=== PATIENT | female | born 1985 | race Caucasian/White ===

== ENCOUNTER 2017-11-08 11:43 | Observation (INO) | payer OTHER, SELFPAY ==
[2017-11-08 11:44] VITALS: BP 157/93; PULSE 92; RESP 16; TEMP 36.6; O2SAT 98; BMI 24.7
[2017-11-08 12:18] LABS: Absolute Lymphocyte Count 1.38 X10^3/ul (0.83-4.51); Absolute Neutrophil Count 19.8 X10^3/uL (2.0-7.7); Basophil# 0.04 X10^3/uL; Basophil% 0.2 % (0-1); Eosinophil# 0.18 X10^3/uL; Eosinophils% 0.8 % (0-5); Hematocrit 40.8 % (37-47); Hemoglobin 14.5 g/dl (12.0-15.0); Lymphocyte # 1.38 X10^3/ul (4.0); Lymphocyte % 6.2 % (19-41); Mean Corp Hgb Conc 35.5 g/gl (32-36); Mean Corpuscular Hgb 32.3 pg (27.0-32.0); Mean Corpuscular Volume 90.9 fL (81-99); Mean Platelet Vol. 10.1 fl (6.2-12.0); Monocyte% 3.6 % (0-10); Neutrophil # 19.82 X10^3/uL (2.7-7.7); Neutrophil % 88.8 % (47-70); Platelet Count 301 K/mm3 (150-450); RBC Distribution Width CV 12.4 % (11.6-14.6); RBC Distribution Width SD 40.5 fl (35.1-43.9); Red Blood Count 4.49 M/mm3 (4.2-5.4); White Blood Count 22.3 K/mm3 (4.4-11.0)
[2017-11-08 12:19] LABS: POSITIVE COUNT NO; POSITIVE DIFFERENTIAL NO; POSITIVE MORPHOLOGY NO
--- NOTE | 2017-11-08 12:20 | CT_ITS ---
STUDY: CT ABDOMEN AND PELVIS WITHOUT CONTRAST REASON FOR EXAM: Female, 32 years old. Right-sided abdominal pain, history of Crohn's RADIATION DOSAGE (If Supplied By Facility): CTDIvol = ( 6.78 ) mGy, DLP = ( 315.13 ) mGycm TECHNIQUE: Transaxial images were obtained from the dome of the diaphragm to the symphysis pubis without oral contrast, and without intravenous contrast. Sagittal and coronal images were reconstructed. Individualized dose optimization techniques were used for this CT. COMPARISON: None. FINDINGS: The study is technically limited, being performed without oral and intravenous contrast. Evaluation of hollow viscus is limited. The visualized lung bases are unremarkable. The visualized portions of the heart are within normal limits. Normal liver. Normal gallbladder and extrahepatic biliary system. Normal spleen. Normal pancreas. Normal bilateral adrenal glands. Normal right kidney. Normal left kidney. Normal visualized stomach. Normal small intestine. There is diffuse wall thickening of the ascending colon. There is non-visualization of the appendix. Normal abdominal aorta. Normal inferior vena cava. Normal retroperitoneum. Urinary bladder is empty. There is a small fat-containing umbilical hernia. Normal osseous structures. CT/Abdomen/Pelvis without Cont IMPRESSION: Limited study. Evaluation of bowel is limited with the absence of oral contrast. Diffuse wall thickening of the ascending colon compatible with Crohn's. Small fat-containing umbilical hernia. There is no evidence of free intra-abdominal or intrapelvic air or fluid. Electronically Signed: Neal Lizama MD at 13:21 EST , Service support ,
[2017-11-08] MEDS: 0.9% Normal Saline 1,000 ML 125 ML IV ×2 (12:27→18:26)
[2017-11-08] MEDS: Ondansetron 4 MG/2 ML Vial IV (12:27)
--- NOTE | 2017-11-08 12:28 | ED.VISSUMM ---
- ER Visit Summary Date of Service: 11/08/17 Chief Complaint: [] abdominal pain diarrhea history of Crohn's disease History of Present Illness: The patient is a 32 F [] reports since yesterday after having dinner she began having abdominal pain cramps diarrhea 4-6 bowel movements a day bloody generally Crohn's disease is stable, did not eat anything that could have made her ill, no antibiotics no fever no cough vomited once or twice, no history of hepatobiliary dysfunction started her menstrual period last night as well does not believe she is Physical Examination: [] She is in no distress she points to the epigastric area as the focus of her pain there is no rebound guarding organomegaly any part of the abdomen the pain is more subjective the lungs are clear heart tones are normal neck and head are unremarkable upper lower extremities are normal Test Results: [] Emergency Department Course and Treatment: [] Labs CT IV fluids patient's CT shows inflammation of the ascending colon consistent with Crohn's no other acute abnormalities that report the labs reveal white count 24,000 she is required multiple doses of morphine, I discussed all the above with her given her complaints the leukocytosis etc. I have asked the hospital see her further management disposition possible admission Treatment Plan: [] Disposition: [] Pending hospitalist evaluation Impression: [] Acute exacerbation of Crohn's disease with abdominal pain and diarrhea leukocytosis hospitalist evaluation underway This note was generated with [employer] dictation software. It may contain incorrect words, spelling, and punctuation that were not noted in review of the chart prior to signing ED Disposition - Plan for ED Patient: Chief Complaint: Abd Pain Referrals: [facility] Doctor,Out of [NON-STAFF] -
[2017-11-08 12:34] LABS: AST(SGOT) 12 U/L (15-37); Alanine Aminotransfer ALT/SGPT 25 U/L (12-78); Albumin, Serum 3.6 g/dL (3.4-5.0); Alkaline Phosphatase 39 U/L (45-117); Anion Gap 8 (5-15); BUN 14 mg/dL (7-18); BUN/Creat Ratio 16.7 RATIO (10-20); Bilirubin, Direct 0.13 mg/dL (0.00-0.30); Calcium,Total 8.2 mg/dL (8.5-10.1); Chloride 109 mmol/L (98-107); Creatinine, Serum 0.84 mg/dL (0.55-1.02); EST Glomerular Filtration Rate 83 mL/min (>60); Est Glom Filt Rate - Afr Amer 101 mL/min (>60); Estimated Creatinine Clearance 79.54 ml/min; Globulin 3.9 g/dL (2.2-4.2); Glucose 119 mg/dL (70-110); Lipase 179 U/L (73-393); Protein, Total 7.5 g/dL (6.4-8.2); Sodium Level 140 mmol/L (136-145)
[2017-11-08 12:37] LABS: Pregnancy, Serum, hCG Quali. NEGATIVE Negative (0-9 Nonpreg)
[2017-11-08 12:41] LABS: Mucous, Urine 0 SEEN /hpf (<or=2+); Red Blood Cells-Urine 0 SEEN /hpf (0-5)
[2017-11-08 12:42] LABS: Color, Urine Yellow (Yellow); Glucose, Dipstick Normal (Normal); Ketone-Dipstick 5 mg/dl (Negative); Leukocyte Esterase-Dipstick Negative /ul (Negative); Nitrite-Dipstick Negative (Negative); Occult Blood-Urine 50 /ul (Negative); Protein-Dipstick 15 mg/dl (Negative); Specific Gravity, Urine 1.025 (1.002-1.030); Urine Bilirubin Dipstick Negative (Negative); Urine Clarity Clear (Clear); Urine Urobilinogen Normal (Normal)
[2017-11-08 12:47] LABS: Bacteria 1+ /hpf (None Seen); Squamous Epithelial Cells - UA 0-5 SEEN /hpf (5-10); White Blood Cells 0-5 SEEN /hpf (0-5)
[2017-11-08 14:01] VITALS: PULSE 74; RESP 16
--- NOTE | 2017-11-08 15:47 | PCM.HP.STD ---
Problem List (1) Acute Crohn's disease Status: Acute (2) Crohn disease Status: Chronic (3) Hypothyroid Status: Chronic History of Present Illness Date of Admission: 11/08/17 Chief Complaint: abdominal pain. hematochezia. The patient is a 32 year old F w h/o Crohn's dz, presents with 1 day h/o abdominal pain, nausea, vomiting, stool frequency (w/o diarrhea) and mild hematochezia. Similar to prior episodes of Crohn's exacerbation, except the nausea and vomiting. Pt presented to ED and had a CT scan that showed ascending colon inflammation. Pt in ED rec'd morphine, zofran and IVF. The hospitalist service was asked to admit the pt because of the leukocytosis. Pt denies any recent abx usage. Has not taken meds for Crohn's ~ 1 year.[] Past Medical History Past Medical History (Chronic Problems): Chronic Problems Crohn disease (Chronic) Hypothyroid (Chronic) Allergies No Known Allergies Allergy (Verified 11/08/17 11:47) Home Medications: Ambulatory Orders Medication Instructions Recorded Levothyroxine [Synthroid] 75 mcg PO DAILY 11/08/17 Surgical History: - - umbilical hernia repair. 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 Denies: Fever Eyes: Denies: Blurred vision, Double vision HEENT: Denies: Head Aches, Sinus Congestion, Sinus Drainage Cardiovascular: Denies: Chest Pain, Palpitations Respiratory: Denies: Cough, Shortness of breath at rest, Sputum production Gastrointestinal: Reports: Abdominal Pain, Hematochezia, Nausea, Vomiting, - - hyperdefecation. Denies: Diarrhea Genitourinary: Denies: Dysuria, Hematuria Gynecological: Reports: - - LMP now Musculoskeletal: Denies: Joint Pain, Joint Tenderness Skin: Denies: Rash, Wounds Neurological: Denies: Numbness, Tingling, Focal weakness Psychiatric: Denies: Anxiety, Depression, Homicidal Ideations, Suicidal Ideations Endocrine: Denies: Change in Body Habitus, Heat/ Cold Intolerance Hematologic/ Lymphatic: Reports: Easy Bruising, Easy Bleeding. Denies: Hx of blood clot VTE Information - Inpt Only VTE Present on Admission: No VTE Mechan Device Prophylaxis: SCD's VTE Pharm Prophylaxis ordered?: No Reason prophylaxis not ordered:: Medical Contraindication Patient Problems: Active and Suspected Problems Acute Crohn's disease (Acute) - Physical Exam General: Alert, Cooperative, No apparent distress HEENT: Atraumatic, Normocephalic Oral: Moist Mucosa, No Gingival or Mucosal Lesions/ Ulcerations Neck: No Nodes, Thyroid Normal Size and Texture Lungs: Clear to auscultation, Normal air movement, No rhonchi, No wheeze Cardiovascular: Regular rate, Regular Rhythm, Normal S1, Normal S2, No murmurs Abdomen: Soft, Non-Distended, Hypoactive Bowel Sounds, Tender - slight generalized tenderness. Extremities: No edema, No Calf Tenderness Skin: No rashes, No breakdown Musculoskeletal: No Tenderness to Palpation of Joints or Extremities, No Muscle Wasting Lymphatic: No Cervical, Supraclavicular, or Inguinal Adenopathy, Cervical Adenopathy Neurological: Neuro grossly intact, Sensory exam intact to light touch and pain Psych/Mental Status: Normal Affect, Appropriate Vital Signs Temp Pulse Resp BP Pulse Ox 36.6 C 74 16 157/93 H 98 11/08/17 11:44 11/08/17 14:01 11/08/17 14:01 11/08/17 11:44 11/08/17 11:44 Oxygen Delivery Method Room Air Weight: 63.503 kg Body Mass Index (BMI) 24.7 Laboratory Tests Past 24 Hrs 11/08/17 11/08/17 11/08/17 12:10 12:10 12:10 WBC 22.3 H RBC 4.49 Hgb 14.5 Hct 40.8 MCV 90.9 MCH 32.3 H MCHC 35.5 RDW 12.4 RDW Differential 40.5 Plt Count 301 MPV 10.1 Immature Gran % (Auto) 0.400 Neut % (Auto) 88.8 H Lymph % (Auto) 6.2 L [place] % (Auto) 3.6 Eos % (Auto) 0.8 Baso % (Auto) 0.2 Absolute Neuts (auto) 19.8 H Absolute Lymphs (auto) 1.38 Total Counted Not Reportable Sodium 140 Potassium 4.0 Chloride 109 H Carbon Dioxide 23.0 Anion Gap 8 BUN 14 Creatinine 0.84 Estim Creat Clear Calc 79.54 Est GFR (MDRD) Af Amer 101 Est GFR (MDRD) Non-Af 83 BUN/Creatinine Ratio 16.7 Glucose 119 H Calcium 8.2 L Total Bilirubin 0.70 Direct Bilirubin 0.13 AST 12 L ALT 25 Alkaline Phosphatase 39 L Total Protein 7.5 Albumin 3.6 Globulin 3.9 Lipase 179 Serum , Qual NEGATIVE Urine Color Urine Clarity Urine pH Ur Specific [place] Urine Protein Urine Glucose (UA) Urine Ketones Urine Occult Blood Urine Nitrite Urine Bilirubin Urine Urobilinogen Ur Leukocyte Esterase Urine RBC Urine WBC Ur Squamous Epith Cells Urine Bacteria Urine Mucus 11/08/17 12:35 WBC RBC Hgb Hct MCV MCH MCHC RDW RDW Differential Plt Count MPV Immature Gran % (Auto) Neut % (Auto) Lymph % (Auto) [place] % (Auto) Eos % (Auto) Baso % (Auto) Absolute Neuts (auto) Absolute Lymphs (auto) Total Counted Sodium Potassium Chloride Carbon Dioxide Anion Gap BUN Creatinine Estim Creat Clear Calc Est GFR (MDRD) Af Amer Est GFR (MDRD) Non-Af BUN/Creatinine Ratio Glucose Calcium Total Bilirubin Direct Bilirubin AST ALT Alkaline Phosphatase Total Protein Albumin Globulin Lipase Serum , Qual Urine Color Yellow Urine Clarity Clear Urine pH 6.0 Ur Specific [place] 1.025 Urine Protein 15 H Urine Glucose (UA) Normal Urine Ketones 5 H Urine Occult Blood 50 H Urine Nitrite Negative Urine Bilirubin Negative Urine Urobilinogen Normal Ur Leukocyte Esterase Negative Urine RBC 0 SEEN Urine WBC 0-5 SEEN Ur Squamous Epith Cells 0-5 SEEN Urine Bacteria 1+ Urine Mucus 0 SEEN Assessment/Plan Active and Suspected Problems Acute Crohn's disease (Acute) 1. Acute Crohn's Exacerbation Start prednisone (no steroids initiated in ED). Pred 40 daily and for the next week. Then decrease by 5mg per week. Empiric abx w Cipro and Flagyl IVF, pain control. Pt was planning on getting reestablished with Dr. Johnston as outpt. Pt notified that GI coverage is spotty at best here, and that she will not see a tailercpa here. I told her she should be fine, but if she wished to be sent to facility w definite GI coverage, we could arrange for that. She expressed understanding and wished to stay here. I feel that is reasonable, as I feel her symptoms are mild to moderate. My concern for admitting her is her nausea and vomiting and making sure she can tolerate PO. Anticipated length of hospitalization 24-48h. 2. DVT proph: LMWH Pt's present during encounter. All questions answered. Code Visit Inpatient E&M: 25107 Init Hosp L3
--- NOTE | 2017-11-08 15:58 | HP.PCM_ITS ---
Problem List (1) Acute Crohn's disease Status: Acute (2) Crohn disease Status: Chronic (3) Hypothyroid Status: Chronic History of Present Illness Date of Admission: 11/08/17 Chief Complaint: abdominal pain. hematochezia. The patient is a 32 year old F w h/o Crohn's dz, presents with 1 day h/o abdominal pain, nausea, vomiting, stool frequency (w/o diarrhea) and mild hematochezia. Similar to prior episodes of Crohn's exacerbation, except the nausea and vomiting. Pt presented to ED and had a CT scan that showed ascending colon inflammation. Pt in ED rec'd morphine, zofran and IVF. The hospitalist service was asked to admit the pt because of the leukocytosis. Pt denies any recent abx usage. Has not taken meds for Crohn's ~ 1 year.[] Past Medical History Past Medical History (Chronic Problems): Chronic Problems Crohn disease (Chronic) Hypothyroid (Chronic) Allergies No Known Allergies Allergy (Verified 11/08/17 11:47) Home Medications: Ambulatory Orders Medication Instructions Recorded Levothyroxine [Synthroid] 75 mcg PO DAILY 11/08/17 Surgical History: - - umbilical hernia repair. 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 Denies: Fever Eyes: Denies: Blurred vision, Double vision HEENT: Denies: Head Aches, Sinus Congestion, Sinus Drainage Cardiovascular: Denies: Chest Pain, Palpitations Respiratory: Denies: Cough, Shortness of breath at rest, Sputum production Gastrointestinal: Reports: Abdominal Pain, Hematochezia, Nausea, Vomiting, - - hyperdefecation. Denies: Diarrhea Genitourinary: Denies: Dysuria, Hematuria Gynecological: Reports: - - LMP now Musculoskeletal: Denies: Joint Pain, Joint Tenderness Skin: Denies: Rash, Wounds Neurological: Denies: Numbness, Tingling, Focal weakness Psychiatric: Denies: Anxiety, Depression, Homicidal Ideations, Suicidal Ideations Endocrine: Denies: Change in Body Habitus, Heat/ Cold Intolerance Hematologic/ Lymphatic: Reports: Easy Bruising, Easy Bleeding. Denies: Hx of blood clot VTE Information - Inpt Only VTE Present on Admission: No VTE Mechan Device Prophylaxis: SCD's VTE Pharm Prophylaxis ordered?: No Reason prophylaxis not ordered:: Medical Contraindication Patient Problems: Active and Suspected Problems Acute Crohn's disease (Acute) - Physical Exam General: Alert, Cooperative, No apparent distress HEENT: Atraumatic, Normocephalic Oral: Moist Mucosa, No Gingival or Mucosal Lesions/ Ulcerations Neck: No Nodes, Thyroid Normal Size and Texture Lungs: Clear to auscultation, Normal air movement, No rhonchi, No wheeze Cardiovascular: Regular rate, Regular Rhythm, Normal S1, Normal S2, No murmurs Abdomen: Soft, Non-Distended, Hypoactive Bowel Sounds, Tender - slight generalized tenderness. Extremities: No edema, No Calf Tenderness Skin: No rashes, No breakdown Musculoskeletal: No Tenderness to Palpation of Joints or Extremities, No Muscle Wasting Lymphatic: No Cervical, Supraclavicular, or Inguinal Adenopathy, Cervical Adenopathy Neurological: Neuro grossly intact, Sensory exam intact to light touch and pain Psych/Mental Status: Normal Affect, Appropriate Vital Signs Temp Pulse Resp BP Pulse Ox 36.6 C 74 16 157/93 H 98 11/08/17 11:44 11/08/17 14:01 11/08/17 14:01 11/08/17 11:44 11/08/17 11:44 Oxygen Delivery Method Room Air Weight: 63.503 kg Body Mass Index (BMI) 24.7 Laboratory Tests Past 24 Hrs 11/08/17 11/08/17 11/08/17 12:10 12:10 12:10 WBC 22.3 H RBC 4.49 Hgb 14.5 Hct 40.8 MCV 90.9 MCH 32.3 H MCHC 35.5 RDW 12.4 RDW Differential 40.5 Plt Count 301 MPV 10.1 Immature Gran % (Auto) 0.400 Neut % (Auto) 88.8 H Lymph % (Auto) 6.2 L [place] % (Auto) 3.6 Eos % (Auto) 0.8 Baso % (Auto) 0.2 Absolute Neuts (auto) 19.8 H Absolute Lymphs (auto) 1.38 Total Counted Not Reportable Sodium 140 Potassium 4.0 Chloride 109 H Carbon Dioxide 23.0 Anion Gap 8 BUN 14 Creatinine 0.84 Estim Creat Clear Calc 79.54 Est GFR (MDRD) Af Amer 101 Est GFR (MDRD) Non-Af 83 BUN/Creatinine Ratio 16.7 Glucose 119 H Calcium 8.2 L Total Bilirubin 0.70 Direct Bilirubin 0.13 AST 12 L ALT 25 Alkaline Phosphatase 39 L Total Protein 7.5 Albumin 3.6 Globulin 3.9 Lipase 179 Serum , Qual NEGATIVE Urine Color Urine Clarity Urine pH Ur Specific [place] Urine Protein Urine Glucose (UA) Urine Ketones Urine Occult Blood Urine Nitrite Urine Bilirubin Urine Urobilinogen Ur Leukocyte Esterase Urine RBC Urine WBC Ur Squamous Epith Cells Urine Bacteria Urine Mucus 11/08/17 12:35 WBC RBC Hgb Hct MCV MCH MCHC RDW RDW Differential Plt Count MPV Immature Gran % (Auto) Neut % (Auto) Lymph % (Auto) [place] % (Auto) Eos % (Auto) Baso % (Auto) Absolute Neuts (auto) Absolute Lymphs (auto) Total Counted Sodium Potassium Chloride Carbon Dioxide Anion Gap BUN Creatinine Estim Creat Clear Calc Est GFR (MDRD) Af Amer Est GFR (MDRD) Non-Af BUN/Creatinine Ratio Glucose Calcium Total Bilirubin Direct Bilirubin AST ALT Alkaline Phosphatase Total Protein Albumin Globulin Lipase Serum , Qual Urine Color Yellow Urine Clarity Clear Urine pH 6.0 Ur Specific [place] 1.025 Urine Protein 15 H Urine Glucose (UA) Normal Urine Ketones 5 H Urine Occult Blood 50 H Urine Nitrite Negative Urine Bilirubin Negative Urine Urobilinogen Normal Ur Leukocyte Esterase Negative Urine RBC 0 SEEN Urine WBC 0-5 SEEN Ur Squamous Epith Cells 0-5 SEEN Urine Bacteria 1+ Urine Mucus 0 SEEN Assessment/Plan Active and Suspected Problems Acute Crohn's disease (Acute) 1. Acute Crohn's Exacerbation * Start prednisone (no steroids initiated in ED). Pred 40 daily and for the next week. Then decrease by 5mg per week. * Empiric abx w Cipro and Flagyl * IVF, pain control. * Pt was planning on getting reestablished with Dr. Johnston as outpt. 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 I told her she should be fine, but if she wished to be sent to facility w definite GI coverage, we could arrange for that. She expressed understanding and wished to stay here. I feel that is reasonable, as I feel her symptoms are mild to moderate. My concern for admitting her is her nausea and vomiting and making sure she can tolerate PO. * Anticipated length of hospitalization 24-48h. 2. DVT proph: LMWH Pt's present during encounter. All questions answered. Code Visit Inpatient E&M: 94205 Init Hosp L3
[2017-11-08] MEDS: HYDROmorphone 1 MG/ML Syringe 0.5 MG IV (16:02)
[2017-11-08 16:03] VITALS: BP 118/81; PULSE 78; RESP 14
[2017-11-08 17:13] VITALS: BMI 27.1
[2017-11-08 17:23] VITALS: BP 112/71; PULSE 92; RESP 16; TEMP 36.6; O2SAT 98
[2017-11-08] MEDS: HYDROmorphone 1 MG/ML Syringe IV (18:26)
--- NOTE | 2017-11-08 19:43 | NURSING ---
Rounded with Liya COTE.
[2017-11-08 19:58] VITALS: BP 118/80; PULSE 95; RESP 20; TEMP 36.6; O2SAT 95
[2017-11-08 20:14] VITALS: PULSE 88
[2017-11-08] MEDS: Ciprofloxacin 400 MG/200 ML BAG 200 MG IV (20:24)
[2017-11-09 02:16] VITALS: BP 121/84; PULSE 90; RESP 16; TEMP 37.1; O2SAT 97
[2017-11-09] MEDS: HYDROmorphone 1 MG/ML Syringe IV (02:38)
[2017-11-09] MEDS: Levothyroxine 75 MCG Tablet PO (05:50)
[2017-11-09 06:38] LABS: Absolute Lymphocyte Count 0.63 X10^3/ul (0.83-4.51); Basophil# 0.01 X10^3/uL; Basophil% 0.1 % (0-1); Hematocrit 39.6 % (37-47); Hemoglobin 13.6 g/dl (12.0-15.0); Lymphocyte # 0.63 X10^3/ul (4.0); Lymphocyte % 3.4 % (19-41); Mean Corp Hgb Conc 34.3 g/gl (32-36); Mean Corpuscular Hgb 31.6 pg (27.0-32.0); Mean Corpuscular Volume 91.9 fL (81-99); Mean Platelet Vol. 10.5 fl (6.2-12.0); Monocyte# 0.15 X10^3/uL; Monocyte% 0.8 % (0-10); Neutrophil # 17.95 X10^3/uL (2.7-7.7); Neutrophil % 95.5 % (47-70); Platelet Count 288 K/mm3 (150-450); RBC Distribution Width CV 12.6 % (11.6-14.6); RBC Distribution Width SD 41.4 fl (35.1-43.9); Red Blood Count 4.31 M/mm3 (4.2-5.4); White Blood Count 18.8 K/mm3 (4.4-11.0)
[2017-11-09 06:52] LABS: Anion Gap 9 (5-15); BUN 9 mg/dL (7-18); BUN/Creat Ratio 14.1 RATIO (10-20); Calcium,Total 7.6 mg/dL (8.5-10.1); Chloride 105 mmol/L (98-107); Creatinine, Serum 0.64 mg/dL (0.55-1.02); EST Glomerular Filtration Rate 115 mL/min (>60); Est Glom Filt Rate - Afr Amer 139 mL/min (>60); Estimated Creatinine Clearance 104.39 ml/min; Glucose 132 mg/dL (70-110); Potassium 3.9 mmol/L (3.5-5.1); Sodium Level 136 mmol/L (136-145)
[2017-11-09 07:26] LABS: POSITIVE COUNT NO; POSITIVE DIFFERENTIAL NO; POSITIVE MORPHOLOGY NO
[2017-11-09 08:10] VITALS: BP 100/56; PULSE 98; RESP 18; TEMP 36.9; O2SAT 95
[2017-11-09] MEDS: Ciprofloxacin 400 MG/200 ML BAG 200 MG IV (09:16)
[2017-11-09] MEDS: 0.9% NaCl IVPB Med Flush (250 mL) 15 ML IV (09:19)
--- NOTE | 2017-11-09 10:30 | CASEMGMT ---
KERA HERRERA Face to Face with patient for initial transition planning/care coordination assessment. KERA HERRERA introduced self and role at [facility]. Patient sitting in chair, alert and oriented. Patient willing to participate in assessment and is able to answer all questions appropriately. Care providers, pharmacy, and demographics verified. Patient wishes to discharge home, denies need for home health at this time. Patient states she lives with her significant other who can provide transportation. Patient states she has no further needs or concerns at this time. CM to follow for discharge planning needs that may arise. Disposition Plan: Patient to discharge home with family support and follow-up plans in place.
--- NOTE | 2017-11-09 10:50 | PCM.PN.HOSP ---
Subjective: Patient with no acute events overnight per self and per nursing report. Patient notes marked improvement in abdominal discomfort, no nausea, emesis or diarrhea, tolerating clear liquids and advancement to full liquids without market issue. She does note still some abdominal discomfort but this is markedly improved since initial presentation. Patient has remained afebrile and tolerated the Cipro and IV Flagyl. He notes plan to follow-up with Dr. Johnston outpatient and has recently just established with him. Per discussion with patient she is eager for discharge to home and amenable to continuing therapies upon discharge. Patient denies fevers, chills, nausea, emesis, worsened or recurrent severe abdominal pain, chest pain or dyspnea. Objective: Physical Examination: General: awake, alert, oriented x 3 and cooperative, seated upright in bed in no apparent distress. Skin: normal color, turgor, no icterus, cyanosis. HEENT: AT/NC, EOMI, PERRLA, improved less dry MM. Lungs: CTA bilaterally, moderate effort, mild decrease BL bases, no rales, ronchi or wheezing. Heart: Regular rate and rhythm; no gallop, rub audible. Abdomen: soft, mild generalized discomfort, no guarding or rebound, notably improved she notes, ND, mildly hyperactive BS. Extremities: no cyanosis, clubbing, or edema. Neurological: patient awake, alert, oriented x 3; cognitive function intact; pupils equally reactive to light and accomodation; cranial nerves II-XII grossly normal, moving all 4 extremities, no focal deficits, strength moderately globally decreased. Psychiatric: affect appears normal, no acute evidence of depressive or anxiety feelings. Vitals/I&O's: Vital Signs Temp Pulse Resp BP Pulse Ox 98.4 F 98 18 100/56 L 95 11/09/17 08:10 11/09/17 08:10 11/09/17 08:10 11/09/17 08:10 11/09/17 08:10 Oxygen Delivery Method Room Air Weight: 153 lb 0.013 oz Body Mass Index (BMI) 27.1 Intake and Output for Last 24 Hours 11/07/17 11/08/17 11/09/17 23:59 23:59 23:59 Intake Total 839 / 839 1516 / 1516 Output Total 600 / 600 350 / 350 Balance 239 / 239 1166 / 1166 Laboratory Results 11/09/17 06:08: WBC 18.8 H, RBC 4.31, Hgb 13.6, Hct 39.6, MCV 91.9, MCH 31.6, MCHC 34.3, RDW 12.6, RDW Differential 41.4, Plt Count 288, MPV 10.5, Immature Gran % (Auto) 0.200, Neut % (Auto) 95.5 H, Lymph % (Auto) 3.4 L, [place] % (Auto) 0.8, Eos % (Auto) 0.0, Baso % (Auto) 0.1, Absolute Neuts (auto) 18.0 H, Absolute Lymphs (auto) 0.63 L, Total Counted Not Reportable 11/09/17 06:08: Sodium 136, Potassium 3.9, Chloride 105, Carbon Dioxide 22.0, Anion Gap 9, BUN 9, Creatinine 0.64, Estim Creat Clear Calc 104.39, Est GFR (MDRD) Af Amer 139, Est GFR (MDRD) Non-Af 115, BUN/Creatinine Ratio 14.1, Glucose 132 H, Calcium 7.6 L Current Medications Hydromorphone HCl (Dilaudid) 1 mg IV Q4H PRN PRN PRN Reason: SEVERE PAIN (6-10/10) Last Admin: 11/09/17 02:38 Dose: 1 mg Ciprofloxacin (Cipro) 400 mg in 200 mls @ 200 mls/hr IV Q12 [facility] Last Admin: 11/09/17 09:16 Dose: 200 mls/hr Metronidazole (Flagyl) 500 mg in 100 mls @ 100 mls/hr IV Q8 [facility] Last Admin: 11/09/17 05:50 Dose: 100 mls/hr Sodium Chloride () 250 mls @ 15 mls/hr IV .[id number] PRN PRN Reason: SALINE FLUSH Last Admin: 11/09/17 09:19 Dose: 15 mls/hr Levothyroxine Sodium (Synthroid) 75 mcg PO DAILY@0600 [facility] Last Admin: 11/09/17 05:50 Dose: 75 mcg Magnesium Hydroxide (Milk Of Magnesia) 30 ml PO DAILY PRN PRN PRN Reason: Constipation Ondansetron HCl (Zofran) 4 mg IV Q8H PRN PRN PRN Reason: NAUSEA/VOMITING Prednisone (Prednisone) 40 mg PO DAILY@0800 [facility] Last Admin: 11/09/17 08:20 Dose: 40 mg Sodium Chloride () 5 - 30 ml IV UD PRN PRN Reason: SALINE FLUSH Assessment/Plan The patient is a 32 y/o F w/ PMHx: Crohn's Disease, Hypothyroidism, Overweight who presents to the [facility] ED on 11/08/17 w/ history of ongoing abdominal pain, nausea, emesis, increased stool frequency with loose stools and mild hematochezia x 24 hours, similar to prior exacerbation presentations. (1) N/V/D, secondary to Mild to Moderate Acute Crohn's Exacerbation: CT A/P w/ bowel limited secondary to absence of oral contrast, diffuse wall thickening of the ascending colon compatible with Crohn's, small fat-containing umbilical hernia, no evidence of free intra-abdominal or intrapelvic air or fluid. Admission CBC w/ WBC 22.3 with L shift-->11/09/17 CBC w/ WBC 18.8 w/ L shift, BMP w/ no marked findings. Admitted to [place], continued hydration, trended CBC, maintained on IV cipro and flagyl regimen w/ oral transition upon discharge, maintain on prednisone regimen w/ taper decrease by 5 mg per week with outpatient GI follow-up, transition as tolerated from clears to full liquids which was tolerated with recommendation upon discharge to continue 1-2 days and thereafter regular diet as tolerated. (2) Hypothyroidism: Continue home synthroid regimen. (3) Overweight: Diet and lifestyle changes encouraged. (4) DVT Prophylaxis: SCDs, low risk, ambulation.
--- NOTE | 2017-11-09 10:57 | PN_ITS ---
Subjective: Patient with no acute events overnight per self and per nursing report. Patient notes marked improvement in abdominal discomfort, no nausea, emesis or diarrhea, tolerating clear liquids and advancement to full liquids without market issue. She does note still some abdominal discomfort but this is markedly improved since initial presentation. Patient has remained afebrile and tolerated the Cipro and IV Flagyl. He notes plan to follow-up with Dr. Johnston outpatient and has recently just established with him. Per discussion with patient she is eager for discharge to home and amenable to continuing therapies upon discharge. Patient denies fevers, chills, nausea, emesis, worsened or recurrent severe abdominal pain, chest pain or dyspnea. Objective: Physical Examination: General: awake, alert, oriented x 3 and cooperative, seated upright in bed in no apparent distress. Skin: normal color, turgor, no icterus, cyanosis. HEENT: AT/NC, EOMI, PERRLA, improved less dry MM. Lungs: CTA bilaterally, moderate effort, mild decrease BL bases, no rales, ronchi or wheezing. Heart: Regular rate and rhythm; no gallop, rub audible. Abdomen: soft, mild generalized discomfort, no guarding or rebound, notably improved she notes, ND, mildly hyperactive BS. Extremities: no cyanosis, clubbing, or edema. Neurological: patient awake, alert, oriented x 3; cognitive function intact; pupils equally reactive to light and accomodation; cranial nerves II-XII grossly normal, moving all 4 extremities, no focal deficits, strength moderately globally decreased. Psychiatric: affect appears normal, no acute evidence of depressive or anxiety feelings. Vitals/I&O's: Vital Signs Temp Pulse Resp BP Pulse Ox 98.4 F 98 18 100/56 L 95 11/09/17 08:10 11/09/17 08:10 11/09/17 08:10 11/09/17 08:10 11/09/17 08:10 Oxygen Delivery Method Room Air Weight: 153 lb 0.013 oz Body Mass Index (BMI) 27.1 Intake and Output for Last 24 Hours 11/07/17 11/08/17 11/09/17 23:59 23:59 23:59 Intake Total 839 / 839 1516 / 1516 Output Total 600 / 600 350 / 350 Balance 239 / 239 1166 / 1166 Laboratory Results 11/09/17 06:08: WBC 18.8 H, RBC 4.31, Hgb 13.6, Hct 39.6, MCV 91.9, MCH 31.6, MCHC 34.3, RDW 12.6, RDW Differential 41.4, Plt Count 288, MPV 10.5, Immature Gran % (Auto) 0.200, Neut % (Auto) 95.5 H, Lymph % (Auto) 3.4 L, [place] % (Auto) 0.8, Eos % (Auto) 0.0, Baso % (Auto) 0.1, Absolute Neuts (auto) 18.0 H, Absolute Lymphs (auto) 0.63 L, Total Counted Not Reportable 11/09/17 06:08: Sodium 136, Potassium 3.9, Chloride 105, Carbon Dioxide 22.0, Anion Gap 9, BUN 9, Creatinine 0.64, Estim Creat Clear Calc 104.39, Est GFR ( MDRD) Af Amer 139, Est GFR (MDRD) Non-Af 115, BUN/Creatinine Ratio 14.1, Glucose 132 H, Calcium 7.6 L Current Medications Hydromorphone HCl (Dilaudid) 1 mg IV Q4H PRN PRN PRN Reason: SEVERE PAIN (6-10/10) Last Admin: 11/09/17 02:38 Dose: 1 mg Ciprofloxacin (Cipro) 400 mg in 200 mls @ 200 mls/hr IV Q12 [facility] Last Admin: 11/09/17 09:16 Dose: 200 mls/hr Metronidazole (Flagyl) 500 mg in 100 mls @ 100 mls/hr IV Q8 [facility] Last Admin: 11/09/17 05:50 Dose: 100 mls/hr Sodium Chloride () 250 mls @ 15 mls/hr IV .[id number] PRN PRN Reason: SALINE FLUSH Last Admin: 11/09/17 09:19 Dose: 15 mls/hr Levothyroxine Sodium (Synthroid) 75 mcg PO DAILY@0600 [facility] Last Admin: 11/09/17 05:50 Dose: 75 mcg Magnesium Hydroxide (Milk Of Magnesia) 30 ml PO DAILY PRN PRN PRN Reason: Constipation Ondansetron HCl (Zofran) 4 mg IV Q8H PRN PRN PRN Reason: NAUSEA/VOMITING Prednisone (Prednisone) 40 mg PO DAILY@0800 [facility] Last Admin: 11/09/17 08:20 Dose: 40 mg Sodium Chloride () 5 - 30 ml IV UD PRN PRN Reason: SALINE FLUSH Assessment/Plan The patient is a 32 y/o F w/ PMHx: Crohn's Disease, Hypothyroidism, Overweight who presents to the [facility] ED on 11/08/17 w/ history of ongoing abdominal pain, nausea, emesis, increased stool frequency with loose stools and mild hematochezia x 24 hours, similar to prior exacerbation presentations. (1) N/V/D, secondary to Mild to Moderate Acute Crohn's Exacerbation: CT A/P w/ bowel limited secondary to absence of oral contrast, diffuse wall thickening of the ascending colon compatible with Crohn's, small fat-containing umbilical hernia, no evidence of free intra-abdominal or intrapelvic air or fluid. Admission CBC w/ WBC 22.3 with L shift-->11/09/17 CBC w/ WBC 18.8 w/ L shift, BMP w/ no marked findings. Admitted to [place], continued hydration, trended CBC, maintained on IV cipro and flagyl regimen w/ oral transition upon discharge, maintain on prednisone regimen w/ taper decrease by 5 mg per week with outpatient GI follow-up, transition as tolerated from clears to full liquids which was tolerated with recommendation upon discharge to continue 1-2 days and thereafter regular diet as tolerated. (2) Hypothyroidism: Continue home synthroid regimen. (3) Overweight: Diet and lifestyle changes encouraged. (4) DVT Prophylaxis: SCDs, low risk, ambulation.
[2017-11-09 13:07] VITALS: BP 102/70; PULSE 97; RESP 18; TEMP 37.2; O2SAT 96
--- NOTE | 2017-11-09 13:29 | PCM.DC ---
- Discharge Diagnoses Current Active Problems: Current Active and Chronic Problems Acute Crohn's disease (Acute) Crohn disease (Chronic) Hypothyroid (Chronic) You will use the following diet at home:: Full liquid - Continue full liquid diet for the next 1-2 days and slowly transition to regular diet. Your food should be the consistency of: Regular Your liquids should be the consistency of: Regular/Thin Discharge Activity: - - Avoid aggressive activity until resolution of current flare. May resume sexual activity in: 10-14 days Weight Bearing Status: Weight bearing as tolerated Call your doctor if you observe: Fever of 101 or Higher, Inability to urinate, Inability to have a bowel movement, Shortness of breath, Dizziness, Fainting spells, Chest pain, Uncontrolled pain Instructions: What is Crohn's Disease?, Discharge Instructions for Crohn's Disease, Lifestyle Management of Crohn's Disease, Management of Crohn's Disease: Medications Allergies/Adverse Reactions: Allergies No Known Allergies Allergy (Verified 11/08/17 11:47) Medications to take at Discharge Levothyroxine [Synthroid] 75 mcg PO DAILY 11/08/17 Norethindrone-E.estradiol-Iron [[place] 1 mg-20 Mcg Capsule] 1 each PO DAILY 11/08/17 Ciprofloxacin [Cipro] 500 mg PO BID 12 Days tab 11/09/17 Hydrocodone Bitart/Apap 5-325 [[place] 5/325] 1 - 2 tab PO Q6H PRN PRN #20 tab 11/09/17 Metronidazole [Flagyl] 500 mg PO Q8H 12 Days tab 11/09/17 Ondansetron [Zofran] 8 mg PO Q8H PRN PRN #20 tab 11/09/17 Prednisone 10 mg PO UD 56 Days tab 11/09/17 The following prescriptions were given: Hydrocodone Bitart/Apap 5-325 [[place] 5/325] 1 - 2 tab PO Q6H PRN PRN #20 tab PRN Reason: Moderate-severe pain Ondansetron [Zofran] 8 mg PO Q8H PRN PRN #20 tab PRN Reason: nausea, emesis Metronidazole [Flagyl] 500 mg PO Q8H 12 Days tab Prednisone 10 mg PO UD 56 Days tab Ciprofloxacin [Cipro] 500 mg PO BID 12 Days tab Primary Care Physician: [facility] Doctor,Out of [NON-STAFF] - Please follow up with your Primary Care Physician in: Follow-up within 3-5 days to review admission. Please Follow Up With: Jacob Johnston MD When: Please follow-up with Preston within 3-5 days to review admission. Proposed Discharge Date: 11/09/17
--- NOTE | 2017-11-09 13:32 | DS.PCM_ITS ---
Discharge Date and Diagnosis Date of Admission: 11/08/17 Date of Discharge: 11/09/17 - Primary Discharge Diagnosis Active and Suspected Problems Mild to Moderate Acute Crohn's Exacerbation Hypothyroidism Overweight - Secondary Discharge Diagnosis Chronic Problems Crohn disease (Chronic) Hypothyroid (Chronic) Hospital Course and Treatment Operations: None Procedures: None Summary of Care Provided: The patient is a 32 y/o F w/ PMHx: Crohn's Disease, Hypothyroidism, Overweight who presented to the [facility] ED on 11/08/17 w/ history of ongoing abdominal pain, nausea, emesis, increased stool frequency with loose stools and mild hematochezia x 24 hours, similar to prior exacerbation presentations. Following ED evaluation, patient admitted w/ Mild to Moderate Acute Crohn's Exacerbation w / ED CT A/P w/ bowel limited secondary to absence of oral contrast, diffuse wall thickening of the ascending colon compatible with Crohn's, small fat- containing umbilical hernia, no evidence of free intra-abdominal or intrapelvic air or fluid. Admission CBC w/ WBC 22.3 with L shift-->11/09/17 CBC w/ WBC 18.8 w / L shift, BMP w/ no marked findings. Admitted to [place], continued hydration, trended CBC, maintained on IV cipro and flagyl regimen w/ oral transition upon discharge, maintain on prednisone regimen w/ taper decrease by 5 mg per week with outpatient GI follow-up, transition as tolerated from clears to full liquids which was tolerated with recommendation upon discharge to continue 1-2 days and thereafter regular diet as tolerated. Patient discharged to home in stable condition with recommended PCP as well as Dr. Johnston follow-up w/ rx cipro, flagyl, steroid taper, short duration norco as well as PRN zofran regimen. Discharge Activity: - - Avoid aggressive activity until resolution of current flare. May resume sexual activity in: 10-14 days Weight Bearing Status: Weight bearing as tolerated Call your doctor if you observe: Fever of 101 or Higher, Inability to urinate, Inability to have a bowel movement, Shortness of breath, Dizziness, Fainting spells, Chest pain, Uncontrolled pain Home Medications: Medications to take at Discharge Levothyroxine [Synthroid] 75 mcg PO DAILY 11/08/17 Norethindrone-E.estradiol-Iron [[place] 1 mg-20 Mcg Capsule] 1 each PO DAILY Ciprofloxacin [Cipro] 500 mg PO BID 12 Days tab 11/09/17 Hydrocodone Bitart/Apap 5-325 [[place] 5/325] 1 - 2 tab PO Q6H PRN PRN #20 tab Metronidazole [Flagyl] 500 mg PO Q8H 12 Days tab 11/09/17 Ondansetron [Zofran] 8 mg PO Q8H PRN PRN #20 tab 11/09/17 Prednisone 10 mg PO UD 56 Days tab 11/09/17 Following Prescrptions Were Given to Patient: Hydrocodone Bitart/Apap 5-325 [[place] 5/325] 1 - 2 tab PO Q6H PRN PRN #20 tab PRN Reason: Moderate-severe pain Ondansetron [Zofran] 8 mg PO Q8H PRN PRN #20 tab PRN Reason: nausea, emesis Metronidazole [Flagyl] 500 mg PO Q8H 12 Days tab Prednisone 10 mg PO UD 56 Days tab Ciprofloxacin [Cipro] 500 mg PO BID 12 Days tab Primary Care Physician: [facility] Doctor,Out of [NON-STAFF] - Please follow up with your Primary Care Physician in: Follow-up within 3-5 days to review admission. Please Follow Up With: Jacob Johnston MD When: Please follow-up with Preston within 3-5 days to review admission. Patient Instructions: What is Crohn's Disease?, Discharge Instructions for Crohn's Disease, Lifestyle Management of Crohn's Disease, Management of Crohn's Disease: Medications Disposition: Home Minutes spent on discharge:: 35 Patient Condition:: Fair Meaningful Use Info Meaningful Use Diagnoses (Choose all that apply): None applicable Code Visit Inpatient E&M: 70229 Disch Hosp
== END 2017-11-09 14:23 | disposition home or self-care (01) | DRG 387 ==
LOC: ED 13:11 → MS3 17:17
PROVIDERS: Emergency Provider Emergency Medicine; Family Provider Internal Medicine; PCP Internal Medicine; Visit Provider Family Medicine
DX: K50.911 Crohn's disease, unspecified, with rectal bleeding (principal); E03.9 Hypothyroidism, unspecified; K42.9 Umbilical hernia without obstruction or gangrene; E66.3 Overweight; Z87.891 Personal history of nicotine dependence; Z68.24 Body mass index [BMI] 24.0-24.9, adult
CPT/HCPCS: 36415; 74176; 80048; 80076; 81001; 83690; 84703; 85025; 96361; 96365; 96366; 96375; 96376; 99218; 99282; J7030; J7050; A4216; G0378; J0744; J2405

== ENCOUNTER → 2018-12-08 14:39 | Outpatient (CLI) | payer SELFPAY ==
[2017-11-08 17:13] VITALS: BMI 27.1
[2018-12-12 09:40] LABS: HPV Reflexed? NOT INDICATED
== END ==
PROVIDERS: Visit Provider Obstetrics & Gynecology
DX: Z12.4 Encounter for screening for malignant neoplasm of cervix (principal)
CPT/HCPCS: 88175; G0145

== ENCOUNTER → 2019-11-14 14:09 | Outpatient (CLI) | payer OTHER, SELFPAY ==
--- NOTE | 2019-11-14 14:15 | VDLE_ITS ---
Reason For Study: Rt leg pain RIGHT LEFT GSV is normal. CFV is compressible, spontaneous, phasic, CFV is compressible, spontaneous, phasic, competent, and demonstrates normal competent and demonstrates normal augmentation. augmentation. FV is compressible, spontaneous, phasic, competent and demonstrates normal augmentation. POP V is compressible, spontaneous, phasic, competent and demonstrates normal augmentation. T/P Trunk is compressible. PTV is compressible. RT PerV is compressible. Procedure Exam performed in department. A preliminary report was called and/or faxed to [facility]. Interpretation Summary Deep veins of the right lower extremity are patent and compressible segmentally. There is no evidence of right lower extremity deep vein thrombosis. Valvular competence appears intact within the proximal deep venous system on the right . The right great saphenous vein appears patent and compressible segmentally. Ordering Physician: Isra Cool Referring Physician: Avani Jalloh Performed By: June Herrmann RVT
== END ==
PROVIDERS: PCP Family Medicine; Referring Provider Family Medicine; Visit Provider Family Medicine
DX: M79.661 Pain in right lower leg (principal)
CPT/HCPCS: 93971

== ENCOUNTER → 2020-04-19 14:04 | Outpatient (CLI) | payer OTHER, SELFPAY | PROVIDERS: PCP Family Medicine; Visit Provider Family Medicine | DX: J02.9 Acute pharyngitis, unspecified (principal) | CPT/HCPCS: 87070 ==

== ENCOUNTER → 2020-05-22 15:32 | Outpatient (CLI) | payer OTHER, SELFPAY ==
[2020-05-22 17:33] LABS: Thyroid Stim Hormone (TSH) 2.34 uIU/mL (0.358-3.74)
== END ==
PROVIDERS: PCP Family Medicine; Visit Provider Family Medicine
DX: E06.3 Autoimmune thyroiditis (principal); E03.8 Other specified hypothyroidism
CPT/HCPCS: 36415; 84443

== ENCOUNTER → 2022-10-02 | Outpatient (CLI) | payer OTHER, SELFPAY ==
--- NOTE | 2022-10-02 10:27 | RAD_ITS ---
INDICATION: Localized enlarged lymph nodes EXAMINATION/TECHNIQUE: X-RAY - XR Chest 2 Views COMPARISON: None. FINDINGS: LINES/DEVICES: None. LUNGS: No consolidation, edema or effusion. No pneumothorax. MEDIASTINUM AND CARDIOVASCULAR STRUCTURES: Cardiac silhouette not enlarged. Central airways and mediastinal contour are unremarkable. BONES AND SOFT TISSUES: Unremarkable. RAD/Chest PA and Lateral IMPRESSION: No radiographic evidence of acute cardiopulmonary disease. Electronically Signed: Medardo Marcial DO at 23:35 EST ,
[2022-10-02 12:37] LABS: T4 Free Direct 1.37 ng/dL (0.76-1.46); Thyroid Stim Hormone (TSH) 0.13 uIU/mL (0.358-3.74)
== END | disposition home or self-care (01) ==
PROVIDERS: PCP Family Medicine; Referring Provider Family Medicine; Visit Provider Family Medicine
DX: R59.0 Localized enlarged lymph nodes (principal); E03.9 Hypothyroidism, unspecified
CPT/HCPCS: 36415; 71046; 84439; 84443

== ENCOUNTER → 2022-10-08 | Outpatient (CLI) | payer OTHER, SELFPAY ==
--- NOTE | 2022-10-08 16:51 | US_ITS ---
STUDY: NECK ULTRASOUND REASON FOR EXAM: Female, 37 years old. Lump inferior to ear LYMPH NODE TECHNIQUE: Ultrasound evaluation of the neck in the area of interest was performed with real-time and static kaufman-scale imaging. COMPARISON: None. FINDINGS: LEFT: There are hypoechoic masses compatible with lymph nodes, corresponding to the region of interest including measuring 2.2 x 0.7 cm and 0.6 x 0.4 cm. There is no fluid collection. US/Head/Neck Soft Tissue IMPRESSION: Hypoechoic masses compatible with lymph nodes, corresponding to the region of interest. Electronically Signed: Archie Melara MD at 18:20 EST ,
== END | disposition home or self-care (01) ==
LOC: US 16:49
PROVIDERS: PCP Family Medicine; Referring Provider Family Medicine; Visit Provider Family Medicine
DX: R59.0 Localized enlarged lymph nodes (principal)
CPT/HCPCS: 76536

== ENCOUNTER → 2022-10-27 | Outpatient (CLI) | payer OTHER, SELFPAY ==
--- NOTE | 2022-10-27 | ASPOS_PTH ---
PATIENT: TEETEE ZULUAGA LOC: [facility] U#:[id number] AGE/SX: 37/F ROOM: RE10/27/[address]: Dr. Andrew Villarreal MD : 1985 BED: DIS: 10/27/2022 SPEC #: [id number] RECD: 10/27/22 11:21 STATUS: MYCHAL ABREU #: [id number] SHAJI: 10/27/22 00:[address]: Andrew Villarreal DEPT: CYTOLOGY RECD BY: Agusto Porter ENTERED: 10/27/22 11:21 SP TYPE: ASP HERE OTHR DR: Dr. Avani Jalloh MD Tissues: Neck, NOS Procedures: Surgery Specimen Level IV Cytology Other Fine Needle Asp on Site HEADER OPERATION: Fine needle aspiration, left upper neck mass PRE-OP DIAGNOSIS: Left upper neck mass TISSUE SUBMITTED: Fine needle aspiration left upper neck mass DIAGNOSIS CYTOLOGY Fine needle aspiration, left upper neck mass (smears and cell block): Benign salivary gland tissue. Minimal chronic inflammation. AM:laith 10/28/2022 COMMENT The specimen is evaluated at the time of FNA by Dr. Dominguez. Immediate Evaluation = Benign salivary gland tissue. Mild chronic inflammation. CYTOLOGY STUDY Slides are reviewed. CYTOLOGY GROSS Received is 0.25 ml of reddish labeled with the patient's name, and designated left upper neck mass. Four imprints and two paps are made from the submitted fluid and the rest is added to CytoLyt for cell block preparation. Submitted for cytology study. / AM:laith 10/27/2022 TC:3 CPT: 63809, 17672, 97232, 02095
== END | disposition home or self-care (01) ==
LOC: LAB 09:13
PROVIDERS: PCP Family Medicine; Referring Provider Otolaryngology; Visit Provider Otolaryngology
DX: R22.1 Localized swelling, mass and lump, neck (principal)
CPT/HCPCS: 10021; 88161; 88305

== ENCOUNTER → 2023-03-26 | Outpatient (CLI) | payer OTHER, SELFPAY ==
--- NOTE | 2023-03-26 11:01 | RAD_ITS ---
STUDY: X-RAY - LEFT WRIST REASON FOR EXAM: Female, 37 years old. PAIN TECHNIQUE: 3 view(s) of the wrist were obtained. COMPARISON: None. FINDINGS: Normal visualized distal radius and ulna. Normal radiocarpal articulation. Normal distal radioulnar articulation. Normal carpal bones. Normal carpal articulations. Normal carpometacarpal articulation of the thumb. Normal second through fifth carpometacarpal articulations. Normal visualized metacarpal bones. The soft tissue structures are unremarkable. There is no demonstrated acute fracture. RAD/Wrist min 3 Views IMPRESSION: Normal x-ray examination of the wrist. Electronically Signed: Archie Melara MD at 19:31 EDT ,
== END | disposition home or self-care (01) ==
PROVIDERS: PCP Family Medicine; Referring Provider Family Medicine; Visit Provider Family Medicine
DX: E03.9 Hypothyroidism, unspecified (principal); M25.532 Pain in left wrist
CPT/HCPCS: 73110

== ENCOUNTER → 2023-04-02 | Outpatient (CLI) | payer OTHER, SELFPAY ==
[2023-04-02 18:28] LABS: Free T3 2.1 pg/mL (2.18-3.98); T4 Free Direct 1.14 ng/dL (0.76-1.46); Thyroid Stim Hormone (TSH) 1.07 uIU/mL (0.358-3.74)
== END | disposition home or self-care (01) ==
LOC: BFHLAB 15:56
PROVIDERS: PCP Family Medicine; Visit Provider Family Medicine
DX: E03.9 Hypothyroidism, unspecified (principal)
CPT/HCPCS: 84439; 84443; 84481

== ENCOUNTER → 2023-05-01 | Outpatient (CLI) | payer OTHER, SELFPAY ==
[2023-05-04 21:12] LABS: Chlamydia By Nucleic Acid AMP Negative (Negative); Gonococcus By Nucleic Acid AMP Negative (Negative)
[2023-05-08 07:08] LABS: HPV APTIMA, High Risk Negative (Negative)
== END | disposition home or self-care (01) ==
LOC: LABSPEC 17:09
PROVIDERS: PCP Family Medicine; Referring Provider Registered Nurse; Visit Provider Registered Nurse
DX: O09.90 Supervision of high risk pregnancy, unspecified, unspecified trimester (principal); Z3A.00 Weeks of gestation of pregnancy not specified
CPT/HCPCS: 87086; 87491; 87591; 87624; 88175; G0145

== ENCOUNTER → 2023-05-07 | Outpatient (CLI) | payer OTHER, SELFPAY ==
[2023-05-07 08:44] LABS: Absolute Lymphocyte Count 1.25 X10^3/uL (0.83-4.51); Absolute Neutrophil Count 4.5 X10^3/uL (2.0-7.7); Basophil# 0.03 X10^3/uL; Basophil% 0.5 % (0-1); Eosinophil# 0.06 X10^3/uL; Hematocrit 39.8 % (37-47); Hemoglobin 13.4 g/dL (12.0-15.0); Lymphocyte # 1.25 X10^3/ul (0.83-4.51); Lymphocyte % 19.9 % (19-41); Mean Corp Hgb Conc 33.7 g/dL (32-36); Mean Corpuscular Hgb 31.2 pg (27.0-32.0); Mean Corpuscular Volume 92.6 fL (81-99); Mean Platelet Vol. 9.7 fl (6.2-12.0); Monocyte% 6.4 % (0-10); NRBC Flagged by Analyzer 0 % (0-5); Neutrophil # 4.51 X10^3/uL (2.7-7.7); Neutrophil % 71.9 % (47-70); Platelet Count 240 K/mm3 (150-450); RBC Distribution Width CV 12.8 % (11.6-14.6); RBC Distribution Width SD 43.2 fl (35.1-43.9); White Blood Count 6.3 K/mm3 (4.4-11.0)
[2023-05-07 09:01] LABS: NATERA MAILED SPECIMEN
[2023-05-07 09:23] LABS: Glucose Challenge Gest 1H 50g 69 mg/dL (70-140)
[2023-05-07 10:04] LABS: HIV - WCH Non-Reactive (Nonreactive); Hepatitis B Surface Antigen Non-Reactive (Nonreactive); Hepatitis C Antibody Non-Reactive (Nonreactive); Rubella IgG Reactive (Nonreactive); Syphilis Antibodies Non-reactive
== END | disposition home or self-care (01) ==
LOC: LAB 07:58
PROVIDERS: PCP Family Medicine; Referring Provider Registered Nurse; Visit Provider Registered Nurse
DX: O09.90 Supervision of high risk pregnancy, unspecified, unspecified trimester (principal); Z3A.00 Weeks of gestation of pregnancy not specified
CPT/HCPCS: 36415; 82950; 85025; 86703; 86762; 86780; 86803; 86850; 86900; 86901; 87340

== ENCOUNTER → 2023-07-23 | Outpatient (CLI) | payer OTHER, SELFPAY ==
[2023-07-23 11:18] LABS: Vitamin B12 326 pg/mL (211-911)
[2023-07-23 11:52] LABS: Ferritin 63 ng/mL (8-252); Iron 116 ug/dL (50-170); Iron Binding Capacity,Total 298 ug/dL (250-450); PERCENT IRON SATURATION 38.9 % (15.0-55.0); Thyroid Stim Hormone (TSH) 1.74 uIU/mL (0.358-3.74)
== END | disposition home or self-care (01) ==
LOC: LAB 10:02
PROVIDERS: PCP Internal Medicine; Referring Provider Obstetrics & Gynecology; Visit Provider Obstetrics & Gynecology
DX: E03.9 Hypothyroidism, unspecified (principal); K50.90 Crohn's disease, unspecified, without complications
CPT/HCPCS: 36415; 82607; 82728; 83540; 83550; 84439; 84443

== ENCOUNTER → 2023-09-15 | Outpatient (CLI) | payer OTHER, SELFPAY ==
[2023-09-15 09:05] LABS: Absolute Lymphocyte Count 1.29 X10^3/uL (0.83-4.51); Absolute Neutrophil Count 7.3 X10^3/uL (2.0-7.7); Basophil# 0.05 X10^3/uL; Basophil% 0.5 % (0-1); Eosinophil# 0.08 X10^3/uL; Eosinophils% 0.9 % (0-5); Hematocrit 38.8 % (37-47); Lymphocyte # 1.29 X10^3/ul (0.83-4.51); Lymphocyte % 13.9 % (19-41); Mean Corp Hgb Conc 33.5 g/dL (32-36); Mean Corpuscular Hgb 30.9 pg (27.0-32.0); Mean Corpuscular Volume 92.2 fL (81-99); Monocyte# 0.44 X10^3/uL; Monocyte% 4.7 % (0-10); NRBC Flagged by Analyzer 0 % (0-5); Neutrophil # 7.31 X10^3/uL (2.7-7.7); Neutrophil % 78.6 % (47-70); Platelet Count 193 K/mm3 (150-450); RBC Distribution Width CV 13.2 % (11.6-14.6); Red Blood Count 4.21 M/mm3 (4.2-5.4); White Blood Count 9.3 K/mm3 (4.4-11.0)
[2023-09-15 09:32] LABS: Glucose Challenge Gest 1H 50g 104 mg/dL (70-140)
[2023-09-15 10:13] LABS: HIV - WCH Non-Reactive (Nonreactive); Syphilis Antibodies Non-reactive
== END | disposition home or self-care (01) ==
LOC: PAVLAB 08:22
PROVIDERS: PCP Internal Medicine; Referring Provider Obstetrics & Gynecology; Visit Provider Obstetrics & Gynecology
DX: O26.899 Other specified pregnancy related conditions, unspecified trimester (principal); Z67.91 Unspecified blood type, Rh negative; Z3A.00 Weeks of gestation of pregnancy not specified; Z13.1 Encounter for screening for diabetes mellitus
CPT/HCPCS: 36415; 82950; 85025; 86703; 86780; 86850; 86900; 86901

== ENCOUNTER → 2023-11-06 | Outpatient (CLI) | payer OTHER, SELFPAY ==
--- NOTE | 2023-11-06 08:45 | US_ITS ---
STUDY: SECOND AND THIRD TRIMESTER OBSTETRICAL ULTRASOUND - LIMITED REASON FOR EXAM: Female, 38 years old AMA LMP: February 27, 2023 PRIOR ULTRASOUND: None. TECHNIQUE: Transabdominal TECHNICAL QUALITY: Adequate. FINDINGS: There is a single intrauterine fetus. The fetus is in a cephalic presentation. There is demonstrated cardiac activity with a heart rate of 141 bpm. There is a normal amniotic fluid volume. The largest amniotic fluid pocket measures 5.2 cm. The amniotic fluid index (ANDREW) is 11.7 cm. The placenta is anterior in location and is not low lying. There are Grade 1 placental changes. The cervix is not visualized. BIOMETRY: BPD: 9 cm: 36 weeks, 2 days HC: 32.7 cm: 37 weeks, 1 days AC: 33.6 cm: 37 weeks, 1 days FL: 7.1 cm: 36 weeks, 3 days Age by LMP: 36 weeks, 0 days. BOB by LMP: December 04, 2023. age by current US: 36 weeks, 6 days. BOB by current US: November 28, 2023. Estimated weight: 3126 grams, +/- 47 grams, 80 percentile. US/OB Limited With Biometrics IMPRESSION: 36 week 6 day intrauterine Electronically Signed: Austin Ibanez MD at 19:17 EST ,
--- OUTSIDE RECORDS SUMMARY | 2023-11-06 09:03 | XMS RPT_ITS | CCD ---
Author Name Unknown Address [address] [place] [address] Organization [facility] Care Team Providers Care Fruit Raiser Name Role Phone MARIAM CASTRO Unavailable Unavailable LYRIC INTERIANO JR. Unavailable Unavailable Avani Jalloh Primary Care Provider [phone] Avani Jalloh Primary Care Provider [phone] Avani Jalloh Primary Care Provider Avani Jalloh Primary Care Provider Avani Jalloh MD Primary Care Provider Robbie Rob MD Primary Care Provider NO PRIMARY CARE, Primary Care Unavailable MIHAI KIMBROUGH Referring Unavailabl OSMEL Zafar Attending Unavailable JT PEREZ Attending Unavailable DAISY, AVANI E Primary Care Unavailable JT PEREZ Referring Unavailable ROBBIE ROB Primary Care Unavailable JT PEREZ Referring Unavailable POLAEDEL, AVANI E Primary Care Unavailable POLAEDEL, AVANI E Primary Care Unavailable DAISY, AVANI E Primary Care Unavailable RAMIN MULLER Attending Unavailable RAMIN MULLER Referring Unavailable ROBBIE ROB Primary Care Unavailable JT PEREZ Referring Unavailable ADISY, AVANI E Primary Care Unavailable JT PEREZ Referring Unavailable JUNE CASTRO Attending Unavailable DAISY, AVANI E Primary Care Unavailable JT PEREZ Referring Unavailable DAISY, AVANI E Primary Care Unavailable DAISY, AVANI E Primary Care Unavailable RAMIN MULLER Referring Unavailable RAMIN MULLER Attending Unavailable MIEDEL, AVANI E Primary Care Unavailable POLAEDEL, AVANI E Primary Care Unavailable JT PEREZ Referring Unavailable MIEDEL, AVANI E Primary Care Unavailable MIEDEL, AVANI E Primary Care Unavailable MIEDEL, AVANI E Primary Care Unavailable JT PEREZ Referring Unavailable TALAMPAS, ROBBIE D Primary Care Unavailable TALAMPAS, ROBBIE D Attending Unavailable TALAMPAS, ROBBIE D Primary Care Unavailable JT PEREZ Referring Unavailable TALAMPAS, ROBBIE D Primary Care Unavailable MIEDEL, AVANI E Primary Care Unavailable LISA, RAMIN Attending Unavailable LISA, RAMIN Referring Unavailable MIEDEL, AVANI E Primary Care Unavailable LISARAMIN Attending Unavailable LISARAMIN Referring Unavailable Medications Current Medications Medication Drug Class(es) Dates Sig (Normalized) Sig (Original) nitrofurantoin, macrocrystals 25 mg / nitrofurantoin, monohydrate 75 mg oral capsule (1 source) Nitrofuran Antibacterial Start: 12-21-2022 End: 12-26-2022 take 1 capsule by mouth twice daily nitrofurantoin monohydrate and macrocrystal (MACROBID) 100 mg capsule Indications: Urinary frequency Take 1 capsule by mouth twice daily for 5 days. 10 capsule 0 12/21/2022 12/26/2022 Active Completed/Discontinued Medications Medication Drug Class(es) Dates Sig (Normalized) Sig (Original) budesonide 3 mg delayed release oral capsule (16 sources) Corticosteroid Start: 01-10-2022 End: 06-11-2022 take 3 capsules by mouth once daily, then take 2 capsules by mouth once daily, then take 1 capsule by mouth once daily budesonide, enteric coated (ENTOCORT EC) 3 mg 24 hr capsule Take 3 caps PO daily for 2 weeks, 2 caps PO daily for 2 weeks and 1 cap PO daily for 2 weeks. 74 capsule 0 01/10/2022 06/11/2022 Discontinued (Course of therapy completed) Problems Active Problems Problem Classification Problem Date Documented Da te Episodic/Chronic Abdominal pain (2 sources) Epigastric pain; Translations: [Epigastric pain] Episodic Adjustment disorders (4 sources) Adjustment disorder with mixed anxiety and depressed mood; Translations: [Adjustment disorder with mixed anxiety and depressed mood] Chronic Gastrointestinal hemorrhage (1 source) Rectal hemorrhage; Translations: [Hemorrhage of anus and rectum] Episodic Genitourinary symptoms and ill-defined conditions (1 source) Increased frequency of urination; Translations: [Frequency of micturition] Episodic Malaise and fatigue (1 source) Fatigue; Translations: [Other fatigue] Episodic Miscellaneous mental health disorders (4 sources) Psychosomatic factor in physical condition; Translations: [Psychological and behavioral factors associated with disorders or diseases classified elsewhere] Chronic Noninfectious gastroenteritis (1 source) Indeterminate colitis; Translations: [Indeterminate colitis] Chronic Other gastrointestinal disorders (1 source) Diarrhea; Translations: [Diarrhea, unspecified] Episodic Other skin disorders (1 source) Acne vulgaris; Translations: [Acne vulgaris] 05-25-2023 Episodic Other upper respiratory infections (1 source) Sore throat symptom; Translations: [Acute pharyngitis, unspecified] Episodic Regional enteritis and ulcerative colitis (20 sources) Crohn's disease of large bowel; Translations: [Crohn's disease of large intestine with rectal bleeding] Onset: 06-27-2022 Chronic Residual codes; unclassified (1 source) Gestation period, 13 weeks; Translations: [13 weeks gestation of ] 05-25-2023 Episodic Thyroid disorders (20 sources) Hypothyroidism; Translations: [Hypothyroidism, unspecified] Onset: 09-06-2012 09-06-2012 Chronic Past or Other Problems Problem Classification Problem Date Documented Date Episodic/Chronic Abdominal hernia (20 sources) Umbilical hernia; Translations: [Umbilical hernia without obstruction or gangrene] Onset: 04-19-2012 04-19-2012 Episodic Noninfectious gastroenteritis (7 sources) Inflammatory bowel disease; Translations: [Noninfective gastroenteritis and colitis, unspecified] Onset: 04-07-2023 Episodic Other skin disorders (1 source) Acne vulgaris; Translations: [Acne vulgaris] Onset: 05-25-2023 Episodic Residual codes; unclassified (1 source) 13 weeks gestation of ; Translations: [13 weeks gestation of ] Onset: 05-25-2023 Episodic Results Test Name Value Interpretation Reference Range Facil ity Vital Signs Date Time Vital Sign Value Performing Clinician Maria Eugeniai litmaribel 09-22-2023 13:15-0500 Body temperature 97.2 [degF] Treatment Wstr Work Phone: [facility] 09-22-2023 13:15-0500 Diastolic blood pressure 80 mm[Hg] Treatment Wstr Work Phone: [facility] 09-22-2023 13:15-0500 Heart rate 99 /min Treatment Wstr Work Phone: [facility] 09-22-2023 13:15-0500 SaO2% (BldA) [Mass fraction] 97 % Treatment Wstr Work Phone: [facility] 09-22-2023 13:15-0500 Systolic blood pressure 120 mm[Hg] Treatment Wstr Work Phone: [facility] 07-28-2023 14:00-0400 Body temperature 98.1 [degF] Treatment Wstr Work Phone: [facility] 07-28-2023 14:00-0400 Body weight 83.46 kg Treatment Wstr Work Phone: [facility] 07-28-2023 14:00-0400 Diastolic blood pressure 75 mm[Hg] Treatment Wstr Work Phone: [facility] 07-28-2023 14:00-0400 Heart rate 85 /min Treatment Wstr Work Phone: [facility] 07-28-2023 14:00-0400 Respiratory rate 18 /min Treatment Wstr Work Phone: [facility] 07-28-2023 14:00-0400 SaO2% (BldA) [Mass fraction] 99 % Treatment Wstr Work Phone: [facility] 07-28-2023 14:00-0400 Systolic blood pressure 115 mm[Hg] Treatment Wstr Work Phone: [facility] 06-02-2023 14:23-0400 Body temperature 98.29 [degF] Treatment Wstr Work Phone: [facility] 06-02-2023 14:23-0400 Body weight 83.69 kg Treatment Wstr Work Phone: [facility] 06-02-2023 14:23-0400 Diastolic blood pressure 76 mm[Hg] Treatment Wstr Work Phone: [facility] 06-02-2023 14:23-0400 Heart rate 87 /min Treatment Wstr Work Phone: [facility] 06-02-2023 14:23-0400 SaO2% (BldA) [Mass fraction] 98 % Treatment Wstr Work Phone: [facility] 06-02-2023 14:23-0400 Systolic blood pressure 117 mm[Hg] Treatment Wstr Work Phone: [facility] 05-25-2023 09:08-0400 Body height 160 cm Robbie Rob MD Work Phone: [facility] 05-25-2023 09:08-0400 Body weight 79.38 kg Robbie Rob MD Work Phone: [facility] 05-25-2023 09:08-0400 Diastolic blood pressure 78 mm[Hg] Robbie Rob MD Work Phone: [facility] 05-25-2023 09:08-0400 Heart rate 74 /min Robbie Rob MD Work Phone: [facility] 05-25-2023 09:08-0400 Respiratory rate 16 /min Robbie Rob MD Work Phone: [facility] 05-25-2023 09:08-0400 Systolic blood pressure 112 mm[Hg] Robbie Rob MD Work Phone: [facility] 02-10-2023 15:00-0400 Body temperature 97.81 [degF] Treatment Wstr Work Phone: [facility] 02-10-2023 15:00-0400 Diastolic blood pressure 80 mm[Hg] Treatment Wstr Work Phone: [facility] 02-10-2023 15:00-0400 Heart rate 82 /min Treatment Wstr Work Phone: [facility] 02-10-2023 15:00-0400 Respiratory rate 18 /min Treatment Wstr Work Phone: [facility] 02-10-2023 15:00-0400 SaO2% (BldA) [Mass fraction] 100 % Treatment Wstr Work Phone: [facility] 02-10-2023 15:00-0400 Systolic blood pressure 133 mm[Hg] Treatment Wstr Work Phone: [facility] 12-21-2022 09:10-0400 Body temperature 97.7 [degF] Ketty Praisler-Wood NURSE ORTHOPAEDIC.HEAD TRIMMER Work Phone: [facility] 12-21-2022 09:10-0400 Body weight 79.02 kg Ketty Praisler-Wood NURSE ORTHOPAEDIC.HEAD TRIMMER Work Phone: [facility] 12-21-2022 09:10-0400 Diastolic blood pressure 84 mm[Hg] Ketty Praisler-Wood NURSE ORTHOPAEDIC.HEAD TRIMMER Work Phone: [facility] 12-21-2022 09:10-0400 Heart rate 92 /min Ketty Praisler-Wood NURSE ORTHOPAEDIC.HEAD TRIMMER Work Phone: [facility] 12-21-2022 09:10-0400 Respiratory rate 21 /min Ketty Praisler-Wood NURSE ORTHOPAEDIC.HEAD TRIMMER Work Phone: [facility] 12-21-2022 09:10-0400 SaO2% (BldA) [Mass fraction] 98 % Ketty Praisler-Wood NURSE ORTHOPAEDIC.HEAD TRIMMER Work Phone: [facility] 12-21-2022 09:10-0400 Systolic blood pressure 122 mm[Hg] Ketty Praisler-Wood NURSE ORTHOPAEDIC.HEAD TRIMMER Work Phone: [facility] 12-16-2022 14:52-0500 Body temperature 98.01 [degF] Treatment Wstr Work Phone: [facility] 12-16-2022 14:52-0500 Diastolic blood pressure 82 mm[Hg] Treatment Wstr Work Phone: [facility] 12-16-2022 14:52-0500 Heart rate 85 /min Treatment Wstr Work Phone: [facility] 12-16-2022 14:52-0500 Respiratory rate 16 /min Treatment Wstr Work Phone: [facility] 12-16-2022 14:52-0500 Systolic blood pressure 134 mm[Hg] Treatment Wstr Work Phone: [facility] 10-21-2022 13:21-0500 Body temperature 97.3 [degF] Treatment Wstr Work Phone: [facility] 10-21-2022 13:21-0500 Body weight 77.79 kg Treatment Wstr Work Phone: [facility] 10-21-2022 13:21-0500 Diastolic blood pressure 72 mm[Hg] Treatment Wstr Work Phone: [facility] 10-21-2022 13:21-0500 Heart rate 88 /min Treatment Wstr Work Phone: [facility] 10-21-2022 13:21-0500 Respiratory rate 16 /min Treatment Wstr Work Phone: [facility] 10-21-2022 13:21-0500 SaO2% (BldA) [Mass fraction] 100 % Treatment Wstr Work Phone: [facility] 10-21-2022 13:21-0500 Systolic blood pressure 132 mm[Hg] Treatment Wstr Work Phone: [facility] 07-29-2022 15:21-0400 Body temperature 97.11 [degF] Treatment Wstr Work Phone: [facility] 07-29-2022 15:21-0400 Diastolic blood pressure 81 mm[Hg] Treatment Wstr Work Phone: [facility] 07-29-2022 15:21-0400 Heart rate 81 /min Treatment Wstr Work Phone: [facility] 07-29-2022 15:21-0400 Systolic blood pressure 116 mm[Hg] Treatment Wstr Work Phone: [facility] 07-15-2022 14:44-0400 Body temperature 98.49 [degF] Treatment Wstr Work Phone: [facility] 07-15-2022 14:44-0400 Diastolic blood pressure 82 mm[Hg] Treatment Wstr Work Phone: [facility] 07-15-2022 14:44-0400 Heart rate 82 /min Treatment Wstr Work Phone: [facility] 07-15-2022 14:44-0400 Respiratory rate 16 /min Treatment Wstr Work Phone: [facility] 07-15-2022 14:44-0400 SaO2% (BldA) [Mass fraction] 98 % Treatment Wstr Work Phone: [facility] 07-15-2022 14:44-0400 Systolic blood pressure 117 mm[Hg] Treatment Wstr Work Phone: [facility] 06-11-2022 13:42-0400 Body height 160 cm Catrachito Ribakow PA-C Work Phone: [facility] 06-11-2022 13:42-0400 Body temperature 98.2 [degF] Catrachito Ribakow PA-C Work Phone: [facility] 06-11-2022 13:42-0400 Body weight 76.2 kg Catrachito Ribakow PA-C Work Phone: [facility] 06-11-2022 13:42-0400 Diastolic blood pressure 88 mm[Hg] Catrachito Ribakow PA-C Work Phone: [facility] 06-11-2022 13:42-0400 Heart rate 82 /min Catrachito Ribakow PA-C Work Phone: [facility] 06-11-2022 13:42-0400 SaO2% (BldA) [Mass fraction] 100 % Catrachito Ribakow PA-C Work Phone: [facility] 06-11-2022 13:42-0400 Systolic blood pressure 127 mm[Hg] Catrachito Ribakow PA-C Work Phone: [facility] 05-13-2022 07:29-0400 Heart rate 98 /min Se Bogner PA-C Work Phone: [facility] 05-13-2022 07:20-0400 Body temperature 98.8 [degF] Es Bogner PA-C Work Phone: [facility] 05-13-2022 07:20-0400 Body weight 77.11 kg Es Bogner PA-C Work Phone: [facility] 05-13-2022 07:20-0400 Diastolic blood pressure 80 mm[Hg] Es Bogner PA-C Work Phone: [facility] 05-13-2022 07:20-0400 Respiratory rate 16 /min Es Bogner PA-C Work Phone: [facility] 05-13-2022 07:20-0400 SaO2% (BldA) [Mass fraction] 98 % Es Bogner PA-C Work Phone: [facility] 05-13-2022 07:20-0400 Systolic blood pressure 122 mm[Hg] Es Bogner PA-C Work Phone: [facility] 01-10-2022 16:30-0400 Respiratory rate 16 /min Jt Perez MD Work Phone: [facility] 01-10-2022 16:29-0400 Heart rate 87 /min Jt Perez MD Work Phone: [facility] 01-10-2022 16:29-0400 SaO2% (BldA) [Mass fraction] 100 % Jt Perez MD Work Phone: [facility] 01-10-2022 16:21-0400 Diastolic blood pressure 72 mm[Hg] Jt Perez MD Work Phone: [facility] 01-10-2022 16:21-0400 Systolic blood pressure 122 mm[Hg] Jt Perez MD Work Phone: [facility] 01-10-2022 13:53-0400 Body height 160 cm Jt Perez MD Work Phone: [facility] 01-10-2022 13:53-0400 Body temperature 97 [degF] Jt Perez MD Work Phone: [facility] 01-10-2022 13:53-0400 Body weight 77.11 kg Jt Perez MD Work Phone: [facility] Encounters Encounter Date Encounter Type Care Provider Facility Start: 09-22-2023 End: 09-22-2023 ambulatory JT PEREZ Facility:[facility] Start: 09-22-2023 End: 09-22-2023 ambulatory Treatment Rm 11 Atul [facility] Wstr Work Phone: Hematology/Oncology Procedures Date Procedure Procedure Detail Performing Clinician Start: 12-21-2022 Urnls dip stick/tablet rgnt auto w/o microscopy Ketty Gleason APRN.CNP Work Phone: Start: 06-13-2022 Adult depression screening assessment Catrachito Ribakow PA-C Work Phone: Start: 05-13-2022 STREP A MOLECULAR (POC) Es robledo PA-C Work Phone: Start: 01-29-2022 Ct abdomen & pelvis w/contrast material Catrachito Ribakow PA-C Work Phone: Start: 01-10-2022 Colonoscopy flx dx w/collj spec when pfrmd Catrachito Ribakow PA-C Work Phone: Start: 01-10-2022 Esophagogastroduodenoscopy transoral diagnostic Catrachito Ribakow PA-C Work Phone: Plan of Treatment Date Care Activity Detail Author Start: 2045 HEPATITIS B (1 of 3 - Risk 3-dose series) HEPATITIS B (1 of 3 - Risk 3-dose series) [facility] Start: 2045 Hepatitis B Vaccine (1 of 3 - Risk 3-dose series) Hepatitis B Vaccine (1 of 3 - Risk 3-dose series) [facility] Start: 09-15-2033 Urine microalbumin profile DTaP,Tdap,Td Vaccine (3 - Td or Tdap) [facility] Start: 07-05-2031 Urine microalbumin profile [facility] Start: 05-25-2024 ANNUAL PCP TEAM CHRONIC DISEASE VISIT ANNUAL PCP TEAM CHRONIC DISEASE VISIT [facility] Start: 10-09-2023 RSV Vaccine (1 - Risk 1-dose series) RSV Vaccine (1 - Risk 1-dose series) [facility] Start: 06-13-2023 Adult depression screening assessment DEPRESSION SCREENING [facility] Start: 06-12-2023 Covid-19 Vaccine () Covid-19 Vaccine () [facility] Start: 06-12-2023 Influenza vaccination [facility] Start: 03-31-2023 End: 05-31-2023 CBC W Auto Differential panel - Blood CBC + DIFF Lab Routine Inflammatory bowel disease Expected: 03/31/2023, Expires: 05/31/2023 [facility] Work Phone: Immunizations Immunization Date Immunization Notes Care Provider Fa cility 11-03-2022 Human Papillomavirus 9-valent vaccine [facility] Work Phone: [facility] 08-18-2022 Human Papillomavirus 9-valent vaccine Catrachito Ribakow PA-C Work Phone: [facility] Work Phone: 08-18-2022 zoster vaccine recombinant Catrachito Ribakow PA-C Work Phone: [facility] Work Phone: 07-02-2022 Influenza, injectabl e, Madin Love Canine Kidney, preservative free, quadrivalent [facility] Work Phone: [facility] Work Phone: 07-02-2022 pneumococcal (PCV20) vaccine, 20 valent (PREVNAR 20) [facility] Work Phone: [facility] Work Phone: 07-02-2022 influenza virus vacc ine, unspecified formulation Shonda Jiang [facility] Work Phone: [facility] 08-27-2021 COVID-19 vaccine, ag e 12+ yr (PFIZER-BIONTECH - PURPLE TOP) Catrachito Garcia PA-C Work Phone: [facility] Work Phone: 08-16-2021 influenza, injectabl e, quadrivalent, preservative free Robbie Rob MD Work Phone: [facility] 07-05-2021 tetanus toxoid, redu skyler diphtheria toxoid, and acellular pertussis vaccine, adsorbed Abel Bhumi DO Work Phone: [facility] Work Phone: 12-28-2020 COVID-19 vaccine, ag e 12+ yr (PFIZER-BIONTECH - PURPLE TOP) Catrachito Garcia PA-C Work Phone: [facility] Work Phone: 12-07-2020 COVID-19 vaccine, ag e 12+ yr (PFIZER-BIONTECH - PURPLE TOP) Catrachito Ribakow PA-C Work Phone: [facility] Work Phone: 08-14-2020 influenza, injectabl e, quadrivalent, preservative free Robbie Rob MD Work Phone: [facility] 08-11-2019 Influenza, injectabl e, Madin Love Canine Kidney, preservative free, quadrivalent Robbie Rob MD Work Phone: [facility] Payers Date Payer Category Payer Private Health Insurance [id number] 2017 Private Health Insurance [employer] A ETNA CHOICE POS II [id number] 2017-Present [phone] [address] [place] [address] POS [id number] 2017 Private Health Insurance [id number] 1985 Unknown [id number] Social History Date Type Detail Facility Start: 03-14-2015 Tobacco smoking status NHIS Smokes tobacco daily [facility] Work Phone: Start: 03-14-2015 End: 03-31-2023 Cigarettes smoked current (pack per day) - Reported 0.5 [facility] Start: 03-14-2015 End: 06-11-2022 Tobacco use and exposure Smokeless tobacco non-user [facility] Work Phone: Start: 04-04-2020 End: 12-21-2022 Alcohol intake Current drinker of alcohol (finding) [facility] Start: 04-08-2012 History SDOH Alcohol Comment 1 drink weekly [facility] Start: 03-14-2015 End: 06-11-2022 Tobacco Comment electronic cig [facility] Start: 1985 Sex Assigned At Not on file [facility] Start: 12-14-2021 End: 06-28-2022 Exposure to SARS-CoV-2 (event) Not sure [facility] Start: 1985 Sex Assigned At Female [facility] Start: 03-25-2022 End: 04-04-2022 Exposure to SARS-CoV-2 (event) Unable to assess [facility] History of tobacco use Cigarette Smoker [facility] Work Phone: Start: 06-11-2022 Tobacco smoking status NHIS Ex-smoker [facility] History of tobacco use Current smoker [facility] Start: 12-21-2022 End: 03-31-2023 Tobacco use panel [facility] Adult Depression Screening Assessment 4 [facility] Start: 01-01-2022 Gender identity Identifies as female gender (finding) [facility] Start: 01-01-2022 Sexual orientation Heterosexual (finding) [facility] Start: 05-25-2023 Alcohol intake Ex-drinker (finding) [facility] Do you belong to any clubs or organizations such as samaritan groups, unions, fraternal or athletic groups, or school groups? Yes [facility] Are you now , , , , never or living with a partner? [facility] How often to you hav e a drink containing alcohol? Never [facility] Do you feel stress - tense, restless, nervous, or anxious, or unable to sleep at night because your mind is troubled all the time - these days [OSQ] To some extent [facility] (I/We) worried wheth er (my/our) food would run out before (I/we) got money to buy more. Never true [facility] In the past 12 month s, was there a time when you were not able to pay the mortgage or rent on time? No [facility] Start: 03-13-2023 [facility] Clinical Notes 12-30-2021 to 06-23-2023 Shonda Jiang RP - 06/23/2023 10:30 AM Robbie Casper MD - 05/25/2023 9:12 AM June Osborn APRN.[facility] - 05/13/2023 11:30 AM Aleida Jiang RP - 03/31/2023 10:30 AM EDTPatient Instructions Note Date & Type Note Facility 06-23-2023 Note HNO ID: [id number] Author: Shonda Jiang RPh Service: ? Author Type: Pharmacist Type: Progress Notes Filed: 06/23/2023 11:45 AM Note Text: IBD Medication Consult [facility] Patient consents to pharmacy consult agreement. Patient Name: Teetee Louis IBD Provider: Dr. Perez IBD: Crohn's disease [K50.90] Locations affected: jejunum and colon Behavior: inflammatory Perianal disease: No IBD Dx (year) : 2019 Prior surgeries: No June 23, 2023 Reason for consult: efficacy, safety, health maintenance review, and reconciliation Met with Aicha via VV. She reports: - is going well. Due date is Dec 04, 2023, will be having a girl - vedolizumab is going well. No ADRs. Q8 week, getting it on time. Wondering about insurance coverage; has approval letter but also seeing claims are denied on insurance portal. Wondering about timing of vedolizumab in third trimester - wondering about vaccinations for baby post-. Will likely be sending baby to daycare after 3 months. - taking vitamin and Synthroid PO every day, no other changes Current IBD Medications: vedolizumab Will be initiating: none CLINICAL SYMPTOMS # of bowel movements daily: 1-2 # of liquid stools daily: 0 Consistency: formed Bloody bowel movements: no Urgency: no Abdominal pain: no Abdominal distention: no Nausea/vomiting: no Weight loss over last 3 months: no (170 lbs) General well-being: very well SOCIAL HISTORY Tobacco use: No EtOH: Yes, rarely Illicit drugs: No PAST MEDICAL HISTORY Diagnosis Date Crohn's disease (HCC) H/O ulcerative colitis Hypothyroidism PAST SURGICAL HISTORY Procedure Laterality Date COLONOSCOPY 2001 In [place] AND [place] COLONOSCOPY FLX DX W/COLLJ SPEC WHEN PFRMD 05/04/14 Colonoscopy INDUCED - EVACUATION 2009 PAST SURGICAL HISTORY OF umbilical hernia repair Current Outpatient Medications Medication Sig Dispense Refill vedolizumab (ENTYVIO INTRAVENOUS) Inject intravenously. Every 8 weeks at [place] levothyroxine (SYNTHROID) 100 mcg tablet Take 1 tablet by mouth once daily. 90 tablet 3 clindamycin (CLEOCIN-T) 1 % gel Apply to affected area twice daily. As directed up to 14 days per lesion/acne flareup 60 g 0 magnesium oxide (MAG-OX) 400 mg (241.3 mg magnesium) tablet Take 1 tablet by mouth once daily. (Patient taking differently: Take 250 mg by mouth once daily.) vit/iron fum/folic ac (RIGHT STEP VITAMINS ORAL) Take by mouth. No current facility-administered medications for this visit. ALLERGIES No Known Allergies FAMILY HISTORY FAMILY HISTORY Family history unknown: Yes Family History of IBD: Yes, biologic father (Crohn's) Family History of Autoimmunity: No Family History of Malignancy: Yes, skin, breast Family History of VTE: Yes, aunt (Factor V - Aicha is negative) Family History of CV: No PRIOR TREATMENT 5-ASA: Yes, Lialda, Asacol (ineffective), Canasa Thiopurines: No Methotrexate: No Anti-TNF: No Anti-Interleukin: Yes, initiated vedolizumab 07/15/22 - current Anti-IL 12/23: No JONN Inhibitor: No S1P Modulator: No PERTINENT VITALS AND LABS Weight/BMI: Wt: 76.2 kg (168 lb) BMI: 29.76 kg/(m2) TB (06/28/22) - negative TPMT: No results found for: LTPMTR EBV: No results found for: EBVPCR Calprotectin stool/inflammation: Latest Reference Range AND Units 04/11/22 07:30 06/02/22 07:30 07/02/22 07:30 09/19/22 09:30 02/07/23 08:00 Calprotectin, Fecal 0 - 50 mg/kg 1,065.6 (H) >3,000.0 (H) 652.9 (H) <27.1 <27.1 CRP Date Value Ref Range Status 01/15/2018 0.5 <0.9 mg/dL Final CBC: WBC (k/uL) Date Value 04/07/2023 7.77 Hemoglobin (g/dL) Date Value 04/07/2023 13.8 Hematocrit (%) Date Value 04/07/2023 38.9 MCV (fL) Date Value 04/07/2023 89.2 Platelet Count (k/uL) Date Value 04/07/2023 283 Lymphocytes % (%) Date Value 04/07/2023 23.0 IRON PANEL: Ferritin (ng/mL) Date Value 06/28/2022 168.0 Iron (ug/dL) Date Value 06/28/2022 107 TIBC (ug/dL) Date Value 06/28/2022 279 Transferrin Saturation (%) Date Value 06/28/2022 38.4 RENAL/HEPATIC: BUN (mg/dL) Date Value 04/07/2023 9 Creatinine (mg/dL) Date Value 04/07/2023 0.71 Albumin (g/dL) Date Value 04/07/2023 4.2 Bilirubin, Total (mg/dL) Date Value 04/07/2023 0.5 AST (U/L) Date Value 04/07/2023 14 ALT (U/L) Date Value 04/07/2023 22 VITAMIN B12 AND D25 Vitamin B12 Date Value Ref Range Status 06/28/2022 361 232 - 1,245 pg/mL Final No results found for: VITD25 LIPID PANEL: No results found for: CHOL , HDL , LDL , TG MEDICATION LEVELS N/A PERTINENT IMAGING/PROCEDURES Colonoscopy 01/10/2022 Impression: - Erythematous and eroded mucosa from 0 to 20 cm proximal to the anus. - Changes in ascending colon as noted above - The examined portion of the ileum was normal (more content not included)... [facility] 06-23-2023 History of Presen t illness Narrative Images from the original note were not included. IBD Medication Consult [facility] Patient consents to pharmacy consult agreement. Patient Name: Teetee Kenney Heriberto IBD Provider: Dr. Perez IBD: Crohn's disease [K50.90] Locations affected: jejunum and colon Behavior: inflammatory Perianal disease: No IBD Dx (year) : 2019 Prior surgeries: No June 23, 2023 Reason for consult: efficacy, safety, health maintenance review, and reconciliation Met with Aicha via VV. She reports: - is going well. Due date is Dec 04, 2023, will be having a girl - vedolizumab is going well. No ADRs. Q8 week, getting it on time. Wondering about insurance coverage; has approval letter but also seeing claims are denied on insurance portal. Wondering about timing of vedolizumab in third trimester - wondering about vaccinations for baby post-. Will likely be sending baby to daycare after 3 months. - taking vitamin and Synthroid PO every day, no other changes Current IBD Medications: vedolizumab Will be initiating: none CLINICAL SYMPTOMS # of bowel movements daily: 1-2 # of liquid stools daily: 0 Consistency: formed Bloody bowel movements: no Urgency: no Abdominal pain: no Abdominal distention: no Nausea/vomiting: no Weight loss over last 3 months: no (170 lbs) General well-being: very well SOCIAL HISTORY Tobacco use: No EtOH: Yes, rarely Illicit drugs: No PAST MEDICAL HISTORY Diagnosis Date Crohn's disease (HCC) H/O ulcerative colitis Hypothyroidism PAST SURGICAL HISTORY Procedure Laterality Date COLONOSCOPY 2001 In [place] & [place] in [place] COLONOSCOPY FLX DX W/COLLJ SPEC WHEN PFRMD 05/04/14 Colonoscopy INDUCED - EVACUATION 2009 PAST SURGICAL HISTORY OF umbilical hernia repair Current Outpatient Medications Medication Sig Dispense Refill vedolizumab (ENTYVIO INTRAVENOUS) Inject intravenously. Every 8 weeks at [facility] levothyroxine (SYNTHROID) 100 mcg tablet Take 1 tablet by mouth once daily. 90 tablet 3 clindamycin (CLEOCIN-T) 1 % gel Apply to affected area twice daily. As directed up to 14 days per lesion/acne flareup 60 g 0 magnesium oxide (MAG-OX) 400 mg (241.3 mg magnesium) tablet Take 1 tablet by mouth once daily. (Patient taking differently: Take 250 mg by mouth once daily.) vit/iron fum/folic ac (RIGHT STEP VITAMINS ORAL) Take by mouth. No current facility-administered medications for this visit. ALLERGIES No Known Allergies FAMILY HISTORY FAMILY HISTORY Family history unknown: Yes Family History of IBD: Yes, biologic father (Crohn's) Family History of Autoimmunity: No Family History of Malignancy: Yes, skin, breast Family History of VTE: Yes, aunt (Factor V - Aicha is negative) Family History of CV: No PRIOR TREATMENT 5-ASA: Yes, Lialda, Asacol (ineffective), [place] Thiopurines: No Methotrexate: No Anti-TNF: No Anti-Interleukin: Yes, initiated vedolizumab 07/15/22 - current Anti-IL 12/23: No JONN Inhibitor: No S1P Modulator: No PERTINENT VITALS AND LABS Weight/BMI: Wt: 76.2 kg (168 lb) BMI: 29.76 kg/(m^2) TB (06/28/22) - negative TPMT: No results found for: LTPMTR EBV: No results found for: EBVPCR Calprotectin stool/inflammation: Latest Reference Range & Units 04/11/22 07:30 06/02/22 07:30 07/02/22 07:30 09/19/22 09:30 02/07/23 08:00 Calprotectin, Fecal 0 - 50 mg/kg 1,065.6 (H) >3,000.0 (H) 652.9 (H) <27.1 <27.1 CRP Date Value Ref Range Status 01/15/2018 0.5 <0.9 mg/dL Final CBC: WBC (k/uL) Date Value 04/07/2023 7.77 Hemoglobin (g/dL) Date Value 04/07/2023 13.8 Hematocrit (%) Date Value 04/07/2023 38.9 MCV (fL) Date Value 04/07/2023 89.2 Platelet Count (k/uL) Date Value 04/07/2023 283 Lymphocytes % (%) Date Value 04/07/2023 23.0 IRON PANEL: Ferritin (ng/mL) Date Value 06/28/2022 168.0 Iron (ug/dL) Date Value 06/28/2022 107 TIBC (ug/dL) Date Value 06/28/2022 279 Transferrin Saturation (%) Date Value 06/28/2022 38.4 RENAL/HEPATIC: BUN (mg/dL) Date Value 04/07/2023 9 Creatinine (mg/dL) Date Value 04/07/2023 0.71 Albumin (g/dL) Date Value 04/07/2023 4.2 Bilirubin, Total (mg/dL) Date Value 04/07/2023 0.5 AST (U/L) Date Value 04/07/2023 14 ALT (U/L) Date Value 04/07/2023 22 VITAMIN B12 & D25 Vitamin B12 Date Value Ref Range Status 06/28/2022 361 232 - 1,245 pg/mL Final No results found for: VITD25 LIPID PANEL: No results found for: CHOL , HDL , LDL , TG MEDICATION LEVELS N/A PERTINENT IMAGING/PROCEDURES Colonoscopy 01/10/2022 Impression: - Erythematous and eroded mucosa from 0 to 20 cm proximal to the anus. - Changes in ascending colon as noted above - The examined portion of the ileum was normal. - Biopsies were taken with a cold forceps for histology in the entire colon and in the terminal ileum. EGD 01/10/2022 Impression: - Normal esophagus. - Normal stomach. Biopsied. - Normal examined duodenum. Biopsied. Biopsies: FINAL DIAGNOSIS A. Duodenum, biopsy: - Duodenal mucosa with no significant diagnostic alteration. - No evidence of celiac disease or duodenitis. B. Stomach, antrum and body, biopsy: - Mild chronic inactive gastritis, see comment. C. Terminal ileum, biopsy: - Ileal mucosa with no significant diagnostic alteration. - No evidence of ileitis, granulomas or dysplasia. D. Right colon, biopsy: - Colonic mucosa with no significant diagnostic alteration. - No evidence of colitis, granulomas or dysplasia. E. Right colon polyps, biopsy: - Multiple fragments of hyperplastic polyp, negative for dysplasia. F. Transverse colon, biopsy: - Colonic mucosa with no significant diagnostic alteration. - No evidence of colitis, granulomas or dysplasia. G. Left colon, biopsy: - Colonic mucosa with no significant diagnostic alteration. - No evidence of colitis, granulomas or dysplasia. H. Rectum, biopsy: - Chronic active colitis with erosion, negative for granulomas or dysplasia, see comment. CTE 01/29/2022 IMPRESSION: Minimal jejunal findings may represent mild involvement with Crohn's disease. VACCINATION HISTORY Name Date Received Up-to-date Additional notes/comments COVID-19 Pfizer 3 doses Bivalent: 06/28/22 Yes Pneumococcal Pneumonia PCV13: PPSV23: PCV20:07/02/22 Yes Hepatitis A No Hepatitis A IgG Date Value Ref Range Status 06/28/2022 Negative Negative Final Comment: No serological evidence of past exposure to hepatitis A virus or hepatitis A vaccination. Should recent infection be suspected, repeat testing is suggested 3-4 weeks after this draw. Candidate for Hepatitis B Yes Hepatitis B Core Ab, Total (no units) Date Value 06/28/2022 Negative HBsAg Date Value Ref Range Status 06/28/2022 Negative Negative Final Hep B surface antigen (06/28/22) - 146 (positive) Influenza Inactivated vaccine recommended yearly 07/02/22 Yes Counseled to avoid live intranasal formulation Zoster recombinant (RZV) 2 dose series at month 0 and 1-2 08/18/22 No Candidate for Chicken pox + Due for dose #13 Oct 2022 [facility] pharmacy Tetanus, diphtheria, pertussis (Tdap or Td) One dose Tdap then Td every 10 years 07/05/21 Yes HPV Females < 45 years old and males < 26 years old; 2 dose series if <15 years old 08/18/2210/2022 No In progress - Dose #3 - February 2023 [facility] pharmacy Medication lab monitoring up to date: No Up-to-date with in clinic available vaccines: No, reasons: on hold due to Up-to-date with PAP smear (annually or Q2 years if HPV negative): Yes (2020) Up-to-date with skin check: Yes (established with derm, 06/2022) Up-to-date with DEXA scan (low BMI, post-menopausal, steroids >3 months, FHx of osteoporosis, smoking: baseline and repeat Q5 years if initial screen is normal): NA Smoking cessation achieved: NA ASSESSMENT Aicha Raciel is a 37 year old female with IBD colitis since ~1999 (age 15). In early 2021, she presented with persistent symptoms and workup showed rectal inflammation. She had initial response to mesalamine and budesonide but symptoms recurred so she was started on Entyvio in 07/2022 and has done very well on this. Fecal calpro in 09/2022 and 01/2023 had normalized. Currently 17 weeks . Remains in clinical remission on vedolizumab 300 mg IV every 8 weeks. PLAN: Medication Consult - Continue vedolizumab 300 mg IV every 8 weeks. Currently in clinical remission. Discussed importance of staying on treatment during and reviewed insurance coverage. Advised to reach out in interim if any worsening GI symptoms. - Updated med list in [facility] Health Maintenance - Recommend the following vaccines: hepatitis A, zoster recombinant (to be obtained at pharmacy), and HPV (to be obtained at PCP or gate shear operator office), will hold off on all three in setting of . - Reviewed vaccination recommendations relating to baby post-. - Recommend the following health maintenance appts: none -- currently up to date Next PharmD visit: no follow up scheduled at this time; advised patient to reach out with any issues or concerns and may also be re-referred by IBD provider Next IBD MD/ PA visit: advised to schedule f/u with Dr. Perez or June Castro in third trimester Next labs due: TBD Next vedo dose due: 07/28/23 Teetee Louis endorses understanding to above. Denies other questions and concerns and is aware to contact us in future if needed. Shonda Jiang, PharmD, BCACP, MS IBD Clinical Pharmacist Interventions made: medication education, medication reconciliation, health maintenance need assessment, lab management, medication financial needs, and medication management Time spent (mins): 30 documented in this encounter [facility] 05-25-2023 Note HNO ID: [id number] Author: Robbie Rob MD Service: ? Author Type: Physician Type: Progress Notes Filed: 05/25/2023 11:24 PM Note Text: This note was created using NoteWriter. Subjective Teetee Louis is a 37 year old female. HISTORY Teetee Louis is a 37 year old lady here to be formally established with me in a 20 minute slot. Recent thyroid labs were fine. However, never felt that well even labs were fine. Acne issues noted.Discontinued topical retinoid given potential risk for baby. 13 weeks along. Has 15yo son too. PAST MEDICAL HISTORY Diagnosis Date Crohn's disease (HCC) H/O ulcerative colitis Hypothyroidism Current Outpatient Medications Medication Sig vedolizumab (ENTYVIO INTRAVENOUS) Inject intravenously. Every 8 weeks at [facility] magnesium oxide (MAG-OX) 400 mg (241.3 mg magnesium) tablet Take 1 tablet by mouth once daily. (Patient taking differently: Take 250 mg by mouth once daily.) vit/iron fum/folic ac (RIGHT STEP VITAMINS ORAL) Take by mouth. levothyroxine (SYNTHROID) 100 mcg tablet Take 100 mcg by mouth once daily. sodium sulfate-potassium sulfate-magnesium sulfate (SUPREP BOWEL PREP KIT) 17.5-3.13-1.6 gram oral liquid Use as directed. No current facility-administered medications for this visit. ALLERGIES No Known Allergies PAST SURGICAL HISTORY Procedure Laterality Date COLONOSCOPY 2001 In [place] COLONOSCOPY FLX DX W/COLLJ SPEC WHEN PFRMD 05/04/14 Colonoscopy INDUCED - EVACUATION 2009 PAST SURGICAL HISTORY OF umbilical hernia repair FAMILY HISTORY Family history unknown: Yes Social History Tobacco Use Smoking status: Former Packs/day: 0.50 Years: 10.00 Additional pack years: 0.00 Total pack years: 5.00 Types: Cigarettes Smokeless tobacco: Never Tobacco comments: electronic cig Substance Use Topics Alcohol use: Not Currently Comment: 1 drink weekly Drug use: No Review of Systems Objective BP 112/78 Pulse 74 Resp 16 Ht 160 cm (5' 3 ) Wt 79.4 kg (175 lb) LMP 05/01/2022 (Exact Date) BMI 31.00 kg/m? Last 5 Encounter Wt Readings: Date: Wt: 05/25/2023 79.4 kg (175 lb) 12/21/2022 79 kg (174 lb 3.2 oz) 10/21/2022 77.8 kg (171 lb 8 oz) 06/11/2022 76.2 kg (168 lb) 05/13/2022 77.1 kg (170 lb) No waist measurement recorded Estimated body mass index is 31 kg/m? as calculated from the following: Height as of this encounter: 160 cm (5' 3 ). Weight as of this encounter: 79.4 kg (175 lb). Last 5 Encounter BP Readings: Date: BP: 05/25/2023 112/78 04/07/2023 132/75 02/10/2023 133/80 12/21/2022 122/84 12/16/2022 134/82 Physical Exam Vitals reviewed. Constitutional: Appearance: She is well-developed. HENT: Head: Normocephalic and atraumatic. Comments: Mild facial acne with closed comedones. No pustules Right Ear: External ear normal. Left Ear: External ear normal. Nose: Nose normal. Eyes: Conjunctiva/sclera: Conjunctivae normal. Neck: Thyroid: No thyromegaly. Cardiovascular: Rate and Rhythm: Normal rate and regular rhythm. Pulses: Normal pulses. Heart sounds: Normal heart sounds. No murmur heard. No friction rub. No gallop. Pulmonary: Effort: Pulmonary effort is normal. Breath sounds: Normal breath sounds. Abdominal: General: Bowel sounds are normal. There is no distension. Palpations: Abdomen is soft. There is no mass. Tenderness: There is no abdominal tenderness. Musculoskeletal: General: No deformity. Normal range of motion. Lymphadenopathy: Cervical: No cervical adenopathy. Skin: General: Skin is warm and dry. Coloration: Skin is not jaundiced or pale. Findings: No rash. Neurological: General: No focal deficit present. Mental Status: She is alert and oriented to person, place, and time. Cranial Nerves: No cranial nerve deficit. Sensory: No sensory deficit. Motor: No abnormal muscle tone. Coordination: Coordination normal. Deep Tendon Reflexes: Reflexes normal. Psychiatric: Mood and Affect: Mood normal. Behavior: Behavior normal. Thought Content: Thought content normal. Judgment: Judgment normal. Reviewed labs done through [facility] lab through Care Everywhere. CBC, TFTs, metabolic panel, etc. Assessment and Plan Encounter Diagnosis ICD-10-CM 1. Acquired hypothyroidism E03.9 levothyroxine (SYNTHROID) 100 mcg tablet 2. Crohn's disease of both small and large intestine without complication (HCC) K50.80 vedolizumab (ENTYVIO INTRAVENOUS) 3. Acne vulgaris L70.0 clindamycin (CLEOCIN-T) 1 % gel 4. 13 weeks gestation of Z3A.13 37 year old lady here to be formally established with me. History and medications reviewed. Epic updated as needed Above issues addressed with patient. Patient involved in shared decision making for management of medical issues. Refills taken care of and meds adjusted as indicated after reviewed history, exam and (more content not included)... [facility] 05-25-2023 History of Presen t illness Narrative This note was created using Message Bus. Subjective Teetee Louis is a 37 year old female. HISTORY Teetee Louis is a 37 year old lady here to be formally established with me in a 20 minute slot. Recent thyroid labs were fine. However, never felt that well even labs were fine. Acne issues noted.Discontinued topical retinoid given potential risk for baby. 13 weeks along. Has 15yo son too. PAST MEDICAL HISTORY Diagnosis Date Crohn's disease (HCC) H/O ulcerative colitis Hypothyroidism Current Outpatient Medications Medication Sig vedolizumab (ENTYVIO INTRAVENOUS) Inject intravenously. Every 8 weeks at [facility] magnesium oxide (MAG-OX) 400 mg (241.3 mg magnesium) tablet Take 1 tablet by mouth once daily. (Patient taking differently: Take 250 mg by mouth once daily.) vit/iron fum/folic ac (RIGHT STEP VITAMINS ORAL) Take by mouth. levothyroxine (SYNTHROID) 100 mcg tablet Take 100 mcg by mouth once daily. sodium sulfate-potassium sulfate-magnesium sulfate (SUPREP BOWEL PREP KIT) 17.5-3.13-1.6 gram oral liquid Use as directed. No current facility-administered medications for this visit. ALLERGIES No Known Allergies PAST SURGICAL HISTORY Procedure Laterality Date COLONOSCOPY 2001 In [place] COLONOSCOPY FLX DX W/COLLJ SPEC WHEN PFRMD 05/04/14 Colonoscopy INDUCED - EVACUATION 2009 PAST SURGICAL HISTORY OF umbilical hernia repair FAMILY HISTORY Family history unknown: Yes Social History Tobacco Use Smoking status: Former Packs/day: 0.50 Years: 10.00 Additional pack years: 0.00 Total pack years: 5.00 Types: Cigarettes Smokeless tobacco: Never Tobacco comments: electronic cig Substance Use Topics Alcohol use: Not Currently Comment: 1 drink weekly Drug use: No Review of Systems Objective BP 112/78 Pulse 74 Resp 16 Ht 160 cm (5' 3 ) Wt 79.4 kg (175 lb) LMP 05/01/2022 (Exact Date) BMI 31.00 kg/m Last 5 Encounter Wt Readings: Date: Wt: 05/25/2023 79.4 kg (175 lb) 12/21/2022 79 kg (174 lb 3.2 oz) 10/21/2022 77.8 kg (171 lb 8 oz) 06/11/2022 76.2 kg (168 lb) 05/13/2022 77.1 kg (170 lb) No waist measurement recorded Estimated body mass index is 31 kg/m as calculated from the following: Height as of this encounter: 160 cm (5' 3 ). Weight as of this encounter: 79.4 kg (175 lb). Last 5 Encounter BP Readings: Date: BP: 05/25/2023 112/78 04/07/2023 132/75 02/10/2023 133/80 12/21/2022 122/84 12/16/2022 134/82 Physical Exam Vitals reviewed. Constitutional: Appearance: She is well-developed. HENT: Head: Normocephalic and atraumatic. Comments: Mild facial acne with closed comedones. No pustules Right Ear: External ear normal. Left Ear: External ear normal. Nose: Nose normal. Eyes: Conjunctiva/sclera: Conjunctivae normal. Neck: Thyroid: No thyromegaly. Cardiovascular: Rate and Rhythm: Normal rate and regular rhythm. Pulses: Normal pulses. Heart sounds: Normal heart sounds. No murmur heard. No friction rub. No gallop. Pulmonary: Effort: Pulmonary effort is normal. Breath sounds: Normal breath sounds. Abdominal: General: Bowel sounds are normal. There is no distension. Palpations: Abdomen is soft. There is no mass. Tenderness: There is no abdominal tenderness. Musculoskeletal: General: No deformity. Normal range of motion. Lymphadenopathy: Cervical: No cervical adenopathy. Skin: General: Skin is warm and dry. Coloration: Skin is not jaundiced or pale. Findings: No rash. Neurological: General: No focal deficit present. Mental Status: She is alert and oriented to person, place, and time. Cranial Nerves: No cranial nerve deficit. Sensory: No sensory deficit. Motor: No abnormal muscle tone. Coordination: Coordination normal. Deep Tendon Reflexes: Reflexes normal. Psychiatric: Mood and Affect: Mood normal. Behavior: Behavior normal. Thought Content: Thought content normal. Judgment: Judgment normal. Reviewed labs done through [facility] lab through [facility] Everywhere. CBC, TFTs, metabolic panel, etc. Assessment and Plan Encounter Diagnosis ICD-10-CM 1. Acquired hypothyroidism E03.9 levothyroxine (SYNTHROID) 100 mcg tablet 2. Crohn's disease of both small and large intestine without complication (HCC) K50.80 vedolizumab (ENTYVIO INTRAVENOUS) 3. Acne vulgaris L70.0 clindamycin (CLEOCIN-T) 1 % gel 4. 13 weeks gestation of Z3A.13 37 year old lady here to be formally established with me. History and medications reviewed. Epic updated as needed Above issues addressed with patient. Patient involved in shared decision making for management of medical issues. Refills taken care of and meds adjusted as indicated after reviewed history, exam and labs. Health Maintenance reviewed. Updated record and/or ordered tests as recorded. Encouraged on efforts at healthy diet and regular exercise and adequate sleep. Clinically euthyroid with results of labs.Feels like not quite right though. Will be getting labs done closely throughout . OB at [facility]. Continues current dose. Will continue management of Crohn's through Dr. Perez. Robbie Rob MD documented in this encounter [facility] 05-13-2023 Note HNO ID: [id number] Author: June Castro APRN.HEAD TRIMMER Service: ? Author Type: Nurse Practitioner Type: Progress Notes Filed: 05/13/2023 11:50 AM Note Text: VIRTUAL VISIT FOLLOW UP Teetee Louis [id number] has requested a video telemedicine for follow up of indeterminate IBD colitis. Teetee Louis verbalized informed consent to proceed with the video telemedicine follow up consultation. Teetee Louis was informed that the details of this video visit would be recorded as part of their electronic medical record. I have communicated my name and active licensure. The patient's identity and physical location were verified at the time of this visit. Either the patient or their legal outbound telemarketing representative has been informed of the risks and benefits of -- and alternatives to -- treatment through a remote evaluation and consents to proceed with the evaluation remotely. Patient location at time of call: place of work Additional encounter participants and relationship: none I had a virtual visit with Teetee Louis today for follow up of indeterminate IBD colitis. Last seen on 12/16/[address] Perez. Review of IBD history (copied and updated from prior notes): Dx of Crohn's ~1999 (age 15) when she had a colonoscopy for abdominal pain and rectal bleeding. She had a course of prednisone at that time. Over the years she had intermittent episodes of pain and diarrhea but asymptomatic in between. Then in early 2021, she presented with persistent symptoms and workup showed rectal inflammation. She had initial response to mesalamine and budesonide but symptoms recurred so she was started on Entyvio in 07/2022. Most recent GI tract testing: EGD 01/2022- normal; Colonoscopy 01/2022- [place] 2 inflammation in rectum to 20 cm; scarring in right colon; CTe 01/2022- minimal jejunal changes UPDATED HISTORY: - currently 11 weeks with 2nd child - has experienced increased bloating, gas, and constipation but attributes this to - started taking oral magnesium to help with constipation, which has helped - discussed plan with Entyvio if she got with both Dr. Perez and Dr. Shonda Jiang (IBD pharm) - she would like to get a repeat stool test (FCP) near the start of the 3rd trimester to see if she's having any inflammation, so she can decide whether to push out her Entyvio dose or not Last plan: Continue Entyvio- next dose due today Colonoscopy later this year if not - both to assess disease and for dysplasia screening F/U with CHONG Castro later this year Current Clinical Symptoms # of bowel movements daily: 2 (pt reported normal) # of nocturnal stools (included in daily total): 0 # of liquid stools daily: 0 Consistency: soft, formed Bloody bowel movements: no Urgency: no Abdominal pain: no Abdominal distention: yes- more bloating and gas since Perianal issues: none Upper GI issues (heartburn, reflux, dysphagia): none Nausea/vomiting: yes- constant nausea, no vomiting Appetite: good/normal Weight loss over last 3 months: no Reported weight today is 174 lbs, which is stable. Current IBD Medications Vedolizumab 300 mg IV Q8 weeks - LD: 04/07/2023 @ [facility] - due next on 06/02/2023 PAST SURGICAL HISTORY Procedure Laterality Date COLONOSCOPY 2001 In [place] COLONOSCOPY FLX DX W/COLLJ SPEC WHEN PFRMD 05/04/14 Colonoscopy INDUCED - EVACUATION 2009 PAST SURGICAL HISTORY OF umbilical hernia repair Current Outpatient Medications Medication Sig Dispense Refill vit/iron fum/folic ac (RIGHT STEP VITAMINS ORAL) Take by mouth. sodium sulfate-potassium sulfate-magnesium sulfate (SUPREP BOWEL PREP KIT) 17.5-3.13-1.6 gram oral liquid Use as directed. 1 Kit 0 levothyroxine (SYNTHROID) 100 mcg tablet Take 100 mcg by mouth once daily. No current facility-administered medications for this visit. ALLERGIES No Known Allergies Personal Habits: -Smoking: never -ETOH: none -Illegal drug use/marijuana: none -NSAIDs: none -Recent antibiotics: none PHYSICAL FINDINGS OF NOTE: General: alert and appropriate, in no distress and well-hydrated, well nourished , Psych: Appropriate mood and interaction Skin: no rash noted, Head: normocephalic, no abnormality or lesion noted, Eyes: visual acuity is grossly normal, no injection,, and EOMI, Ears: external ears normal without erythema or edema, Nose: external nose normal without rhinorrhea, Oropharynx: moist mucus membranes, no tonsillar hypertrophy/exudate, uvula midline and pharynx non-erythematous, lips, teeth and gums are without obvious lesion, Neck: full ROM, no cervical LNs noted, Respiratory: breathing non-labored, and no grunting/flaring/retractions, Chest: equal chest rise with normal respiratory effort, Abdomen: flat appearing. Visible protrusions or hernias: No Incisions/scars: None Areas o (more content not included)... [facility] 05-13-2023 History of Presen t illness Narrative VIRTUAL VISIT FOLLOW UP Teetee Louis [id number] has requested a video telemedicine for follow up of indeterminate IBD colitis. Teetee Louis verbalized informed consent to proceed with the video telemedicine follow up consultation. Teetee Louis was informed that the details of this video visit would be recorded as part of their electronic medical record. I have communicated my name and active licensure. The patient's identity and physical location were verified at the time of this visit. Either the patient or their legal outbound telemarketing representative has been informed of the risks and benefits of -- and alternatives to -- treatment through a remote evaluation and consents to proceed with the evaluation remotely. Patient location at time of call: place of work Additional encounter participants and relationship: none I had a virtual visit with Teetee Louis today for follow up of indeterminate IBD colitis. Last seen on 12/16/[address] Perez. Review of IBD history (copied and updated from prior notes): Dx of Crohn's ~1999 (age 15) when she had a colonoscopy for abdominal pain and rectal bleeding. She had a course of prednisone at that time. Over the years she had intermittent episodes of pain and diarrhea but asymptomatic in between. Then in early 2021, she presented with persistent symptoms and workup showed rectal inflammation. She had initial response to mesalamine and budesonide but symptoms recurred so she was started on Entyvio in 07/2022. Most recent GI tract testing: EGD 01/2022- normal; Colonoscopy 01/2022- Luna 2 inflammation in rectum to 20 cm; scarring in right colon; CTe 01/2022- minimal jejunal changes UPDATED HISTORY: - currently 11 weeks with 2nd child - has experienced increased bloating, gas, and constipation but attributes this to - started taking oral magnesium to help with constipation, which has helped - discussed plan with Entyvio if she got with both Dr. Perez and Dr. Shonda Jiang (IBD pharm) - she would like to get a repeat stool test (FCP) near the start of the 3rd trimester to see if she's having any inflammation, so she can decide whether to push out her Entyvio dose or not Last plan: Continue Entyvio- next dose due today Colonoscopy later this year if not - both to assess disease and for dysplasia screening F/U with CHONG Castro later this year Current Clinical Symptoms # of bowel movements daily: 2 (pt reported normal) # of nocturnal stools (included in daily total): 0 # of liquid stools daily: 0 Consistency: soft, formed Bloody bowel movements: no Urgency: no Abdominal pain: no Abdominal distention: yes- more bloating and gas since Perianal issues: none Upper GI issues (heartburn, reflux, dysphagia): none Nausea/vomiting: yes- constant nausea, no vomiting Appetite: good/normal Weight loss over last 3 months: no Reported weight today is 174 lbs, which is stable. Current IBD Medications Vedolizumab 300 mg IV Q8 weeks - LD: 04/07/2023 @ [facility] Rekha - due next on 06/02/2023 PAST SURGICAL HISTORY Procedure Laterality Date COLONOSCOPY 2001 [place] COLONOSCOPY FLX DX W/COLLJ SPEC WHEN PFRMD 05/04/14 Colonoscopy INDUCED - EVACUATION 2009 PAST SURGICAL HISTORY OF umbilical hernia repair Current Outpatient Medications Medication Sig Dispense Refill vit/iron fum/folic ac (RIGHT STEP VITAMINS ORAL) Take by mouth. sodium sulfate-potassium sulfate-magnesium sulfate (SUPREP BOWEL PREP KIT) 17.5-3.13-1.6 gram oral liquid Use as directed. 1 Kit 0 levothyroxine (SYNTHROID) 100 mcg tablet Take 100 mcg by mouth once daily. No current facility-administered medications for this visit. ALLERGIES No Known Allergies Personal Habits: -Smoking: never -ETOH: none -Illegal drug use/marijuana: none -NSAIDs: none -Recent antibiotics: none PHYSICAL FINDINGS OF NOTE: General: alert and appropriate, in no distress and well-hydrated, well nourished , Psych: Appropriate mood and interaction Skin: no rash noted, Head: normocephalic, no abnormality or lesion noted, Eyes: visual acuity is grossly normal, no injection,, and EOMI, Ears: external ears normal without erythema or edema, Nose: external nose normal without rhinorrhea, Oropharynx: moist mucus membranes, no tonsillar hypertrophy/exudate, uvula midline and pharynx non-erythematous, lips, teeth and gums are without obvious lesion, Neck: full ROM, no cervical LNs noted, Respiratory: breathing non-labored, and no grunting/flaring/retractions, Chest: equal chest rise with normal respiratory effort, Abdomen: flat appearing. Visible protrusions or hernias: No Incisions/scars: None Areas of pain/tenderness: Denies Neuro: Patient seen sitting with normal appearing strength and coordination REVIEWED ITEMS Recent Labs Component Latest Ref Rng & Units 04/07/2023 WBC 3.70 - 11.00 k/uL 7.77 RBC 3.90 - 5.20 m/uL 4.36 Hemoglobin 11.5 - 15.5 g/dL 13.8 Hematocrit 36.0 - 46.0 % 38.9 MCV 80.0 - 100.0 fL 89.2 MCH 26.0 - 34.0 pg 31.7 MCHC 30.5 - 36.0 g/dL 35.5 RDW-CV 11.5 - 15.0 % 12.2 Platelet Count 150 - 400 k/uL 283 MPV 9.0 - 12.7 fL 9.9 Neut% % 68.3 Abs Neut (ANC) 1.45 - 7.50 k/uL 5.31 Lymph% % 23.0 Abs Lymph 1.00 - 4.00 k/uL 1.79 Ellsworth% % 7.1 Abs Ellsworth <0.87 k/uL 0.55 Eosin% % 1.0 Abs Eosin <0.46 k/uL 0.08 Baso% % 0.3 Abs Baso <0.11 k/uL <0.03 Immature Gran % % 0.3 IMMATURE GRANS (ABS) <0.10 k/uL <0.03 NRBC /100 WBC 0.0 Absolute nRBC <0.01 k/uL <0.01 DTYPE Auto Protein, Total 6.3 - 8.0 g/dL 6.9 Albumin 3.9 - 4.9 g/dL 4.2 Calcium 8.5 - 10.2 mg/dL 8.6 Bilirubin, Total 0.2 - 1.3 mg/dL 0.5 Alkaline Phosphatase 34 - 123 U/L 45 AST 13 - 35 U/L 14 ALT 7 - 38 U/L 22 Glucose 74 - 99 mg/dL 102 (H) BUN 7 - 21 mg/dL 9 Creatinine 0.58 - 0.96 mg/dL 0.71 Sodium 136 - 144 mmol/L 136 Potassium 3.7 - 5.1 mmol/L 3.9 Chloride 97 - 105 mmol/L 103 CO2 22 - 30 mmol/L 24 Anion Gap 9 - 18 mmol/L 9 eGFR >=60 mL/min/1.73m 112 Component Latest Ref Rng & Units 02/07/2023 Shigella spp./Enteroinvasive E.coli DNA Not Detected Not detected Campylobacter jejuni/coli DNA Not Detected Not detected Shiga toxin-producing gene(s) Not Detected Not detected Salmonella spp. DNA Not Detected Not detected Calprotectin, Fecal 0 - 50 mg/kg <27.1 C. difficile PCR Negative for C. difficile toxin by PCR Negative for C. difficile toxin by PCR IMPRESSION (copied from previous notes and reflects today's medical decision making): Teetee Louis is a pleasant 37 year old female with PMHx of IBD colitis since ~1999 (age 15). In early 2021, she presented with persistent symptoms and workup showed rectal inflammation. She had initial response to mesalamine and budesonide but symptoms recurred so she was started on Entyvio in 07/2022 and has done very well on this. Fecal calpro in 09/2022 had normalized. Her disease appears to be in remission at this point. She presents virtually today for follow up and endorses being 11 weeks with her 2nd child. She continues to feel well from a GI standpoint but does note increased gas, bloating, and constipation likely related to - she started an oral magnesium pill which has helped with the constipation. We discussed continuing Entyvio and completing a repeat FCP as she nears the 3rd trimester to determine if she can space out her Entyvio dosing in the 3rd trimester, per pt request. Discussed having her baby avoid live vaccines for the first 6 months given exposure to Entyvio- she may want us to write an exemption letter for her child if there is an issue getting child care center administrator arranged d/t not having updated vaccines. Reviewed the plan as outlined below. Health Maintenance: Please see Dr. Shonda Jiang's last note in 03/2023 for updated HCM topics. PLAN - Continue Entyvio Q8 weeks - Repeat FCP as she nears 3rd trimester to determine how to best space out Entyvio infusions during the 3rd trimester - Colonoscopy ~2-3 months s/p delivery, both to assess disease and for dysplasia screening - Continue following with Dr. Shonda Jiang, IBD pharmacist - Follow up with Dr. Perez in 6 months PATIENT IS OK TO BE CONTACTED BY IBD GI RESEARCH TEAM TO EXPLORE PARTICIPATION IN RESEARCH STUDIES I spent 29 minutes in the virtual visit, with more than 50% of the total [id number] time of the visit in counseling / coordination of care. I have confirmed and edited as necessary, the PFSH and ROS obtained by others. Unrelated to E/M, telemedicine, or virtual visit service provided within previous 7 days. No E/M service or procedure anticipated within next 24 hours. June Castro APRN.CNP May 13, 2023 11:49 AM documented in this encounter [facility] 03-31-2023 Note HNO ID: [id number] Author: Shonda Jiang RPh Service: ? Author Type: Pharmacist Type: Progress Notes Filed: 03/31/2023 11:08 AM Note Text: IBD Medication Consult [facility] Patient consents to pharmacy consult agreement. Patient Name: Teetee Louis IBD Provider: Dr. Perez IBD: Crohn's disease [K50.90] Locations affected: jejunum and colon Behavior: inflammatory Perianal disease: No IBD Dx (year) : 2019 Prior surgeries: No March 31, 2023 Reason for consult: efficacy, safety, health maintenance review, and reconciliation Met with Aicha via VV. She reports: - graduated with [employer] this summer. Work is keeping her busy - vedolizumab is going well. No ADRs. Q8 week, getting it on time. Scheduled for next three doses already. - doing significantly well from GI standpoint - currently ! Last period was only 2 days which prompted to test and at home test is positive. Waiting on PCP to order test for official confirmation, planning to get established with OB. Aware to cancel scope scheduled in April if is confirmed. - taking vitamin and Synthroid PO every day - stress was trigger for GI episode with loose stool and bleeding in January 2023; has not recurred since Current IBD Medications: vedolizumab Will be initiating: none CLINICAL SYMPTOMS # of bowel movements daily: 1-2 # of liquid stools daily: 0 Consistency: formed Bloody bowel movements: no Urgency: no Abdominal pain: no Abdominal distention: no Nausea/vomiting: no Weight loss over last 3 months: no (170 lbs) General well-being: very well SOCIAL HISTORY Tobacco use: No EtOH: Yes, rarely Illicit drugs: No PAST MEDICAL HISTORY Diagnosis Date Crohn's disease (HCC) H/O ulcerative colitis Hypothyroidism PAST SURGICAL HISTORY Procedure Laterality Date COLONOSCOPY 2001 [place] COLONOSCOPY FLX DX W/COLLJ SPEC WHEN PFRMD 05/04/14 Colonoscopy INDUCED - EVACUATION 2009 PAST SURGICAL HISTORY OF umbilical hernia repair Current Outpatient Medications Medication Sig Dispense Refill sodium sulfate-potassium sulfate-magnesium sulfate (SUPREP BOWEL PREP KIT) 17.5-3.13-1.6 gram oral liquid Use as directed. 1 Kit 0 levothyroxine (SYNTHROID) 100 mcg tablet Take 100 mcg by mouth once daily. No current facility-administered medications for this visit. ALLERGIES No Known Allergies FAMILY HISTORY FAMILY HISTORY Family history unknown: Yes Family History of IBD: Yes, biologic father (Crohn's) Family History of Autoimmunity: No Family History of Malignancy: Yes, skin, breast Family History of VTE: Yes, aunt (Factor V - Aicha is negative) Family History of CV: No PRIOR TREATMENT 5-ASA: Yes, Lialda, Asacol (ineffective), Canasa Thiopurines: No Methotrexate: No Anti-TNF: No Anti-Interleukin: Yes, initiated vedolizumab 07/15/22 - current Anti-IL 12/23: No JONN Inhibitor: No S1P Modulator: No PERTINENT VITALS AND LABS Weight/BMI: Wt: 76.2 kg (168 lb) BMI: 29.76 kg/(m2) TB (06/28/22) - negative TPMT: No results found for: LTPMTR EBV: No results found for: EBVPCR Calprotectin stool/inflammation: Latest Reference Range AND Units 04/11/22 07:30 06/02/22 07:30 07/02/22 07:30 09/19/22 09:30 02/07/23 08:00 Calprotectin, Fecal 0 - 50 mg/kg 1,065.6 (H) >3,000.0 (H) 652.9 (H) <27.1 <27.1 CRP Date Value Ref Range Status 01/15/2018 0.5 <0.9 mg/dL Final CBC: WBC (k/uL) Date Value 2022 6.43 Hemoglobin (g/dL) Date Value 2022 13.9 Hematocrit (%) Date Value 2022 40.5 MCV (fL) Date Value 2022 90.6 Platelet Count (k/uL) Date Value 2022 283 Lymphocytes % (%) Date Value 2022 28.0 IRON PANEL: Ferritin (ng/mL) Date Value 06/28/2022 168.0 Iron (ug/dL) Date Value 06/28/2022 107 TIBC (ug/dL) Date Value 06/28/2022 279 Transferrin Saturation (%) Date Value 06/28/2022 38.4 RENAL/HEPATIC: BUN (mg/dL) Date Value 2022 11 Creatinine (mg/dL) Date Value 2022 0.78 Albumin (g/dL) Date Value 2022 4.1 Bilirubin, Total (mg/dL) Date Value 2022 0.4 AST (U/L) Date Value 2022 17 ALT (U/L) Date Value 2022 40 (H) VITAMIN B12 AND D25 Vitamin B12 Date Value Ref Range Status 06/28/2022 361 232 - 1,245 pg/mL Final No results found for: VITD25 LIPID PANEL: No results found for: CHOL, HDL, LDL, TG MEDICATION LEVELS N/A PERTINENT IMAGING/PROCEDURES Colonoscopy 01/10/2022 Impression: - Erythematous and eroded mucosa from 0 to 20 cm proximal to the anus. - Changes in ascending colon as noted above - The examined portion of the ileum was normal. - Biopsies were taken with a cold forceps for histology in the entire colon and in the terminal ileum. EGD 01/10/2022 Impression: - Normal esophagus. - Normal stomach. Biopsied. - Normal examined duode (more content not included)... [facility] 03-31-2023 History of Presen t illness Narrative IBD Medication Consult [facility] Patient consents to pharmacy consult agreement. Patient Name: Teetee Louis IBD Provider: Dr. Perez IBD: Crohn's disease [K50.90] Locations affected: jejunum and colon Behavior: inflammatory Perianal disease: No IBD Dx (year) : 2019 Prior surgeries: No March 31, 2023 Reason for consult: efficacy, safety, health maintenance review, and reconciliation Met with Aicha via VV. She reports: - graduated with [employer] this summer. Work is keeping her busy - vedolizumab is going well. No ADRs. Q8 week, getting it on time. Scheduled for next three doses already. - doing significantly well from GI standpoint - currently ! Last period was only 2 days which prompted to test and at home test is positive. Waiting on PCP to order test for official confirmation, planning to get established with OB. Aware to cancel scope scheduled in April if is confirmed. - taking vitamin and Synthroid PO every day - stress was trigger for GI episode with loose stool and bleeding in January 2023; has not recurred since Current IBD Medications: vedolizumab Will be initiating: none CLINICAL SYMPTOMS # of bowel movements daily: 1-2 # of liquid stools daily: 0 Consistency: formed Bloody bowel movements: no Urgency: no Abdominal pain: no Abdominal distention: no Nausea/vomiting: no Weight loss over last 3 months: no (170 lbs) General well-being: very well SOCIAL HISTORY Tobacco use: No EtOH: Yes, rarely Illicit drugs: No PAST MEDICAL HISTORY Diagnosis Date Crohn's disease (HCC) H/O ulcerative colitis Hypothyroidism PAST SURGICAL HISTORY Procedure Laterality Date COLONOSCOPY 2007, 2001 In [place] COLONOSCOPY FLX DX W/COLLJ SPEC WHEN PFRMD 05/04/14 Colonoscopy INDUCED - EVACUATION 2009 PAST SURGICAL HISTORY OF umbilical hernia repair Current Outpatient Medications Medication Sig Dispense Refill sodium sulfate-potassium sulfate-magnesium sulfate (SUPREP BOWEL PREP KIT) 17.5-3.13-1.6 gram oral liquid Use as directed. 1 Kit 0 levothyroxine (SYNTHROID) 100 mcg tablet Take 100 mcg by mouth once daily. No current facility-administered medications for this visit. ALLERGIES No Known Allergies FAMILY HISTORY FAMILY HISTORY Family history unknown: Yes Family History of IBD: Yes, biologic father (Crohn's) Family History of Autoimmunity: No Family History of Malignancy: Yes, skin, breast Family History of VTE: Yes, aunt (Factor V - Aicha is negative) Family History of CV: No PRIOR TREATMENT 5-ASA: Yes, Lialda, Asacol (ineffective), Canasa Thiopurines: No Methotrexate: No Anti-TNF: No Anti-Interleukin: Yes, initiated vedolizumab 07/15/22 - current Anti-IL 12/23: No JONN Inhibitor: No S1P Modulator: No PERTINENT VITALS AND LABS Weight/BMI: Wt: 76.2 kg (168 lb) BMI: 29.76 kg/(m^2) TB (06/28/22) - negative TPMT: No results found for: LTPMTR EBV: No results found for: EBVPCR Calprotectin stool/inflammation: Latest Reference Range & Units 04/11/22 07:30 06/02/22 07:30 07/02/22 07:30 09/19/22 09:30 02/07/23 08:00 Calprotectin, Fecal 0 - 50 mg/kg 1,065.6 (H) >3,000.0 (H) 652.9 (H) <27.1 <27.1 CRP Date Value Ref Range Status 01/15/2018 0.5 <0.9 mg/dL Final CBC: WBC (k/uL) Date Value 2022 6.43 Hemoglobin (g/dL) Date Value 2022 13.9 Hematocrit (%) Date Value 2022 40.5 MCV (fL) Date Value 2022 90.6 Platelet Count (k/uL) Date Value 2022 283 Lymphocytes % (%) Date Value 2022 28.0 IRON PANEL: Ferritin (ng/mL) Date Value 06/28/2022 168.0 Iron (ug/dL) Date Value 06/28/2022 107 TIBC (ug/dL) Date Value 06/28/2022 279 Transferrin Saturation (%) Date Value 06/28/2022 38.4 RENAL/HEPATIC: BUN (mg/dL) Date Value 2022 11 Creatinine (mg/dL) Date Value 2022 0.78 Albumin (g/dL) Date Value 2022 4.1 Bilirubin, Total (mg/dL) Date Value 2022 0.4 AST (U/L) Date Value 2022 17 ALT (U/L) Date Value 2022 40 (H) VITAMIN B12 & D25 Vitamin B12 Date Value Ref Range Status 06/28/2022 361 232 - 1,245 pg/mL Final No results found for: VITD25 LIPID PANEL: No results found for: CHOL, HDL, LDL, TG MEDICATION LEVELS N/A PERTINENT IMAGING/PROCEDURES Colonoscopy 01/10/2022 Impression: - Erythematous and eroded mucosa from 0 to 20 cm proximal to the anus. - Changes in ascending colon as noted above - The examined portion of the ileum was normal. - Biopsies were taken with a cold forceps for histology in the entire colon and in the terminal ileum. EGD 01/10/2022 Impression: - Normal esophagus. - Normal stomach. Biopsied. - Normal examined duodenum. Biopsied. Biopsies: FINAL DIAGNOSIS A. Duodenum, biopsy: - Duodenal mucosa with no significant diagnostic alteration. - No evidence of celiac disease or duodenitis. B. Stomach, antrum and body, biopsy: - Mild chronic inactive gastritis, see comment. C. Terminal ileum, biopsy: - Ileal mucosa with no significant diagnostic alteration. - No evidence of ileitis, granulomas or dysplasia. D. Right colon, biopsy: - Colonic mucosa with no significant diagnostic alteration. - No evidence of colitis, granulomas or dysplasia. E. Right colon polyps, biopsy: - Multiple fragments of hyperplastic polyp, negative for dysplasia. F. Transverse colon, biopsy: - Colonic mucosa with no significant diagnostic alteration. - No evidence of colitis, granulomas or dysplasia. G. Left colon, biopsy: - Colonic mucosa with no significant diagnostic alteration. - No evidence of colitis, granulomas or dysplasia. H. Rectum, biopsy: - Chronic active colitis with erosion, negative for granulomas or dysplasia, see comment. CTE 01/29/2022 IMPRESSION: Minimal jejunal findings may represent mild involvement with Crohn's disease. VACCINATION HISTORY Name Date Received Up-to-date Additional notes/comments COVID-19 Pfizer 3 doses Bivalent: 06/28/22 Yes Pneumococcal Pneumonia PCV13: PPSV23: PCV20:07/02/22 Yes Hepatitis A No Hepatitis A IgG Date Value Ref Range Status 06/28/2022 Negative Negative Final Comment: No serological evidence of past exposure to hepatitis A virus or hepatitis A vaccination. Should recent infection be suspected, repeat testing is suggested 3-4 weeks after this draw. Candidate for Hepatitis B Yes Hepatitis B Core Ab, Total (no units) Date Value 06/28/2022 Negative HBsAg Date Value Ref Range Status 06/28/2022 Negative Negative Final Hep B surface antigen (06/28/22) - 146 (positive) Influenza Inactivated vaccine recommended yearly 07/02/22 Yes Counseled to avoid live intranasal formulation Zoster recombinant (RZV) 2 dose series at month 0 and 1-2 08/18/22 No Candidate for Chicken pox + Due for dose #13 Oct 2022 [facility] pharmacy Tetanus, diphtheria, pertussis (Tdap or Td) One dose Tdap then Td every 10 years 07/05/21 Yes HPV Females < 45 years old and males < 26 years old; 2 dose series if <15 years old 08/18/2210/2022 No In progress - Dose #3 - February 2023 [facility] pharmacy Medication lab monitoring up to date: No Up-to-date with in clinic available vaccines: No, reasons: on hold due to Up-to-date with PAP smear (annually or Q2 years if HPV negative): Yes (2020) Up-to-date with skin check: Yes (established with derm, 06/2022) Up-to-date with DEXA scan (low BMI, post-menopausal, steroids >3 months, FHx of osteoporosis, smoking: baseline and repeat Q5 years if initial screen is normal): NA Smoking cessation achieved: NA ASSESSMENT Aicha Schrader is a 37 year old female with IBD colitis since ~1999 (age 15). In early 2021, she presented with persistent symptoms and workup showed rectal inflammation. She had initial response to mesalamine and budesonide but symptoms recurred so she was started on Entyvio in 07/2022 and has done very well on this. Fecal calpro in 09/2022 and 01/2023 had normalized. Positive home test, waiting official confirmation through testing ordered by PCP. Remains in clinical remission on vedolizumab 300 mg IV every 8 weeks. PLAN: Medication Consult - Continue vedolizumab 300 mg IV every 8 weeks. Currently in clinical remission. Scheduled for CSP 04/21/23 but may need to cancel as tested positive for via home test, waiting for confirmation through official lab test. Discussed vedolizumab and vaccine recommendations in . Will also inform Dr. Perez. Due for standard labs - ALT was slightly increased with last labs, will recheck CBC and CMP with next infusion scheduled 04/07/23. Scheduled for additional 2 maintenance doses, with PA set to 06/2023. Advised to reach out in interim if any worsening GI symptoms. - Updated med list in Epic Health Maintenance - Recommend the following vaccines: hepatitis A, zoster recombinant (to be obtained at pharmacy), and HPV (to be obtained at PCP or gate shear operator office), will hold off on all three in setting of . - Recommend the following health maintenance appts: none -- currently up to date Next PharmD visit: 06/23/23 Next IBD MD/ PA visit: 04/21/23 (CSP) - TBD; advised to schedule f/u with Dr. Perez in third trimester Next labs due: 03/2023 Next vedo dose due: 04/07/23 Teetee Louis endorses understanding to above. Denies other questions and concerns and is aware to contact us in future if needed. Shonda Jiang PharmD, BCACP, MS IBD Clinical Pharmacist Interventions made: medication education, medication reconciliation, health maintenance need assessment, lab management, and medication management Time spent (mins): 30 documented in this encounter [facility] 01-07-2023 Note HNO ID: [id number] Author: Shonda Jiang RPh Service: ? Author Type: Pharmacist Type: Progress Notes Filed: 01/07/2023 3:39 PM Note Text: IBD Medication Consult [facility] Patient consents to pharmacy consult agreement. Patient Name: Teetee Louis IBD Provider: Dr. Perez IBD: Crohn's disease [K50.90] Locations affected: jejunum and colon Behavior: inflammatory Perianal disease: No IBD Dx (year) : 2019 Prior surgeries: No January 07, 2022 Reason for consult: efficacy, safety, health maintenance review, and reconciliation Teetee Louis is a 37 year old White female referred to PharmD. Initiated vedolizumab 07/15/22. Saw Dr. Perez on 12/16/22 with plans to continue Entyvio and schedule colonoscopy later this year if not . Met with Aicha via VV. She reports: - currently in [employer] program and hoping to graduate next year; taking off for birthday to work on coursework - boss will be retiring soon - vedolizumab - veins access terrible - doing significantly well - having questions about which vaccine are safe in - taking synthroid PO every day - stopped taking spironolactone - taking vitamin Current IBD Medications: vedolizumab Will be initiating: none CLINICAL SYMPTOMS # of bowel movements daily: 2-3 # of liquid stools daily: 0 Consistency: semi-formed Bloody bowel movements: no Urgency: no Abdominal pain: no Abdominal distention: yes, occasional bloating with diet Nausea/vomiting: no Weight loss over last 3 months: no (168 lbs) General well-being: very well EXTRAINTESTINAL MANIFESTATIONS SOCIAL HISTORY Tobacco use: No EtOH: Yes, rarely Illicit drugs: No PAST MEDICAL HISTORY Diagnosis Date Crohn's disease (HCC) H/O ulcerative colitis Hypothyroidism PAST SURGICAL HISTORY Procedure Laterality Date COLONOSCOPY 2001 In [place] AND [place] in [place] COLONOSCOPY FLX DX W/COLLJ SPEC WHEN PFRMD 05/04/14 Colonoscopy INDUCED - EVACUATION 2009 PAST SURGICAL HISTORY OF umbilical hernia repair Current Outpatient Medications Medication Sig Dispense Refill sodium sulfate-potassium sulfate-magnesium sulfate (SUPREP BOWEL PREP KIT) 17.5-3.13-1.6 gram oral liquid Use as directed. 1 Kit 0 levothyroxine (SYNTHROID) 100 mcg tablet Take 100 mcg by mouth once daily. spironolactone (ALDACTONE) 100 mg tablet Take 100 mg by mouth once daily. No current facility-administered medications for this visit. ALLERGIES No Known Allergies FAMILY HISTORY FAMILY HISTORY Family history unknown: Yes Family History of IBD: Yes, biologic father (Crohn's) Family History of Autoimmunity: No Family History of Malignancy: Yes, skin, breast Family History of VTE: Yes, aunt (Factor V - Aicha is negative) Family History of CV: No PRIOR TREATMENT 5-ASA: Yes, Lialda, Asacol (ineffective), Canasa Thiopurines: No Methotrexate: No Anti-TNF: No Anti-Interleukin: Yes, initiated vedolizumab 07/15/22 - current Anti-IL 12/23: No JONN Inhibitor: No S1P Modulator: No PERTINENT VITALS AND LABS Weight/BMI: Wt: 76.2 kg (168 lb) BMI: 29.76 kg/(m2) TB (06/28/22) - negative TPMT: No results found for: LTPMTR EBV: No results found for: EBVPCR Calprotectin stool/inflammation: Fecal Dl 09/19/22 <27.1 Fecal Dl 04/11/2022 1065.6 Fecal Dl 06/02/22 >3,000 CRP Date Value Ref Range Status 01/15/2018 0.5 <0.9 mg/dL Final CBC: WBC (k/uL) Date Value 2022 6.43 Hemoglobin (g/dL) Date Value 2022 13.9 Hematocrit (%) Date Value 2022 40.5 MCV (fL) Date Value 2022 90.6 Platelet Count (k/uL) Date Value 2022 283 Lymphocytes % (%) Date Value 2022 28.0 IRON PANEL: Ferritin (ng/mL) Date Value 06/28/2022 168.0 Iron (ug/dL) Date Value 06/28/2022 107 TIBC (ug/dL) Date Value 06/28/2022 279 Transferrin Saturation (%) Date Value 06/28/2022 38.4 RENAL/HEPATIC: BUN (mg/dL) Date Value 2022 11 Creatinine (mg/dL) Date Value 2022 0.78 Albumin (g/dL) Date Value 2022 4.1 Bilirubin, Total (mg/dL) Date Value 2022 0.4 AST (U/L) Date Value 2022 17 ALT (U/L) Date Value 2022 40 (H) VITAMIN B12 AND D25 Vitamin B12 Date Value Ref Range Status 06/28/2022 361 232 - 1,245 pg/mL Final No results found for: VITD25 LIPID PANEL: No results found for: CHOL, HDL, LDL, TG MEDICATION LEVELS N/A PERTINENT IMAGING/PROCEDURES Colonoscopy 01/10/2022 Impression: - Erythematous and eroded mucosa from 0 to 20 cm proximal to the anus. - Changes in ascending colon as noted above - The examined portion of the ileum was normal. - Biopsies were taken with a cold forceps for histology in the entire colon and in the terminal ileum. EGD 01/10/2022 Impression: - Normal esophagus. - Normal stomach. Biopsied. - Normal examined duodenum. Biopsied. Biopsi (more content not included)... [facility] 01-07-2023 History of Presen t illness Narrative IBD Medication Consult [facility] Patient consents to pharmacy consult agreement. Patient Name: Teetee Louis IBD Provider: Dr. Perez IBD: Crohn's disease [K50.90] Locations affected: jejunum and colon Behavior: inflammatory Perianal disease: No IBD Dx (year) : 2019 Prior surgeries: No January 07, 2022 Reason for consult: efficacy, safety, health maintenance review, and reconciliation Teetee Louis is a 37 year old White female referred to PharmD. Initiated vedolizumab 07/15/22. Saw Dr. Perez on 12/16/22 with plans to continue Entyvio and schedule colonoscopy later this year if not . Met with Aicha via VV. She reports: - currently in [employer] program and hoping to graduate next year; taking off for birthday to work on coursework - boss will be retiring soon - vedolizumab - veins access terrible - doing significantly well - having questions about which vaccine are safe in - taking synthroid PO every day - stopped taking spironolactone - taking vitamin Current IBD Medications: vedolizumab Will be initiating: none CLINICAL SYMPTOMS # of bowel movements daily: 2-3 # of liquid stools daily: 0 Consistency: semi-formed Bloody bowel movements: no Urgency: no Abdominal pain: no Abdominal distention: yes, occasional bloating with diet Nausea/vomiting: no Weight loss over last 3 months: no (168 lbs) General well-being: very well EXTRAINTESTINAL MANIFESTATIONS SOCIAL HISTORY Tobacco use: No EtOH: Yes, rarely Illicit drugs: No PAST MEDICAL HISTORY Diagnosis Date Crohn's disease (HCC) H/O ulcerative colitis Hypothyroidism PAST SURGICAL HISTORY Procedure Laterality Date COLONOSCOPY 2001 In [place] & [place] in [place] COLONOSCOPY FLX DX W/COLLJ SPEC WHEN PFRMD 05/04/14 Colonoscopy INDUCED - EVACUATION 2009 PAST SURGICAL HISTORY OF umbilical hernia repair Current Outpatient Medications Medication Sig Dispense Refill sodium sulfate-potassium sulfate-magnesium sulfate (SUPREP BOWEL PREP KIT) 17.5-3.13-1.6 gram oral liquid Use as directed. 1 Kit 0 levothyroxine (SYNTHROID) 100 mcg tablet Take 100 mcg by mouth once daily. spironolactone (ALDACTONE) 100 mg tablet Take 100 mg by mouth once daily. No current facility-administered medications for this visit. ALLERGIES No Known Allergies FAMILY HISTORY FAMILY HISTORY Family history unknown: Yes Family History of IBD: Yes, biologic father (Crohn's) Family History of Autoimmunity: No Family History of Malignancy: Yes, skin, breast Family History of VTE: Yes, aunt (Factor V - Aicha is negative) Family History of CV: No PRIOR TREATMENT 5-ASA: Yes, Lialda, Asacol (ineffective), Canasa Thiopurines: No Methotrexate: No Anti-TNF: No Anti-Interleukin: Yes, initiated vedolizumab 07/15/22 - current Anti-IL 12/23: No JONN Inhibitor: No S1P Modulator: No PERTINENT VITALS AND LABS Weight/BMI: Wt: 76.2 kg (168 lb) BMI: 29.76 kg/(m^2) TB (06/28/22) - negative TPMT: No results found for: LTPMTR EBV: No results found for: EBVPCR Calprotectin stool/inflammation: Fecal Dl 09/19/22 <27.1 Fecal Dl 04/11/2022 1065.6 Fecal Dl 06/02/22 >3,000 CRP Date Value Ref Range Status 01/15/2018 0.5 <0.9 mg/dL Final CBC: WBC (k/uL) Date Value 2022 6.43 Hemoglobin (g/dL) Date Value 2022 13.9 Hematocrit (%) Date Value 2022 40.5 MCV (fL) Date Value 2022 90.6 Platelet Count (k/uL) Date Value 2022 283 Lymphocytes % (%) Date Value 2022 28.0 IRON PANEL: Ferritin (ng/mL) Date Value 06/28/2022 168.0 Iron (ug/dL) Date Value 06/28/2022 107 TIBC (ug/dL) Date Value 06/28/2022 279 Transferrin Saturation (%) Date Value 06/28/2022 38.4 RENAL/HEPATIC: BUN (mg/dL) Date Value 2022 11 Creatinine (mg/dL) Date Value 2022 0.78 Albumin (g/dL) Date Value 2022 4.1 Bilirubin, Total (mg/dL) Date Value 2022 0.4 AST (U/L) Date Value 2022 17 ALT (U/L) Date Value 2022 40 (H) VITAMIN B12 & D25 Vitamin B12 Date Value Ref Range Status 06/28/2022 361 232 - 1,245 pg/mL Final No results found for: VITD25 LIPID PANEL: No results found for: CHOL, HDL, LDL, TG MEDICATION LEVELS N/A PERTINENT IMAGING/PROCEDURES Colonoscopy 01/10/2022 Impression: - Erythematous and eroded mucosa from 0 to 20 cm proximal to the anus. - Changes in ascending colon as noted above - The examined portion of the ileum was normal. - Biopsies were taken with a cold forceps for histology in the entire colon and in the terminal ileum. EGD 01/10/2022 Impression: - Normal esophagus. - Normal stomach. Biopsied. - Normal examined duodenum. Biopsied. Biopsies: FINAL DIAGNOSIS A. Duodenum, biopsy: - Duodenal mucosa with no significant diagnostic alteration. - No evidence of celiac disease or duodenitis. B. Stomach, antrum and body, biopsy: - Mild chronic inactive gastritis, see comment. C. Terminal ileum, biopsy: - Ileal mucosa with no significant diagnostic alteration. - No evidence of ileitis, granulomas or dysplasia. D. Right colon, biopsy: - Colonic mucosa with no significant diagnostic alteration. - No evidence of colitis, granulomas or dysplasia. E. Right colon polyps, biopsy: - Multiple fragments of hyperplastic polyp, negative for dysplasia. F. Transverse colon, biopsy: - Colonic mucosa with no significant diagnostic alteration. - No evidence of colitis, granulomas or dysplasia. G. Left colon, biopsy: - Colonic mucosa with no significant diagnostic alteration. - No evidence of colitis, granulomas or dysplasia. H. Rectum, biopsy: - Chronic active colitis with erosion, negative for granulomas or dysplasia, see comment. CTE 01/29/2022 IMPRESSION: Minimal jejunal findings may represent mild involvement with Crohn's disease. VACCINATION HISTORY Name Date Received Up-to-date Additional notes/comments COVID-19 Pfizer 3 doses Bivalent: 06/28/22 Yes Pneumococcal Pneumonia PCV13: PPSV23: PCV20:07/02/22 Yes Hepatitis A No Hepatitis A IgG Date Value Ref Range Status 06/28/2022 Negative Negative Final Comment: No serological evidence of past exposure to hepatitis A virus or hepatitis A vaccination. Should recent infection be suspected, repeat testing is suggested 3-4 weeks after this draw. Candidate for Hepatitis B Yes Hepatitis B Core Ab, Total (no units) Date Value 06/28/2022 Negative HBsAg Date Value Ref Range Status 06/28/2022 Negative Negative Final Hep B surface antigen (06/28/22) - 146 (positive) Influenza Inactivated vaccine recommended yearly 07/02/22 Yes Counseled to avoid live intranasal formulation Zoster recombinant (RZV) 2 dose series at month 0 and 1-2 08/18/22 No Candidate for Chicken pox + Due for dose #13 Oct 2022 [facility] Tetanus, diphtheria, pertussis (Tdap or Td) One dose Tdap then Td every 10 years 07/05/21 Yes HPV Females < 45 years old and males < 26 years old; 2 dose series if <15 years old 08/18/2210/2022 No In progress - Dose #3 - February 2023 [facility] ASSESSMENT Steroid use in past 30 days: No Symptomatic improvement: Yes Clinical remission: Yes Endoscopic remission: NA Histologic remission: NA Treatment status: on treatment Medication lab monitoring up to date: Yes Up-to-date with in clinic available vaccines: No, reasons: in progress Up-to-date with PAP smear (annually or Q2 years if HPV negative): Yes (2020) Up-to-date with skin check: Yes (established with derm, 06/2022) Up-to-date with DEXA scan (low BMI, post-menopausal, steroids >3 months, FHx of osteoporosis, smoking: baseline and repeat Q5 years if initial screen is normal): NA Smoking cessation achieved: NA PLAN: Medication Consult - Continue vedolizumab 300 mg IV every 8 weeks. Currently in clinical remission - Scheduled for CSP 04/21/23. - Updated med list in [facility] Health Maintenance - Recommend the following vaccines: hepatitis A, zoster recombinant (to be obtained at pharmacy), and HPV (to be obtained at PCP or gate shear operator office), will hold off on all three in setting of trying to conceive/ - Recommend the following health maintenance appts: none -- currently up to date Next PharmD visit: 03/31/23 Next IBD MD/ PA visit: 04/21/23 (CSP) Next labs due: 03/2023 Next vedo dose due: 02/10/2023 Teetee Louis endorses understanding to above. Denies other questions and concerns and is aware to contact us in future if needed. Mike Marcelo PharmD Candidate '23 Shonda Jiang PharmD, BCACP, MS IBD Clinical Pharmacist Interventions made: medication education, medication reconciliation, health maintenance need assessment, medication management, and drug information Time spent (mins): 25 documented in this encounter [facility] 12-31-2022 Note HNO ID: [id number] Author: Ramin Muller PSYD Service: ? Author Type: Psychologist Type: Progress Notes Filed: 12/31/2022 2:45 PM Note Text: [facility] FOLLOW-UP December 31, 2022 Teetee Louis CPT Code: 15801 Psychotherapy 38-52 minutes Time initiated session: 11:00 AM to 11:45 AM Session #: 5 Collateral Parties Present: none. I have communicated my name and active licensure. The patient's identity and physical location were verified at the time of this visit. Either the patient or their legal outbound telemarketing representative has been informed of the risks and benefits of -- and alternatives to -- treatment through a remote evaluation and consents to proceed with the evaluation remotely. Subjective: The patient has been working on the following: Pt stated that since last session she has been doing well with only a slight increase in stress due to argument with her son. This was processed and pt discussed utilizing timeouts for herself to mindfully observe thoughts and feelings related to parenting. Pt engaged in session 3 of gut-directed hypnosis and reported feeling good after. Objective: Patient was seen virtually via synchronized teleconfrence The patient was casually attired. She was cooperative with the interview process. The patient had good eye contact. Appearance: Casually dressed Behavior: Behaves appropriately during the encounter Social Relatedness: Good and Appropriate for age and developmental level Speech: The patient demonstrates appropriate tone, prosody, higinio, phonetics, and syntax Mood:Euthymic Affect: Full and appropriate to topic Thought Content: The patient displays thought content appropriate to the interview. Thought Process:The thought process is appropriate for situation Hallucinations: No perceptual disturbances Delusions: No delusional thinking is evident Suicidal Ideas/Plans: The patient denies suicidal ideation, intent or plan Homicidal Ideas/Plans: Patient denies any homicidal ideation, plan or intent at this time. Anxiety: The patient is demonstrating anticipatory anxieties Orientation: Person, Place, Time and Situation Memory: Recent intact, Remote intact, and Immediate intact Concentration: Good Attention: The patient demonstrated full attention and focus throughout the interview Fund of Knowledge: Good and Appropriate for age and developmental level Judgment: Demonstrates age appropriate judgment Insight: aware of problem, admits to problem, and realizes severity of problem The patient's motivation for treatment was judged to be good. Assessment: Patient Data Generalized Anxiety Disorder Scale (ALON-7) ALON - 7 SCORES 06/13/2022 ALON-7 Score 7 (0-4) minimal anxiety, (5-9) mild anxiety, (10-14) moderate anxiety, (15-21) severe anxiety Patient Health Questionnaire (PHQ-9) PHQ-9 06/13/2022 Score 10 (0-4) minimal depression, (5-9) mild depression, (10-14) moderate depression, (15-19) moderately severe depression, (20-27) severe depression PROMIS Global Health PROMIS Global Health - (T-Scores - the mean of general population = 50. Five points is a clinically meaningful difference.) 07/15/2022 09/14/2022 12/09/2022 Physical T-Score 50.8 47.7 54.1 Mental T-Score 43.5 45.8 50.8 Current Outpatient Medications Medication Sig sodium sulfate-potassium sulfate-magnesium sulfate (SUPREP BOWEL PREP KIT) 17.5-3.13-1.6 gram oral liquid Use as directed. levothyroxine (SYNTHROID) 100 mcg tablet Take 100 mcg by mouth once daily. spironolactone (ALDACTONE) 100 mg tablet Take 100 mg by mouth once daily. No current facility-administered medications for this visit. Medication Changes: No change in medications Diagnoses: F43.23 Adjustment disorder with mixed anxiety and depressed mood F54 Psychological factor affecting physical condition K50.80 Crohn's disease of both small and large intestine without complication (HCC) Plan/Recommendations: 1) The patient may benefit from the following benefit from training int he processes of acceptance and commitment therapy as well as gut-directed hypnosis in order to assist with changing relationship with stress thoughts, sensations, and emotions and to help re-regulate the brain-gut axis. 2) PLAN FOR NEXT SESSION: Continue current treatment Expand present- moment awareness Practice relaxation techniques/ biofeedback Number of weeks till next appointment: 1. Trainee signature (if applicable): Supervising Licensed Psychologist AND Billing Provider: Ramin Mullre PSYD [facility] 12-31-2022 History of Presen t illness Narrative Images from the original note were not included. [facility]-UP December 31, 2022 Teetee Louis CPT Code: 01525 Psychotherapy 38-52 minutes Time initiated session: 11:00 AM to 11:45 AM Session #: 5 Collateral Parties Present: none. I have communicated my name and active licensure. The patient's identity and physical location were verified at the time of this visit. Either the patient or their legal outbound telemarketing representative has been informed of the risks and benefits of -- and alternatives to -- treatment through a remote evaluation and consents to proceed with the evaluation remotely. Subjective: The patient has been working on the following: Pt stated that since last session she has been doing well with only a slight increase in stress due to argument with her son. This was processed and pt discussed utilizing timeouts for herself to mindfully observe thoughts and feelings related to parenting. Pt engaged in session 3 of gut-directed hypnosis and reported feeling good after. Objective: Patient was seen virtually via synchronized teleconfrence The patient was casually attired. She was cooperative with the interview process. The patient had good eye contact. Appearance: Casually dressed Behavior: Behaves appropriately during the encounter Social Relatedness: Good and Appropriate for age and developmental level Speech: The patient demonstrates appropriate tone, prosody, higinio, phonetics, and syntax Mood:Euthymic Affect: Full and appropriate to topic Thought Content: The patient displays thought content appropriate to the interview. Thought Process:The thought process is appropriate for situation Hallucinations: No perceptual disturbances Delusions: No delusional thinking is evident Suicidal Ideas/Plans: The patient denies suicidal ideation, intent or plan Homicidal Ideas/Plans: Patient denies any homicidal ideation, plan or intent at this time. Anxiety: The patient is demonstrating anticipatory anxieties Orientation: Person, Place, Time and Situation Memory: Recent intact, Remote intact, and Immediate intact Concentration: Good Attention: The patient demonstrated full attention and focus throughout the interview Fund of Knowledge: Good and Appropriate for age and developmental level Judgment: Demonstrates age appropriate judgment Insight: aware of problem, admits to problem, and realizes severity of problem The patient's motivation for treatment was judged to be good. Assessment: Patient Data Generalized Anxiety Disorder Scale (ALON-7) ALON - 7 SCORES 06/13/2022 ALON-7 Score 7 (0-4) minimal anxiety, (5-9) mild anxiety, (10-14) moderate anxiety, (15-21) severe anxiety Patient Health Questionnaire (PHQ-9) PHQ-9 06/13/2022 Score 10 (0-4) minimal depression, (5-9) mild depression, (10-14) moderate depression, (15-19) moderately severe depression, (20-27) severe depression PROMIS Global Health PROMIS Global Health - (T-Scores - the mean of general population = 50. Five points is a clinically meaningful difference.) 07/15/2022 09/14/2022 12/09/2022 Physical T-Score 50.8 47.7 54.1 Mental T-Score 43.5 45.8 50.8 Current Outpatient Medications Medication Sig sodium sulfate-potassium sulfate-magnesium sulfate (SUPREP BOWEL PREP KIT) 17.5-3.13-1.6 gram oral liquid Use as directed. levothyroxine (SYNTHROID) 100 mcg tablet Take 100 mcg by mouth once daily. spironolactone (ALDACTONE) 100 mg tablet Take 100 mg by mouth once daily. No current facility-administered medications for this visit. Medication Changes: No change in medications Diagnoses: F43.23 Adjustment disorder with mixed anxiety and depressed mood F54 Psychological factor affecting physical condition K50.80 Crohn's disease of both small and large intestine without complication (HCC) Plan/Recommendations: 1) The patient may benefit from the following benefit from training int he processes of acceptance and commitment therapy as well as gut-directed hypnosis in order to assist with changing relationship with stress thoughts, sensations, and emotions and to help re-regulate the brain-gut axis. 2) PLAN FOR NEXT SESSION: Continue current treatment Expand present- moment awareness Practice relaxation techniques/ biofeedback Number of weeks till next appointment: 1. Trainee signature (if applicable): Supervising Licensed Psychologist & Billing Provider: Ramin Muller PSYD documented in this encounter [facility] 12-21-2022 Note HNO ID: [id number] Author: Ketty Gleason APRN.HEAD TRIMMER Service: ? Author Type: Nurse Practitioner Type: Progress Notes Filed: 12/21/2022 9:24 AM Note Text: Subjective UTI Associated symptoms include frequency and hematuria. Pertinent negatives include no chills, no nausea and no vomiting. Teetee Louis is a 37 year old female who presents with one day of dysuria, frequency, blood in urine. Denies fever, chills, back pain, nausea or vomiting. She has not taken any medication at home for her symptoms. Review of Systems Constitutional: Negative for chills and fever. Respiratory: Negative. Cardiovascular: Negative. Gastrointestinal: Positive for abdominal pain (suprapubic). Negative for nausea and vomiting. Genitourinary: Positive for dysuria, frequency and hematuria. Musculoskeletal: Negative for back pain. BP 122/84 Pulse 92 Temp 36.5 ?C (97.7 ?F) Resp 21 Wt 79 kg (174 lb 3.2 oz) LMP 05/01/2022 (Exact Date) SpO2 98% BMI 30.86 kg/m? PAST MEDICAL HISTORY Diagnosis Date Crohn's disease (HCC) H/O ulcerative colitis Hypothyroidism PAST SURGICAL HISTORY Procedure Laterality Date COLONOSCOPY 2001 In [place] AND [place] in [place] COLONOSCOPY FLX DX W/COLLJ SPEC WHEN PFRMD 05/04/14 Colonoscopy INDUCED - EVACUATION 2009 PAST SURGICAL HISTORY OF umbilical hernia repair ALLERGIES Patient has no known allergies. MEDICATIONS sodium sulfate-potassium sulfate-magnesium sulfate (SUPREP BOWEL PREP KIT) 17.5-3.13-1.6 gram oral liquid Use as directed. levothyroxine (SYNTHROID) 100 mcg tablet Take 100 mcg by mouth once daily. spironolactone (ALDACTONE) 100 mg tablet Take 100 mg by mouth once daily. FAMILY HISTORY Family history unknown: Yes Social History Tobacco Use Smoking status: Former Packs/day: 0.50 Years: 10.00 Pack years: 5.00 Types: Cigarettes Smokeless tobacco: Never Tobacco comments: electronic cig Substance Use Topics Alcohol use: Yes Comment: 1 drink weekly Drug use: No Objective Physical Exam Vitals and nursing note reviewed. Constitutional: General: She is not in acute distress. Appearance: Normal appearance. She is not toxic-appearing. Cardiovascular: Rate and Rhythm: Normal rate and regular rhythm. Heart sounds: Normal heart sounds. Pulmonary: Effort: Pulmonary effort is normal. No respiratory distress. Breath sounds: Normal breath sounds. No wheezing or rales. Abdominal: General: There is no distension. Palpations: Abdomen is soft. There is no mass. Tenderness: There is no abdominal tenderness. There is no right CVA tenderness, left CVA tenderness or guarding. Skin: General: Skin is warm and dry. Neurological: Mental Status: She is alert. ASSESSMENT/PLAN: 1. Urinary frequency - ICD9: 788.41, ICD10: R35.0 acute - UA positive for brady esterase, hematuria, proteinuria, and nitrates - Send urine for culture - Begin treatment with Macrobid 100 mg BID for 5 days - Patient education for prevention given - UA DIP, URINE (POC) - URINE CULTURE - NITROFURANTOIN MONOHYDRATE AND MACROCRYSTAL 100 MG ORAL CAP - Follow-up with your PCP in 3-5 days if symptoms have not improved or sooner if symptoms worsen - Discussed red flags and need for immediate medical evaluation if any occur. - Discussed supportive care treatment with fluids, rest and analgesia. - Discussed expected course of illness Ketty Gleason APRN.CNP [facility] 12-21-2022 Instructions Ketty Gleason APRN.CNP - 12/21/2022 9:24 AM EDT ASSESSMENT/PLAN: 1. Urinary frequency - ICD9: 788.41, ICD10: R35.0 acute - UA positive for brady esterase, hematuria, proteinuria, and nitrates - Send urine for culture - Begin treatment with Macrobid 100 mg BID for 5 days - Patient education for prevention given - UA DIP, URINE (POC) - URINE CULTURE - NITROFURANTOIN MONOHYDRATE & MACROCRYSTAL 100 MG ORAL CAP - Follow-up with your PCP in 3-5 days if symptoms have not improved or sooner if symptoms worsen - Discussed red flags and need for immediate medical evaluation if any occur. - Discussed supportive care treatment with fluids, rest and analgesia. - Discussed expected course of illness Ketty Gleason APRN.CNP [facility] PATIENT INFO BLADDER INFECTION OVERVIEW Bladder infections are one of the most common infections, causing symptoms of burning with urination and needing to urinate frequently. A bladder infection is a type of urinary tract infection (UTI). Bladder infections are more common is women than men. Most women have an uncomplicated bladder infection that is easily treated with a short course of antibiotics. In men, bladder infections may also affect the prostate gland, and a longer course of treatment may be needed. BLADDER INFECTION CAUSES The urinary tract includes the kidneys (which filter urine), ureters (the tube that carries urine from the kidneys to the bladder), the bladder (which stores urine), and urethra (the tube that carries urine out of the bladder). Bacteria do not normally live in these areas. However, bacteria normally live close to the urethra in women and men who are not circumcised. Bladder infections occur when bacteria travel up the urethra into the bladder. Factors that increase the risk of developing a bladder infection include: Vaginal sex Use of spermicides History of past bladder infections Diabetes In men, not being circumcised or having anal sex increase the risk of bladder infections. BLADDER INFECTION SYMPTOMS The typical symptoms of a bladder infection include: Pain or burning when urinating Frequent need to urinate Urgent need to urinate Blood in the urine Fever, back pain, nausea, or vomiting are not common symptoms of a bladder infection, but can occur in people with a kidney infection (pyelonephritis). If you have these symptoms, you should call your doctor or nurse immediately. Is it a bladder infection or something else? -- Burning with urination can also occur in people with vaginitis (eg, yeast infection) or urethritis (inflammation of the urethra). For this reason, it is important to call your healthcare provider before assuming you have a bladder infection. BLADDER INFECTION DIAGNOSIS Simple bladder infections are usually diagnosed based upon your symptoms alone. However, most patients, especially those who have bladder infection symptoms for the first time, should see a healthcare provider for urine testing. Urine culture -- A urine culture is a test that uses a sample of urine to try and grow bacteria in a laboratory. It usually requires about 48 hours to get results. However, a urine culture is not always required to diagnose a bladder infection. Urine culture is often recommended if: You have never had a bladder infection before You have symptoms that are not typical for bladder infection You have had resistant bladder infections before You have frequent bladder infections You do not begin to feel better within 24 to 48 hours after starting antibiotics You are BLADDER INFECTION TREATMENT Bladder infection -- In young, healthy adolescents and adults with a bladder infection, the usual treatment includes a three to seven day course of antibiotics. The typical drugs chosen are: trimethoprim-sulfamethoxazole (Bactrim ), nitrofurantoin (Macrobid ), ciprofloxacin (Cipro ) or levofloxacin (Levaquin ). In men, the infection may involve your prostate gland and treatment is usually given for at least 7 days. Your symptoms should begin to resolve within one day after starting treatment. It is important to take the full course of antibiotics to completely eliminate the infection. If your symptoms persist for more than two or three days after starting treatment, call your healthcare provider. If needed, you can take a prescription medication that numbs the bladder and urethra (phenazopyridine [Pyridium ]) to reduce the burning pain of some UTIs. A similar medication is available without a prescription (eg, Uristat). Both medications change the color of the urine (usually blue or orange) and can interfere with laboratory testing. You should not take these medications for more than 48 hours due to the risk of side effects. These medications do not treat the infection and must be taken along with an antibiotic. Some providers recommend drinking more fluids while treating bladder infections to help flush bacteria from the bladder. Others believe that drinking more fluids may dilute the antibiotic in the bladder and make the medication less effective. No studies have been performed to address this issue. There are also no good studies on the effectiveness of cranberry juice for treating a bladder infection; we do not recommend using cranberry juice to treat bladder infections. Follow-up care -- Follow-up testing is not needed in healthy, young men or women with a bladder infection if symptoms resolve. women are usually asked to have a repeat urine culture one to two weeks after treatment has ended to make sure the bacteria are no longer in the urine. RECURRENT BLADDER INFECTIONS Bladder infections versus other causes -- Some adults, especially women, develop bladder infections frequently. In this case, it is important to confirm that your symptoms (eg, pain or burning, frequency, and urgency) are caused by a bladder infection. Symptoms are usually similar from one infection to another. The best way to confirm an infection is to have a urine culture. If your urine culture is negative for infection, other causes of pain, burning, and frequency should be investigated. There is no reason to take antibiotics if your urine culture is negative. Need for further testing -- If you continue to develop bladder infections, you may require further testing. If you continue to notice blood in your urine after your bladder infection has cleared, you should have further testing. Preventing recurrent UTIs -- Women with recurrent urinary tract infections may be advised to take steps to prevent bladder infections, including one or more of the following: Changes in control -- Women who develop frequent bladder infections and use spermicides, particularly those who also use a diaphragm, may be encouraged to use an alternate method of control. Cranberry products -- Taking cranberry juice or cranberry tablets has been promoted as one way to help prevent frequent bladder infections. However, this has not been proven. Drinking more fluid and urinating after intercourse -- Although studies have not proven that drinking more fluids or urinating soon after intercourse can prevent infection, some healthcare providers recommend these measures since they are not harmful. Drinking more fluid may help to wash out bacteria that enter the bladder. Postmenopausal women -- Postmenopausal women who develop recurrent bladder infections may benefit from using vaginal estrogen. Vaginal estrogen is available in a flexible ring that is worn in the vagina for three months (eg, Estring ), a small tablet (Vagifem ), or a cream (eg, Premarin or Estrace ). Vaginal estrogen is discussed in more detail in a separate topic review. Antibiotics -- A preventive antibiotic treatment may be recommended if you repeatedly develop bladder infections and have not responded to other preventive measures. Antibiotics are highly effective in preventing recurrent bladder infections and can be taken in several different ways. Preventive antibiotic -- You can take a low dose of an antibiotic once per day or three times per week for six months to several years. Antibiotics following intercourse -- In women who develop urinary tract infections after sex, taking a single low dose antibiotic after intercourse can help to prevent bladder infections. Self-treatment -- A plan to begin antibiotics at the first sign of a bladder infection may be recommended in some situations. Before starting this regimen, it is important that you have had testing (urine cultures) to confirm that your symptoms are caused by a bladder infection; some people have symptoms of a bladder infection but do not actually have an infection. documented in this encounter [facility] 12-21-2022 History of Presen t illness Narrative Subjective UTI Associated symptoms include frequency and hematuria. Pertinent negatives include no chills, no nausea and no vomiting. Teetee Louis is a 37 year old female who presents with one day of dysuria, frequency, blood in urine. Denies fever, chills, back pain, nausea or vomiting. She has not taken any medication at home for her symptoms. Review of Systems Constitutional: Negative for chills and fever. Respiratory: Negative. Cardiovascular: Negative. Gastrointestinal: Positive for abdominal pain (suprapubic). Negative for nausea and vomiting. Genitourinary: Positive for dysuria, frequency and hematuria. Musculoskeletal: Negative for back pain. BP 122/84 Pulse 92 Temp 36.5 C (97.7 F) Resp 21 Wt 79 kg (174 lb 3.2 oz) LMP 05/01/2022 (Exact Date) SpO2 98% BMI 30.86 kg/m PAST MEDICAL HISTORY Diagnosis Date Crohn's disease (HCC) H/O ulcerative colitis Hypothyroidism PAST SURGICAL HISTORY Procedure Laterality Date COLONOSCOPY 2001 In [place] in [place] COLONOSCOPY FLX DX W/COLLJ SPEC WHEN PFRMD 05/04/14 Colonoscopy INDUCED - EVACUATION 2009 PAST SURGICAL HISTORY OF umbilical hernia repair ALLERGIES Patient has no known allergies. MEDICATIONS sodium sulfate-potassium sulfate-magnesium sulfate (SUPREP BOWEL PREP KIT) 17.5-3.13-1.6 gram oral liquid Use as directed. levothyroxine (SYNTHROID) 100 mcg tablet Take 100 mcg by mouth once daily. spironolactone (ALDACTONE) 100 mg tablet Take 100 mg by mouth once daily. FAMILY HISTORY Family history unknown: Yes Social History Tobacco Use Smoking status: Former Packs/day: 0.50 Years: 10.00 Pack years: 5.00 Types: Cigarettes Smokeless tobacco: Never Tobacco comments: electronic cig Substance Use Topics Alcohol use: Yes Comment: 1 drink weekly Drug use: No Objective Physical Exam Vitals and nursing note reviewed. Constitutional: General: She is not in acute distress. Appearance: Normal appearance. She is not toxic-appearing. Cardiovascular: Rate and Rhythm: Normal rate and regular rhythm. Heart sounds: Normal heart sounds. Pulmonary: Effort: Pulmonary effort is normal. No respiratory distress. Breath sounds: Normal breath sounds. No wheezing or rales. Abdominal: General: There is no distension. Palpations: Abdomen is soft. There is no mass. Tenderness: There is no abdominal tenderness. There is no right CVA tenderness, left CVA tenderness or guarding. Skin: General: Skin is warm and dry. Neurological: Mental Status: She is alert. ASSESSMENT/PLAN: 1. Urinary frequency - ICD9: 788.41, ICD10: R35.0 acute - UA positive for brady esterase, hematuria, proteinuria, and nitrates - Send urine for culture - Begin treatment with Macrobid 100 mg BID for 5 days - Patient education for prevention given - UA DIP, URINE (POC) - URINE CULTURE - NITROFURANTOIN MONOHYDRATE & MACROCRYSTAL 100 MG ORAL CAP - Follow-up with your PCP in 3-5 days if symptoms have not improved or sooner if symptoms worsen - Discussed red flags and need for immediate medical evaluation if any occur. - Discussed supportive care treatment with fluids, rest and analgesia. - Discussed expected course of illness Ketty Gleason APRN.[employer] documented in this encounter [facility] 12-19-2022 Miscellaneous Notes IBD PharmD Appt Called pt as no-show. No reply, call went to . Will send [employer] message. documented in this encounter [facility] 12-17-2022 Note HNO ID: [id number] Author: Ramin Muller PSYD Service: ? Author Type: Psychologist Type: Progress Notes Filed: 12/17/2022 11:57 AM Note Text: [facility] HOME PSYCHOLOGICAL FOLLOW-UP December 17, 2022 Teetee Louis CPT Code: 79863 Psychotherapy 38-52 minutes Time initiated session: 11:00 AM to 11:50 AM Session #: 4 Collateral Parties Present: none. Paitent verified they were at their home at address stated in the medical record. Confidential environment was assured and discussed with patient. Subjective: The patient has been working on the following: Pt stated that since last session she has been experiencing more stress due to returning to work and her judgments on herself. This was explored and pt practiced observing thoughts and defusing from them. Pt engaged in a mindfulness practice observing thoughts and this was processed. Objective: Patient was seen virtually via synchronized teleconfrence The patient was casually attired. She was cooperative with the interview process. The patient had good eye contact. Appearance: Casually dressed Behavior: Behaves appropriately during the encounter Social Relatedness: Good and Appropriate for age and developmental level Speech: The patient demonstrates appropriate tone, prosody, higinio, phonetics, and syntax Mood:Anxious/Nervousness Affect: Full and appropriate to topic Thought Content: The patient displays thought content appropriate to the interview. Thought Process:The thought process is appropriate for situation Hallucinations: No perceptual disturbances Delusions: No delusional thinking is evident Suicidal Ideas/Plans: The patient denies suicidal ideation, intent or plan Homicidal Ideas/Plans: Patient denies any homicidal ideation, plan or intent at this time. Anxiety: The patient is demonstrating anticipatory anxieties Orientation: Person, Place, Time and Situation Memory: Recent intact, Remote intact, and Immediate intact Concentration: Good Attention: The patient demonstrated full attention and focus throughout the interview Fund of Knowledge: Good and Appropriate for age and developmental level Judgment: Demonstrates age appropriate judgment Insight: aware of problem, admits to problem, and realizes severity of problem The patient's motivation for treatment was judged to be good. Assessment: Patient Data Generalized Anxiety Disorder Scale (ALON-7) ALON - 7 SCORES 06/13/2022 ALON-7 Score 7 (0-4) minimal anxiety, (5-9) mild anxiety, (10-14) moderate anxiety, (15-21) severe anxiety Patient Health Questionnaire (PHQ-9) PHQ-9 06/13/2022 Score 10 (0-4) minimal depression, (5-9) mild depression, (10-14) moderate depression, (15-19) moderately severe depression, (20-27) severe depression PROMIS Global Health PROMIS Global Health - (T-Scores - the mean of general population = 50. Five points is a clinically meaningful difference.) 07/15/2022 09/14/2022 12/09/2022 Physical T-Score 50.8 47.7 54.1 Mental T-Score 43.5 45.8 50.8 Current Outpatient Medications Medication Sig sodium sulfate-potassium sulfate-magnesium sulfate (SUPREP BOWEL PREP KIT) 17.5-3.13-1.6 gram oral liquid Use as directed. levothyroxine (SYNTHROID) 100 mcg tablet Take 100 mcg by mouth once daily. spironolactone (ALDACTONE) 100 mg tablet Take 100 mg by mouth once daily. No current facility-administered medications for this visit. Medication Changes: No change in medications Diagnoses: F43.23 Adjustment disorder with mixed anxiety and depressed mood F54 Psychological factor affecting physical condition K50.80 Crohn's disease of both small and large intestine without complication (HCC) Plan/Recommendations: 1) The patient may benefit from the following benefit from training int he processes of acceptance and commitment therapy as well as gut-directed hypnosis in order to assist with changing relationship with stress thoughts, sensations, and emotions and to help re-regulate the brain-gut axis. 2) PLAN FOR NEXT SESSION: Continue current treatment Expand present- moment awareness Practice relaxation techniques/ biofeedback Number of weeks till next appointment: 1. Trainee signature (if applicable): Supervising Licensed Psychologist AND Billing Provider: Ramin Muller PSYD [facility] 12-17-2022 History of Presen t illness Narrative Images from the original note were not included. [facility] MED[facility] HOME PSYCHOLOGICAL FOLLOW-UP December 17, 2022 Teetee Louis CPT Code: 75282 Psychotherapy 38-52 minutes Time initiated session: 11:00 AM to 11:50 AM Session #: 4 Collateral Parties Present: none. Paitent verified they were at their home at address stated in the medical record. Confidential environment was assured and discussed with patient. Subjective: The patient has been working on the following: Pt stated that since last session she has been experiencing more stress due to returning to work and her judgments on herself. This was explored and pt practiced observing thoughts and defusing from them. Pt engaged in a mindfulness practice observing thoughts and this was processed. Objective: Patient was seen virtually via synchronized teleconfrence The patient was casually attired. She was cooperative with the interview process. The patient had good eye contact. Appearance: Casually dressed Behavior: Behaves appropriately during the encounter Social Relatedness: Good and Appropriate for age and developmental level Speech: The patient demonstrates appropriate tone, prosody, higinio, phonetics, and syntax Mood:Anxious/Nervousness Affect: Full and appropriate to topic Thought Content: The patient displays thought content appropriate to the interview. Thought Process:The thought process is appropriate for situation Hallucinations: No perceptual disturbances Delusions: No delusional thinking is evident Suicidal Ideas/Plans: The patient denies suicidal ideation, intent or plan Homicidal Ideas/Plans: Patient denies any homicidal ideation, plan or intent at this time. Anxiety: The patient is demonstrating anticipatory anxieties Orientation: Person, Place, Time and Situation Memory: Recent intact, Remote intact, and Immediate intact Concentration: Good Attention: The patient demonstrated full attention and focus throughout the interview Fund of Knowledge: Good and Appropriate for age and developmental level Judgment: Demonstrates age appropriate judgment Insight: aware of problem, admits to problem, and realizes severity of problem The patient's motivation for treatment was judged to be good. Assessment: Patient Data Generalized Anxiety Disorder Scale (ALON-7) ALON - 7 SCORES 06/13/2022 ALON-7 Score 7 (0-4) minimal anxiety, (5-9) mild anxiety, (10-14) moderate anxiety, (15-21) severe anxiety Patient Health Questionnaire (PHQ-9) PHQ-9 06/13/2022 Score 10 (0-4) minimal depression, (5-9) mild depression, (10-14) moderate depression, (15-19) moderately severe depression, (20-27) severe depression PROMIS Global Health PROMIS Global Health - (T-Scores - the mean of general population = 50. Five points is a clinically meaningful difference.) 07/15/2022 09/14/2022 12/09/2022 Physical T-Score 50.8 47.7 54.1 Mental T-Score 43.5 45.8 50.8 Current Outpatient Medications Medication Sig sodium sulfate-potassium sulfate-magnesium sulfate (SUPREP BOWEL PREP KIT) 17.5-3.13-1.6 gram oral liquid Use as directed. levothyroxine (SYNTHROID) 100 mcg tablet Take 100 mcg by mouth once daily. spironolactone (ALDACTONE) 100 mg tablet Take 100 mg by mouth once daily. No current facility-administered medications for this visit. Medication Changes: No change in medications Diagnoses: F43.23 Adjustment disorder with mixed anxiety and depressed mood F54 Psychological factor affecting physical condition K50.80 Crohn's disease of both small and large intestine without complication (HCC) Plan/Recommendations: 1) The patient may benefit from the following benefit from training int he processes of acceptance and commitment therapy as well as gut-directed hypnosis in order to assist with changing relationship with stress thoughts, sensations, and emotions and to help re-regulate the brain-gut axis. 2) PLAN FOR NEXT SESSION: Continue current treatment Expand present- moment awareness Practice relaxation techniques/ biofeedback Number of weeks till next appointment: 1. Trainee signature (if applicable): Supervising Licensed Psychologist & Billing Provider: Ramin Muller PSYD documented in this encounter [facility] 12-16-2022 Note HNO ID: [id number] Author: Jt Perez MD Service: ? Author Type: Physician Type: Progress Notes Filed: 12/16/2022 8:54 AM Note Text: VIRTUAL VISIT FOLLOW UP Teetee Kenney Heriberto [id number] has requested a video telemedicine for follow up of indeterminate IBD colitis. Review of IBD history (copied and updated from my prior notes): Dx of Crohn's ~1999 (age 15) when she had a colonoscopy for abdominal pain and rectal bleeding. She had a course of prednisone at that time. Over the years she had intermittent episodes of pain and diarrhea but asymptomatic in between. Then in early 2021, she presented with persistent symptoms and workup showed rectal inflammation. She had initial response to mesalamine and budesonide but symptoms recurred so she was started on Entyvio in 07/2022 Most recent GI tract testing: EGD 01/2022- normal; Colonoscopy 01/2022- Luna 2 inflammation in rectum to 20 cm; scarring in right colon; CTe 01/2022- minimal jejunal changes UPDATED HISTORY: Aicha has been on Entyvio since 07/2022 and is doing really well . Current symptoms are: 2 to 4 bowel movements per day which are mostly soft. No rectal urgency. No rectal bleeding. No abdominal pain. Appetite is good. Reported weight is 170 pounds, which is stable. Denies NSAIDs PAST MEDICAL HISTORY Diagnosis Date Crohn's disease (HCC) H/O ulcerative colitis Hypothyroidism Social History Tobacco Use Smoking status: Former Packs/day: 0.50 Years: 10.00 Pack years: 5.00 Types: Cigarettes Smokeless tobacco: Never Tobacco comments: electronic cig Substance Use Topics Alcohol use: Yes Comment: 1 drink weekly Drug use: No Current Outpatient Medications Medication Sig Dispense Refill levothyroxine (SYNTHROID) 100 mcg tablet Take 100 mcg by mouth once daily. spironolactone (ALDACTONE) 100 mg tablet Take 100 mg by mouth once daily. No current facility-administered medications for this visit. ALLERGIES No Known Allergies REVIEWED ITEMS Labs: Component 04/11/2022 06/02/2022 07/02/2022 2022 Calprotectin, Fecal 1,065.6 (H) >3,000.0 (H) 652.9 (H) <27.1 Component Latest Ref Rng AND Units 2022 WBC 3.70 - 11.00 k/uL 6.43 RBC 3.90 - 5.20 m/uL 4.47 Hemoglobin 11.5 - 15.5 g/dL 13.9 Hematocrit 36.0 - 46.0 % 40.5 MCV 80.0 - 100.0 fL 90.6 MCH 26.0 - 34.0 pg 31.1 MCHC 30.5 - 36.0 g/dL 34.3 RDW-CV 11.5 - 15.0 % 11.8 Platelet Count 150 - 400 k/uL 283 MPV 9.0 - 12.7 fL 10.1 Neut% % 61.9 Abs Neut (ANC) 1.45 - 7.50 k/uL 3.98 Lymph% % 28.0 Abs Lymph 1.00 - 4.00 k/uL 1.80 Ellsworth% % 7.9 Abs Ellsworth <0.87 k/uL 0.51 Eosin% % 1.2 Abs Eosin <0.46 k/uL 0.08 Baso% % 0.5 Abs Baso <0.11 k/uL 0.03 Immature Gran % % 0.5 IMMATURE GRANS (ABS) <0.10 k/uL 0.03 NRBC /100 WBC 0.0 Absolute nRBC <0.01 k/uL <0.01 DTYPE Auto Protein, Total 6.3 - 8.0 g/dL 6.8 Albumin 3.9 - 4.9 g/dL 4.1 Calcium 8.5 - 10.2 mg/dL 8.4 (L) Bilirubin, Total 0.2 - 1.3 mg/dL 0.4 Alkaline Phosphatase 34 - 123 U/L 53 AST 13 - 35 U/L 17 ALT 7 - 38 U/L 40 (H) Glucose 74 - 99 mg/dL 97 BUN 7 - 21 mg/dL 11 Creatinine 0.58 - 0.96 mg/dL 0.78 Sodium 136 - 144 mmol/L 133 (L) Potassium 3.7 - 5.1 mmol/L 3.9 Chloride 97 - 105 mmol/L 100 CO2 22 - 30 mmol/L 25 Anion Gap 9 - 18 mmol/L 8 (L) eGFR >=60 mL/min/1.73mA? 100 IMPRESSION (as copied and updated from my prior note and reflects medical decision making today): 37 year old female with IBD colitis since ~1999 (age 15). In early 2021, she presented with persistent symptoms and workup showed rectal inflammation. She had initial response to mesalamine and budesonide but symptoms recurred so she was started on Entyvio in 07/2022 and has done very well on this. Fecal calpro in 09/2022 had normalized. She is trying to get - we discussed issues related to this and IBD including meds during (I reviewed transplacental transfer of Entyvio in 3rd trimester). Her disease appears to be in remission at this point. Health maintenance: See Dr. Jiang 09/2022 note PLAN Continue Entyvio- next dose due today Colonoscopy later this year if not - both to assess disease and for dysplasia screening F/U with CHONG Castro later this year I spent a total of 25 minutes on the date of the service which included preparing to see the patient, [id number] patient care, completing clinical documentation, obtaining and/or reviewing separately obtained history, counseling and educating the patient/family/caregiver, and ordering medications, tests, or procedures. Jt Perez MD [facility] 11-19-2022 Note HNO ID: [id number] Author: Ramin Muller PSYD Service: ? Author Type: Psychologist Type: Progress Notes Filed: 11/19/2022 11:37 AM Note Text: [facility] FOLLOW-UP November 19, 2022 Teetee Louis CPT Code: 68856 Psychotherapy 16-37 minutes Time initiated session: 11:00 AM to 10:30 AM Session #: 3 Collateral Parties Present: none. Chucho verified they were at their home at address stated in the medical record. Confidential environment was assured and discussed with patient. Subjective: The patient has been working on the following: Pt stated that since last session she has been doing well and has practiced hypnosis 4 times. She noted minimal symptoms or discomfort and noted she is going on vacation with her this week. Pt predictive thoughts were explored and defusion was reinforced. Pt engaged in session 2 of gut-directed hypnosis and the experience was processed. Objective: Patient was seen virtually via synchronized teleconfrence The patient was casually attired. She was cooperative with the interview process. The patient had good eye contact. Appearance: Casually dressed Behavior: Behaves appropriately during the encounter Social Relatedness: Good and Appropriate for age and developmental level Speech: The patient demonstrates appropriate tone, prosody, higinio, phonetics, and syntax Mood:Euthymic Affect: Full and appropriate to topic Thought Content: The patient displays thought content appropriate to the interview. Thought Process:The thought process is appropriate for situation Hallucinations: No perceptual disturbances Delusions: No delusional thinking is evident Suicidal Ideas/Plans: The patient denies suicidal ideation, intent or plan Homicidal Ideas/Plans: Patient denies any homicidal ideation, plan or intent at this time. Anxiety: The patient denies and does not appear anxious Orientation: Person, Place, Time and Situation Memory: Recent intact, Remote intact, and Immediate intact Concentration: Good Attention: The patient demonstrated full attention and focus throughout the interview Fund of Knowledge: Good and Appropriate for age and developmental level Judgment: Demonstrates age appropriate judgment Insight: aware of problem, admits to problem, and realizes severity of problem The patient's motivation for treatment was judged to be good. Assessment: Patient Data Generalized Anxiety Disorder Scale (ALON-7) ALON - 7 SCORES 06/13/2022 ALON-7 Score 7 (0-4) minimal anxiety, (5-9) mild anxiety, (10-14) moderate anxiety, (15-21) severe anxiety Patient Health Questionnaire (PHQ-9) PHQ-9 06/13/2022 Score 10 (0-4) minimal depression, (5-9) mild depression, (10-14) moderate depression, (15-19) moderately severe depression, (20-27) severe depression PROMIS Global Health PROMIS Global Health - (T-Scores - the mean of general population = 50. Five points is a clinically meaningful difference.) 04/13/2022 07/15/2022 09/14/2022 Physical T-Score 47.7 50.8 47.7 Mental T-Score 45.8 43.5 45.8 Current Outpatient Medications Medication Sig levothyroxine (SYNTHROID) 100 mcg tablet Take 100 mcg by mouth once daily. spironolactone (ALDACTONE) 100 mg tablet Take 100 mg by mouth once daily. No current facility-administered medications for this visit. Medication Changes: No change in medications Diagnoses: F43.23 Adjustment disorder with mixed anxiety and depressed mood F54 Psychological factor affecting physical condition K50.80 Crohn's disease of both small and large intestine without complication (HCC) Plan/Recommendations: 1) The patient may benefit from the following benefit from training int he processes of acceptance and commitment therapy as well as gut-directed hypnosis in order to assist with changing relationship with stress thoughts, sensations, and emotions and to help re-regulate the brain-gut axis. 2) PLAN FOR NEXT SESSION: Continue current treatment Expand present- moment awareness Practice relaxation techniques/ biofeedback Number of weeks till next appointment: 1. Trainee signature (if applicable): Supervising Licensed Psychologist AND Billing Provider: Ramin Muller PSYD [facility] 11-19-2022 History of Presen t illness Narrative Images from the original note were not included. [facility]-UP November 19, 2022 Teetee Louis CPT Code: 59995 Psychotherapy 16-37 minutes Time initiated session: 11:00 AM to 10:30 AM Session #: 3 Collateral Parties Present: none. Paitent verified they were at their home at address stated in the medical record. Confidential environment was assured and discussed with patient. Subjective: The patient has been working on the following: Pt stated that since last session she has been doing well and has practiced hypnosis 4 times. She noted minimal symptoms or discomfort and noted she is going on vacation with her this week. Pt predictive thoughts were explored and defusion was reinforced. Pt engaged in session 2 of gut-directed hypnosis and the experience was processed. Objective: Patient was seen virtually via synchronized teleconfrence The patient was casually attired. She was cooperative with the interview process. The patient had good eye contact. Appearance: Casually dressed Behavior: Behaves appropriately during the encounter Social Relatedness: Good and Appropriate for age and developmental level Speech: The patient demonstrates appropriate tone, prosody, higinio, phonetics, and syntax Mood:Euthymic Affect: Full and appropriate to topic Thought Content: The patient displays thought content appropriate to the interview. Thought Process:The thought process is appropriate for situation Hallucinations: No perceptual disturbances Delusions: No delusional thinking is evident Suicidal Ideas/Plans: The patient denies suicidal ideation, intent or plan Homicidal Ideas/Plans: Patient denies any homicidal ideation, plan or intent at this time. Anxiety: The patient denies and does not appear anxious Orientation: Person, Place, Time and Situation Memory: Recent intact, Remote intact, and Immediate intact Concentration: Good Attention: The patient demonstrated full attention and focus throughout the interview Fund of Knowledge: Good and Appropriate for age and developmental level Judgment: Demonstrates age appropriate judgment Insight: aware of problem, admits to problem, and realizes severity of problem The patient's motivation for treatment was judged to be good. Assessment: Patient Data Generalized Anxiety Disorder Scale (ALON-7) ALON - 7 SCORES 06/13/2022 ALON-7 Score 7 (0-4) minimal anxiety, (5-9) mild anxiety, (10-14) moderate anxiety, (15-21) severe anxiety Patient Health Questionnaire (PHQ-9) PHQ-9 06/13/2022 Score 10 (0-4) minimal depression, (5-9) mild depression, (10-14) moderate depression, (15-19) moderately severe depression, (20-27) severe depression PROMIS Global Health PROMIS Global Health - (T-Scores - the mean of general population = 50. Five points is a clinically meaningful difference.) 04/13/2022 07/15/2022 09/14/2022 Physical T-Score 47.7 50.8 47.7 Mental T-Score 45.8 43.5 45.8 Current Outpatient Medications Medication Sig levothyroxine (SYNTHROID) 100 mcg tablet Take 100 mcg by mouth once daily. spironolactone (ALDACTONE) 100 mg tablet Take 100 mg by mouth once daily. No current facility-administered medications for this visit. Medication Changes: No change in medications Diagnoses: F43.23 Adjustment disorder with mixed anxiety and depressed mood F54 Psychological factor affecting physical condition K50.80 Crohn's disease of both small and large intestine without complication (HCC) Plan/Recommendations: 1) The patient may benefit from the following benefit from training int he processes of acceptance and commitment therapy as well as gut-directed hypnosis in order to assist with changing relationship with stress thoughts, sensations, and emotions and to help re-regulate the brain-gut axis. 2) PLAN FOR NEXT SESSION: Continue current treatment Expand present- moment awareness Practice relaxation techniques/ biofeedback Number of weeks till next appointment: 1. Trainee signature (if applicable): Supervising Licensed Psychologist & Billing Provider: Ramin Muller PSYD documented in this encounter [facility] 11-05-2022 Note HNO ID: [id number] Author: Ramin Muller PSYD Service: ? Author Type: Psychologist Type: Progress Notes Filed: 11/05/2022 11:58 AM Note Text: [facility]CH[facility] FOLLOW-UP November 05, 2022 Teetee Louis CPT Code: 95878 Psychotherapy 38-52 minutes Time initiated session: 11:03 AM to 11:50 AM Session #: 2 Collateral Parties Present: none. Paitent verified they were at their home at address stated in the medical record. Confidential environment was assured and discussed with patient. Subjective: The patient has been working on the following: Pt stated that since last session she has been doing well and has been experiencing some worry related to wanting to become and being on Entivi[place]. This was processed as well as informations he obtained from the team pharmacist. Pt practiced cognitive defusion by watching the mind protect what is important to her. Pt engaged ins session 1 of gut-directed hypnosis and the experience was processed. Objective: Patient was seen virtually via synchronized teleconfrence The patient was casually attired. She was cooperative with the interview process. The patient had good eye contact. Appearance: Casually dressed Behavior: Behaves appropriately during the encounter Social Relatedness: Good and Appropriate for age and developmental level Speech: The patient demonstrates appropriate tone, prosody, higinio, phonetics, and syntax Mood:Anxious/Nervousness Affect: Full and appropriate to topic Thought Content: The patient displays thought content appropriate to the interview. Thought Process:The thought process is appropriate for situation Hallucinations: No perceptual disturbances Delusions: No delusional thinking is evident Suicidal Ideas/Plans: The patient denies suicidal ideation, intent or plan Homicidal Ideas/Plans: Patient denies any homicidal ideation, plan or intent at this time. Anxiety: The patient is demonstrating anticipatory anxieties Orientation: Person, Place, Time and Situation Memory: Recent intact, Remote intact, and Immediate intact Concentration: Good Attention: The patient demonstrated full attention and focus throughout the interview Fund of Knowledge: Good and Appropriate for age and developmental level Judgment: Demonstrates age appropriate judgment Insight: aware of problem, admits to problem, and realizes severity of problem The patient's motivation for treatment was judged to be good. Assessment: Patient Data Generalized Anxiety Disorder Scale (ALON-7) ALON - 7 SCORES 06/13/2022 ALON-7 Score 7 (0-4) minimal anxiety, (5-9) mild anxiety, (10-14) moderate anxiety, (15-21) severe anxiety Patient Health Questionnaire (PHQ-9) PHQ-9 06/13/2022 Score 10 (0-4) minimal depression, (5-9) mild depression, (10-14) moderate depression, (15-19) moderately severe depression, (20-27) severe depression PROMIS Global Health PROMIS Global Health - (T-Scores - the mean of general population = 50. Five points is a clinically meaningful difference.) 04/13/2022 07/15/2022 09/14/2022 Physical T-Score 47.7 50.8 47.7 Mental T-Score 45.8 43.5 45.8 Current Outpatient Medications Medication Sig levothyroxine (SYNTHROID) 100 mcg tablet Take 100 mcg by mouth once daily. spironolactone (ALDACTONE) 100 mg tablet Take 100 mg by mouth once daily. No current facility-administered medications for this visit. Medication Changes: No change in medications Diagnoses: F43.23 Adjustment disorder with mixed anxiety and depressed mood F54 Psychological factor affecting physical condition K50.80 Crohn's disease of both small and large intestine without complication (HCC) Plan/Recommendations: 1) The patient may benefit from the following benefit from training int he processes of acceptance and commitment therapy as well as gut-directed hypnosis in order to assist with changing relationship with stress thoughts, sensations, and emotions and to help re-regulate the brain-gut axis. 2) PLAN FOR NEXT SESSION: Continue current treatment Expand present- moment awareness Practice relaxation techniques/ biofeedback Number of weeks till next appointment: 1. Trainee signature (if applicable): Supervising Licensed Psychologist AND Billing Provider: Ramin Muller PSYD [facility] 11-05-2022 History of Presen t illness Narrative Images from the original note were not included. [facility]-UP November 05, 2022 Teetee Louis CPT Code: 87001 Psychotherapy 38-52 minutes Time initiated session: 11:03 AM to 11:50 AM Session #: 2 Collateral Parties Present: none. Paitent verified they were at their home at address stated in the medical record. Confidential environment was assured and discussed with patient. Subjective: The patient has been working on the following: Pt stated that since last session she has been doing well and has been experiencing some worry related to wanting to become and being on Entivi[place]. This was processed as well as informations he obtained from the team pharmacist. Pt practiced cognitive defusion by watching the mind protect what is important to her. Pt engaged ins session 1 of gut-directed hypnosis and the experience was processed. Objective: Patient was seen virtually via synchronized teleconfrence The patient was casually attired. She was cooperative with the interview process. The patient had good eye contact. Appearance: Casually dressed Behavior: Behaves appropriately during the encounter Social Relatedness: Good and Appropriate for age and developmental level Speech: The patient demonstrates appropriate tone, prosody, higinio, phonetics, and syntax Mood:Anxious/Nervousness Affect: Full and appropriate to topic Thought Content: The patient displays thought content appropriate to the interview. Thought Process:The thought process is appropriate for situation Hallucinations: No perceptual disturbances Delusions: No delusional thinking is evident Suicidal Ideas/Plans: The patient denies suicidal ideation, intent or plan Homicidal Ideas/Plans: Patient denies any homicidal ideation, plan or intent at this time. Anxiety: The patient is demonstrating anticipatory anxieties Orientation: Person, Place, Time and Situation Memory: Recent intact, Remote intact, and Immediate intact Concentration: Good Attention: The patient demonstrated full attention and focus throughout the interview Fund of Knowledge: Good and Appropriate for age and developmental level Judgment: Demonstrates age appropriate judgment Insight: aware of problem, admits to problem, and realizes severity of problem The patient's motivation for treatment was judged to be good. Assessment: Patient Data Generalized Anxiety Disorder Scale (ALON-7) ALON - 7 SCORES 06/13/2022 ALON-7 Score 7 (0-4) minimal anxiety, (5-9) mild anxiety, (10-14) moderate anxiety, (15-21) severe anxiety Patient Health Questionnaire (PHQ-9) PHQ-9 06/13/2022 Score 10 (0-4) minimal depression, (5-9) mild depression, (10-14) moderate depression, (15-19) moderately severe depression, (20-27) severe depression PROMIS Global Health PROMIS Global Health - (T-Scores - the mean of general population = 50. Five points is a clinically meaningful difference.) 04/13/2022 07/15/2022 09/14/2022 Physical T-Score 47.7 50.8 47.7 Mental T-Score 45.8 43.5 45.8 Current Outpatient Medications Medication Sig levothyroxine (SYNTHROID) 100 mcg tablet Take 100 mcg by mouth once daily. spironolactone (ALDACTONE) 100 mg tablet Take 100 mg by mouth once daily. No current facility-administered medications for this visit. Medication Changes: No change in medications Diagnoses: F43.23 Adjustment disorder with mixed anxiety and depressed mood F54 Psychological factor affecting physical condition K50.80 Crohn's disease of both small and large intestine without complication (HCC) Plan/Recommendations: 1) The patient may benefit from the following benefit from training int he processes of acceptance and commitment therapy as well as gut-directed hypnosis in order to assist with changing relationship with stress thoughts, sensations, and emotions and to help re-regulate the brain-gut axis. 2) PLAN FOR NEXT SESSION: Continue current treatment Expand present- moment awareness Practice relaxation techniques/ biofeedback Number of weeks till next appointment: 1. Trainee signature (if applicable): Supervising Licensed Psychologist & Billing Provider: Ramin Muller PSYD documented in this encounter [facility] 09-26-2022 Miscellaneous Notes Images from the original note were not included. Catrachito Garcia PA-C You 2 minutes ago (10:41 AM) She can stop lialda at this time Catrachito Garcia PA-C Patient notified of recommendation in a [employer] message. documented in this encounter [facility] 08-01-2022 History of Presen t illness Narrative Virtual Follow Up Visit Provider Location: [facility] Patient Location: Patient Home or Place of Residence SUBJECTIVE Teetee Louis [id number] has requested a video telemedicine for follow up of Crohn's disease. Last seen 06/11/2022. IBD History (copied and updated from my prior notes) Ms. Louis, is a 36 year old female with a history of Crohn's disease diagnosed in 1999 at the age of 15. Treated in the past with Ascol bentyl and lialda with minimal benefit. Most recent scope was in 2018 and pathology revealed chronic inflammation and CTE concerning for right sided colitis. Has not been on medication since that time. Changes and test results since last visit: Feeling well overall still with Gas BMs are soft 3 BMs occasional blood. Still with abdominal pain upper abdomen under the rib cage. Started Entyvio 2 doses so far (last this week) Still on Lialda Not on canasa Current Clinical Symptoms # of bowel movements daily: 3 Consistency: loose, formed Bloody bowel movements: yes Urgency: yes Abdominal pain: yes Abdominal distention: no Nausea/vomiting: no Weight loss over last 3 months: no Diagnosis Crohn's Disease: Date of diagnosis (year): 1999 Phenotype Location affected: colon Behavior: inflammatory Perianal disease: no Prior Medications/Dates/Reason for Switch Surgery: No: Systemic steroids last year: No Enteric or rectal steroids last year: No Systemic 5-ASA: previous lialda asacol Local 5-ASA: No Thiopurines: No Methotrexate: No Biologics: none Small molecules: No Current Medications Lialada 4 tabs daily Vedolizumab 2 doses so far Labs TB Status: Negative Hepatitis B Status: Negative TPMT: Unknown Immunization History Administered Date(s) Administered COVID-19 booster vaccine, age 12+ yr, bivalent (ClassPass) 06/28/2022 COVID-19 original vaccine, age 12+ yr, monovalent (Trading Block-Niche - PURPLE TOP) 12/07/2020 12/28/2020 08/27/2021 Tdap (Age 7+) 07/05/2021 influenza (ccIIV4) vaccine, age 6+ mo, quadrivalent, PF (FLUCELVAX) 07/02/2022 pneumococcal (PCV20) vaccine, 20 valent (PREVNAR 20) 07/02/2022 Current Outpatient Medications Medication Sig Dispense Refill levothyroxine (SYNTHROID) 100 mcg tablet Take 100 mcg by mouth once daily. Levonorgestrel-Ethinyl Estrad 90-20 mcg (28) per tablet Take 1 tablet by mouth once daily. Cholecalciferol, Vitamin D3, (VITAMIN D-3) 50 mcg (2,000 unit) cap Take 1 capsule by mouth once daily. vitamin K2 100 mcg cap Take 1 capsule by mouth once daily. Mesalamine (LIALDA) 1.2 gram EC tablet Take 4 tablets by mouth daily with breakfast. 360 tablet 0 spironolactone (ALDACTONE) 100 mg tablet Take 100 mg by mouth once daily. Multivitamin capsule Take 1 capsule by mouth once daily. No current facility-administered medications for this visit. ALLERGIES No Known Allergies PAST SURGICAL HISTORY Procedure Laterality Date COLONOSCOPY 2001 In [place] & [place] in [place] COLONOSCOPY FLX DX W/COLLJ SPEC WHEN PFRMD 05/04/14 Colonoscopy INDUCED - EVACUATION 2009 PAST SURGICAL HISTORY OF umbilical hernia repair ___PERSONAL HABITS: Tobacco: No Alcohol: occasional NSAID USE: no Review of Systems: GENERAL:No weight loss, malaise or fevers HEENT:Negative for frequent or significant headaches, No changes in hearing or vision, no nose bleeds or other nasal problems NECK:Negative for lumps, goiter, pain and significant neck swelling RESPIRATORY: Negative for cough, hemoptysis, wheezing, COPD, dyspnea or shortness of breath CARDIOVASCULAR: Negative for chest pain, leg swelling, hypertension, CHF or palpitations GASTROINTESTINAL: See HPI GENITOURINARY: No history of dysuria, frequency or incontinence ONLINE MEDIA DIRECTOR: Negative for abnormal vaginal bleeding, abnormal vaginal discharge MUSCULOSKELETAL: Negative for joint pain or swelling, back pain or muscle pain NEUROLOGIC:Negative for focal numbness or weakness, headaches and dizziness or syncope. SKIN:Negative for lesions, rash, and itching PSYCHIATRIC: Negative for sleep disturbance, mood disorder and recent psychosocial stressors. HEMATOLOGIC/LYMPHATIC/IMMUNOLOGI C:Negative for prolonged bleeding, bruising easily or swollen nodes ENDOCRINE: Negative for cold or heat intolerance, polyuria, polydipsia and goiter The remainder of the ROS was negative. PHYSICAL EXAMINATION General: alert and appropriate, in no distress and well-hydrated, well nourished , Head: normocephalic, no abnormality or lesion noted, Eyevisual acuity is grossly normal, no injection,, and EOMI,s: Oropharynx: moist mucus membranes, no tonsillar hypertrophy/exudate, uvula midline and pharynx non-erythematous, lips, teeth and gums are without obvious lesion, Neck: full ROM, no cervical LNs noted, Respiratory: breathing non-labored, and no grunting/flaring/retractions, Chest: equal chest rise with normal respiratory effort, Abdomen: flat appearing. Visible protrusions or hernias: No Incisions/scars: None Areas of pain/tenderness: Denies Skin: no rash noted, Neuro: Patient seen sitting with normal appearing strength and coordination. No focal motor deficits. Psych: Appropriate mood and interaction Most recent labs: CBC: WBC (k/uL) Date Value 06/28/2022 7.23 Hematocrit (%) Date Value 06/28/2022 43.8 MCV (fL) Date Value 06/28/2022 94.4 Platelet Count (k/uL) Date Value 06/28/2022 281 Lymph% (%) Date Value 06/28/2022 24.5 Hepatic Function Panel: Albumin (g/dL) Date Value 06/28/2022 3.9 Bilirubin, Total (mg/dL) Date Value 06/28/2022 0.6 Alkaline Phosphatase (U/L) Date Value 06/28/2022 48 AST (U/L) Date Value 06/28/2022 16 ALT (U/L) Date Value 06/28/2022 26 Protein, Total (g/dL) Date Value 06/28/2022 7.2 CRP: CRP Date Value Ref Range Status 01/15/2018 0.5 <0.9 mg/dL Final No results found for: QTBGOLD No results found for: HRINTP No results found for: TBTEST No results found for: PTMPT No results found for: FOLATE Vitamin B12 Date Value Ref Range Status 06/28/2022 361 232 - 1,245 pg/mL Final Iron Date Value Ref Range Status 06/28/2022 107 41 - 186 ug/dL Final TIBC Date Value Ref Range Status 06/28/2022 279 232 - 386 ug/dL Final No results found for: VITD25 Last Endoscopy: Colonoscopy 01/10/2022 Impression: - Erythematous and eroded mucosa from 0 to 20 cm proximal to the anus. - Changes in ascending colon as noted above - The examined portion of the ileum was normal. - Biopsies were taken with a cold forceps for histology in the entire colon and in the terminal ileum. EGD 01/10/2022 Impression: - Normal esophagus. - Normal stomach. Biopsied. - Normal examined duodenum. Biopsied. Biopsies: FINAL DIAGNOSIS A. Duodenum, biopsy: - Duodenal mucosa with no significant diagnostic alteration. - No evidence of celiac disease or duodenitis. B. Stomach, antrum and body, biopsy: - Mild chronic inactive gastritis, see comment. C. Terminal ileum, biopsy: - Ileal mucosa with no significant diagnostic alteration. - No evidence of ileitis, granulomas or dysplasia. D. Right colon, biopsy: - Colonic mucosa with no significant diagnostic alteration. - No evidence of colitis, granulomas or dysplasia. E. Right colon polyps, biopsy: - Multiple fragments of hyperplastic polyp, negative for dysplasia. F. Transverse colon, biopsy: - Colonic mucosa with no significant diagnostic alteration. - No evidence of colitis, granulomas or dysplasia. G. Left colon, biopsy: - Colonic mucosa with no significant diagnostic alteration. - No evidence of colitis, granulomas or dysplasia. H. Rectum, biopsy: - Chronic active colitis with erosion, negative for granulomas or dysplasia, see comment. Last Imaging: CTE 01/29/2022 IMPRESSION: Minimal jejunal findings may represent mild involvement with Crohn's disease. Assessment IMPRESSION (as copied and updated from my / note and reflects medical decision making today): 36 year old female with a history of Crohn's disease diagnosed in 2000 at the age of 15. Treated in the past with Ascol bentyl and lialda with minimal benefit. Most recent scope was in 2018 and pathology revealed chronic inflammation and CTE concerning for right sided colitis. Recently started on Lialda. She presents today as a routine virtual visit. She is feeling very well overall still with some gas. Her bowel movements are soft she has rebound today with only occasional blood. She occasionally some abdominal pain mostly upper abdomen under the rib cage. She is tolerating a diet her weight is stable she started Entyvio and has had 2 doses so far most recent this past week. She continues to be on Lialda as well. I discussed that at this point we will continue everything as is and after 1 more dose of Entyvio we will recheck labs and fecal calprotectin and at that point discuss starting to stop Lialda as this will give Entyvio chance to fully kick in. She will follow-up after those labs are done to discuss further and prevention. I suspect that Entyvio is going to help her attain remission and will need to continue monitoring with fecal calprotectin as well as a repeat colonoscopy at around 6 months. PLAN Continue Entyvio Check labs 2-3 weeks after next Infusion Continue Lialda for now will stop after 3 rd dose of Vedo if symptoms are stable and labs have normalized I spent 20 minutes in the virtual visit, with more than 50% of the total [id number] time of the visit in counseling / coordination of care. I have confirmed and edited as necessary, the PFSH and ROS obtained by others. I will communicate my recommendations and prescriptions to the patient's primary care provider. Unrelated to E/M, telemedicine, or virtual visit service provided within previous 7 days. No E/M service or procedure anticipated within next 24 hours. Catrachito Garcia PA-C August 01, 2022 10:26 AM documented in this encounter [facility] 07-23-2022 Miscellaneous Notes I called and spoke to Teetee and rescheduled her appointments as she requested. Tianna Lyman Pss Pt called in to change the dates of her infusion. Please call patient back at [phone] NATALIA Davison documented in this encounter [facility] 07-22-2022 History of Presen t illness Narrative IBD Medication Consult [facility] Patient consents to pharmacy consult agreement. Patient Name: Teetee Louis IBD Provider: Dr. Perez IBD: Crohn's disease [K50.90] Locations affected: jejunum and colon Behavior: inflammatory Perianal disease: No IBD Dx (year) : 2019 Prior surgeries: No July 22, 2022 Reason for consult: efficacy, safety, health maintenance review, and reconciliation Teetee Louis is a 36 year old White female referred to PharmD. Saw HALIE Winston on 06/11/22 for follow up symptoms and worsening fecal calprotectin. Initiated vedolizumab 07/15/22. Met with Aicha via VV. She reports: - vedolizumab - went well but did experience headache (pressure) right after infusion that lasted 3 days. Unsure if related to medication; does endorse history of headaches and was also anxious about medication since it was new. Wondering if okay to take sumatriptan in future if needed. Denies changes in GI sxs with initiation. - currently scheduled for vedo induction dose #2 07/29 and #3 on 09/09. Want to confirm if these dates are appropriate. - mesalamine 4.8 g PO daily - still taking; probably 60 day supply remaining - Canasa suppository - not taking anymore, didn't feel good (nauseous). Reports inconsistent use after 06/27/22 appt then stopped. It initially helped with bleeding in December but not having any more bleeding since so prefer to not use if not needed. - received two letters from insurance - first letter stays 46 days approved for [facility]; second letter dated 07/08/22 says approved for a year but at alternative lower cost infusion center - back on spironolactone 50 mg PO daily, denies other med changes Current IBD Medications: oral 5-ASA, rectal 5-ASA, vedolizumab Will be initiating: none CLINICAL SYMPTOMS # of bowel movements daily: 3 # of liquid stools daily: 0 Consistency: soft, mushy Bloody bowel movements: no Urgency: yes very minimally no seepage or incontinence Abdominal pain: intermittent Abdominal distention: yes Nausea/vomiting: no Weight loss over last 3 months: no General well-being: very well EXTRAINTESTINAL MANIFESTATIONS Joint pain (?), blurry vision SOCIAL HISTORY Tobacco use: No EtOH: Yes, rarely Illicit drugs: No PAST MEDICAL HISTORY Diagnosis Date Crohn's disease (HCC) H/O ulcerative colitis Hypothyroidism PAST SURGICAL HISTORY Procedure Laterality Date COLONOSCOPY 2007, 2001 In [place] & [place] in [place] COLONOSCOPY FLX DX W/COLLJ SPEC WHEN PFRMD 05/04/14 Colonoscopy INDUCED - EVACUATION 2009 PAST SURGICAL HISTORY OF umbilical hernia repair Current Outpatient Medications Medication Sig Dispense Refill mesalamine (CANASA) 1,000 mg suppository USE 1 SUPPOSITORY BY RECTAL ROUTE DAILY AT BEDTIME. 30 Suppository 1 Levonorgestrel-Ethinyl Estrad 90-20 mcg (28) per tablet Take 1 tablet by mouth once daily. Cholecalciferol, Vitamin D3, (VITAMIN D-3) 50 mcg (2,000 unit) cap Take 1 capsule by mouth once daily. vitamin K2 100 mcg cap Take 1 capsule by mouth once daily. Mesalamine (LIALDA) 1.2 gram EC tablet Take 4 tablets by mouth daily with breakfast. 360 tablet 0 spironolactone (ALDACTONE) 100 mg tablet Take 100 mg by mouth once daily. Multivitamin capsule Take 1 capsule by mouth once daily. levothyroxine (SYNTHROID) 75 mcg tablet Take 1 tablet by mouth once daily. (Patient taking differently: Take 100 mcg by mouth once daily.) No current facility-administered medications for this visit. ALLERGIES No Known Allergies FAMILY HISTORY FAMILY HISTORY Family history unknown: Yes Family History of IBD: Yes, biologic father (Crohn's) Family History of Autoimmunity: No Family History of Malignancy: Yes, skin, breast Family History of VTE: Yes, aunt (Factor V - Aicha is negative) Family History of CV: No PRIOR TREATMENT 5-ASA: Yes, Lialda, Asacol (ineffective), Canasa Thiopurines: No Methotrexate: No Anti-TNF: No Anti-Interleukin: Yes, initiated vedolizumab 07/15/22 - current Anti-IL 12/23: No JONN Inhibitor: No S1P Modulator: No PERTINENT VITALS AND LABS Weight/BMI: Wt: 76.2 kg (168 lb) BMI: 29.76 kg/(m^2) TB (06/28/22) - negative TPMT: No results found for: LTPMTR EBV: No results found for: EBVPCR Calprotectin stool/inflammation: Fecal Dl 04/11/2022 1065.6 Fecal Dl 06/02/22 >3,000 CRP Date Value Ref Range Status 01/15/2018 0.5 <0.9 mg/dL Final CBC: WBC (k/uL) Date Value 06/28/2022 7.23 Hemoglobin (g/dL) Date Value 06/28/2022 14.4 Hematocrit (%) Date Value 06/28/2022 43.8 MCV (fL) Date Value 06/28/2022 94.4 Platelet Count (k/uL) Date Value 06/28/2022 281 Lymph% (%) Date Value 06/28/2022 24.5 IRON PANEL: Ferritin (ng/mL) Date Value 06/28/2022 168.0 Iron (ug/dL) Date Value 06/28/2022 107 TIBC (ug/dL) Date Value 06/28/2022 279 Transferrin Saturation (%) Date Value 06/28/2022 38.4 RENAL/HEPATIC: BUN (mg/dL) Date Value 06/28/2022 13 Creatinine (mg/dL) Date Value 06/28/2022 0.78 Albumin (g/dL) Date Value 06/28/2022 3.9 Bilirubin, Total (mg/dL) Date Value 06/28/2022 0.6 AST (U/L) Date Value 06/28/2022 16 ALT (U/L) Date Value 06/28/2022 26 VITAMIN B12 & D25 Vitamin B12 Date Value Ref Range Status 06/28/2022 361 232 - 1,245 pg/mL Final No results found for: VITD25 LIPID PANEL: No results found for: CHOL, HDL, LDL, TG MEDICATION LEVELS N/A PERTINENT IMAGING/PROCEDURES Colonoscopy 01/10/2022 Impression: - Erythematous and eroded mucosa from 0 to 20 cm proximal to the anus. - Changes in ascending colon as noted above - The examined portion of the ileum was normal. - Biopsies were taken with a cold forceps for histology in the entire colon and in the terminal ileum. EGD 01/10/2022 Impression: - Normal esophagus. - Normal stomach. Biopsied. - Normal examined duodenum. Biopsied. Biopsies: FINAL DIAGNOSIS A. Duodenum, biopsy: - Duodenal mucosa with no significant diagnostic alteration. - No evidence of celiac disease or duodenitis. B. Stomach, antrum and body, biopsy: - Mild chronic inactive gastritis, see comment. C. Terminal ileum, biopsy: - Ileal mucosa with no significant diagnostic alteration. - No evidence of ileitis, granulomas or dysplasia. D. Right colon, biopsy: - Colonic mucosa with no significant diagnostic alteration. - No evidence of colitis, granulomas or dysplasia. E. Right colon polyps, biopsy: - Multiple fragments of hyperplastic polyp, negative for dysplasia. F. Transverse colon, biopsy: - Colonic mucosa with no significant diagnostic alteration. - No evidence of colitis, granulomas or dysplasia. G. Left colon, biopsy: - Colonic mucosa with no significant diagnostic alteration. - No evidence of colitis, granulomas or dysplasia. H. Rectum, biopsy: - Chronic active colitis with erosion, negative for granulomas or dysplasia, see comment. CTE 01/29/2022 IMPRESSION: Minimal jejunal findings may represent mild involvement with Crohn's disease. VACCINATION HISTORY Name Date Received Up-to-date Additional notes/comments COVID-19 Pfizer 3 doses Bivalent: 06/28/22 Yes Pneumococcal Pneumonia PCV13: PPSV23: PCV20:07/02/22 Yes Hepatitis A No Hepatitis A IgG Date Value Ref Range Status 06/28/2022 Negative Negative Final Comment: No serological evidence of past exposure to hepatitis A virus or hepatitis A vaccination. Should recent infection be suspected, repeat testing is suggested 3-4 weeks after this draw. Candidate for Hepatitis B Yes Hepatitis B Core Ab, Total (no units) Date Value 06/28/2022 Negative HBsAg Date Value Ref Range Status 06/28/2022 Negative Negative Final Hep B surface antigen (06/28/22) - 146 (positive) Influenza Inactivated vaccine recommended yearly 07/02/22 Yes Counseled to avoid live intranasal formulation Zoster recombinant (RZV) 2 dose series at month 0 and 1-2 No Candidate for Chicken pox + Tetanus, diphtheria, pertussis (Tdap or Td) One dose Tdap then Td every 10 years 07/05/21 Yes HPV Females < 45 years old and males < 26 years old; 2 dose series if <15 years old No Candidate for If covered by insurance ASSESSMENT Steroid use in past 30 days: No Symptomatic improvement: Yes Clinical remission: No Endoscopic remission: No Histologic remission: No Treatment status: on treatment Medication lab monitoring up to date: No Up-to-date with in clinic available vaccines: No, reasons: in progress Up-to-date with PAP smear (annually or Q2 years if HPV negative): Yes (2020) Up-to-date with skin check: Yes (established with derm, 06/2022) Up-to-date with DEXA scan (low BMI, post-menopausal, steroids >3 months, FHx of osteoporosis, smoking: baseline and repeat Q5 years if initial screen is normal): NA - possibly when teenager Smoking cessation achieved: NA PLAN: Medication Consult - Continue vedolizumab 300 mg IV at week 2, 6, then every 8 weeks thereafter. Need to r/s third induction dose to 08/26 and first maintenance dose to 10/21/22. She will call to get these r/s. - Will check with PA team if her authorization is valid given that [facility] is an physician-based infusion center. She will send me a copy of the letter through [employer]. - Continue Lialda 4.8 g PO daily for now, with plan to discontinue once supply is completed or after completion of third induction dose. - Discontinue Canasa suppository given ADRs. - Labs: Plan to repeat in 3 months (Oct 2022) - Updated med list in [employer] Health Maintenance - Recommend the following vaccines: hepatitis A, zoster recombinant (to be obtained at pharmacy), and HPV (to be obtained at PCP or gate shear operator office) - Recommend the following health maintenance appts: none -- currently up to date Next PharmD visit: 09/18/22 Next IBD MD/ PA visit: 07/31/22 Next labs due: in 3 months (Oct 2022) Next vedo dose due: 07/29/22 (induction #2) Teetee Louis endorses understanding to above. Denies other questions and concerns and is aware to contact us in future if needed. Shonda Jiang, PharmKaykay, BCACP, MS IBD Clinical Pharmacist Interventions made: medication education, medication reconciliation, prior authorization, medication coordination, health maintenance need assessment, medication financial needs, and medication management Time spent (mins): 30 documented in this encounter [facility] 07-21-2022 Miscellaneous Notes 1st-time treatment report. The patient is currently being seen for a non-oncology regimen. No navigator services are needed at this time. documented in this encounter [facility] 07-16-2022 Miscellaneous Notes SW called and spoke to pt. Pt reports she has applied for the patient assistance already and was inquiring how it worked. SW encouraged pt to follow-up with the company to determine status of her application. SW also explained the assistance program process to pt. Pt verbalized understanding and was appreciate. SW encouraged pt to reach out if needed. Pt agreed. No other needs at this time. SANDRA Hodge Patient is receiving Entyvio infusions here and has an Entyvio Connect Card that is supposed to help with the cost of her infusions. Please contact patient to assist. Le Castillo documented in this encounter [facility] 07-02-2022 Miscellaneous Notes Called the patient about VOC fingerprint study for the prediction of biologics response in IBD patient didn't answer , left voice message to call back . documented in this encounter [facility] 07-02-2022 Miscellaneous Notes Spoke with patient and scheduled. Le Castillo Patient is calling to schedule [id number] (Canceled) - INJECTION, VEDOLIZUMAB she states referral is approved please call patient to schedule. documented in this encounter [facility] 06-27-2022 History of Presen t illness Narrative IBD Medication Consult [facility] Patient consents to pharmacy consult agreement. Patient Name: Teetee Louis IBD Provider: Dr. Perez IBD: Crohn's disease [K50.90] Locations affected: jejunum and colon Behavior: inflammatory Perianal disease: No IBD Dx (year) : 2019 Prior surgeries: No June 27, 2022 Reason for consult: education, coordination, health maintenance review, and reconciliation Teetee Louis is a 36 year old White female referred to PharmD. Saw HALIE Winston on 06/11/22 for follow up symptoms and worsening fecal calprotectin. Was counseled on different biologic options, with plan for in future once in remission. Was instructed to restart Canasa and f/u in 1 month. Preference for vedolizumab. Met with Aicha via VV. She reports: - main questions are: which biologics preferred and why; considerations; infection risk considerations; impact on lifestyle - currently on mesalamine 4.8 g PO daily and using mesalamine suppository nightly - able to retain every night Med rec: - sumatriptan - not used in a while - planning to go back spironolactone - taking vitamin D3 and K2 to help w/ bones, minimize calcium buildup Current IBD Medications: oral 5-ASA and rectal 5-ASA Will be initiating: other: TBD CLINICAL SYMPTOMS # of bowel movements daily: 3 # of liquid stools daily: 0 Consistency: soft, mushy Bloody bowel movements: yes sometimes mixed with stool and on TP which is decreasing Urgency: yes very minimally no seepage or incontinence Abdominal pain: yes intermittent sometimes before BM, food related, or stress usually subsides on its own Abdominal distention: yes Nausea/vomiting: no Weight loss over last 3 months: no General well-being: very well EXTRAINTESTINAL MANIFESTATIONS Joint pain (?), blurry vision SOCIAL HISTORY Tobacco use: No EtOH: Yes, rarely Illicit drugs: No PAST MEDICAL HISTORY Diagnosis Date Crohn's disease (HCC) H/O ulcerative colitis Hypothyroidism PAST SURGICAL HISTORY Procedure Laterality Date COLONOSCOPY 2001 In [place] [facility] [place] in [place] COLONOSCOPY FLX DX W/COLLJ SPEC WHEN PFRMD 05/04/14 Colonoscopy INDUCED - EVACUATION 2009 PAST SURGICAL HISTORY OF umbilical hernia repair Current Outpatient Medications Medication Sig Dispense Refill Levonorgestrel-Ethinyl Estrad 90-20 mcg (28) per tablet Take 1 tablet by mouth once daily. Cholecalciferol, Vitamin D3, (VITAMIN D-3) 50 mcg (2,000 unit) cap Take 1 capsule by mouth once daily. vitamin K2 100 mcg cap Take 1 capsule by mouth once daily. mesalamine (CANASA) 1,000 mg suppository 1 Suppository by RECTAL route daily at bedtime. 30 Each 1 Mesalamine (LIALDA) 1.2 gram EC tablet Take 4 tablets by mouth daily with breakfast. 360 tablet 0 spironolactone (ALDACTONE) 100 mg tablet Take 100 mg by mouth once daily. Multivitamin capsule Take 1 capsule by mouth once daily. levothyroxine (SYNTHROID) 75 mcg tablet Take 1 tablet by mouth once daily. (Patient taking differently: Take 100 mcg by mouth once daily.) No current facility-administered medications for this visit. ALLERGIES No Known Allergies FAMILY HISTORY FAMILY HISTORY Family history unknown: Yes Family History of IBD: Yes, biologic father (Crohn's) Family History of Autoimmunity: No Family History of Malignancy: Yes, skin, breast Family History of VTE: Yes, aunt (Factor V - Aicha is negative) Family History of CV: No PRIOR TREATMENT 5-ASA: Yes, Lialda, Asacol (ineffective), Canasa Thiopurines: No Methotrexate: No Anti-TNF: No Anti-Interleukin: No Anti-IL 12/23: No JONN Inhibitor: No S1P Modulator: No PERTINENT VITALS AND LABS Weight/BMI: Wt: 76.2 kg (168 lb) BMI: 29.76 kg/(m^2) TB: No results found for: QTBGOLD TPMT: No results found for: LTPMTR EBV: No results found for: EBVPCR Calprotectin stool/inflammation: Fecal Dl 04/11/2022 1065.6 Fecal Dl 06/02/22 >3,000 CRP Date Value Ref Range Status 01/15/2018 0.5 <0.9 mg/dL Final CBC: WBC (k/uL) Date Value 12/30/2021 7.35 Hemoglobin (g/dL) Date Value 12/30/2021 14.9 Hematocrit (%) Date Value 12/30/2021 43.2 MCV (fL) Date Value 12/30/2021 90.2 Platelet Count (k/uL) Date Value 12/30/2021 313 IRON PANEL: No results found for: KATE, FE, TIBC, TRANSFERSAT RENAL/HEPATIC: BUN (mg/dL) Date Value 12/30/2021 11 Creatinine (mg/dL) Date Value 12/30/2021 0.75 Albumin (g/dL) Date Value 12/30/2021 4.1 Bilirubin, Total (mg/dL) Date Value 12/30/2021 0.4 AST (U/L) Date Value 12/30/2021 18 ALT (U/L) Date Value 12/30/2021 27 VITAMIN B12 & D25 No results found for: B12 No results found for: VITD25 LIPID PANEL: No results found for: CHOL, HDL, LDL, TG MEDICATION LEVELS N/A PERTINENT IMAGING/PROCEDURES Colonoscopy 01/10/2022 Impression: - Erythematous and eroded mucosa from 0 to 20 cm proximal to the anus. - Changes in ascending colon as noted above - The examined portion of the ileum was normal. - Biopsies were taken with a cold forceps for histology in the entire colon and in the terminal ileum. EGD 01/10/2022 Impression: - Normal esophagus. - Normal stomach. Biopsied. - Normal examined duodenum. Biopsied. Biopsies: FINAL DIAGNOSIS A. Duodenum, biopsy: - Duodenal mucosa with no significant diagnostic alteration. - No evidence of celiac disease or duodenitis. B. Stomach, antrum and body, biopsy: - Mild chronic inactive gastritis, see comment. C. Terminal ileum, biopsy: - Ileal mucosa with no significant diagnostic alteration. - No evidence of ileitis, granulomas or dysplasia. D. Right colon, biopsy: - Colonic mucosa with no significant diagnostic alteration. - No evidence of colitis, granulomas or dysplasia. E. Right colon polyps, biopsy: - Multiple fragments of hyperplastic polyp, negative for dysplasia. F. Transverse colon, biopsy: - Colonic mucosa with no significant diagnostic alteration. - No evidence of colitis, granulomas or dysplasia. G. Left colon, biopsy: - Colonic mucosa with no significant diagnostic alteration. - No evidence of colitis, granulomas or dysplasia. H. Rectum, biopsy: - Chronic active colitis with erosion, negative for granulomas or dysplasia, see comment. CTE 01/29/2022 IMPRESSION: Minimal jejunal findings may represent mild involvement with Crohn's disease. VACCINATION HISTORY Name Date Received Up-to-date Additional notes/comments COVID-19 Pfizer 3 doses Yes Candidate for bivalent Pneumococcal Pneumonia PCV13: PPSV23: PCV20: No Candidate for PCV20 Hepatitis A ? No results found for: HEPAIGG Check Hep A titer Hepatitis B ? No results found for: HEPBCOTOL No results found for: HBSAG No results found for: HEPSABQ Check Hep B titer Influenza Inactivated vaccine recommended yearly No Candidate for Counseled to avoid live intranasal formulation Zoster recombinant (RZV) 2 dose series at month 0 and 1-2 No Candidate for Chicken pox + Tetanus, diphtheria, pertussis (Tdap or Td) One dose Tdap then Td every 10 years <10 years Yes Will need to doublecheck HPV Females < 45 years old and males < 26 years old; 2 dose series if <15 years old No Candidate for If covered by insurance ASSESSMENT Steroid use in past 30 days: No Symptomatic improvement: Yes Clinical remission: No Endoscopic remission: No Histologic remission: No Treatment status: planning to initiate treatment Medication lab monitoring up to date: No Up-to-date with in clinic available vaccines: No, reasons: in progress Up-to-date with PAP smear (annually or Q2 years if HPV negative): Yes (2020) Up-to-date with skin check: Yes (established with derm, 06/2022) Up-to-date with DEXA scan (low BMI, post-menopausal, steroids >3 months, FHx of osteoporosis, smoking: baseline and repeat Q5 years if initial screen is normal): NA - possibly when teenager Smoking cessation achieved: NA PLAN: Medication Consult Discussed treatment options, dosing/administration and insurance coverage considerations, and management. - Initiate the following: vedolizumab 300 mg IV at week 0, 2, 6, then every 8 weeks thereafter. Counseled on dose, frequency, route of administration, and adverse effects. Placed therapy plan for [facility]. Also provided info re: copay assistance program; advised to sign up after prior auth approval. - Continue Lialda 4.8 g PO daily and mesalamine suppository nightly. - Labs: Due for baseline biologic labs - orders placed. - Updated med list in [facility] - Recommend the following vaccines: PCV20, influenza, zoster recombinant (to be obtained at pharmacy), HPV (to be obtained at PCP or gate shear operator office), and COVID 19. Will check Hep A and B titers to determine need for vaccine. - Recommend the following health maintenance appts: none -- currently up to date Next PharmD visit: 07/22/22 Next IBD MD/ PA visit: 07/31/22 Next labs due: AZALIA Teetee Kenney Heriberto endorses understanding to above. Denies other questions and concerns and is aware to contact us in future if needed. Shonda Jiang PharmD, BCACP, MS IBD Clinical Pharmacist Interventions made: discuss medication options, medication education, medication reconciliation, medication coordination, pre-treatment assessment, health maintenance need assessment, medication financial needs, and medication management Time spent (mins): 60 documented in this encounter [facility] 06-11-2022 Instructions Jordyn Gross APRN.CNP - 06/11/2022 2:37 PM EDT Follow up in 4-6 weeks Start Canasa nightly Continue Lialda Repeat fecal calprotectin (stool test) and other labs in 1 month documented in this encounter [facility] 06-11-2022 History of Presen t illness Narrative Follow Up Visit SUBJECTIVE 36 year old female with Crohn's disease here for follow-up. Last seen 04/16/22. Changes and test results since last visit: -Repeat fecal calprotectin this month >3,0000 -Meeting with VIKASH Gr -Has been having low energy and more bloating the past few weeks -Denies obstructive symptoms Current Clinical Symptoms # of bowel movements daily: 3 # of liquid stools daily: 0 Consistency: soft, mushy Bloody bowel movements: yes sometimes mixed with stool and on TP which is decreasing Urgency: yes very minimally no seepage or incontinence Abdominal pain: yes intermittent sometimes before BM, food related, or stress usually subsides on its own Abdominal distention: yes Nausea/vomiting: no Weight loss over last 3 months: no General well-being: very well Denies EIMs except knee and elbow pain; blurry vision Denies NSAIDs Denies smoking Diagnosis Crohn's Disease: Date of diagnosis (year): 1999 Phenotype Location affected: colon/jejunal? Behavior: inflammatory Perianal disease: no Prior Medications/Dates/Reason for Switch Surgery: No: Systemic steroids last year: No Enteric or rectal steroids last year: No Systemic 5-ASA: previous lialda asacol Local 5-ASA: No Thiopurines: No Methotrexate: No Biologics: none Small molecules: No Current Medications Lialada 1.2 g (4 tabs daily) Reviewed Items: Colonoscopy 01/10/2022 Impression: - Erythematous and eroded mucosa from 0 to 20 cm proximal to the anus. - Changes in ascending colon as noted above - The examined portion of the ileum was normal. - Biopsies were taken with a cold forceps for histology in the entire colon and in the terminal ileum. EGD 01/10/2022 Impression: - Normal esophagus. - Normal stomach. Biopsied. - Normal examined duodenum. Biopsied. Biopsies: FINAL DIAGNOSIS A. Duodenum, biopsy: - Duodenal mucosa with no significant diagnostic alteration. - No evidence of celiac disease or duodenitis. B. Stomach, antrum and body, biopsy: - Mild chronic inactive gastritis, see comment. C. Terminal ileum, biopsy: - Ileal mucosa with no significant diagnostic alteration. - No evidence of ileitis, granulomas or dysplasia. D. Right colon, biopsy: - Colonic mucosa with no significant diagnostic alteration. - No evidence of colitis, granulomas or dysplasia. E. Right colon polyps, biopsy: - Multiple fragments of hyperplastic polyp, negative for dysplasia. F. Transverse colon, biopsy: - Colonic mucosa with no significant diagnostic alteration. - No evidence of colitis, granulomas or dysplasia. G. Left colon, biopsy: - Colonic mucosa with no significant diagnostic alteration. - No evidence of colitis, granulomas or dysplasia. H. Rectum, biopsy: - Chronic active colitis with erosion, negative for granulomas or dysplasia, see comment. CTE 01/29/2022 IMPRESSION: Minimal jejunal findings may represent mild involvement with Crohn's disease. Fecal Dl 04/11/2022 1065.6 Fecal Dl 06/02/22 >3,000 CBC: WBC (k/uL) Date Value 12/30/2021 7.35 Hematocrit (%) Date Value 12/30/2021 43.2 MCV (fL) Date Value 12/30/2021 90.2 Platelet Count (k/uL) Date Value 12/30/2021 313 Hepatic Function Panel: Albumin (g/dL) Date Value 12/30/2021 4.1 Bilirubin, Total (mg/dL) Date Value 12/30/2021 0.4 Alkaline Phosphatase (U/L) Date Value 12/30/2021 52 AST (U/L) Date Value 12/30/2021 18 ALT (U/L) Date Value 12/30/2021 27 Protein, Total (g/dL) Date Value 12/30/2021 7.3 Patient-Entered Data SIBDQ Scores 01/01/2022 Bowel Score 3.67 Emotional Score 2 Systemic Score 4.5 Social Score 4 Total Score 3.4 PRO-2 Crohn's Score 04/13/2022 05/16/2022 06/09/2022 Crohn's Disease Score 60 57 62 PROMIS Global Health - (T-Scores - the mean of general population = 50. Five points is a clinically meaningful difference.) 01/01/2022 04/13/2022 Physical T-Score 44.9 47.7 Mental T-Score 36.3 45.8 PROMIS Global Health Scale 01/01/2022 04/13/2022 Physical Health Percentile 31 % 41 % Mental Health Percentile 9 % 34 % Current Outpatient Medications Medication Sig Dispense Refill Levonorgestrel-Ethinyl Estrad 90-20 mcg (28) per tablet Take 1 tablet by mouth once daily. Cholecalciferol, Vitamin D3, (VITAMIN D-3) 50 mcg (2,000 unit) cap Take 1 capsule by mouth once daily. vitamin K2 100 mcg cap Take 1 capsule by mouth once daily. Mesalamine (LIALDA) 1.2 gram EC tablet Take 4 tablets by mouth daily with breakfast. 360 tablet 0 Multivitamin capsule Take 1 capsule by mouth once daily. levothyroxine (SYNTHROID) 75 mcg tablet Take 1 tablet by mouth once daily. (Patient taking differently: Take 100 mcg by mouth once daily.) mesalamine (CANASA) 1,000 mg suppository 1 Suppository by RECTAL route daily at bedtime. 30 Each 1 spironolactone (ALDACTONE) 100 mg tablet Take 100 mg by mouth once daily. MAGNESIUM CHLORIDE ORAL Take 800 mg by mouth once daily. norethindrone-e.estradiol-iron (TAYTULLA) 1 mg-20 mcg (24)/75 mg (4) cap Use as directed No current facility-administered medications for this visit. ALLERGIES No Known Allergies PHYSICAL EXAMINATION BP 127/88 Pulse 82 Temp (Src) 98.2 (Temporal) Ht 5' 3 (1.60m) Wt 168 lb (76.2kg) SpO2 100% LMP 05/01/2022 BMI 29.77 kg/(m^2). General Appearance: alert, oriented x 3, pleasant and in no acute distress Heart:regular rate and rhythm, no murmurs or gallops Lungs: clear and equal BL Abdomen: Not distended. Normal bowel sounds. Soft and non-tender. No masses or organomegaly. Skin: no rashes or lesions Assessment IMPRESSION(as copied and updated from my / note and reflects medical decision making today): 36 year old female with colonic/jejunal? Crohn's disease diagnosed in 1999 at the age of 15. Treated in the past with Ascol, canasa (brief course), bentyl, and most recently lialda with minimal benefit. Most recent scope in 01/2022 showed chronic active colitis in the rectum. CTe from 01/2022 questioned Crohn's activity in the jejunum. Fecal dl continues to trend upward most recently >3,0000. Discussed biologic therapy with this patient considering her upward trend in fecal calprotectin and feeling overall worse since her last appointment, favoring vedolizumb or ustekinumab. She is hoping to try to get once she is considered to be in remission. I went through what would entail as far as monitoring and that the biologic medications are all safe in the only thing to keep in mind is that after the baby is born it would need to avoid live vaccines for 3-4 months as biologics can cross the placenta. At this time she needs some time to think about the biologic choices presented and will restart canasa considering her disease is mostly rectal until her follow up in 1 month. Vaccines if on biologic therapy (avoid live vaccines): - COVID: x3 2020 - PCV 20: ? - Yearly Flu: recommend - Tdap every 10 years: ? - Hep A/B if not immune: ? - Zoster after age 18: ? - HPV (11-26 year old): ? Cancer prevention - Yearly derm if on biologic therapy: discussed - Yearly PAP smear if on biologic therapy: UTD - Colonoscopy: 2021 Others: - DEXA scan if indicated: never had - Smoking cessation: N/A - Psychosocial assessment at each visit: Endorsing lots of stress PLAN -Canasa nightly -Continue Lialda -Repeat fecal calprotectin and blood work in 1 month -Continue to see VIKASH Gr -See Dr. Roslyn Jiang for HCM and to discuss biologic therapy -Refer to Dr. Muller -Follow up in 4-6 weeks after labs are done Jordyn Gross APRN.HEAD TRIMMER PATIENT IS OK TO BE CONTACTED BY IBD GI RESEARCH TEAM TO EXPLORE PARTICIPATION IN RESEARCH STUDIES Preceptor Note: Hobbs findings confirmed. Patient examined. 36 year old female with a history of Crohn's disease diagnosed in 1999 at the age of 15. Treated in the past with Ascol bentyl and lialda with minimal benefit. Most recent scope was in 2018 and pathology revealed chronic inflammation and CTE concerning for right sided colitis. Recently started on Lialda. She presents today as a office follow-up. Overall she is okay but continues to have symptoms with some blood in her stool 3 bowel movements daily that are soft and mushy with some urgency no accidents. We discussed that her fecal calprotectin went from thousand to over 3000 and her recent CTE is concerning for jejunal involvement along with ongoing rectal involvement. I discussed again the need to increase to a biologic medication and discussed the different options including vedolizumab, ustekinumab infliximab and adalimumab. I discussed that I would probably start with vedolizumab and this is very gut specific and very safe overall and patient is generally tolerate without issue. She continues to be very hesitant about starting a biologic medication at this time. For now we will plan to start Canasa due to the rectal involvement and recheck a fecal calprotectin in 1 month. In the interim I will have her follow-up with Shonda Jiang [facility] to discuss biologic medication further. I will also discussed with Dr. Perez. Plan: Canasa nightly Recheck fecal calprotectin in 1 month Follow-up with me in 4 to 6 weeks Follow-up with IBD pharmacist to discuss biologic medication Likely plan to initiate biologic in the near future and would favor vedolizumab once she is agreeable. I spent a total of 30 minutes on the date of the service which included preparing to see the patient, [id number] patient care, completing clinical documentation, obtaining and/or reviewing separately obtained history, performing a medically appropriate examination, counseling and educating the patient/family/caregiver, and ordering medications, tests, or procedures. Catrachito Garcia PA-C June 10, 2022 4:07 PM documented in this encounter [facility] 05-19-[address] - 05/19/2022 11:26 AM EDT Nutrition Plan: Continue a mediterranean style diet rich in fish, fruits, vegetables, and whole grains. If your inflammation comes back high on the fecal calprotectin test, we can consider a stronger dietary therapy call the Crohn's Disease Exclusion Diet. It is a three stage diet that is more restrictive, but is probably a better option than the mediterranean diet to help you reach remission. I didn't mention this during the appointment because I'd to see if your inflammation is still high before considering this as an option. I'd encourage you to read a little about it if you are interested in giving it a try (https://www.ntforibd.org/what-i b-tvqvjusizdc-wldmwat/therapeuti c-diets/cfzbzi-arxhhxp-ttzihseia -diet/). You can try adding pasta to your diet. I remember we were considering wheat/yeast as a possible trigger for your bloating, so just keep that in mind if your bloating returns after adding back pasta. Some patients with Crohn's disease can have a hard time with the fiber (frutcans) found in garlic and onion. If you'd like, you can try a short (1 week) elimination of garlic and onion to see if your symptoms improve. I'd also recommend a sensitive marinara sauce. Take vitamin D3 with the largest meal of the day for best absorption. It is also helpful to have fat during that meal, which will also increase the amount you absorb. Follow up with Simón Saxena RD, as needed. Please call [phone] to schedule an in-person visit or [phone] option 0 to schedule a virtual visit. documented in this encounter [facility] 05-19-2022 History of Presen t illness Narrative GI Nutrition Re Assessment TeleHealth Consult This visit was performed via telehealth due to the COVID-19 epidemic as an effort to protect patients and minimize exposure. Consent from patient received to conduct visit using telehealth. This Team Access Model visit is a virtual encounter. It required patient-provider interaction for the medical decision making as documented below. Some elements copied from my note on March 24, 2022 have been updated and all reflect current decision making from today, May 19, 2022 Nutrition Diagnosis: Altered Gastrointestinal Tract Function, related to, Crohn's Disease, as evidenced by 3-4 loose bowel movements daily, elevated fecal calpro . RECOMMENDED MALNUTRITION DIAGNOSIS: NO MALNUTRITION IDENTIFIED NUTRITION CARE PLAN This is a 36 year old female with an underlying diagnosis of Crohn's Disease since 1999 who is followed by Dr. Perez. PMH includes hypothyroidism. Nutrition Intervention May 19, 2022: Diet: - Continue mediterranean diet, low roughage while in a flare - Continue to limit added sugars and saturated fats - 1 week trial of onion/garlic free diet - Will consider CDED if patient interested in a stronger dietary approach Vitamins/Minerals: - Continue MVI and vitamin D3 - Take vitamin D with the largest meal of the day for best absorption Oral supplements: - Trial beano with meals containing beans or lentils Labs: - Up to date on iron, Vit D. Nutrition Monitoring & Evaluation: Weight loss of 0.5-2.0 lbs per patient, improvement in GI symptoms Criteria: Per patient report and measured weights Need for Follow up: As needed, provided phone number PROGRESS: Today, patient reports the following: - Been feeling sick for the past 2 weeks. Negative for COVID and Strep. - Some abdominal pain and cramping in the past few weeks, otherwise has been feeling well from a GI standpoint. - Denies N/V, bloating/distention - Rarely reflux, some food triggers. - Energy levels were very good prior to getting sick. Was going to the gym 3-4 days per week prior to most recent illness. - Hydration is going well. Nutrition Intervention March 24, 2022: Diet: - Mediterranean diet (Met) - Increased fruits, vegetable, and fish intake (Met) - Limit added sugars and saturated fats (Partially met) - 1 week trial of yeast/wheat free diet to help with bloating (not assessed) Vitamins/Minerals: - Recommend Emperic supplementation of 2000 international unit(s) vitamin D (Met) Labs: - Due for Vitamin D and Iron panel + Ferritin (Met) Intake: Appetite is normal. Diet History: Breakfast - Smoothie (kefir), avocado toast with an egg. Lunch - Grain bowl (brown rice, Cous-Cous, quinoa), zucchini, feta, olives, Dinner - Grain bowl, vegetables, fish (2-3 per week), salad. Snacks - Rarely has desserts, but almond milk ice cream. Lactose free ice cream bothered her. Beverages - Water, cup of coffee in the morning (black). Alcohol 2-3x per week on vacation, otherwise rarely. Vitamins/Supplements - - MVI - Was taking vitamin D3 (2000 international unit(s)), Vitamin K2 as well Allergies/Intolerance: - Ice cream - Mixed drinks, wine - Beans (gas) - Chickpea pasta (gas, diarrhea) Output: The patient has 2-3 BMs per day. The output is formed to soft. Patient has no known allergies. Medications: Current Outpatient Medications Medication Sig Dispense Refill Mesalamine (LIALDA) 1.2 gram EC tablet Take 4 tablets by mouth daily with breakfast. 360 tablet 0 budesonide, enteric coated (ENTOCORT EC) 3 mg 24 hr capsule Take 3 caps PO daily for 2 weeks, 2 caps PO daily for 2 weeks and 1 cap PO daily for 2 weeks. 74 capsule 0 mesalamine (CANASA) 1,000 mg suppository 1 Suppository by RECTAL route daily at bedtime. 30 Each 1 spironolactone (ALDACTONE) 100 mg tablet Take 100 mg by mouth once daily. MAGNESIUM CHLORIDE ORAL Take 800 mg by mouth once daily. Multivitamin capsule Take 1 capsule by mouth once daily. levothyroxine (SYNTHROID) 75 mcg tablet Take 1 tablet by mouth once daily. norethindrone-e.estradiol-iron (TAYTULLA) 1 mg-20 mcg (24)/75 mg (4) cap Use as directed No current facility-administered medications for this visit. Anthropometrics: Height: Date: Ht: 01/10/2022 160 cm (5' 3 ) Weight history: Date: Wt: 05/13/2022 77.1 kg (170 lb) 03/24/2022 80.0 kg (176 lb) 01/10/2022 77.1 kg (170 lb) 04/04/2020 76.2 kg (168 lb) 04/05/2018 72.1 kg (159 lb) UBW: 165 lbs Goal weight: 130-140 lbs BMI: 30.11 (obese) Weight has decreased by 2.9kg over 2 months representing a 3.6% weight change- not significant, but trending the right direction Estimated needs: Calories: 1950 - 2300 kcals/day determined by 25- 30 kcal/kg Protein: 93 - 116 g/day determined by 1.2-1.5 g/kg Malnutrition Screening Significant unintentional weight loss? No Eating less than 75% of usual intake for more than 2 weeks? No Potential Signs of Inflammation: Fecal Calpro Education Materials Provided: None this visit Referred/Supervised by: Dr. Perez/Dr. Ellis MNT Billing Type: Re-assess/15 min [address] documented in this encounter [facility] 05-13-2022 History of Presen t illness Narrative 05/13/2022 Patient presents with: Sinus Problem: sinus pressure, drainage, cough, headache and sore throat x 5 days SUBJECTIVE: This is a 36 year old that is here today for Complaint(s) of sore throat x 5 days. Also has associated cough and nasal congestion, headache. + fatigue. Ears feels plugged, but not painful. Denies fever/chills, SOB, wheezing, rash, vomiting, diarrhea, pleuritic chest pain, calf pain,. Home COVID was negative 2 days ago. No known exposure. No difficulty swallowing, but painful PAST MEDICAL HISTORY Diagnosis Date Crohn's disease (HCC) H/O ulcerative colitis Hypothyroidism ALLERGIES Patient has no known allergies. MEDICATIONS Current Outpatient Medications Medication Sig Mesalamine (LIALDA) 1.2 gram EC tablet Take 4 tablets by mouth daily with breakfast. Multivitamin capsule Take 1 capsule by mouth once daily. levothyroxine (SYNTHROID) 75 mcg tablet Take 1 tablet by mouth once daily. norethindrone-e.estradiol-iron (TAYTULLA) 1 mg-20 mcg (24)/75 mg (4) cap Use as directed budesonide, enteric coated (ENTOCORT EC) 3 mg 24 hr capsule Take 3 caps PO daily for 2 weeks, 2 caps PO daily for 2 weeks and 1 cap PO daily for 2 weeks. mesalamine (CANASA) 1,000 mg suppository 1 Suppository by RECTAL route daily at bedtime. spironolactone (ALDACTONE) 100 mg tablet Take 100 mg by mouth once daily. MAGNESIUM CHLORIDE ORAL Take 800 mg by mouth once daily. No current facility-administered medications for this visit. SOCIAL HISTORY Social History Tobacco Use Smoking status: Current Every Day Smoker Packs/day: 0.50 Years: 10.00 Pack years: 5.00 Smokeless tobacco: Never Used Tobacco comment: electronic cig Substance Use Topics Alcohol use: Yes Comment: 1 drink weekly Drug use: No REVIEW OF SYSTEMS See HPI OBJECTIVE: BP 122/80 Pulse 98 Temp 37.1 C (98.8 F) Resp 16 Wt 77.1 kg (170 lb) LMP 03/15/2018 SpO2 98% BMI 30.11 kg/m APPEARANCE Well appearing, alert, in no acute distress, well-hydrated, well nourished. EYES PERRLA, conjunctiva and sclera normal. EARS External ears normal, canals clear. TMs normal VALENCIA NOSE/SINUS Nares normal. Septum midline. Mucosa normal. No drainage or sinus tenderness. THROAT+posterior pharyngeal erythema, no exudate. Uvula midline NECK Supple, no adenopathy; HEART RRR with normal S1 and S2 LUNG clear to auscultation, No wheezing, rhonchi, rales. EXT no edema, no calf TTP ASSESSMENT/PLAN: 1. Sore throat - ICD9: 462, ICD10: J02.9 - Alere Strep Test negative, no culture pending - Discussed supportive care treatment with fluids, rest and analgesia. - The patient may also use OTC cough and cold meds as needed, warm salt water gargles, throat lozenges and/or OTC throat spray as needed and nasal saline gtts and suction prn. - The patient should follow up in 3-5 days if symptoms persist or worsen - Call back if drooling, increased temperature, symptoms of dehydration and/or still sick in one week - STREP A MOLECULAR (POC) - 2019 CORONAVIRUS The patient indicates understanding of these issues and agrees with the plan. Reviewed red flags and when to seek care sooner. Es Montanez PA-C documented in this encounter [facility] 04-16-2022 History of Presen t illness Narrative Virtual Follow Up Visit Provider Location: [facility] Facility Patient Location: Patient Home or Place of Residence SUBJECTIVE Teetee Louis [id number] has requested a video telemedicine for follow up of Crohn's disease. Last seen 02/10/2022. IBD History (copied and updated from my prior notes) Ms. Louis, is a 36 year old female with a history of Crohn's disease diagnosed in 1999 at the age of 15. Treated in the past with Ascol bentyl and lialda with minimal benefit. Most recent scope was in 2018 and pathology revealed chronic inflammation and CTE concerning for right sided colitis. Has not been on medication since that time. Changes and test results since last visit: Bleeding is better still 3-4 BMs daily loose urgency improved no incontinence. Tolerating diet no nausea some bloating. Weight is stable. Some joint pain in knees no oral or occular involvement Budesonide stopped does note she felt better while on this Lialda No longer taking canasa Current Clinical Symptoms # of bowel movements daily: 3-4 Consistency: loose Bloody bowel movements: yes Urgency: yes Abdominal pain: yes Abdominal distention: no Nausea/vomiting: no Weight loss over last 3 months: no Diagnosis Crohn's Disease: Date of diagnosis (year): 1999 Phenotype Location affected: colon Behavior: inflammatory Perianal disease: no Prior Medications/Dates/Reason for Switch Surgery: No: Systemic steroids last year: No Enteric or rectal steroids last year: No Systemic 5-ASA: previous lialda asacol Local 5-ASA: No Thiopurines: No Methotrexate: No Biologics: none Small molecules: No Current Medications Lialada 4 tabs daily Labs TB Status: Unknown Hepatitis B Status: Unknown TPMT: Unknown There is no immunization history on file for this patient. Current Outpatient Medications Medication Sig Dispense Refill Mesalamine (LIALDA) 1.2 gram EC tablet Take 4 tablets by mouth daily with breakfast. 360 tablet 0 budesonide, enteric coated (ENTOCORT EC) 3 mg 24 hr capsule Take 3 caps PO daily for 2 weeks, 2 caps PO daily for 2 weeks and 1 cap PO daily for 2 weeks. 74 capsule 0 mesalamine (CANASA) 1,000 mg suppository 1 Suppository by RECTAL route daily at bedtime. 30 Each 1 spironolactone (ALDACTONE) 100 mg tablet Take 100 mg by mouth once daily. MAGNESIUM CHLORIDE ORAL Take 800 mg by mouth once daily. Multivitamin capsule Take 1 capsule by mouth once daily. levothyroxine (SYNTHROID) 75 mcg tablet Take 1 tablet by mouth once daily. norethindrone-e.estradiol-iron (TAYTULLA) 1 mg-20 mcg (24)/75 mg (4) cap Use as directed No current facility-administered medications for this visit. ALLERGIES No Known Allergies PAST SURGICAL HISTORY Procedure Laterality Date COLONOSCOPY 2001 In [place] [facility] [address] in [place] COLONOSCOPY FLX DX W/COLLJ SPEC WHEN PFRMD 05/04/14 Colonoscopy INDUCED - EVACUATION 2009 PAST SURGICAL HISTORY OF umbilical hernia repair ___PERSONAL HABITS: Tobacco: No Alcohol: 1-2 drinks every few weeks NSAID USE: no FAMILY HISTORY: Thinks Father had Crohns Review of Systems: GENERAL:No weight loss, malaise or fevers HEENT:Negative for frequent or significant headaches, No changes in hearing or vision, no nose bleeds or other nasal problems NECK:Negative for lumps, goiter, pain and significant neck swelling RESPIRATORY: Negative for cough, hemoptysis, wheezing, COPD, dyspnea or shortness of breath CARDIOVASCULAR: Negative for chest pain, leg swelling, hypertension, CHF or palpitations GASTROINTESTINAL: See HPI GENITOURINARY: No history of dysuria, frequency or incontinence ONLINE MEDIA DIRECTOR: has had some abnormal periods MUSCULOSKELETAL: Negative for joint pain or swelling, back pain or muscle pain NEUROLOGIC:Negative for focal numbness or weakness, headaches and dizziness or syncope. SKIN:Negative for lesions, rash, and itching PSYCHIATRIC: Negative for sleep disturbance, mood disorder and recent psychosocial stressors. HEMATOLOGIC/LYMPHATIC/IMMUNOLOGI C:Negative for prolonged bleeding, bruising easily or swollen nodes ENDOCRINE: Negative for cold or heat intolerance, polyuria, polydipsia and goiter The remainder of the ROS was negative. PHYSICAL EXAMINATION General: alert and appropriate, in no distress and well-hydrated, well nourished , Head: normocephalic, no abnormality or lesion noted, Eyes: visual acuity is grossly normal, no injection, and EOMI, Oropharynx: moist mucus membranes, no tonsillar hypertrophy/exudate, uvula midline and pharynx non-erythematous, lips, teeth and gums are without obvious lesion, Neck: full ROM, no cervical LNs noted, Respiratory: breathing non-labored, and no grunting/flaring/retractions, Chest: equal chest rise with normal respiratory effort, Abdomen: flat appearing. Visible protrusions or hernias: No Incisions/scars: None Areas of pain/tenderness: Denies Skin: no rash noted, Neuro: Patient seen sitting with normal appearing strength and coordination. No focal motor deficits. Psych: Appropriate mood and interaction Most recent labs: CBC: WBC (k/uL) Date Value 12/30/2021 7.35 Hematocrit (%) Date Value 12/30/2021 43.2 MCV (fL) Date Value 12/30/2021 90.2 Platelet Count (k/uL) Date Value 12/30/2021 313 Hepatic Function Panel: Albumin (g/dL) Date Value 12/30/2021 4.1 Bilirubin, Total (mg/dL) Date Value 12/30/2021 0.4 Alkaline Phosphatase (U/L) Date Value 12/30/2021 52 AST (U/L) Date Value 12/30/2021 18 ALT (U/L) Date Value 12/30/2021 27 Protein, Total (g/dL) Date Value 12/30/2021 7.3 CRP: CRP Date Value Ref Range Status 01/15/2018 0.5 <0.9 mg/dL Final No results found for: QTBGOLD No results found for: HRINTP No results found for: TBTEST No results found for: PTMPT No results found for: FOLATE No results found for: B12 No results found for: FE, TIBC No results found for: VITD25 Last Endoscopy: Colonoscopy 01/10/2022 Impression: - Erythematous and eroded mucosa from 0 to 20 cm proximal to the anus. - Changes in ascending colon as noted above - The examined portion of the ileum was normal. - Biopsies were taken with a cold forceps for histology in the entire colon and in the terminal ileum. EGD 01/10/2022 Impression: - Normal esophagus. - Normal stomach. Biopsied. - Normal examined duodenum. Biopsied. Biopsies: FINAL DIAGNOSIS A. Duodenum, biopsy: - Duodenal mucosa with no significant diagnostic alteration. - No evidence of celiac disease or duodenitis. B. Stomach, antrum and body, biopsy: - Mild chronic inactive gastritis, see comment. C. Terminal ileum, biopsy: - Ileal mucosa with no significant diagnostic alteration. - No evidence of ileitis, granulomas or dysplasia. D. Right colon, biopsy: - Colonic mucosa with no significant diagnostic alteration. - No evidence of colitis, granulomas or dysplasia. E. Right colon polyps, biopsy: - Multiple fragments of hyperplastic polyp, negative for dysplasia. F. Transverse colon, biopsy: - Colonic mucosa with no significant diagnostic alteration. - No evidence of colitis, granulomas or dysplasia. G. Left colon, biopsy: - Colonic mucosa with no significant diagnostic alteration. - No evidence of colitis, granulomas or dysplasia. H. Rectum, biopsy: - Chronic active colitis with erosion, negative for granulomas or dysplasia, see comment. Fecal Dl 04/11/2022: 1065.6 Last Imaging: CTE 01/29/2022 IMPRESSION: Minimal jejunal findings may represent mild involvement with Crohn's disease. Assessment IMPRESSION (as copied and updated from my / note and reflects medical decision making today): 36 year old female with a history of Crohn's disease diagnosed in 2000 at the age of 15. Treated in the past with Ascol bentyl and lialda with minimal benefit. Most recent scope was in 2018 and pathology revealed chronic inflammation and CTE concerning for right sided colitis. Has not been on medication since that time. She presents today as a virtual follow-up. She notes that since starting Lialda her bleeding has improved she is continuing to have 3-4 bowel movements daily that are still loose still with some urgency but improving she has been tolerating diet and her weight is stable. She also continues to note some joint pain in the knees but no oral or ocular involvement. She has finished her budesonide and is no longer taking Canasa. Of note her most recent fecal calprotectin is 1065.6 of note there is no baseline to compare to. I discussed that this is still rather elevated but it is likely this may have dropped since starting Lialda. We will plan to repeat check a fecal calprotectin in 1 month and if it continues to trend down we will continue with current regimen but if however it stays stable or trends back up we will need to discuss stepping up medical therapy and I discussed medical options including vedolizumab, ozanimod ustekinumab and rinvoq as further options. We also had discussion about as she is interested in becoming and I suggested that she wait until she is in better remission prior to becoming and I went through would entail as far as monitoring and that the biologic medications are all safe in the only thing to keep in mind is that after the baby is born it would need to avoid live vaccines as Biologics to cross the placenta and baby will be born with a drug level but otherwise there should be no issues. PLAN Repeat fecal calprotectin in 1 month to reassess Continue Lialda If fecal dl remains very elevated will need to discuss increasing medication to a biologic PATIENT IS OK TO BE CONTACTED BY IBD GI RESEARCH TEAM TO EXPLORE PARTICIPATION IN RESEARCH STUDIES yes I spent 30 minutes in the virtual visit, with more than 50% of the total [id number] time of the visit in counseling / coordination of care. I have confirmed and edited as necessary, the PFSH and ROS obtained by others. I will communicate my recommendations and prescriptions to the patient's primary care provider. Unrelated to E/M, telemedicine, or virtual visit service provided within previous 7 days. No E/M service or procedure anticipated within next 24 hours. Catrachito Garcia PA-C April 16, 2022 3:56 PM documented in this encounter [facility] 03-24-2022 Instructions Simón Saxena, VIKASH - 03/24/2022 10:08 AM EDT Nutrition Plan: - Overall, I'd recommend following a mediterranean diet with a focus on increase fruit and vegetable intake for Crohn's disease + weight loss goals. Focus on including a good variety by choosing seasonally available fruits and vegetables. - Yeast and wheat may sometimes be a trigger food for patients with Crohn's disease. I'd recommend trying 1 week yeast free to see if this helps your symptoms. Wheat can also contribute to feeling bloated due to the fermentable carbohydrates (fructans) found in wheat. A short (1 week) gluten/wheat elimination may help you determine if you are sensitive to these fructans. - Try lactose free ice cream to determine if lactose may be the reason you feel poorly after ice cream. Also, try looking for ice cream that is free for polysorbate 80, which is an emulsifier that may affect people with IBD negatively. - Use spices as the primary way to flavor your foods over more calorie rich options such as sauces, dips, creams, etc. - Try to increase nut intake in line with the mediterranean diet. Choosing unsalted nuts/nut butters may help with eating this calorie dense (but healthy) food in moderation. Mediterranean Diet 1. Limit processed foods; The less ingredients the better (Ex: Smucker's Natural PB > Jif PB), homemade and locally made is better (Ex: Homemade chocolate chip cookies > Chip's Ahoy). 2. Limit added sugars; Avoid sugar-sweetened beverages (even juice), candy, gummies/fruit snacks, excessive syrup/jellies, sugary cereals; Okay to have dessert in moderation 3. Proteins: Limit red meat to 1x/week (beef, pork, hassan), consume processed meats very sparingly (hot dogs, bologna, pepperoni, nixon, etc) few times per month; Aim to eat fish 3x/week; The remainder of your intake should come from lean chicken,lean turkey, eggs, Dairy 4. High in plant based foods such as fruits, veggies, beans, whole grains (This is where we modify during flares) 5. Fats: High in nuts/nut butters, seeds/seed butters, avocado/avocado oil, olives/olive oil (This is where we modify during flares); Low in vegetable oils (corn, soybeans, cottonseed) and animal based fats (butter, sour cream, mayonnaise, ranch dressing, etc.) Follow up with Simón Saxena RD, on 05/19 at 11am virtually. documented in this encounter [facility] 03-24-2022 History of Presen t illness Narrative GI Nutrition Initial Assessment Nutrition Diagnosis: Altered Gastrointestinal Tract Function, related to, Crohn's Disease, as evidenced by mild abdominal pain, nausea, and bloating. RECOMMENDED MALNUTRITION DIAGNOSIS: NO MALNUTRITION IDENTIFIED NUTRITION CARE PLAN Nutrition Intervention March 24, 2022: Diet: - Mediterranean diet - Increased fruits, vegetable, and fish intake - Limit added sugars and saturated fats - 1 week trial of yeast/wheat free diet to help with bloating Vitamins/Minerals: - Recommend Emperic supplementation of 2000 international unit(s) vitamin D Labs: - Due for Vitamin D and Iron panel + Ferritin Nutrition Monitoring & Evaluation: Improvement in GI symptoms Criteria: Per patient report Need for Follow up: Follow up 05/19 at 11am virtually This is a 36 year old female with an underlying diagnosis of Crohn's Disease since 1999 who is followed by Dr. Perez. PMH includes hypothyroidism. Today, patient reports the following: - On Lialda for medical management of Crohn's. - Currently no bleeding. Primary symptoms include gassiness and stomach pain, which comes and goes. - Endorses bloating and distention. Sometimes worsened after eating. Very bad with Ice Cream, but cheese is okay. - Nausea occasionally, denies vomiting. - No reflux or heartburn. - Staying hydrated. - Energy levels poor. - Endorses weight gain, which she attributes to multiple factors including diet, sedentary lifestyle, and smoking cessation. Intake: Appetite is normal. Diet History: Breakfast - Eggs and avocado, oatmeal with fruit, yogurt with fruit. Smoothie Lunch - Leftovers, salad, sandwich (turkey and cheese, wrap), grilled chicken. Cucumbers. Snack - Andrew crackers and peanut butter. Dinner - Pizza, sometimes Arbys or Wendys. Fish (salmon), chicken. Pasta. Couscous. Brown or wild rice. Black beans, kidney beans, navy beans, northern beans. Coram. Peppers, broccoli. Snack - Sometimes ice cream. Beverages - Black coffee, water, sometimes soda, tea. Alcohol once weekly (whisky, beer) Vitamins/Supplements - - MVI - Was taking vitamin D3 (2000 international unit(s)), no longer Allergies/Intolerance: - Ice cream - Mixed drinks, wine Output: The patient has 2 BMs per day. The output is softer, but formed. Patient has no known allergies. Medications: Current Outpatient Medications Medication Sig Dispense Refill budesonide, enteric coated (ENTOCORT EC) 3 mg 24 hr capsule Take 3 caps PO daily for 2 weeks, 2 caps PO daily for 2 weeks and 1 cap PO daily for 2 weeks. 74 capsule 0 mesalamine (CANASA) 1,000 mg suppository 1 Suppository by RECTAL route daily at bedtime. 30 Each 1 Mesalamine (LIALDA) 1.2 gram EC tablet Take 4 tablets by mouth daily with breakfast. 360 tablet 0 spironolactone (ALDACTONE) 100 mg tablet Take 100 mg by mouth once daily. MAGNESIUM CHLORIDE ORAL Take 800 mg by mouth once daily. Multivitamin capsule Take 1 capsule by mouth once daily. levothyroxine (SYNTHROID) 75 mcg tablet Take 1 tablet by mouth once daily. norethindrone-e.estradiol-iron (TAYTULLA) 1 mg-20 mcg (24)/75 mg (4) cap Use as directed No current facility-administered medications for this visit. Anthropometrics: Height: Date: Ht: 01/10/2022 160 cm (5' 3 ) Weight history: Date: Wt: 03/24/2022 80.0 kg (176 lb) 01/10/2022 77.1 kg (170 lb) 04/04/2020 76.2 kg (168 lb) UBW: 165 lbs Goal weight: 130-140 lbs BMI: 31.25 (obese) Weight has increased by 2.9kg over 2 months representing a 3.8% weight change- not significant. Estimated needs: Calories: 2045 - 2190 kcals/day determined by MSJ with 1.4- 1.5 activity factor Protein: 80 - 96 g/day determined by 1.0-1.2 g/kg Malnutrition Screening Significant unintentional weight loss? No Eating less than 75% of usual intake for more than 2 weeks? No Potential Signs of Inflammation: imaging studies Education Materials Provided: None this visit Referred/Supervised by: Dr. Perez/Dr. Ellis MNT Billing Type: Initial Assess/15 min 4 units documented in this encounter [facility] 02-10-2022 History of Presen t illness Narrative Virtual Follow Up Visit Provider Location: [facility] Facility Patient Location: Patient Home or Place of Residence SUBJECTIVE Teetee Louis [id number] 1985 has requested a video telemedicine for follow up of Crohn's disease last seen 01/08/2022. IBD History (copied and updated from my prior notes) Ms. Louis, is a 36 year old female with a history of Crohn's disease diagnosed in 1999 at the age of 15. Treated in the past with Ascol bentyl and lialda with minimal benefit. Most recent scope was in 2018 and pathology revealed chronic inflammation and CTE concerning for right sided colitis. Has not been on medication since that time. Changes and test results since last visit: Feeling much better since starting medication. 2-4 BMs daily no blood mild urgency no incontinence. Diet is going well no nausea or bloating. No constipation. No weight loss does have occasional bloating Continues to have occasional knee pain Currently on Lialada budesonide 3 mg daily and canasa Current Clinical Symptoms # of bowel movements daily: 2-4 Consistency: soft, mushy Bloody bowel movements: no Urgency: yes Abdominal pain: no Abdominal distention: no Nausea/vomiting: yes Weight loss over last 3 months: no Diagnosis Crohn's Disease: Date of diagnosis (year): 1999 Phenotype Location affected: colon Behavior: inflammatory Perianal disease: no Prior Medications/Dates/Reason for Switch Surgery: No: Systemic steroids last year: No Enteric or rectal steroids last year: No Systemic 5-ASA: previous lialda asacol Local 5-ASA: No Thiopurines: No Methotrexate: No Biologics: none Small molecules: No Current Medications Lialada 4 tabs daily budesonide 3 mg daily canasa nightly Labs TB Status: Unknown Hepatitis B Status: Unknown TPMT: Unknown There is no immunization history on file for this patient. Current Outpatient Medications Medication Sig Dispense Refill budesonide, enteric coated (ENTOCORT EC) 3 mg 24 hr capsule Take 3 caps PO daily for 2 weeks, 2 caps PO daily for 2 weeks and 1 cap PO daily for 2 weeks. 74 capsule 0 mesalamine (CANASA) 1,000 mg suppository 1 Suppository by RECTAL route daily at bedtime. 30 Each 1 Mesalamine (LIALDA) 1.2 gram EC tablet Take 4 tablets by mouth daily with breakfast. 360 tablet 0 spironolactone (ALDACTONE) 100 mg tablet Take 100 mg by mouth once daily. MAGNESIUM CHLORIDE ORAL Take 800 mg by mouth once daily. Multivitamin capsule Take 1 capsule by mouth once daily. levothyroxine (SYNTHROID) 75 mcg tablet Take 1 tablet by mouth once daily. norethindrone-e.estradiol-iron (TAYTULLA) 1 mg-20 mcg (24)/75 mg (4) cap Use as directed No current facility-administered medications for this visit. ALLERGIES No Known Allergies PAST SURGICAL HISTORY Procedure Laterality Date COLONOSCOPY 2001 In [place] & [place] COLONOSCOPY FLX DX W/COLLJ SPEC WHEN PFRMD 05/04/14 Colonoscopy INDUCED - EVACUATION 2009 PAST SURGICAL HISTORY OF umbilical hernia repair ___PERSONAL HABITS: Tobacco: No Alcohol: 1-2 drinks every few weeks NSAID USE: no FAMILY HISTORY: Thinks Father had Crohns Review of Systems: GENERAL:No weight loss, malaise or fevers HEENT:Negative for frequent or significant headaches, No changes in hearing or vision, no nose bleeds or other nasal problems NECK:Negative for lumps, goiter, pain and significant neck swelling RESPIRATORY: Negative for cough, hemoptysis, wheezing, COPD, dyspnea or shortness of breath CARDIOVASCULAR: Negative for chest pain, leg swelling, hypertension, CHF or palpitations GASTROINTESTINAL: See HPI GENITOURINARY: No history of dysuria, frequency or incontinence ONLINE MEDIA DIRECTOR: Negative for abnormal vaginal bleeding, abnormal vaginal discharge MUSCULOSKELETAL: Negative for joint pain or swelling, back pain or muscle pain NEUROLOGIC:Negative for focal numbness or weakness, headaches and dizziness or syncope. SKIN:Negative for lesions, rash, and itching PSYCHIATRIC: Negative for sleep disturbance, mood disorder and recent psychosocial stressors. HEMATOLOGIC/LYMPHATIC/IMMUNOLOGI C:Negative for prolonged bleeding, bruising easily or swollen nodes ENDOCRINE: Negative for cold or heat intolerance, polyuria, polydipsia and goiter The remainder of the ROS was negative. PHYSICAL EXAMINATION General: alert and appropriate, in no distress and well-hydrated, well nourished , Head: normocephalic, no abnormality or lesion noted, Eyes: visual acuity is grossly normal, no injection, and EOMI, Oropharynx: moist mucus membranes, no tonsillar hypertrophy/exudate, uvula midline and pharynx non-erythematous, lips, teeth and gums are without obvious lesion, Neck: full ROM, no cervical LNs noted, Respiratory: breathing non-labored, and no grunting/flaring/retractions, Chest: equal chest rise with normal respiratory effort, Abdomen: flat appearing. Visible protrusions or hernias: No Incisions/scars: None Areas of pain/tenderness: Denies Skin: no rash noted, Neuro: Patient seen sitting with normal appearing strength and coordination. No focal motor deficits. Psych: Appropriate mood and interaction Most recent labs: CBC: WBC (k/uL) Date Value 12/30/2021 7.35 Hematocrit (%) Date Value 12/30/2021 43.2 MCV (fL) Date Value 12/30/2021 90.2 Platelet Count (k/uL) Date Value 12/30/2021 313 Hepatic Function Panel: Albumin (g/dL) Date Value 12/30/2021 4.1 Bilirubin, Total (mg/dL) Date Value 12/30/2021 0.4 Alkaline Phosphatase (U/L) Date Value 12/30/2021 52 AST (U/L) Date Value 12/30/2021 18 ALT (U/L) Date Value 12/30/2021 27 Protein, Total (g/dL) Date Value 12/30/2021 7.3 CRP: CRP Date Value Ref Range Status 01/15/2018 0.5 <0.9 mg/dL Final No results found for: QTBGOLD No results found for: HRINTP No results found for: TBTEST No results found for: PTMPT No results found for: FOLATE No results found for: B12 No results found for: FE, TIBC No results found for: VITD25 Last Endoscopy: Colonoscopy 01/10/2022 Impression: - Erythematous and eroded mucosa from 0 to 20 cm proximal to the anus. - Changes in ascending colon as noted above - The examined portion of the ileum was normal. - Biopsies were taken with a cold forceps for histology in the entire colon and in the terminal ileum. EGD 01/10/2022 Impression: - Normal esophagus. - Normal stomach. Biopsied. - Normal examined duodenum. Biopsied. Biopsies: FINAL DIAGNOSIS A. Duodenum, biopsy: - Duodenal mucosa with no significant diagnostic alteration. - No evidence of celiac disease or duodenitis. B. Stomach, antrum and body, biopsy: - Mild chronic inactive gastritis, see comment. C. Terminal ileum, biopsy: - Ileal mucosa with no significant diagnostic alteration. - No evidence of ileitis, granulomas or dysplasia. D. Right colon, biopsy: - Colonic mucosa with no significant diagnostic alteration. - No evidence of colitis, granulomas or dysplasia. E. Right colon polyps, biopsy: - Multiple fragments of hyperplastic polyp, negative for dysplasia. F. Transverse colon, biopsy: - Colonic mucosa with no significant diagnostic alteration. - No evidence of colitis, granulomas or dysplasia. G. Left colon, biopsy: - Colonic mucosa with no significant diagnostic alteration. - No evidence of colitis, granulomas or dysplasia. H. Rectum, biopsy: - Chronic active colitis with erosion, negative for granulomas or dysplasia, see comment. Colonoscopy (11/30/2017) Procedure: Rectal exam revealed no palpable masses. Rectal mucosa appeared normal. Thick liquid throughout the left colon. Poor preparation. Across the transverse colon, there was thick liquid. Down the right colon, there was thick liquid noted. Ileocecal valve could be identified. Terminal ileum was intubated with a wash catheter. Did not appear to be any distinct ulcerations in the ileum. Biopsies taken. Near the ileo-cecal valve, there appeared to be some small pseuodpolyps and random biopsies taken in the right colon. Back across the transverse colon, there was thick liquid and below the splenic flexure down the left colon, there was thick liquid with poor prep. The colon was decompressed. Path: Terminal ileum, biopsy: reactive submucosal lymphoid aggregates and no additional histopathologic changes. No evidence of crohn's disease. Ileocecal valve, biopsy: colonic epithelium and small intestinal epithelium with no significant histopathologic changes. Nonspecific Reactive lymphoid aggregates and chronic inflammation. No morphologic evidence of crohn's disease Last Imaging: CTE 01/29/2022 IMPRESSION: Minimal jejunal findings may represent mild involvement with Crohn's disease. CTE 2018 IMPRESSION: NO ACTIVE INFLAMMATORY SMALL BOWEL CROHN'S DISEASE . MILD NONSPECIFIC RIGHT COLITIS EVIDENCE BY MURAL THICKENING AND MILD INNER WALL HYPERENHANCEMENT. Assessment IMPRESSION (as copied and updated from my / note and reflects medical decision making today): 36 year old female with a history of Crohn's disease diagnosed in 200 at the age of 15. Treated in the past with Ascol bentyl and lialda with minimal benefit. Most recent scope was in 2018 and pathology revealed chronic inflammation and CTE concerning for right sided colitis. Has not been on medication since that time. Recent scope with inflammation in the rectum. CTE with question of Jejunal involvement. She presents today as a routine virtual visit to follow up on her scope and imaging results. She is feeling much better since starting medication. She has 2-4 BMs daily with no blood and only mild urgency with no incontinence. Diet is going well she has no nausea or bloating. No constipation. No weight loss. She does have occasional bloating and continues to have some knee pain. For now will continue lialda canasa and budesonide taper. I discussed that if she continues to have no symptoms she can try to wean canasa to every other night and monitor for symptoms. Will plan to recheck labs and fecal calprotectin at the 3 month [place] to assess for response to treatment. If she continues to do well will plan for follow up in 4-6 weeks and will plan for repeat scope and CTE at 1 year. If she develops symptoms once off budesonide, she will contact the office and we will need to decide on further intervention at that time. PLAN Continue Lialda Continue Budesonide taper Continue canasa can trial every other night Recheck labs in 3 months including Fecal dl (orders placed) Repeat colonoscopy and CTE in 1 year to reassess unless things worsen Follow up in 4-6 weeks unless doing really well PATIENT IS OK TO BE CONTACTED BY IBD GI RESEARCH TEAM TO EXPLORE PARTICIPATION IN RESEARCH STUDIES yes I spent 25 minutes in the virtual visit, with more than 50% of the total [id number] time of the visit in counseling / coordination of care. I have confirmed and edited as necessary, the PFSH and ROS obtained by others. I will communicate my recommendations and prescriptions to the patient's primary care provider. Unrelated to E/M, telemedicine, or virtual visit service provided within previous 7 days. No E/M service or procedure anticipated within next 24 hours. Catrachito Garcia PA-C February 10, 2022 2:26 PM documented in this encounter [facility] 01-10-2022 Nurse Note AMBULATORY PATIENT EDUCATION NOTE TOPIC: GI PROCEDURES: Colonoscopy with or without biopsies based on clinical findings Esophagogastroduodenoscopy(EGD) with or without biopies based on clinical findings, removal of polyps or lesions READINESS TO LEARN INSTRUCTION PROVIDED TO: Patient, readness to learn accessed prior to procedure COGNITIVE ABILITY: Alert and oriented PTED MOTIVATION TO LEARN: Interested FAMILY SUPPORT: None - Unavailable/disinterested IPATIENT LEARNS BEST BY: Individual Instruction Written Instruction - Hand-outs Verbal Instruction FACTORS AFFECTING LEARNING: None PHYSICAL LIMITATIONS AFFECTING LEARNING: None LEARNING RESPONSE METHOD OF INSTRUCTION: Individual instruction PATIENT / FAMILY RESPONSE: Verbalizes understanding of: WORSENING CONDITION-Signs and symptoms of a worsening condition that warrant a call to the physician FOLLOW-UP PLAN: Complete - No need for follow-up SUPPLEMENTAL MATERIAL: Procedure Discharge Instructions REFERRAL (RECOMMENDATION): None Electronically Signed By: Estephanie Meek RN PRE OP LEARNING ASSESSMENT PROCEDURE/SURGERY: GI PROCEDURES: Colonoscopy READINESS TO LEARN COGNITIVE ABILITY: Alert and oriented MOTIVATION TO LEARN: Interested FAMILY SUPPORT: None - Unavailable/disinterested PATIENT LEARNS BEST BY: Individual Instruction Written Instruction - Hand-outs Verbal Instruction FACTORS AFFECTING LEARNING: None PHYSICAL LIMITATIONS AFFECTING LEARNING: None Electronically Signed By: Destiny Zepdea RN In Department: GASTROENTEROLOGY documented in this encounter [facility] 01-10-2022 Miscellaneous Notes Colonoscope in Gastroscope out documented in this encounter [facility] 01-10-2022 History and physical note HISTORY AND PHYSICAL Teetee Kenney Heriberto, 36 year old female Current history and physical on file: Yes Is a new History and Physical required for today's visit? Yes Indication for procedure: IBD PROCEDURE(S) SCHEDULED FOR: Colonoscopy with or without biopsies and with or without removal of polyps or lesions, dilation (any means), treatment of bleeding (any means), based on clinical findings. and EGD (Esophagogastroduodenoscopy) with or without biopsies, removal of polyps or lesions, dilation ( any means), treatment of bleeding ( any means), Barrx treatment of Archie's Esophagus, image tube placement or cryo therapy treatment based on clinical findings. BASELINE BEHAVIOR: Calm BASELINE ORIENTATION: A & O x3 All medications and allergies reviewed: Yes Skin Assessment: Warm dry mucus membranes pink Airway/Respiratory Assessment: Airway: visualization of the uvula- Yes Mouth: opening greater than 2 fingerbreadths- Yes Neck: full range of motion- Yes Breath sounds clear/equal- Yes Cardiac Assessment: Regular rate and rhythm without murmur Abdominal Assessment: Abdomen soft, non-tender, no masses or organomegaly. Sedation Plan: Moderate Additional Comments: None Karen Atwood DO documented in this encounter [facility] 01-08-2022 Instructions Catrachito Garcia PA-C - 01/08/2022 4:29 PM EDT Images from the original note were not included. Bowel Preparation Instructions for: Golytely, Nulytely, Trilyte or Colyte (polyethylene glycol 3350 and electrolytes) IF YOU DO NOT FOLLOW THESE DIRECTIONS, YOUR COLONOSCOPY WILL BE CANCELLED. Hobbs Instructions: Your bowel must be empty so that your doctor can clearly view your colon. Follow all of the instructions in this handout EXACTLY as they are written. Do NOT eat any solid food the ENTIRE day before your colonoscopy. Drink only clear liquids. Buy your bowel preparation at least 5 days before your colonoscopy. TRANSPORTATION on the Day of Your Exam A responsible person MUST be present with you at Check In prior to your colonoscopy and REMAIN in the endoscopy area until you are discharged. You are NOT ALLOWED to drive, take a taxi or bus, or leave the Endoscopy Center ALONE. If you do not have a responsible spotter driver (family member or friend) with you to take you home, your exam cannot be done with sedation and will be cancelled. Please bring a list of all of your current medications, including any Over-the Counter medications with you. Medications If you take insulin, diabetic medications or blood thinners such as Coumadin (warfarin), Plavix (clopidogrel), Ticlid (ticlopidine hydrochloride), Agrylin (anagrelide), Xarelto (Rivaroxaban), Pradaxa (Dabigatran), Eliquis (Apixaban), and Effient (Prasugrel). You MUST call the doctors who orders those medicines for instructions on altering the dosage before your colonoscopy. All other medications should be taken the day of the exam with a sip of water including ASPIRIN. Five (5) Days Before Your Colonoscopy Do NOT take medicines that stop diarrhea - such as Imodium, Kaopectate, or Pepto Bismol. Do NOT take fiber supplements - such as Metamucil, Citrucel, or Perdiem. Do NOT take products that contain iron - such as multi-vitamins (the label lists what is in the products). Do NOT take Vitamin E. Buy the prescription bowel preparation solution at your local pharmacy or drugstore pharmacy. 09/2019 Bowel Preparation Instructions for: Golytely, Nulytely, Trilyte or Colyte (polyethylene glycol 3350 and electrolytes) Three (3) Days Before Your Colonoscopy Do NOT eat high-fiber foods - such as popcorn, beans, seeds (flax, sunflower, quinoa), multigrain bread, nuts, salad/vegetables, or fresh and dried fruit. One (1) Day Before Your Colonoscopy Only drink clear liquids the ENTIRE DAY before your colonoscopy. Do NOT eat any solid foods. Drink at least 8 ounces of clear liquids every hour after waking up. The clear liquids you can drink include: Clear Liquid (NO RED LIQUIDS) DO NOT DRINK Gatorade, Pedialyte or Powerade Clear broth or bouillon Coffee or tea (no milk or non-dairy creamer) Carbonated and non-carbonated soft drinks Jim-Aid or other fruit flavored drinks Strained fruit juices (no pulp) Jell-O, popsicles, hard candy Water Alcohol Milk or non-dairy creamers Noodles or vegetables in soup Juice with pulp Liquid you cannot see through The bowel preparation solution will be consumed in two parts. Mix the solution the evening before your colonoscopy and refrigerate before drinking. You may add the flavor pack that came with the bowel preparation. Do NOT add ice, sugar or any other flavorings to the solution. Part 1 At 6:00 PM - Evening before your colonoscopy Drink an 8-oz glass of bowel preparation every 10 minutes for a total of 8 glasses. You may continue to drink clear liquids until midnight. Part 2 On the day of your colonoscopy you may drink clear liquids up to (three) 3 hours before your procedure. 4 1/2 hours before your colonoscopy Drink an 8-oz glass of bowel preparation every 10 minutes for a total of 8 glasses. Fifteen (15) minutes later, drink an 8-oz glass of clear liquids every 15 minutes for a total of 2 glasses. You may continue to drink clear liquids up to (three) 3 hours before your exam. 2 09/2019 documented in this encounter [facility] 01-08-2022 History of Presen t illness Narrative Virtual Follow Up Visit Provider Location: [facility] Facility Patient Location: Patient Home or Place of Residence SUBJECTIVE Teetee Louis [id number] 1985 has requested a video telemedicine for follow up of Crohn's disease last 01/15/[address] Perez. IBD History (copied and updated from my prior notes) Ms. Louis, is a 36 year old female with a history of Crohn's disease diagnosed in 2000 at the age of 15. Treated in the past with Ascol bentyl and lialda with minimal benefit. Most recent scope was in 2018 and pathology revealed chronic inflammation and CTE concerning for right sided colitis. Has not been on medication since that time. Changes and test results since last visit: Since 12/21 increased frequency 4-5 BMs with blood and mucous usually loose though some small pebble like BMs mostly in the morning some urgency no incontinence . Has been trying to follow the low FODMAP and cut out coffee with minimal results. Appetite is diminished no real weight loss. Bloating (diet has helped with this) still with gas. Some abdominal pain. Epigastric in nature cramping gets a little better with BM. Minimal acid reflux. Joint pain in knees not clear if connected no rashes some more blurry vision More stress in the recent days due to ongoing symptoms. Current Clinical Symptoms # of bowel movements daily: 4-5 Consistency: varies in consistency Bloody bowel movements: yes Urgency: yes Abdominal pain: yes Abdominal distention: yes Nausea/vomiting: no Weight loss over last 3 months: no Diagnosis Crohn's Disease: Date of diagnosis (year): 1999 Phenotype Location affected: colon Behavior: inflammatory Perianal disease: no Prior Medications/Dates/Reason for Switch Surgery: No: Systemic steroids last year: No Enteric or rectal steroids last year: No Systemic 5-ASA: previous lialda asacol Local 5-ASA: No Thiopurines: No Methotrexate: No Biologics: none Small molecules: No Current Medications None Labs TB Status: Unknown Hepatitis B Status: Unknown TPMT: Unknown There is no immunization history on file for this patient. Current Outpatient Medications Medication Sig Dispense Refill spironolactone (ALDACTONE) 100 mg tablet Take 100 mg by mouth once daily. mesalamine ER (APRISO) 0.375 gram capsule Take 4 capsules by mouth once daily. (Patient not taking: Reported on 04/05/2018 ) 120 capsule 5 MAGNESIUM CHLORIDE ORAL Take 800 mg by mouth once daily. Multivitamin capsule Take 1 capsule by mouth once daily. levothyroxine (SYNTHROID) 75 mcg tablet Take 1 tablet by mouth once daily. norethindrone-e.estradiol-iron (TAYTULLA) 1 mg-20 mcg (24)/75 mg (4) cap Use as directed No current facility-administered medications for this visit. ALLERGIES No Known Allergies PAST SURGICAL HISTORY Procedure Laterality Date COLONOSCOP W/ OR W/O [facility] SPEC 05/04/14 Colonoscopy COLONOSCOPY 2007, 2001 In [place] & [place] in [place] INDUCED - EVACUATION 2009 PAST SURGICAL HISTORY OF umbilical hernia repair ___PERSONAL HABITS: Tobacco: No Alcohol: No NSAID USE: no FAMILY HISTORY: Thinks Father had Crohns Review of Systems: GENERAL:No weight loss, malaise or fevers HEENT:Negative for frequent or significant headaches, No changes in hearing or vision, no nose bleeds or other nasal problems NECK:Negative for lumps, goiter, pain and significant neck swelling RESPIRATORY: Negative for cough, hemoptysis, wheezing, COPD, dyspnea or shortness of breath CARDIOVASCULAR: Negative for chest pain, leg swelling, hypertension, CHF or palpitations GASTROINTESTINAL: See HPI GENITOURINARY: No history of dysuria, frequency or incontinence ONLINE MEDIA DIRECTOR: Negative for abnormal vaginal bleeding, abnormal vaginal discharge MUSCULOSKELETAL: Negative for joint pain or swelling, back pain or muscle pain NEUROLOGIC:Negative for focal numbness or weakness, headaches and dizziness or syncope. SKIN:Negative for lesions, rash, and itching PSYCHIATRIC: Negative for sleep disturbance, mood disorder and recent psychosocial stressors. HEMATOLOGIC/LYMPHATIC/IMMUNOLOGI C:Negative for prolonged bleeding, bruising easily or swollen nodes ENDOCRINE: Negative for cold or heat intolerance, polyuria, polydipsia and goiter The remainder of the ROS was negative. PHYSICAL EXAMINATION General: alert and appropriate, in no distress and well-hydrated, well nourished , Head: normocephalic, no abnormality or lesion noted, Eyes: visual acuity is grossly normal, no injection, and EOMI, Oropharynx: moist mucus membranes, no tonsillar hypertrophy/exudate, uvula midline and pharynx non-erythematous, lips, teeth and gums are without obvious lesion, Neck: full ROM, no cervical LNs noted, Respiratory: breathing non-labored, and no grunting/flaring/retractions, Chest: equal chest rise with normal respiratory effort, Abdomen: flat appearing. Visible protrusions or hernias: No Incisions/scars: None Areas of pain/tenderness: Denies Skin: no rash noted, Neuro: Patient seen sitting with normal appearing strength and coordination. No focal motor deficits. Psych: Appropriate mood and interaction Most recent labs: CBC: WBC (k/uL) Date Value 12/30/2021 7.35 Hematocrit (%) Date Value 12/30/2021 43.2 MCV (fL) Date Value 12/30/2021 90.2 Platelet Count (k/uL) Date Value 12/30/2021 313 Hepatic Function Panel: Albumin (g/dL) Date Value 12/30/2021 4.1 Bilirubin, Total (mg/dL) Date Value 12/30/2021 0.4 Alkaline Phosphatase (U/L) Date Value 12/30/2021 52 AST (U/L) Date Value 12/30/2021 18 ALT (U/L) Date Value 12/30/2021 27 Protein, Total (g/dL) Date Value 12/30/2021 7.3 CRP: CRP Date Value Ref Range Status 01/15/2018 0.5 <0.9 mg/dL Final Last Endoscopy: Colonoscopy (11/30/2017) Procedure: Rectal exam revealed no palpable masses. Rectal mucosa appeared normal. Thick liquid throughout the left colon. Poor preparation. Across the transverse colon, there was thick liquid. Down the right colon, there was thick liquid noted. Ileocecal valve could be identified. Terminal ileum was intubated with a wash catheter. Did not appear to be any distinct ulcerations in the ileum. Biopsies taken. Near the ileo-cecal valve, there appeared to be some small pseuodpolyps and random biopsies taken in the right colon. Back across the transverse colon, there was thick liquid and below the splenic flexure down the left colon, there was thick liquid with poor prep. The colon was decompressed. Path: Terminal ileum, biopsy: reactive submucosal lymphoid aggregates and no additional histopathologic changes. No evidence of crohn's disease. Ileocecal valve, biopsy: colonic epithelium and small intestinal epithelium with no significant histopathologic changes. Nonspecific Reactive lymphoid aggregates and chronic inflammation. No morphologic evidence of crohn's disease Last Imaging: CTE 2018 IMPRESSION: NO ACTIVE INFLAMMATORY SMALL BOWEL CROHN'S DISEASE . MILD NONSPECIFIC RIGHT COLITIS EVIDENCE BY MURAL THICKENING AND MILD INNER WALL HYPERENHANCEMENT. Assessment IMPRESSION (as copied and updated from my / note and reflects medical decision making today): 36 year old female with a history of Crohn's disease diagnosed in 200 at the age of 15. Treated in the past with Ascol bentyl and lialda with minimal benefit. Most recent scope was in 2018 and pathology revealed chronic inflammation and CTE concerning for right sided colitis. Has not been on medication since that time. She presents today as a virtual visit with an episode of bloody diarrhea with ongoing abdominal pain that started on December 21 prior to this she has had several short episodes of abdominal pain and diarrhea that usually last 2 to 3 days and get better and has been treated with no medications since she was seen in 2018. This episode has been going since December 21 and has not gotten better she has 4-5 bowel movements daily with blood and mucus usually loose though in the morning she occasionally has small pebble-like output. She has tried cutting caffeine and has tried a low FODMAP diet with minimal provement. Her appetite is overall diminished but she has not lost any weight. She also complains of both lower abdominal cramping as well as epigastric pain with minimal GERD. At this point we need to restage her disease most recent scopes have not proven Crohn's disease her initial scope in 2000 did reveal ulceration in the colon consistent with likely Crohn's disease. We will plan to get a colonoscopy to restage due to her epigastric pain reflux we will get an EGD at the same time to assess. We will plan to get a CTE as well. Further treatment plan will be decided based on the above results. This patient was staffed with Dr. Perez. PLAN Colonoscopy with TI intubation and Biopsies to assess for disease CTE Will decide further treatment pending above results PATIENT IS OK TO BE CONTACTED BY IBD GI RESEARCH TEAM TO EXPLORE PARTICIPATION IN RESEARCH STUDIES yes I spent 30 minutes in the virtual visit, with more than 50% of the total [id number] time of the visit in counseling / coordination of care. I have confirmed and edited as necessary, the PFSH and ROS obtained by others. I will communicate my recommendations and prescriptions to the patient's primary care provider. Unrelated to E/M, telemedicine, or virtual visit service provided within previous 7 days. No E/M service or procedure anticipated within next 24 hours. Catrachito Garcia PA-C January 08, 2022 3:52 PM Attending Note I have personally performed a face to face assessment of the patient and have reviewed the [facility] note. My hobbs findings include: I last saw Aicha in 2017 and she did well after that until ~3 weeks ago when she developed bloody diarrhea, lower abdominal cramping and epigastric abdominal pain. Testing on 12/30/2021: Stool negative for Enteric panel and C diff and labs were normal. ASSESSMENT (as copied and updated from my 01/2018 note and reflects medical decision making today): 36 yo female with dx of Crohn's in 03/2001 (age 15) when she had a colonoscopy for abdominal pain and rectal bleeding- showed patchy pancolitis; TI was not intubated but biopsy taken; path showed chronic changes throughout colon and in TI. She was treated with prednisone and sulfasalazine at that time. Her course since then has not been typical for Crohn's and testing has been normal. Over the years she has had intermittent episodes of pain and diarrhea but in between she is mostly asymptomatic. In 10/2017, she was admitted with another flare of symptoms- CT scan showed right colon thickening and she was treated with steroids and antibiotics. Last GI tract workup: Colonoscopy in 11/2017 while still on prednisone did not show inflammation but prep was poor; CTe in 02/2018 showed mild NS right sided colitis and normal SB. She now presents with 3 week h/o bloody diarrhea and epigastric pain- we recommended pursuing repeat testing to assess for underlying disease process/activity PLAN: 1. Colonoscopy and EGD Other additions or changes: As edited Signature: Jt Perez Date: 01/08/2022 documented in this encounter [facility] 12-30-2021 Miscellaneous Notes Called patient for the last week she is having 3-5 Bm/day that are diarrhea in consistency with increase urgency and frequency and having blood with every BM. And a foul odor. Abdominal pain and cramping to the LLQ and RLQ that is relieved with a BM. Patient denies N/v, fever chills and or night sweats. Informed the patient that lab orders and stool tests have been placed and to head to her local lab to complete the orders. she has not been seen since 2018, I will have her added to Catrachito schedule on 01/[address] Perez consult during the video call since it has been 4 years. A [facility] message will be sent to the patient with video instructions. Patient verbalized an understanding. Kerrie Trivedi RN Teetee called the office about the message below, Please call her back at [phone]. Janie Krishnan Returned patient call. Received voicemail. Left a message for the patient to call us back in regards to her recent symptoms. Number provided for call back. Kerrie Trivedi RN K- please call her back. I have not seen her since 2018 so we should set up appointment- can set up something with [facility]. In the interim, we can check stool tests and labs- I put orders in. If symptoms get worse she should go to ED Jt Perez MD Teetee called the offices and she is having a flare up for the last 4 days bleeding and she is going to the bathroom often but is not in any pain. Please call her back at [phone]. Janie rKishnan documented in this encounter [facility] Diagnosis Crohn's disease of large intestine with rectal bleeding (HCC)- Primary Regional enteritis of large intestine Inflammatory bowel disease Other and unspecified noninfectious gastroenteritis and colitis Epigastric pain Abdominal pain, epigastric Rectal bleeding Hemorrhage of rectum and anus Diarrhea, unspecified type [facility] Diagnosis Crohn's disease of large intestine with rectal bleeding (HCC) Regional enteritis of large intestine Epigastric pain Abdominal pain, epigastric [facility] Diagnosis Inflammatory bowel disease Other and unspecified noninfectious gastroenteritis and colitis Crohn's disease of large intestine with rectal bleeding (HCC) Regional enteritis of large intestine [facility] Diagnosis Crohn's disease of large intestine with rectal bleeding (HCC)- Primary Regional enteritis of large intestine [facility] Diagnosis Crohn's disease of large intestine with rectal bleeding (HCC) Regional enteritis of large intestine [facility] Diagnosis Crohn's disease of large intestine with rectal bleeding (HCC)- Primary Regional enteritis of large intestine [facility] Diagnosis Sore throat- Primary Acute pharyngitis [facility] Diagnosis Crohn's disease of both small and large intestine without complication (HCC)- Primary Regional enteritis of small intestine with large intestine Fatigue, unspecified type [facility] Diagnosis Crohn's disease of both small and large intestine without complication (HCC)- Primary Regional enteritis of small intestine with large intestine [facility] Diagnosis Crohn's disease of both small and large intestine without complication (HCC)- Primary Regional enteritis of small intestine with large intestine [facility] Diagnosis Crohn's disease of both small and large intestine without complication (HCC)- Primary Regional enteritis of small intestine with large intestine [facility] Diagnosis Crohn's disease of both small and large intestine without complication (HCC)- Primary Regional enteritis of small intestine with large intestine [facility] Diagnosis Crohn's disease of both small and large intestine without complication (HCC)- Primary Regional enteritis of small intestine with large intestine [facility] Diagnosis Adjustment disorder with mixed anxiety and depressed mood- Primary Psychological factor affecting physical condition Psychic factors associated with diseases classified elsewhere Crohn's disease of both small and large intestine without complication (HCC) Regional enteritis of small intestine with large intestine [facility] Diagnosis Adjustment disorder with mixed anxiety and depressed mood- Primary Psychological factor affecting physical condition Psychic factors associated with diseases classified elsewhere Crohn's disease of both small and large intestine without complication (HCC) Regional enteritis of small intestine with large intestine [facility] Diagnosis Crohn's disease of both small and large intestine without complication (HCC)- Primary Regional enteritis of small intestine with large [facility]- [facility] Diagnosis Adjustment disorder with mixed anxiety and depressed mood- Primary Psychological factor affecting physical condition Psychic factors associated with diseases classified elsewhere Crohn's disease of both small and large intestine without complication (HCC) Regional enteritis of small intestine with large intestine [facility] Diagnosis Inflammatory bowel disease- Primary Other and unspecified noninfectious gastroenteritis and colitis [facility] Diagnosis Crohn's disease of both small and large intestine without complication (HCC)- Primary Regional enteritis of small intestine with large intestine documented in this encounter [facility]* Diagnosis Inflammatory bowel disease- Primary Other and unspecified noninfectious gastroenteritis and colitis documented in this encounter [facility] note* Diagnosis Inflammatory bowel disease- Primary Other and unspecified noninfectious gastroenteritis and colitis documented in this encounter [facility] note* Diagnosis Acquired hypothyroidism- Primary Unspecified hypothyroidism Crohn's disease of both small and large intestine without complication (HCC) Regional enteritis of small intestine with large intestine Acne vulgaris Other acne 13 weeks gestation of state, incidental documented in this encounter [facility] note* Diagnosis Crohn's disease of both small and large intestine without complication (HCC)- Primary Regional enteritis of small intestine with large intestine documented in this encounter [facility] note* Diagnosis Inflammatory bowel disease- Primary Other and unspecified noninfectious gastroenteritis and colitis documented in this encounter [facility] note* Diagnosis Crohn's disease of both small and large intestine without complication (HCC)- Primary Regional enteritis of small intestine with large intestine documented in this encounter [facility] note* Diagnosis Crohn's disease of both small and large intestine without complication (HCC)- Primary Regional enteritis of small intestine with large intestine documented in this encounter [facility] for referral (narrative)* Outpatient Procedure (Routine) - Closed Specialty Diagnoses / Procedures Referred By Mari moe Referred To [facility] Diagnoses Crohn's disease of large intestine with rectal bleeding (HCC) Epigastric pain Procedures EGD DIAGNOSTIC ESOPHAGOGASTRODUODENOSC OPY TRANSORAL DIAGNOSTIC Catrachito Garcia PA-C [facility] [address] [place] [address] Referral ID Status Reason Start Date Expiration Date V isits Requested Visits Authorized [id number] Closed Auto-Generate d Referral 01/08/2022 01/08/2023 1 1 * Outpatient Procedure (Routine) - Closed Specialty Diagnoses / Procedures Referred By Mari moe Referred To [facility] Diagnoses Crohn's disease of large intestine with rectal bleeding (HCC) Procedures COLONOSCOPY DIAGNOSTIC COLONOSCOPY FLX DX W/COLLJ SPEC WHEN PFRMD Catrachito Garcia PA-C [address] [address] Referral ID Status Reason Start Date Expiration Date V isits Requested Visits Authorized [id number] Closed Auto-Generate d Referral 01/08/2022 01/08/2023 1 1 [facility] for visit Narrative* Outpatient Procedure (Routine) - Closed Specialty Diagnoses / Procedures Referred By Mari moe Referred To Contact [facility] Diagnoses Crohn's disease of large intestine with rectal bleeding (HCC) Epigastric pain Procedures EGD DIAGNOSTIC ESOPHAGOGASTRODUODENOSC OPY TRANSORAL DIAGNOSTIC Catrachito Garcia PA-C [place] [phone] Referral ID Status Reason Start Date Expiration Date V isits Requested Visits Authorized [id number] Closed Auto-Generate d Referral 01/08/2022 01/08/2023 1 1 [facility] Summary Purpose Family History No Family History Records FoundNo Family History Records FoundNo Family History Records FoundNo Family History Records Found Advance Directives No Advanced Directives Records FoundNo Advanced Directives Records FoundNo Advanced Directives Records FoundNo Advanced Directives Records Found Reason for Referral Specialty Diagnoses / Procedures Referred By Mari moe Referred To Contact [facility] Diagnoses Inflammatory bowel disease Crohn's disease of large intestine with rectal bleeding (HCC) Procedures CT ENTEROGRAPHY W IVCON CT ABD & PELVIS W/CONTRAST Catrachito Garcia PA-C Ct [facility] Referral ID Status Reason Start Date Expiration Date Visits Requested Visits Authorized [id number] Pending Review Auto-Generat ed Referral 01/08/2022 02/07/2023 1 1 Specialty Diagnoses / Procedures Referred By Mari moe Referred To Contact [facility] Diagnoses Crohn's disease of large intestine with rectal bleeding (HCC) Epigastric pain Procedures EGD DIAGNOSTIC ESOPHAGOGASTRODUODENOSC OPY TRANSORAL DIAGNOSTIC Catrachito Garcia PA-C [facility] [place] [address] Referral ID Status Reason Start Date Expiration Date Visits Requested Visits Authorized [id number] Authorized Auto-Generat ed Referral 01/08/2022 01/08/2023 1 1 Specialty Diagnoses / Procedures Referred By Contac t Referred To Contact [facility] Diagnoses Crohn's disease of large intestine with rectal bleeding (HCC) Procedures COLONOSCOPY DIAGNOSTIC COLONOSCOPY FLX DX W/COLLJ SPEC WHEN PFRMD Catrachito Garcia PA-C [facility] [address] [place] [id number] Referral ID Status Reason Start Date Expiration Date Visits Requested Visits Authorized [id number] Authorized Auto-Generat ed Referral 01/08/2022 01/08/2023 1 1 Referral ID Status Reason Start Date Expiration Date V isits Requested Visits Authorized [id number] Closed Auto-Generate d Referral 01/08/2022 02/07/2023 1 1 Specialty Diagnoses / Procedures Referred By Contac t Referred To Contact Nutrition Diagnoses Crohn's disease of large intestine with rectal bleeding (HCC) Procedures CONSULT TO NUTRITION THERAPY OFFICE/OUTPATIENT [facility] 60-74 MINUTES Catrachito Garcia PA-C Referral ID Status Reason Start Date Expiration Date Visits Requested Visits Authorized [id number] Pending Review PCP Requested Referral 02/10/2022 02/10/2023 1 1 Medications Administered Section Inactive Administered Medications - up to 3 most recent administrations Medication Order MAR Action Action Date Dose Rate Site fentaNYL 50 mcg/mL injection (SUBLIMAZE) INTRAVENOUS, NEEDED, Starting on Thu01/10/22 at 1501, Until Thu01/10/22 at 1526 Given 01/10/2022 3:26 PM EDT 25 mcg Inactive Administered Medications - up to 3 most recent administrations Medication Order MAR Action Action Date Dose Rate Site vedolizumab 300 mg in NaCl 0.9% 250 mL (ENTYVIO) 300 mg, INTRAVENOUS, Administer over 30 Minutes, ONCE, 1 dose, On Thu07/15/22 at 1500, Approx Total Volume: 280 mL After the infusion is complete flush with 30 mL of sterile 0.9% Sodium Chloride Injection. Refrigerate. EXP: (24 HR) New Bag/Syringe/Bottle 07/15/2022 3:13 PM EDT 300 mg Inactive Administered Medications - up to 3 most recent administrations Medication Order MAR Action Action Date Dose Rate Site vedolizumab 300 mg in NaCl 0.9% 250 mL (ENTYVIO) 300 mg, INTRAVENOUS, Administer over 30 Minutes, ONCE, 1 dose, On Thu07/29/22 at 1530, Approx Total Volume: 280 mL After the infusion is complete flush with 30 mL of sterile 0.9% Sodium Chloride Injection. Refrigerate. EXP: (24 HR) New Bag/Syringe/Bottle 07/29/2022 3:34 PM EDT 300 mg Inactive Administered Medications - up to 3 most recent administrations Medication Order MAR Action Action Date Dose Rate Site vedolizumab 300 mg in NaCl 0.9% 250 mL (ENTYVIO) 300 mg, INTRAVENOUS, Administer over 30 Minutes, ONCE, 1 dose, On Thu10/21/22 at 1330, Approx Total Volume: 280 mL After the infusion is complete flush with 30 mL of sterile 0.9% Sodium Chloride Injection. Refrigerate. EXP: (24 HR) New Bag/Syringe/Bottle 10/21/2022 1:48 PM EST 300 mg Inactive Administered Medications - up to 3 most recent administrations Medication Order MAR Action Action Date Dose Rate Site vedolizumab 300 mg in NaCl 0.9% 250 mL (ENTYVIO) 300 mg, INTRAVENOUS, Administer over 30 Minutes, ONCE, 1 dose, On Thu12/16/22 at 1500, Approx Total Volume: 280 mL After the infusion is complete flush with 30 mL of sterile 0.9% Sodium Chloride Injection. Refrigerate. EXP: (24 HR) New Bag/Syringe/Bottle 12/16/2022 3:02 PM EST 300 mg Inactive Administered Medications - up to 3 most recent administrations Medication Order MAR Action Action Date Dose Rate Site vedolizumab 300 mg in NaCl 0.9% 250 mL (ENTYVIO) 300 mg, INTRAVENOUS, Administer over 30 Minutes, ONCE, 1 dose, On Thu02/10/23 at 1530, Approx Total Volume: 280 mL After the infusion is complete flush with 30 mL of sterile 0.9% Sodium Chloride Injection. Refrigerate. EXP: (24 HR) New Bag/Syringe/Bottle 02/10/2023 3:14 PM EDT 300 mg Inactive Administered Medications - up to 3 most recent administrations Medication Order MAR Action Action Date Dose Rate Site vedolizumab 300 mg in NaCl 0.9% 250 mL (ENTYVIO) 300 mg, INTRAVENOUS, Administer over 30 Minutes, ONCE, 1 dose, On Thu06/02/23 at 1430, Approx Total Volume: 280 mL After the infusion is complete flush with 30 mL of sterile 0.9% Sodium Chloride Injection. Refrigerate. EXP: (24 HR) New Bag/Syringe/Bottle 06/02/2023 2:50 PM EDT 300 mg Inactive Administered Medications - up to 3 most recent administrations Medication Order MAR Action Action Date Dose Rate Site vedolizumab 300 mg in NaCl 0.9% 250 mL (ENTYVIO) 300 mg, INTRAVENOUS, Administer over 30 Minutes, ONCE, 1 dose, On Thu07/28/23 at 1430, Approx Total Volume: 280 mL After the infusion is complete flush with 30 mL of sterile 0.9% Sodium Chloride Injection. Refrigerate. EXP: (24 HR) New Bag/Syringe/Bottle 07/28/2023 2:52 PM EDT 300 mg Inactive Administered Medications - up to 3 most recent administrations Medication Order MAR Action Action Date Dose Rate Site vedolizumab 300 mg in NaCl 0.9% 250 mL (ENTYVIO) 300 mg, INTRAVENOUS, Administer over 30 Minutes, ONCE, 1 dose, On Thu09/22/23 at 1400, Approx Total Volume: 280 mL After the infusion is complete flush with 30 mL of sterile 0.9% Sodium Chloride Injection. Refrigerate. EXP: (24 HR) New Bag/Syringe/Bottle 09/22/2023 2:17 PM EST 300 mg Additional Source Comments INFORMATION SOURCE (unrecogn ized section and content) DATE CREATED AUTHOR AUTHOR'S ORGANIZ ATION 01/31/2022 [facility] DATE CREATED AUTHOR AUTHOR'S ORGANIZ ATION 07/16/2023 [facility] DATE CREATED AUTHOR AUTHOR'S ORGANIZ ATION 10/10/2023 [facility] Source Comments (unrecognize d section and content) In the event this informatio n is protected by the Federal Confidentiality of Alcohol and Drug Abuse Patient Records regulations: The Federal rules restrict any use of the information to criminally investigate or prosecute any alcohol or drug abuse patient.[facility] System[facility] the event this information is protected by the Federal Confidentiality of Alcohol and Drug Abuse Patient Records regulations: The Federal rules restrict any use of the information to criminally investigate or prosecute any alcohol or drug abuse patient.[facility] SystemIn the event this information is protected by the Federal Confidentiality of Alcohol and Drug Abuse Patient Records regulations: The Federal rules restrict any use of the information to criminally investigate or prosecute any alcohol or drug abuse patient.[facility] SystemIn the event this information is protected by the Federal Confidentiality of Alcohol and Drug Abuse Patient Records regulations: The Federal rules restrict any use of the information to criminally investigate or prosecute any alcohol or drug abuse patient.[facility] SystemIn the event this information is protected by the Federal Confidentiality of Alcohol and Drug Abuse Patient Records regulations: The Federal rules restrict any use of the information to criminally investigate or prosecute any alcohol or drug abuse patient.[facility] SystemIn the event this information is protected by the Federal Confidentiality of Alcohol and Drug Abuse Patient Records regulations: The Federal rules restrict any use of the information to criminally investigate or prosecute any alcohol or drug abuse patient.[facility] SystemIn the event this information is protected by the Federal Confidentiality of Alcohol and Drug Abuse Patient Records regulations: The Federal rules restrict any use of the information to criminally investigate or prosecute any alcohol or drug abuse patient.[facility] SystemIn the event this information is protected by the Federal Confidentiality of Alcohol and Drug Abuse Patient Records regulations: The Federal rules restrict any use of the information to criminally investigate or prosecute any alcohol or drug abuse patient.[facility] SystemIn the event this information is protected by the Federal Confidentiality of Alcohol and Drug Abuse Patient Records regulations: The Federal rules restrict any use of the information to criminally investigate or prosecute any alcohol or drug abuse patient.[facility] SystemIn the event this information is protected by the Federal Confidentiality of Alcohol and Drug Abuse Patient Records regulations: The Federal rules restrict any use of the information to criminally investigate or prosecute any alcohol or drug abuse patient.[facility] SystemIn the event this information is protected by the Federal Confidentiality of Alcohol and Drug Abuse Patient Records regulations: The Federal rules restrict any use of the information to criminally investigate or prosecute any alcohol or drug abuse patient.[facility] SystemIn the event this information is protected by the Federal Confidentiality of Alcohol and Drug Abuse Patient Records regulations: The Federal rules restrict any use of the information to criminally investigate or prosecute any alcohol or drug abuse patient.[facility] SystemIn the event this information is protected by the Federal Confidentiality of Alcohol and Drug Abuse Patient Records regulations: The Federal rules restrict any use of the information to criminally investigate or prosecute any alcohol or drug abuse patient.[facility] SystemIn the event this information is protected by the Federal Confidentiality of Alcohol and Drug Abuse Patient Records regulations: The Federal rules restrict any use of the information to criminally investigate or prosecute any alcohol or drug abuse patient.[facility] SystemIn the event this information is protected by the Federal Confidentiality of Alcohol and Drug Abuse Patient Records regulations: The Federal rules restrict any use of the information to criminally investigate or prosecute any alcohol or drug abuse patient.[facility] SystemIn the event this information is protected by the Federal Confidentiality of Alcohol and Drug Abuse Patient Records regulations: The Federal rules restrict any use of the information to criminally investigate or prosecute any alcohol or drug abuse patient.[facility] SystemIn the event this information is protected by the Federal Confidentiality of Alcohol and Drug Abuse Patient Records regulations: The Federal rules restrict any use of the information to criminally investigate or prosecute any alcohol or drug abuse patient.[facility] SystemIn the event this information is protected by the Federal Confidentiality of Alcohol and Drug Abuse Patient Records regulations: The Federal rules restrict any use of the information to criminally investigate or prosecute any alcohol or drug abuse patient.[facility] SystemIn the event this information is protected by the Federal Confidentiality of Alcohol and Drug Abuse Patient Records regulations: The Federal rules restrict any use of the information to criminally investigate or prosecute any alcohol or drug abuse patient.[facility] SystemIn the event this information is protected by the Federal Confidentiality of Alcohol and Drug Abuse Patient Records regulations: The Federal rules restrict any use of the information to criminally investigate or prosecute any alcohol or drug abuse patient.[facility] SystemIn the event this information is protected by the Federal Confidentiality of Alcohol and Drug Abuse Patient Records regulations: The Federal rules restrict any use of the information to criminally investigate or prosecute any alcohol or drug abuse patient.[facility] SystemIn the event this information is protected by the Federal Confidentiality of Alcohol and Drug Abuse Patient Records regulations: The Federal rules restrict any use of the information to criminally investigate or prosecute any alcohol or drug abuse patient.[facility] SystemIn the event this information is protected by the Federal Confidentiality of Alcohol and Drug Abuse Patient Records regulations: The Federal rules restrict any use of the information to criminally investigate or prosecute any alcohol or drug abuse patient.[facility] SystemIn the event this information is protected by the Federal Confidentiality of Alcohol and Drug Abuse Patient Records regulations: The Federal rules restrict any use of the information to criminally investigate or prosecute any alcohol or drug abuse patient.[facility] SystemIn the event this information is protected by the Federal Confidentiality of Alcohol and Drug Abuse Patient Records regulations: The Federal rules restrict any use of the information to criminally investigate or prosecute any alcohol or drug abuse patient.[facility] SystemIn the event this information is protected by the Federal Confidentiality of Alcohol and Drug Abuse Patient Records regulations: The Federal rules restrict any use of the information to criminally investigate or prosecute any alcohol or drug abuse patient.[facility] SystemIn the event this information is protected by the Federal Confidentiality of Alcohol and Drug Abuse Patient Records regulations: The Federal rules restrict any use of the information to criminally investigate or prosecute any alcohol or drug abuse patient.[facility] SystemIn the event this information is protected by the Federal Confidentiality of Alcohol and Drug Abuse Patient Records regulations: The Federal rules restrict any use of the information to criminally investigate or prosecute any alcohol or drug abuse patient.[facility] SystemIn the event this information is protected by the Federal Confidentiality of Alcohol and Drug Abuse Patient Records regulations: The Federal rules restrict any use of the information to criminally investigate or prosecute any alcohol or drug abuse patient.[facility] SystemIn the event this information is protected by the Federal Confidentiality of Alcohol and Drug Abuse Patient Records regulations: The Federal rules restrict any use of the information to criminally investigate or prosecute any alcohol or drug abuse patient.[facility] SystemIn the event this information is protected by the Federal Confidentiality of Alcohol and Drug Abuse Patient Records regulations: The Federal rules restrict any use of the information to criminally investigate or prosecute any alcohol or drug abuse patient.[facility] SystemIn the event this information is protected by the Federal Confidentiality of Alcohol and Drug Abuse Patient Records regulations: The Federal rules restrict any use of the information to criminally investigate or prosecute any alcohol or drug abuse patient.[facility] SystemIn the event this information is protected by the Federal Confidentiality of Alcohol and Drug Abuse Patient Records regulations: The Federal rules restrict any use of the information to criminally investigate or prosecute any alcohol or drug abuse patient.[facility] SystemIn the event this information is protected by the Federal Confidentiality of Alcohol and Drug Abuse Patient Records regulations: The Federal rules restrict any use of the information to criminally investigate or prosecute any alcohol or drug abuse patient.[facility] SystemIn the event this information is protected by the Federal Confidentiality of Alcohol and Drug Abuse Patient Records regulations: The Federal rules restrict any use of the information to criminally investigate or prosecute any alcohol or drug abuse patient.[facility] SystemIn the event this information is protected by the Federal Confidentiality of Alcohol and Drug Abuse Patient Records regulations: The Federal rules restrict any use of the information to criminally investigate or prosecute any alcohol or drug abuse patient.[facility] SystemIn the event this information is protected by the Federal Confidentiality of Alcohol and Drug Abuse Patient Records regulations: The Federal rules restrict any use of the information to criminally investigate or prosecute any alcohol or drug abuse patient.[facility] SystemIn the event this information is protected by the Federal Confidentiality of Alcohol and Drug Abuse Patient Records regulations: The Federal rules restrict any use of the information to criminally investigate or prosecute any alcohol or drug abuse patient.[facility] SystemIn the event this information is protected by the Federal Confidentiality of Alcohol and Drug Abuse Patient Records regulations: The Federal rules restrict any use of the information to criminally investigate or prosecute any alcohol or drug abuse patient.[facility] SystemIn the event this information is protected by the Federal Confidentiality of Alcohol and Drug Abuse Patient Records regulations: The Federal rules restrict any use of the information to criminally investigate or prosecute any alcohol or drug abuse patient.[facility] SystemIn the event this information is protected by the Federal Confidentiality of Alcohol and Drug Abuse Patient Records regulations: The Federal rules restrict any use of the information to criminally investigate or prosecute any alcohol or drug abuse patient.[facility] SystemIn the event this information is protected by the Federal Confidentiality of Alcohol and Drug Abuse Patient Records regulations: The Federal rules restrict any use of the information to criminally investigate or prosecute any alcohol or drug abuse patient.[facility] SystemIn the event this information is protected by the Federal Confidentiality of Alcohol and Drug Abuse Patient Records regulations: The Federal rules restrict any use of the information to criminally investigate or prosecute any alcohol or drug abuse patient.[facility] SystemIn the event this information is protected by the Federal Confidentiality of Alcohol and Drug Abuse Patient Records regulations: The Federal rules restrict any use of the information to criminally investigate or prosecute any alcohol or drug abuse patient.[facility] SystemIn the event this information is protected by the Federal Confidentiality of Alcohol and Drug Abuse Patient Records regulations: The Federal rules restrict any use of the information to criminally investigate or prosecute any alcohol or drug abuse patient.[facility] SystemIn the event this information is protected by the Federal Confidentiality of Alcohol and Drug Abuse Patient Records regulations: The Federal rules restrict any use of the information to criminally investigate or prosecute any alcohol or drug abuse patient.[facility] SystemIn the event this information is protected by the Federal Confidentiality of Alcohol and Drug Abuse Patient Records regulations: The Federal rules restrict any use of the information to criminally investigate or prosecute any alcohol or drug abuse patient.[facility] Reason for Visit (unrecogniz ed section and content) Specialty Diagnoses / Procedures Referred By Contac t Referred To Contact Diagnoses Crohn's disease of both small and large intestine without complication (HCC) Procedures INJECTION, VEDOLIZUMAB Jt Perez MD [address] [place] [address] Atul [facility] [address] [place] [address] Referral ID Status Reason Start Date Expiration Date V isits Requested Visits Authorized [id number] Authorized 06/27/2022 06/17/2024 99 99 Reason Comments Immunotherapy Referral ID Status Reason Start Date Expiration Date V isits Requested Visits Authorized [id number] Authorized 06/27/2022 06/30/2023 99 99 Reason Comments Chemotherapy Treatment Reason Comments Flare Up Reason Comments Diarrhea Specialty Diagnoses / Procedures Referred By Contac t Referred To Contact CT IMAGING Diagnoses Inflammatory bowel disease Crohn's disease of large intestine with rectal bleeding (HCC) Procedures CT ENTEROGRAPHY W IVCON CT ABD & PELVIS W/CONTRAST Catrachito Garcia PA-C Ct Imaging Referral ID Status Reason Start Date Expiration Date V isits Requested Visits Authorized [id number] Closed Auto-Generate d Referral 01/08/2022 02/07/2023 1 1 Reason Comments Crohns Reason Comments Nutrition Assessment Specialty Diagnoses / Procedures Referred By Mari moe Referred To Contact Nutrition Diagnoses Crohn's disease of large intestine with rectal bleeding (HCC) Procedures CONSULT TO NUTRITION THERAPY OFFICE/OUTPATIENT NEW HIGH MDM 60-74 MINUTES Catrachito Garcia PA-C Referral ID Status Reason Start Date Expiration Date Visits Requested Visits Authorized [id number] Pending Review PCP Requested Referral 02/10/2022 02/10/2023 1 1 Reason Onset Date Comments Refill Request 04/03/2022 Reason Onset Date Comments Refill Request 04/04/2022 Reason Comments Ulcerative Colitis Reason Comments Sinus Problem sinus pressure, drai nage, cough, headache and sore throat x 5 days Reason Comments Crohns Reason Comments Appointment Reason Comments Patient Update Appointment Reason Comments Information Reason Comments Benefits Investigation Reason Comments IBD Follow Up Reason Comments UTI Frequency, blood, pa inful urination x 1 day Reason Comments Establish Care Care Teams (unrecognized sec tion and content) Fruit Raiser Relationship Specialty Start Date End Date Avani Jallohaine [address] [place], [place] [id number] PCP - General Family Practice 04/04/20 Fruit Raiser Relationship Specialty Start Date End Date Avani Jalloh Lizz [address] [place], [place] [address] PCP - General Family Practice 04/04/20 Fruit Raiser Relationship Specialty Start Date End Date Avani Jalloh Lizz [address] [place], [place] [id number] PCP - [facility] Family Practice 04/04/20 Fruit Raiser Relationship Specialty Start Date End Date JimenezKarthik arndtahsan Zamudio [address] [place], [place] [id number] PCP - General Family Practice 04/04/20 Fruit Raiser Relationship Specialty Start Date End Date Avani Jalloh [place] [address] PCP - General Family Practice 04/04/20 Fruit Raiser Relationship Specialty Start Date End Date Avani Jalloh [place] [address] PCP - General Family Practice 04/04/20 Fruit Raiser Relationship Specialty Start Date End Date Avani Jalloh [place] [address] PCP - General Family Practice 04/04/20 Fruit Raiser Relationship Specialty Start Date End Date Avani Jalloh [place] [address] PCP - General Family Practice 04/04/20 Fruit Raiser Relationship Specialty Start Date End Date Avani Jalloh [place] [address] PCP - General Family Practice 04/04/20 Fruit Raiser Relationship Specialty Start Date End Date Avani Jalloh [place] [address] PCP - General Family Practice 04/04/20 Fruit Raiser Relationship Specialty Start Date End Date Avani Jalloh [address] [place] [address] PCP - General Family Practice 04/04/20 Fruit Raiser Relationship Specialty Start Date End Date Avani Jalloh [address] [place] [address] PCP - General Family Practice 04/04/20 Fruit Raiser Relationship Specialty Start Date End Date Avani J[address] [place] [address] PCP - General Family Practice 04/04/20 Fruit Raiser Relationship Specialty Start Date End Date Avani J[address] [place] [address] PCP - General Family Practice 04/04/20 Fruit Raiser Relationship Specialty Start Date End Date Avani Jalloh [place] [address] PCP - General Family Practice 04/04/20 Fruit Raiser Relationship Specialty Start Date End Date Avani Jalloh [place] [address] PCP - General Family Medicine 04/04/20 Fruit Raiser Relationship Specialty Start Date End Date Avani Jalloh [place] [address] PCP - General Family Medicine 04/04/20 Fruit Raiser Relationship Specialty Start Date End Date Avani Jalloh [place] [address] PCP - General Family Medicine 04/04/20 Fruit Raiser Relationship Specialty Start Date End Date Avani Jalloh [address] [place] [address] PCP - General Family Medicine 04/04/20 Fruit Raiser Relationship Specialty Start Date End Date Avani Jalloh [address] [place] [address] PCP - General Family Medicine 04/04/20 Fruit Raiser Relationship Specialty Start Date End Date Avani Jalloh [address] [place] [address] PCP - General Family Medicine 04/04/20 Fruit Raiser Relationship Specialty Start Date End Date Avani Jalloh [address] [place] [address] PCP - General Family Medicine 04/04/20 Fruit Raiser Relationship Specialty Start Date End Date Avani Jalloh [address] [place] [address] PCP - General Family Medicine 04/04/20 Fruit Raiser Relationship Specialty Start Date End Date Avani Jalloh MD [address] [place] [address] PCP - General Family Medicine 04/04/20 Fruit Raiser Relationship Specialty Start Date End Date Avani Jalloh MD [address] [place] [address] PCP - General Family Medicine 04/04/20 Fruit Raiser Relationship Specialty Start Date End Date Avani Jalloh MD [address] [place] [address] PCP - General Family Medicine 04/04/20 Fruit Raiser Relationship Specialty Start Date End Date Avani Jalloh MD [address] [place] [address] PCP - General Family Medicine 04/04/20 Fruit Raiser Relationship Specialty Start Date End Date Avani Jalloh MD [address] [address] PCP - General Family Medicine 04/04/20 Fruit Raiser Relationship Specialty Start Date End Date Avani Jalloh MD [address] [place] [address] PCP - General Family Medicine 04/04/20 Fruit Raiser Relationship Specialty Start Date End Date Avani Jalloh MD [address] [address] PCP - General Family Medicine 04/04/20 Fruit Raiser Relationship Specialty Start Date End Date Robbie Rob MD [address] [place] [address] PCP - General Internal Medicine 05/25/23 Fruit Raiser Relationship Specialty Start Date End Date Robbie Rob MD [address] [place] [address] PCP - General Internal Medicine 05/25/23 Fruit Raiser Relationship Specialty Start Date End Date Robbie Rob MD [address] [place] [address] PCP - General Internal Medicine 05/25/23 Fruit Raiser Relationship Specialty Start Date End Date Robbie Rbo MD [address] [place] [address] PCP - General Internal Medicine 05/25/23 Fruit Raiser Relationship Specialty Start Date End Date Robbie Rob MD [address] [place] [address] PCP - General Internal Medicine 05/25/23 FOR RECORDS PERTAINING TO PATIENTS WHO ARE OR HAVE BEEN ENROLLED IN A CHEMICAL DEPENDENCY/SUBSTANCEABUSE PROGRAM, SOME INFORMATION MAY BE OMITTED. This clinical summary was aggregated from multiple sources. Caution should be exercised in using it in the provision of clinical care. This summary normalizes information from multiple sources, and as a consequence, information in this document may materially change the coding, format and clinical context of patient data. In addition, data may be omitted in some cases. CLINICAL DECISIONS SHOULD BE BASED ON THE PRIMARY CLINICAL RECORDS. [employer] [facility]. provides no warranty or guarantee of the accuracy or completeness of information in this document.
== END | disposition home or self-care (01) ==
LOC: OPUS 08:43
PROVIDERS: PCP Internal Medicine; Referring Provider Advanced Practice Midwife; Visit Provider Advanced Practice Midwife
DX: O09.529 Supervision of elderly multigravida, unspecified trimester (principal); Z3A.00 Weeks of gestation of pregnancy not specified
CPT/HCPCS: 76816

== ENCOUNTER → 2023-11-11 | Outpatient (CLI) | payer OTHER, SELFPAY | END | disposition home or self-care (01) | LOC: LABSPEC 13:24 | PROVIDERS: Referring Provider Nurse Practitioner Women's Health; Visit Provider Nurse Practitioner Women's Health | DX: Z34.90 Encounter for supervision of normal pregnancy, unspecified, unspecified trimester (principal) | CPT/HCPCS: 87077; 87081; 87186 ==

== ENCOUNTER 2023-11-27 02:30 | Inpatient (IN) | payer OTHER, SELFPAY ==
[2023-11-27] VITALS (49 sets, daily range): BP systolic 99–177; BP diastolic 52–92; PULSE 76–131; RESP 16; TEMP 36.6–37.4; O2SAT 86–100; BMI 36.6
--- OUTSIDE RECORDS SUMMARY | 2023-11-27 01:29 | XMS RPT_ITS | CCD ---
Author Name Unknown Address [address] [place] [address] Organization [facility] Care Team Providers Care 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 Name Role Phone MARIAM CASTRO Unavailable Unavailable LYRIC INTERIANO JR. Unavailable Unavailable Avani Jalloh Primary Care Provider Avani Jalloh Primary Care Provider Avani Jalloh Primary Care Provider [phone] Avani Jalloh Primary Care Provider [phone] Avani Jalloh MD Primary Care Provider Robbie Rob MD Primary Care Provider NO PRIMARY CARE, Primary Care Unavailable MIHAI KIMBROUGH Referring Unavailabl e OSMEL ENAMORADO Attending Unavailable AVANI JALLOH Primary Care Unavailable LISA, RAMIN Referring Unavailable LISA RAMIN Attending Unavailable JT PEREZ Referring Unavailable TAMY, ROBBIE D Primary Care Unavailable SHUBHAM AVANI E Primary Care Unavailable SHUBHAM AVANI E Primary Care Unavailable SHUBHAM AVANI E Primary Care Unavailable LISA, RAMIN Referring Unavailable LISA RAMIN Attending Unavailable JUNE CASTRO Attending Unavailable SELF Referring Unavailable CARIAMPСВЕТЛАНА, ROBBIE D Primary Care Unavailable CARIAMPСВЕТЛАНА, ROBBIE D Attending Unavailable TAMY, ROBBIE D Primary Care Unavailable JT PEREZ Referring Unavailable TAMY, ROBBIE D Primary Care Unavailable SHUBHAM AVANI E Primary Care Unavailable LISA, RAMIN Referring Unavailable LISA, RAMIN Attending Unavailable SHUBHAM AVANI E Primary Care Unavailable SHUBHAM AVANI E Primary Care Unavailable JT PEREZ Referring Unavailable POLAEDVEE, AVANI E Primary Care Unavailable SHUBHAM, AVANI E Primary Care Unavailable JT PEREZ Referring Unavailable SHUBHAM, AVANI E Primary Care Unavailable JT PEREZ Referring Unavailable JUNE CASTRO Attending Unavailable POLAEDVEE, AVANI E Primary Care Unavailable TALAMPAS, ROBBIE D Primary Care Unavailable JT PEREZ Referring Unavailable TALAMPAS, ROBBIE D Primary Care Unavailable JT PEREZ Referring Unavailable TALAMPAS, ROBBIE D Primary Care Unavailable POLAEDVEE, AVANI E Primary Care Unavailable JT PEREZ Attending Unavailable SHUBHAM, AVANI E Primary Care Unavailable JT PEREZ Referring Unavailable Medications Current Medications Medication Drug [...] Date Time Vital Sign Value Performing Clinician Valentina ramirez 11-17-2023 13:33-0500 Body temperature 98.1 [degF] Treatment Wstr Work Phone: [facility] 11-17-2023 13:33-0500 Diastolic blood pressure 86 mm[Hg] Treatment Wstr Work Phone: [facility] 11-17-2023 13:33-0500 Heart rate 103 /min Treatment Wstr Work Phone: [facility] 11-17-2023 13:33-0500 Respiratory rate 18 /min Treatment Wstr Work Phone: [facility] 11-17-2023 13:33-0500 SaO2% (BldA) [Mass fraction] 97 % Treatment Wstr Work Phone: [facility] 11-17-2023 13:33-0500 Systolic blood pressure 133 mm[Hg] Treatment Wstr Work Phone: [facility] 09-22-2023 13:15-0500 Body temperature 97.2 [degF] Treatment Wstr Work Phone: [facility] 09-22-2023 13:15-0500 Diastolic blood pressure 80 mm[Hg] Treatment Wstr Work Phone: [facility] 09-22-2023 13:15-0500 Heart rate 99 /min Treatment Wstr Work Phone: [facility] 09-22-2023 13:15-0500 SaO2% (BldA) [Mass fraction] 97 % Treatment Wstr Work Phone: [facility] 09-22-2023 13:15-0500 Systolic blood pressure 120 mm[Hg] Treatment Wstr Work Phone: [facility] 07-28-2023 14:00-0400 Body temperature 98.1 [degF] Treatment Wstr Work Phone: [facility] 07-28-2023 14:00-0400 Body weight 83.46 kg Treatment Wstr Work Phone: [facility] 07-28-2023 14:00-0400 Diastolic blood pressure 75 mm[Hg] Treatment Wstr Work Phone: [facility] 07-28-2023 14:00-0400 Heart rate 85 /min Treatment Wstr Work Phone: [facility] 07-28-2023 14:00-0400 Respiratory rate 18 /min Treatment Wstr Work Phone: [facility] 07-28-2023 14:00-0400 SaO2% (BldA) [Mass fraction] 99 % Treatment Wstr Work Phone: [facility] 07-28-2023 14:00-0400 Systolic blood pressure 115 mm[Hg] Treatment Wstr Work Phone: [facility] 06-02-2023 14:23-0400 Body temperature 98.29 [degF] Treatment Wstr Work Phone: [facility] 06-02-2023 14:23-0400 Body weight 83.69 kg Treatment Wstr Work Phone: [facility] 06-02-2023 14:23-0400 Diastolic blood pressure 76 mm[Hg] Treatment Wstr Work Phone: [facility] 06-02-2023 14:23-0400 Heart rate 87 /min Treatment Wstr Work Phone: [facility] 06-02-2023 14:23-0400 SaO2% (BldA) [Mass fraction] 98 % Treatment Wstr Work Phone: [facility] 06-02-2023 14:23-0400 Systolic blood pressure 117 mm[Hg] Treatment Wstr Work Phone: [facility] 05-25-2023 09:08-0400 Body height 160 cm Robbie Rob MD Work Phone: [facility] 05-25-2023 09:08-0400 Body weight 79.38 kg Robbie Rob MD Work Phone: [facility] 05-25-2023 09:08-0400 Diastolic blood pressure 78 mm[Hg] Robbie Rob MD Work Phone: [facility] 05-25-2023 09:08-0400 Heart rate 74 /min Robbie Rob MD Work Phone: [facility] 05-25-2023 09:08-0400 Respiratory rate 16 /min Robbie Rob MD Work Phone: [facility] 05-25-2023 09:08-0400 Systolic blood pressure 112 mm[Hg] Robbie Rob MD Work Phone: [facility] 02-10-2023 15:00-0400 Body temperature 97.81 [degF] Treatment Wstr Work Phone: [facility] 02-10-2023 15:00-0400 Diastolic blood pressure 80 mm[Hg] Treatment Wstr Work Phone: [facility] 02-10-2023 15:00-0400 Heart rate 82 /min Treatment Wstr Work Phone: [facility] 02-10-2023 15:00-0400 Respiratory rate 18 /min Treatment Wstr Work Phone: [facility] 02-10-2023 15:00-0400 SaO2% (BldA) [Mass fraction] 100 % Treatment Wstr Work Phone: [facility] 02-10-2023 15:00-0400 Systolic blood pressure 133 mm[Hg] Treatment Wstr Work Phone: [facility] 12-21-2022 09:10-0400 Body temperature 97.7 [degF] Ketty Praisler-Wood STABILIZER OPERATOR.JACQUARD LOOM HEDDLES TIER Work Phone: [facility] 12-21-2022 09:10-0400 Body weight 79.02 kg Ketty Praisler-Wood STABILIZER OPERATOR.JACQUARD LOOM HEDDL[employer] TIER Work Phone: [facility] 12-21-2022 09:10-0400 Diastolic blood pressure 84 mm[Hg] Ketty Praisler-Wood STABILIZER OPERATOR.JACQUARD LOOM HEDDL[employer] TIER Work Phone: [facility] 12-21-2022 09:10-0400 Heart rate 92 /min Ketty Praisler-Wood STABILIZER OPERATOR.JACQUARD LOOM HEDDL[employer] TIER Work Phone: [facility] 12-21-2022 09:10-0400 Respiratory rate 21 /min Ketty Praisler-Wood STABILIZER OPERATOR.JACQUARD LOOM HEDDL[employer] TIER Work Phone: [facility] 12-21-2022 09:10-0400 SaO2% (BldA) [Mass fraction] 98 % Ketty Rosibel SANTILLANN.JACQUARD LOOM HEDDLES TIER Work Phone: [facility] 12-21-2022 09:10-0400 Systolic blood pressure 122 mm[Hg] Kettyvishnu Gleason APRN.JACQUARD [employer] TIER Work Phone: [facility] 12-16-2022 14:52-0500 Body temperature 98.01 [degF] Treatment Wstr Work Phone: [facility] 12-16-2022 14:52-0500 Diastolic blood pressure 82 mm[Hg] Treatment Wstr Work Phone: [facility] 12-16-2022 14:52-0500 Heart rate 85 /min Treatment Wstr Work Phone: [facility] 12-16-2022 14:52-0500 Respiratory rate 16 /min Treatment Wstr Work Phone: [facility] 12-16-2022 14:52-0500 Systolic blood pressure 134 mm[Hg] Treatment Wstr Work Phone: [facility] 10-21-2022 13:21-0500 Body temperature 97.3 [degF] Treatment Wstr Work Phone: [facility] 10-21-2022 13:21-0500 Body weight 77.79 kg Treatment Wstr Work Phone: [facility] 10-21-2022 13:21-0500 Diastolic blood pressure 72 mm[Hg] Treatment Wstr Work Phone: [facility] 10-21-2022 13:21-0500 Heart rate 88 /min Treatment Wstr Work Phone: [facility] 10-21-2022 13:21-0500 Respiratory rate 16 /min Treatment Wstr Work Phone: [facility] 10-21-2022 13:21-0500 SaO2% (BldA) [Mass fraction] 100 % Treatment Wstr Work Phone: [facility] 10-21-2022 13:21-0500 Systolic blood pressure 132 mm[Hg] Treatment Wstr Work Phone: [facility] 07-29-2022 15:21-0400 Body temperature 97.11 [degF] Treatment Wstr Work Phone: [facility] 07-29-2022 15:21-0400 Diastolic blood pressure 81 mm[Hg] Treatment Wstr Work Phone: [facility] 07-29-2022 15:21-0400 Heart rate 81 /min Treatment Wstr Work Phone: [facility] 07-29-2022 15:21-0400 Systolic blood pressure 116 mm[Hg] Treatment Wstr Work Phone: [facility] 07-15-2022 14:44-0400 Body temperature 98.49 [degF] Treatment Wstr Work Phone: [facility] 07-15-2022 14:44-0400 Diastolic blood pressure 82 mm[Hg] Treatment Wstr Work Phone: [facility] 07-15-2022 14:44-0400 Heart rate 82 /min Treatment Wstr Work Phone: [facility] 07-15-2022 14:44-0400 Respiratory rate 16 /min Treatment Wstr Work Phone: [facility] 07-15-2022 14:44-0400 SaO2% (BldA) [Mass fraction] 98 % Treatment Wstr Work Phone: [facility] 07-15-2022 14:44-0400 Systolic blood pressure 117 mm[Hg] Treatment Wstr Work Phone: [facility] 06-11-2022 13:42-0400 Body height 160 cm Catrachito Ribakow PA-C Work Phone: [facility] 06-11-2022 13:42-0400 Body temperature 98.2 [degF] Catrachito Ribakow PA-C Work Phone: [facility] 06-11-2022 13:42-0400 Body weight 76.2 kg Catrachito Ribakow PA-C Work Phone: [facility] 06-11-2022 13:42-0400 Diastolic blood pressure 88 mm[Hg] Catrachito Ribakow PA-C Work Phone: [facility] 06-11-2022 13:42-0400 Heart rate 82 /min Catrachito Ribakow PA-C Work Phone: [facility] 06-11-2022 13:42-0400 SaO2% (BldA) [Mass fraction] 100 % Catrachito Ribakow PA-C Work Phone: [facility] 06-11-2022 13:42-0400 Systolic blood pressure 127 mm[Hg] Catrachito Ribakow PA-C Work Phone: [facility] 05-13-2022 07:29-0400 Heart rate 98 /min Es Bogner PA-C Work Phone: [facility] 05-13-2022 07:20-0400 Body temperature 98.8 [degF] Es Bogner PA-C Work Phone: [facility] 05-13-2022 07:20-0400 Body weight 77.11 kg Es Bogner PA-C Work Phone: [facility] 05-13-2022 07:20-0400 Diastolic blood pressure 80 mm[Hg] Es Bogner PA-C Work Phone: [facility] 05-13-2022 07:20-0400 Respiratory rate 16 /min Es Bogner PA-C Work Phone: [facility] 05-13-2022 07:20-0400 SaO2% (BldA) [Mass fraction] 98 % Es Bogner PA-C Work Phone: [facility] 05-13-2022 07:20-0400 Systolic blood pressure 122 mm[Hg] Es Bogner PA-C Work Phone: [facility] 01-10-2022 16:30-0400 Respiratory rate 16 /min Jt Perez MD Work Phone: [facility] 01-10-2022 16:29-0400 Heart rate 87 /min Jt Perez MD Work Phone: [facility] 01-10-2022 16:29-0400 SaO2% (BldA) [Mass fraction] 100 % Jt Perez MD Work Phone: [facility] 01-10-2022 16:21-0400 Diastolic blood pressure 72 mm[Hg] Jt Perez MD Work Phone: [facility] 01-10-2022 16:21-0400 Systolic blood pressure 122 mm[Hg] Jt Perez MD Work Phone: [facility] 01-10-2022 13:53-0400 Body height 160 cm Jt Perez MD Work Phone: [facility] 01-10-2022 13:53-0400 Body temperature 97 [degF] Jt Perez MD Work Phone: [facility] 01-10-2022 13:53-0400 Body weight 77.11 kg Jt Perez MD Work Phone: [facility] Encounters Encounter Date Encounter Type Care Provider Facility Start: 11-17-2023 End: 11-17-2023 ambulatory JT PEREZ Facility:[facility] Start: 11-17-2023 End: 11-17-2023 ambulatory Treatment Rm 11 At[facility] Wstr Work Phone: Hematology/Oncology Procedures Date Procedure Procedure Detail Performing Clinician Start: 12-21-2022 Urnls dip stick/tablet rgnt auto w/o microscopy Ketty Gleason APRN.CNP Work Phone: Start: 06-13-2022 Adult depression screening assessment Catrachito Garcia PA-C Work Phone: Start: 05-13-2022 STREP A MOLECULAR (POC) Es robledo PA-C Work Phone: Start: 01-29-2022 Ct abdomen & pelvis w/contrast material Catrachito Garcia PA-C Work Phone: Start: 01-10-2022 Colonoscopy flx dx w/collj spec when pfrmd Catrachito Garcia PA-C Work Phone: Start: 01-10-2022 Esophagogastroduodenoscopy transoral diagnostic Catrachito Garcia PA-C Work Phone: Plan of Treatment Date Care Activity Detail Author Start: 2045 HEPATITIS B (1 of 3 - Risk 3-dose series) HEPATITIS B (1 of 3 - Risk 3-dose series) [facility] Start: 2045 Hepatitis B Vaccine (1 of 3 - Risk 3-dose series) Hepatitis B Vaccine (1 of 3 - Risk 3-dose series) [facility] Start: 09-15-2033 Urine microalbumin profile DTaP,Tdap,Td Vaccine (3 - Td or Tdap) [facility] Start: 07-05-2031 Urine microalbumin profile [facility] Start: 05-25-2024 ANNUAL PCP TEAM CHRONIC DISEASE VISIT ANNUAL PCP TEAM CHRONIC DISEASE VISIT [facility] Start: 10-12-2023 Depression Assessment Depression Assessment [facility] Start: 10-09-2023 RSV Vaccine (1 - Risk 1-dose series) RSV Vaccine (1 - Risk 1-dose series) [facility] Start: 06-13-2023 Adult depression screening assessment DEPRESSION SCREENING [facility] Start: 06-12-2023 Covid-19 Vaccine ( season) Covid-19 Vaccine ( season) [facility] Start: 06-12-2023 Influenza vaccination [facility] Start: 03-31-2023 End: 05-31-2023 CBC W Auto Differential panel - Blood CBC + DIFF Lab Routine Inflammatory bowel disease Expected: 03/31/2023, Expires: 05/31/2023 [facility] Work Phone: Immunizations Immunization Date Immunization Notes Care Provider Fa cility 11-03-2022 Human [facility]ill[facility]ent [facility] 08-18-2022 Human Papillomavirus 9-valent vaccine Catrachito Ribakow PA-C Work Phone: [facility] Work Phone: 08-18-2022 zoster vaccine recombinant Catrachito Ribakow PA-C Work Phone: [facility] Work Phone: 07-02-2022 Influenza, injectabl e, Madin Love Canine Kidney, preservative free, quadrivalent [facility] Work Phone: [facility] Work Phone: 07-02-2022 pneumococcal (PCV20) vaccine, 20 valent (PREVNAR 20) [facility] Work Phone: [facility] Work Phone: 07-02-2022 influenza virus vacc ine, unspecified formulation [facility] Work Phone: [facility] 08-27-2021 COVID-19 vaccine, ag e 12+ yr (PFIZER-BIONTECH - PURPLE TOP) Catrachito Ribakow PA-C Work Phone: [facility] Work Phone: 08-16-2021 influenza, injectabl e, quadrivalent, preservative free Robbie Rob MD Work Phone: [facility] 07-05-2021 tetanus toxoid, redu skyler diphtheria toxoid, and acellular pertussis vaccine, adsorbed Abel Masci DO Work Phone: [facility] Work Phone: 12-28-2020 COVID-19 vaccine, ag e 12+ yr (PFIZER-BIONTECH - PURPLE TOP) Catrachito Ribakow PA-C Work Phone: [facility] Work Phone: 12-07-2020 COVID-19 vaccine, ag e 12+ yr (PFIZER-BIONTECH - PURPLE TOP) Catrachito Garcia PA-C Work Phone: [facility] Work Phone: 08-14-2020 influenza, injectabl e, quadrivalent, preservative free Robbie Rob MD Work Phone: [facility] 08-11-2019 Influenza, injectabl e, Madin [place] Canine Kidney, preservative free, quadrivalent Robbie Rob MD Work Phone: [facility] Payers Date Payer Category Payer Private Health Insurance [id number] 2017 Private Health Insurance [id number] 2017 Private Health Insurance [employer] A ETNA CHOICE POS II [id number] 2017-Present [phone] [address] [place] [address] POS [id number] 2017 Private Health Insurance [id number] 1985 Unknown [id number] Social History Date Type Detail Facility Start: 03-14-2015 Tobacco smoking status HIIS Smokes tobacco daily [facility] Work Phone: Start: 03-14-2015 End: 03-31-2023 Cigarettes smoked current (pack per day) - Reported 0.5 [facility] Start: 03-14-2015 End: 06-11-2022 Tobacco use and exposure Smokeless tobacco non-user [facility] Work Phone: Start: 04-04-2020 End: 12-21-2022 Alcohol intake Current drinker of alcohol (finding) [facility] Start: 04-08-2012 History SDOH Alcohol Comment 1 drink weekly [facility] Start: 03-14-2015 End: 06-11-2022 Tobacco Comment electronic cig [facility] Start: 1985 Sex Assigned At Not on file [facility] Start: 12-14-2021 End: 06-28-2022 Exposure to SARS-CoV-2 (event) Not sure [facility] Start: 1985 Sex Assigned At Female [facility] Start: 03-25-2022 End: 04-04-2022 Exposure to SARS-CoV-2 (event) Unable to assess [facility] History of tobacco use Cigarette Smoker C [facility] Work Phone: Start: 06-11-2022 Tobacco smoking status NHIS Ex-smoker [facility] History of tobacco use Current smoker [facility] Start: 12-21-2022 End: 03-31-2023 Tobacco use panel [facility] Adult Depression Screening Assessment 4 [facility] Start: 01-01-2022 Gender identity Identifies as female gender (finding) [facility] Start: 01-01-2022 Sexual orientation Heterosexual (finding) [facility] Start: 05-25-2023 Alcohol intake Ex-drinker (finding) [facility] Do you belong to any clubs or organizations such as temple groups, [employer], fraThucy or athletic groups, or school groups? Yes [facility] Are you now , , , , never or living with a partner? [facility] How often to you hav e a drink containing alcohol? Never [facility] Do you feel stress - tense, restless, nervous, or anxious, or unable to sleep at night because your mind is troubled all the time - these days [OSQ] To some extent [facility] (I/We) worried wheth er (my/our) food would run out before (I/we) got money to buy more. Never true [facility] In the past 12 month s, was there a time when you were not able to pay the mortgage or rent on time? No [facility] Start: 03-13-2023 [facility] Clinical Notes 12-30-2021 to 11-12-2023 June Castro APRN.JACQUARD LOOM HEDDLES TIER - 11/12/2023 8:30 AM Shonda Pastor [facility] - 06/23/2023 10:30 AM Robbie Casper MD - 05/25/2023 9:12 June Kaba APRN.CNP - 05/13/2023 11:30 AM EDT Note Date & Type Note Facility 11-12-2023 Note HNO ID: [id number] Author: JUNE CASTRO APRN.GHAZALA Service: ? Author Type: Nurse Practitioner Type: Progress Notes Filed: 11/12/2023 08:51 Note Text: VIRTUAL VISIT FOLLOW UP Teetee Louis [id number] 1985 has requested a video telemedicine for [...] visit. Either the patient or their legal sales representative gas service has been informed of the risks and benefits of -- and alternatives to -- treatment through a remote evaluation and consents to proceed with the evaluation remotely. Patient location at time of call: place of work Additional encounter participants and relationship: none I had a virtual visit with Teetee Louis today for follow up of indeterminate IBD colitis. Last seen on 05/13/2023 by June Castro CNP. UPDATED HISTORY: Aicha continues to feel well from an IBD standpoint while on Entyvio Q8 weeks. She is currently 37 weeks with her 2nd child (baby girl) with plans for a v-back, however, she has a scheduled on her due date. She is continuing Entyvio in the 3rd trimester and is aware of no live vaccines for the baby for the first 6 months. Last plan: - Continue Entyvio Q8 weeks - Repeat FCP as she nears 3rd trimester to determine how to best space out Entyvio infusions during the 3rd trimester - Colonoscopy ~2-3 months s/p delivery, both to assess disease and for dysplasia screening - Continue following with Dr. Shonda Jiang, IBD pharmacist - Follow up with Dr. Perez in 6 months Current Clinical Symptoms # of bowel movements daily: 1-2 (pt reported normal/day) # of nocturnal stools (included in daily total): 0 # of liquid stools daily: 0 Consistency: soft, mushy Bloody bowel movements: no Urgency: no Abdominal pain: no Abdominal distention: no Perianal issues: no Upper GI issues (heartburn, reflux, dysphagia): yes- bad heartburn, takes Tums which partially helps Nausea/vomiting: no Appetite: good Weight loss over last 3 months: no Reported weight today is 205 lbs. Stable reported weight is 174 lbs. Current IBD Medications Vedolizumab 300 mg IV Q8 weeks - LD: 09/22/2023 @ [facility] Rekha PAST SURGICAL HISTORY Procedure Laterality Date COLONOSCOPY 2001 In [place] in [place] COLONOSCOPY FLX DX W/COLLJ SPEC WHEN PFRMD 05/04/14 Colonoscopy INDUCED - EVACUATION 2009 PAST SURGICAL HISTORY OF umbilical hernia repair Current Outpatient Medications Medication Sig Dispense Refill vedolizumab (ENTYVIO INTRAVENOUS) Inject intravenously. Every 8 weeks at [place] levothyroxine (SYNTHROID) 100 mcg tablet Take 1 [...] drug use/marijuana: none -NSAIDs: none -Recent antibiotics: no Extraintestinal Manifestations: Ocular [blurred vision or red eyes (uveitis, episcleritis)]: yes- feels like her vision is intermittently blurry, but states it's not concerning her. Dermatologic (erythema nodosum, pyoderma): no Arthropathy/Arthralgia: no PHQ4 Little Interest Or Pleasure In Doing Things: not at all Feeling Down, Depressed, Or Hopeless: not at all Feeling Nervous, Anxious, Or On Edge: several days Not Being Able To Stop Or Control Worrying: not at all PHYSICAL FINDINGS OF NOTE: General: alert and [...] flat appearing. Visible protrusions or hernias: No Incisi (more content not included)... [facility] 11-12-2023 History of Presen t illness Narrative VIRTUAL VISIT FOLLOW UP Teetee Louis [id number] 1985 has requested a video telemedicine for [...] visit. Either the patient or their legal sales representative gas service has been informed of the risks and benefits of -- and alternatives to -- treatment through a remote evaluation and consents to proceed with the evaluation remotely. Patient location at time of call: place of work Additional encounter participants and relationship: none I had a virtual visit with Teetee Louis today for follow up of indeterminate IBD colitis. Last seen on 05/13/2023 by June Castro CNP. UPDATED HISTORY: Aicha continues to feel well from an IBD standpoint while on Entyvio Q8 weeks. She is currently 37 weeks with her 2nd child (baby girl) with plans for a v-back, however, she has a scheduled on her due date. She is continuing Entyvio in the 3rd trimester and is aware of no live vaccines for the baby for the first 6 months. Last plan: - Continue Entyvio Q8 weeks - Repeat FCP as she nears 3rd trimester to determine how to best space out Entyvio infusions during the 3rd trimester - Colonoscopy ~2-3 months s/p delivery, both to assess disease and for dysplasia screening - Continue following with Dr. Shonda Jiang, IBD pharmacist - Follow up with Dr. Perez in 6 months Current Clinical Symptoms # of bowel movements daily: 1-2 (pt reported normal/day) # of nocturnal stools (included in daily total): 0 # of liquid stools daily: 0 Consistency: soft, mushy Bloody bowel movements: no Urgency: no Abdominal pain: no Abdominal distention: no Perianal issues: no Upper GI issues (heartburn, reflux, dysphagia): yes- bad heartburn, takes Tums which partially helps Nausea/vomiting: no Appetite: good Weight loss over last 3 months: no Reported weight today is 205 lbs. Stable reported weight is 174 lbs. Current IBD Medications Vedolizumab 300 mg IV Q8 weeks - LD: 09/22/2023 @ [facility] Rekha PAST SURGICAL HISTORY Procedure Laterality Date COLONOSCOPY 2007, 2001 In [place] & [place] in [place] COLONOSCOPY FLX DX W/COLLJ SPEC WHEN PFRMD 05/04/14 Colonoscopy INDUCED - EVACUATION 2009 PAST SURGICAL HISTORY OF umbilical hernia repair Current Outpatient Medications Medication Sig Dispense Refill vedolizumab (ENTYVIO INTRAVENOUS) Inject intravenously. Every 8 weeks at [place] levothyroxine (SYNTHROID) 100 mcg tablet Take 1 [...] drug use/marijuana: none -NSAIDs: none -Recent antibiotics: no Extraintestinal Manifestations: Ocular [blurred vision or red eyes (uveitis, episcleritis)]: yes- feels like her vision is intermittently blurry, but states it's not concerning her. Dermatologic (erythema nodosum, pyoderma): no Arthropathy/Arthralgia: no PHQ4 Little Interest Or Pleasure In Doing Things: not at all Feeling Down, Depressed, Or Hopeless: not at all Feeling Nervous, Anxious, Or On Edge: several days Not Being Able To Stop Or Control Worrying: not at all PHYSICAL FINDINGS OF NOTE: General: alert and [...] strength and coordination REVIEWED ITEMS Recent Labs FCP (09/2023)- 6.99 (normal) IMPRESSION (copied from previous notes and reflects today's medical decision making): Teetee Louis is a pleasant 38 year old female with PMHx of IBD [...] to be in remission at this point. Most recent FCP in 09/2023 was normal. She is currently 37 weeks and is continuing Entyvio through the 3rd trimester. We reviewed issues related to Entyvio and transplacental transfer. Of note, she plans to breastfeed. Reviewed the plan as outlined below. Health Maintenance: Please see Dr. Shonda Jiang's last note in 03/2023 for updated HCM topics PLAN - Continue Entyvio Q8 weeks - Colonoscopy ~3 months s/p delivery, both to assess disease and for dysplasia screening - Follow up with Dr. Achkar in 6 months PATIENT IS OK TO BE CONTACTED BY IBD GI RESEARCH TEAM TO EXPLORE PARTICIPATION IN RESEARCH STUDIES I spent 28 minutes in the virtual visit, with more than 50% of the total yppi-gh-qrwd time of the visit in counseling / coordination of care. I have confirmed and edited as necessary, the PFSH and ROS obtained by others. Unrelated to E/M, telemedicine, or virtual visit service provided within previous 7 days. No E/M service or procedure anticipated within next 24 hours. June Castro APRN.CNP November 12, 2023 8:51 AM documented in this encounter [facility] 06-23-2023 Note HNO ID: [id number] Author: Shonda Jiang RPh Service: ? Author Type: Pharmacist Type: Progress Notes Filed: 06/23/2023 11:45 AM Note Text: IBD Medication Consult [facility] Patient consents to pharmacy consult agreement. Patient [...] HISTORY Procedure Laterality Date COLONOSCOPY 2001 In [place] in [place] COLONOSCOPY FLX DX W/COLLJ SPEC WHEN PFRMD 05/04/14 Colonoscopy INDUCED - EVACUATION 2009 PAST SURGICAL HISTORY OF umbilical hernia repair Current Outpatient Medications Medication Sig Dispense Refill vedolizumab (ENTYVIO INTRAVENOUS) Inject intravenously. Every 8 weeks at [facility] levothyroxine (SYNTHROID) 100 mcg tablet Take 1 [...] ileum was normal (more content not included)... [facility] 06-23-2023 History of Presen t illness Narrative Images from the original note were not included. IBD Medication Consult [facility] Patient consents to pharmacy consult agreement. Patient [...] HISTORY Procedure Laterality Date COLONOSCOPY 2001 In [place] & [place] in [place] COLONOSCOPY FLX DX W/COLLJ SPEC WHEN PFRMD 05/04/14 Colonoscopy INDUCED - EVACUATION 2009 PAST SURGICAL HISTORY OF umbilical hernia repair Current Outpatient Medications Medication Sig Dispense Refill vedolizumab (ENTYVIO INTRAVENOUS) Inject intravenously. Every 8 weeks at [facility] levothyroxine (SYNTHROID) 100 mcg tablet Take 1 [...] + Due for dose #[address] [facility] pharmacy Tetanus, diphtheria, pertussis (Tdap or Td) One dose Tdap then Td every 10 years 07/05/21 Yes HPV Females < 45 years old and males < 26 years old; 2 dose series if <15 years old 08/18/2210/2022 No In progress - Dose #3 - February 2023 [facility] pharmacy Medication lab monitoring up to date: [...] GI symptoms. - Updated med list in [facility] Health Maintenance - Recommend the following vaccines: hepatitis A, zoster recombinant (to be obtained at pharmacy), and HPV (to be obtained at PCP or manager benefit office), will hold off on all three [...] and medication management Time spent (mins): 30 Electronically signed by Shonda Jiang [facility] at 06/23/2023 11:45 AM EDT documented in this encounter [facility] 05-25-2023 Note HNO ID: [id number] Author: Robbie Rob MD Service: ? Author [...] INTRAVENOUS) Inject intravenously. Every 8 weeks at [facility] magnesium oxide (MAG-OX) 400 mg (241.3 mg [...] HISTORY Procedure Laterality Date COLONOSCOPY 2001 In [place] in [place] COLONOSCOPY FLX DX W/COLLJ SPEC WHEN PFRMD [...] Judgment: Judgment normal. Reviewed labs done through [facility] lab through Care Everywhere. CBC, TFTs, metabolic panel, etc. Assessment and Plan Encounter Diagnosis ICD-10-CM 1. Acquired hypothyroidism E03.9 levothyroxine (SYNTHROID) 100 mcg tablet 2. Crohn's disease of both small and large intestine without complication ([facility]) K50.80 vedolizumab (ENTYVIO INTRAVENOUS) 3. Acne vulgaris [...] history, exam and (more content not included)... [facility] 05-25-2023 History of Presen t illness Narrative This note was created using NoteWriter. Subjective [...] INTRAVENOUS) Inject intravenously. Every 8 weeks at [facility] magnesium oxide (MAG-OX) 400 mg (241.3 mg [...] Procedure Laterality Date COLONOSCOPY 2007, 2001 In [place] & [place] in [place] COLONOSCOPY FLX DX W/COLLJ SPEC WHEN PFRMD [...] Judgment: Judgment normal. Reviewed labs done through [facility] lab through Care Everywhere. CBC, TFTs, [...] labs done closely throughout . OB at [facility]. Continues current dose. Will continue management of Crohn's through Dr. Perez. Robbie Rob MD documented in this encounter [facility] 05-13-2023 Note HNO ID: [id number] Author: June Castro APRN.[employer]ER Service: ? Author Type: Nurse Practitioner Type: Progress Notes Filed: 05/13/2023 11:50 AM Note Text: VIRTUAL VISIT FOLLOW UP Teetee Louis [id number] 1985 has requested a video telemedicine for [...] visit. Either the patient or their legal sales representative gas service has been informed of the risks and [...] which has helped - discussed plan with Entyvcarly if she got with both Dr. Perez [...] IV Q8 weeks - LD: 04/07/2023 @ [facility] - due next on 06/02/2023 PAST SURGICAL HISTORY Procedure Laterality Date COLONOSCOPY 2001 [place] in [place] COLONOSCOPY FLX DX W/COLLJ SPEC WHEN PFRMD [...] None Areas o (more content not included)... [facility] 05-13-2023 History of Presen t illness Narrative VIRTUAL VISIT FOLLOW UP Teetee Louis [id number] 1985 has requested a video telemedicine for [...] visit. Either the patient or their legal sales representative gas service has been informed of the risks and [...] which has helped - discussed plan with Entyvcarly if she got with both Dr. Perez [...] Q8 weeks - LD: 04/07/2023 @ [facility] - due next on 06/02/2023 PAST SURGICAL HISTORY Procedure Laterality Date COLONOSCOPY 2001 In [place] in [place] COLONOSCOPY FLX DX W/COLLJ SPEC WHEN PFRMD [...] Abs Lymph 1.00 - 4.00 k/uL 1.79 Meade% % 7.1 Abs Meade <0.87 k/uL 0.55 Eosin% % 1.0 Abs [...] child if there is an issue getting children's service worker arranged d/t not having updated vaccines. Reviewed [...] with more than 50% of the total ezgz-rv-sjkq time of the visit in counseling / coordination of care. I have confirmed and edited as necessary, the PFSH and ROS obtained by others. Unrelated to E/M, telemedicine, or virtual visit service provided within previous 7 days. No E/M service or procedure anticipated within next 24 hours. June Castro APRN.CNP May 13, 2023 11:49 AM documented in this encounter [facility] 03-31-2023 Note HNO ID: [id number] Author: Shonda Jiang RPh Service: ? Author Type: Pharmacist Type: Progress Notes Filed: 03/31/2023 11:08 AM Note Text: IBD Medication Consult [facility] Patient consents to pharmacy consult agreement. Patient [...] HISTORY Procedure Laterality Date COLONOSCOPY 2001 In [place] COLONOSCOPY FLX DX W/COLLJ SPEC WHEN PFRMD [...] Normal examined duode (more content not included)... [facility] 03-31-2023 History of Presen t illness Narrative IBD Medication Consult [facility] Patient consents to pharmacy consult agreement. Patient [...] Procedure Laterality Date COLONOSCOPY 2007, 2001 In [place] COLONOSCOPY FLX DX W/COLLJ SPEC WHEN PFRMD [...] + Due for dose #[address] [facility] pharmacy Tetanus, diphtheria, pertussis (Tdap or Td) One dose Tdap then Td every 10 years 07/05/21 Yes HPV Females < 45 years old and males < 26 years old; 2 dose series if <15 years old 08/18/2210/2022 No In progress - Dose #3 - February 2023 [facility] pharmacy Medication lab monitoring up to date: [...] GI symptoms. - Updated med list in [facility] Health Maintenance - Recommend the following vaccines: hepatitis A, zoster recombinant (to be obtained at pharmacy), and HPV (to be obtained at PCP or manager benefit office), will hold off on all three [...] spent (mins): 30 documented in this encounter [facility] 01-07-2023 Note HNO ID: [id number] Author: Shonda Jiang RPh Service: ? Author Type: Pharmacist Type: Progress Notes Filed: 01/07/2023 3:39 PM Note Text: IBD Medication Consult [facility] Patient consents to pharmacy consult agreement. Patient Name: Teetee Pablito Louis IBD Provider: Dr. Perez IBD: Crohn's [...] Procedure Laterality Date COLONOSCOPY 2007, 2001 In [place] COLONOSCOPY FLX DX W/COLLJ SPEC WHEN PFRMD [...] duodenum. Biopsied. Biopsi (more content not included)... [facility] 01-07-2023 History of Presen t illness Narrative IBD Medication Consult [facility] Patient consents to pharmacy consult agreement. Patient Name: Teetee E Heriberto IBD Provider: Dr. Perez IBD: Crohn's disease [K50.90] Locations affected: jejunum and colon Behavior: inflammatory Perianal disease: No IBD Dx (year) : 2019 Prior surgeries: No January 07, 2022 Reason for consult: efficacy, safety, health maintenance review, and reconciliation Teetee [facility] [facility] is a 37 year old White female [...] HISTORY Procedure Laterality Date COLONOSCOPY 2001 In [place] in [place] COLONOSCOPY FLX DX W/COLLJ SPEC WHEN PFRMD [...] CSP 04/21/23. - Updated med list in [facility] Health Maintenance - Recommend the following vaccines: hepatitis A, zoster recombinant (to be obtained at pharmacy), and HPV (to be obtained at PCP or manager benefit office), will hold off on all three [...] contact us in future if needed. Mike Marcelo, HemantD Candidate '23 Shonda Jiang PharmD, BCACP, MS IBD Clinical Pharmacist Interventions made: medication education, medication reconciliation, health maintenance need assessment, medication management, and drug information Time spent (mins): 25 documented in this encounter [facility] 12-31-2022 Note HNO ID: [id number] Author: Ramin Muller PSYD Service: ? Author Type: Psychologist Type: Progress Notes Filed: 12/31/2022 2:45 PM Note Text: [facility] PSYCHOLOGICAL FOLLOW-UP December 31, 2022 Teetee Louis CPT Code: 45469 Psychotherapy 38-52 minutes Time initiated session: 11:00 AM to 11:45 AM Session #: 5 Collateral Parties Present: none. I have communicated my name and active licensure. The patient's identity and physical location were verified at the time of this visit. Either the patient or their legal sales representative gas service has been informed of the risks and [...] Psychologist AND Billing Provider: Ramin Muller PSYD [facility] 12-31-2022 History of Presen t illness Narrative Images from the original note were not included. [facility] PSYCH[facility]ICAL FOLLOW-UP December 31, 2022 Teetee Louis CPT Code: 81850 Psychotherapy 38-52 minutes Time initiated session: 11:00 AM to 11:45 AM Session #: 5 Collateral Parties Present: none. I have communicated my name and active licensure. The patient's identity and physical location were verified at the time of this visit. Either the patient or their legal sales representative gas service has been informed of the risks and [...] Ramin Muller PSYD documented in this encounter [facility] 12-21-2022 Note HNO ID: [id number] Author: Ketty Gleason APRN.[employer] TIER Service: ? Author Type: Nurse Practitioner Type: [...] HISTORY Procedure Laterality Date COLONOSCOPY 2001 In [place] COLONOSCOPY FLX DX W/COLLJ SPEC WHEN PFRMD [...] expected course of illness Ketty Gleason APRN.CNP [facility] 12-21-2022 Instructions Ketty Gleason APRN.CNP - 12/21/2022 [...] expected course of illness Ketty Gleason APRN.CNP [facility] PATIENT INFO BLADDER INFECTION OVERVIEW Bladder infections [...] have an infection. documented in this encounter [facility] 12-21-2022 History of Presen t illness Narrative [...] HISTORY Procedure Laterality Date COLONOSCOPY 2001 In [place] in [place] COLONOSCOPY FLX DX W/COLLJ SPEC WHEN PFRMD [...] Discussed expected course of illness Ketty Gleason APRN.[employer]ACQU[employer] H[employer] TIER documented in this encounter [facility] 12-19-2022 Miscellaneous Notes IBD PharmD Appt Called pt as no-show. No reply, call went to . Will send Connexient message. documented in this encounter [facility] 12-17-2022 Note HNO ID: [id number] Author: Ramin Muller PSYD Service: ? Author Type: Psychologist Type: Progress Notes Filed: 12/17/2022 11:57 AM Note Text: [facility] PSYCHOLOGICAL FOLLOW-UP December 17, 2022 Teetee Louis CPT Code: 74751 Psychotherapy 38-52 minutes Time initiated session: 11:00 [...] Psychologist AND Billing Provider: Ramin Muller PSYD [facility] 12-17-2022 History of Presen t illness Narrative Images from the original note were not included. [facility] PSYCHOLOGICAL FOLLOW-UP December 17, 2022 Teeete Louis CPT Code: 03122 Psychotherapy 38-52 minutes Time initiated session: 11:00 [...] Ramin Muller PSYD documented in this encounter [facility] 12-16-2022 Note HNO ID: [id number] Author: Jt Perez MD Service: ? Author Type: Physician Type: Progress Notes Filed: 12/16/2022 8:54 AM Note Text: VIRTUAL VISIT FOLLOW UP Teetee Louis [id number] 1985 has requested a video telemedicine for [...] Abs Lymph 1.00 - 4.00 k/uL 1.80 Meade% % 7.9 Abs Meade <0.87 k/uL 0.51 Eosin% % 1.2 Abs [...] which included preparing to see the patient, treq-br-fzxz patient care, completing clinical documentation, obtaining and/or reviewing separately obtained history, counseling and educating the patient/family/caregiver, and ordering medications, tests, or procedures. Jt Perez MD [facility] 11-19-2022 Note HNO ID: [id number] Author: Ramin Muller PSYD Service: ? Author Type: Psychologist Type: Progress Notes Filed: 11/19/2022 11:37 AM Note Text: [facility] PSYCHOLOGICAL FOLLOW-UP November 19, 2022 Teetee Louis CPT Code: 47021 Psychotherapy 16-37 minutes Time initiated session: 11:00 [...] Psychologist AND Billing Provider: Ramin Muller PSYD [facility] 11-19-2022 History of Presen t illness Narrative Images from the original note were not included. [facility] PSYCH[facility]ICAL FOLLOW-UP November 19, 2022 Teetee Louis CPT Code: 42695 Psychotherapy 16-37 minutes Time initiated session: 11:00 [...] Ramin Muller PSYD documented in this encounter [facility] 11-05-2022 History of Presen t illness Narrative Images from the original note were not included. [facility] PSYCH[facility]ICAL FOLLOW-UP November 05, 2022 Teetee Louis CPT Code: 37382 Psychotherapy 38-52 minutes Time initiated session: 11:03 [...] Ramin Muller PSYD documented in this encounter [facility] 09-26-2022 Miscellaneous Notes Images from the original note were not included. Catrachito Garcia PA-C You 2 minutes ago (10:41 AM) She can stop lialda at this time Catrachito Garcia PA-C Patient notified of recommendation in a Connexient message. documented in this encounter [facility] 08-01-2022 History of Presen t illness Narrative Virtual Follow Up Visit Provider Location: Non-[facility] Facility Patient Location: Patient Home or Place of Residence SUBJECTIVE Teetee Louis [id number] 1985 has requested a video telemedicine for [...] COVID-19 booster vaccine, age 12+ yr, bivalent ([employer]) 06/28/2022 COVID-19 original vaccine, age 12+ yr, monovalent ([employer] - PURPLE TOP) 12/07/2020 12/28/2020 08/27/2021 Tdap [...] HISTORY Procedure Laterality Date COLONOSCOPY 2001 In [place] & [place] in [place] COLONOSCOPY FLX DX W/COLLJ SPEC WHEN PFRMD [...] No history of dysuria, frequency or incontinence PHOTORESIST PRINTER: Negative for abnormal vaginal bleeding, abnormal vaginal [...] with more than 50% of the total xnvi-kc-pxoq time of the visit in counseling / [...] 2022 10:26 AM documented in this encounter [facility] 07-23-2022 Miscellaneous Notes I called and spoke to Teetee and rescheduled her appointments as she requested. Tianna Lyman Pss Pt called in to change the dates of her infusion. Please call patient back at [phone] NATALIA Davison documented in this encounter [facility] 07-22-2022 History of Presen t illness Narrative IBD Medication Consult [facility] Patient consents to pharmacy consult agreement. Patient [...] first letter stays 46 days approved for [facility]; second letter dated 07/08/22 says approved for [...] HISTORY Procedure Laterality Date COLONOSCOPY 2001 In [place] in [place] COLONOSCOPY FLX DX W/COLLJ SPEC WHEN PFRMD [...] if her authorization is valid given that [facility] is an physician-based infusion center. She will send me a copy of the letter through Connexient. - Continue Lialda 4.8 g PO daily for now, with plan to discontinue once supply is completed or after completion of third induction dose. - Discontinue Canasa suppository given ADRs. - Labs: Plan to repeat in 3 months (Oct 2022) - Updated med list in [facility] Health Maintenance - Recommend the following vaccines: hepatitis A, zoster recombinant (to be obtained at pharmacy), and HPV (to be obtained at PCP or manager benefit office) - Recommend the following health maintenance appts: none -- currently up to date Next PharmD visit: 09/18/22 Next IBD MD/ PA visit: 07/31/22 Next labs due: in 3 months (Oct 2022) Next vedo dose due: 07/29/22 (induction #2) Teetee Louis endorses understanding to above. Denies other questions and concerns and is aware to contact us in future if needed. Shonda Jiang PharmKaykay, BCACP, MS IBD Clinical Pharmacist Interventions made: medication education, medication reconciliation, prior authorization, medication coordination, health maintenance need assessment, medication financial needs, and medication management Time spent (mins): 30 documented in this encounter [facility] 07-21-2022 Miscellaneous Notes 1st-time treatment report. The patient is currently being seen for a non-oncology regimen. No navigator services are needed at this time. documented in this encounter [facility] 07-16-2022 Miscellaneous Notes SW called and spoke [...] assist. Le Castillo documented in this encounter [facility] 07-02-2022 Miscellaneous Notes Called the patient about VOC fingerprint study for the prediction of biologics response in IBD patient didn't answer , left voice message to call back . documented in this encounter [facility] 07-02-2022 Miscellaneous Notes Spoke with patient and scheduled. Le Castillo Patient is calling to schedule [id number] (Canceled) - INJECTION, VEDOLIZUMAB she states referral is approved please call patient to schedule. documented in this encounter [facility] 06-27-2022 History of Presen t illness Narrative IBD Medication Consult [facility] Patient consents to pharmacy consult agreement. Patient [...] HISTORY Procedure Laterality Date COLONOSCOPY 2001 In [place] in [place] COLONOSCOPY FLX DX W/COLLJ SPEC WHEN PFRMD [...] and adverse effects. Placed therapy plan for [facility]. Also provided info re: copay assistance program; advised to sign up after prior auth approval. - Continue Lialda 4.8 g PO daily and mesalamine suppository nightly. - Labs: Due for baseline biologic labs - orders placed. - Updated med list in [facility] Health Maintenance - Recommend the following vaccines: PCV20, influenza, zoster recombinant (to be obtained at pharmacy), HPV (to be obtained at PCP or manager benefit office), and COVID 19. Will check Hep A and B titers to determine need for vaccine. - Recommend the following health maintenance appts: none -- currently up to date Next PharmD visit: 07/22/22 Next IBD MD/ PA visit: 07/31/22 Next labs due: AZALIA Louis endorses understanding to above. Denies other questions and concerns and is aware to contact us in future if needed. Shonda Jiang, Lavon, BCACP, MS IBD Clinical Pharmacist Interventions made: discuss medication options, medication education, medication reconciliation, medication coordination, pre-treatment assessment, health maintenance need assessment, medication financial needs, and medication management Time spent (mins): 60 documented in this encounter [facility] 06-11-2022 Instructions Jordyn Gross APRN.CNP - 06/11/2022 2:37 PM EDT Follow up in 4-6 weeks Start Canasa nightly Continue Lialda Repeat fecal calprotectin (stool test) and other labs in 1 month documented in this encounter [facility] 06-11-2022 History of Presen t illness Narrative [...] Diagnosis Crohn's Disease: Date of diagnosis (year): 2000 Phenotype Location affected: colon/jejunal? Behavior: inflammatory Perianal [...] weeks after labs are done Jordyn Gross APRN.CNP PATIENT IS OK TO BE CONTACTED BY [...] will have her follow-up with Shonda Jiang [facility] to discuss biologic medication further. I will [...] which included preparing to see the patient, jdwj-jy-wghl patient care, completing clinical documentation, obtaining and/or reviewing separately obtained history, performing a medically appropriate examination, counseling and educating the patient/family/caregiver, and ordering medications, tests, or procedures. Catrachito Garcia PA-C June 10, 2022 4:07 PM documented in this encounter [facility] 05-19-[address] - 05/19/2022 [...] interested in giving it a try (https://www.ntforibd.org/what-i v-zxrqmpegevn-shziyxx/therapeuti c-diets/wxdsqa-bggvqme-ijuglloeh -diet/). You can try adding pasta to [...] Simón Saxena RD, as needed. Please call [phone] to schedule an in-person visit or [phone] option 0 to schedule a virtual visit. documented in this encounter [facility] 05-19-2022 History of Presen t illness Narrative [...] Simón Saxena RD documented in this encounter [facility] 05-13-2022 History of Presen t illness Narrative [...] Es Montanez PA-C documented in this encounter [facility] 04-16-2022 History of Presen t illness Narrative Virtual Follow Up Visit Provider Location: [facility] Facility Patient Location: Patient Home or Place of Residence SUBJECTIVE Teetee Louis [id number] 1985 has requested a video telemedicine for [...] HISTORY Procedure Laterality Date COLONOSCOPY 2001 In [place] in [place] COLONOSCOPY FLX DX W/COLLJ SPEC WHEN PFRMD [...] No history of dysuria, frequency or incontinence PHOTORESIST PRINTER: has had some abnormal periods MUSCULOSKELETAL: Negative [...] with more than 50% of the total itep-qg-vghh time of the visit in counseling / [...] 2022 3:56 PM documented in this encounter [facility] 03-24-2022 Instructions Simón Saxena, VIKASH - 03/24/2022 [...] at 11am virtually. documented in this encounter [facility] 06-13-2022 History of Presen t illness Narrative GI [...] beans, kidney beans, navy beans, northern beans. [place]. Peppers, broccoli. Snack - Sometimes ice cream. [...] weight change- not significant. Estimated needs: Calories: 5 - 219 kcals/day determined by MSJ with 1.4- 1.5 activity factor Protein: 80 - 96 g/day determined by 1.0-1.2 g/kg Malnutrition Screening Significant unintentional weight loss? No Eating less than 75% of usual intake for more than 2 weeks? No Potential Signs of Inflammation: imaging studies Education Materials Provided: None this visit Referred/Supervised by: Dr. Perez/Dr. Caleb JONEST Billing Type: Initial Assess/15 min 4 units documented in this encounter [facility] 02-10-2022 History of Presen t illness Narrative Virtual Follow Up Visit Provider Location: [facility] Patient Location: Patient Home or Place of Residence NOAM Louis [id number] 1985 has requested a video telemedicine for [...] Procedure Laterality Date COLONOSCOPY 2007, 2001 In [place] & [place] in [place] COLONOSCOPY FLX DX W/COLLJ SPEC WHEN PFRMD [...] No history of dysuria, frequency or incontinence PHOTORESIST PRINTER: Negative for abnormal vaginal bleeding, abnormal vaginal [...] a history of Crohn's disease diagnosed in [facility] at the age of 15. Treated in [...] with more than 50% of the total gybx-gp-utix time of the visit in counseling / [...] 2022 2:26 PM documented in this encounter [facility] 01-10-2022 Nurse Note AMBULATORY PATIENT EDUCATION NOTE [...] AFFECTING LEARNING: None Electronically Signed By: Destiny Zepeda RN In Department: GASTROENTEROLOGY documented in this encounter [facility] 01-10-2022 Miscellaneous Notes Colonoscope in Gastroscope out documented in this encounter [facility] 01-10-2022 History and physical note HISTORY AND PHYSICAL Teetee Pablito Louis, 36 year old female Current history and [...] Karen Atwood DO documented in this encounter [facility] 01-08-2022 Instructions Catrachito Garcia PA-C - 01/08/2022 [...] If you do not have a responsible local delivery driver (family member or friend) with you [...] exam. 2 09/2019 documented in this encounter [facility] 01-08-2022 History of Presen t illness Narrative Virtual Follow Up Visit Provider Location: [facility] Facility Patient Location: Patient Home or Place of Residence SUBJECTIVE Teetee Louis [id number] 1985 has requested a video telemedicine for [...] Procedure Laterality Date COLONOSCOP W/ OR W/O [facility] SPEC 05/04/14 Colonoscopy COLONOSCOPY 2007, 2001 In [place] [facility] [place] INDUCED - EVACUATION 2009 PAST SURGICAL HISTORY [...] No history of dysuria, frequency or incontinence PHOTORESIST PRINTER: Negative for abnormal vaginal bleeding, abnormal vaginal [...] with more than 50% of the total oixr-lv-xxmo time of the visit in counseling / [...] Perez Date: 01/08/2022 documented in this encounter [facility] 12-30-2021 Miscellaneous Notes Called patient for the [...] since it has been 4 years. A [employer] message will be sent to the patient with video instructions. Patient verbalized an understanding. Kerrie Trivedi RN Teetee called the office about the message below, Please call her back at [phone]. Janie Krishnan Returned patient call. Received voicemail. [...] any pain. Please call her back at [phone]. Janie Krishnan documented in this encounter [facility] Crohn's disease of large intestine with rectal bleeding (HCC)- Primary Regional enteritis of large intestine Inflammatory bowel disease Other and unspecified noninfectious gastroenteritis and colitis Epigastric pain Abdominal pain, epigastric Rectal bleeding Hemorrhage of rectum and anus Diarrhea, unspecified type [facility] Crohn's disease of large intestine with rectal bleeding (HCC) Regional enteritis of large intestine Epigastric pain Abdominal pain, epigastric [facility] Diagnosis Inflammatory bowel disease Other [...] Fatigue, unspecified type [facility] Diagnosis Crohn's disease of both small and large intestine without complication (HCC)- Primary Regional enteritis of small intestine with large intestine [facility] Diagnosis Crohn's disease of both [...] with large intestine [facility] Diagnosis Crohn's disease of both small and large intestine without complication (HCC)- Primary Regional enteritis of small intestine with large intestine [facility] Diagnosis Adjustment disorder with mixed anxiety and depressed mood- Primary Psychological factor affecting physical condition Psychic factors associated with diseases classified elsewhere Crohn's disease of both small and large intestine without complication (HCC) Regional enteritis of small intestine with large intestine [facility] Diagnosis Adjustment disorder with mixed anxiety and depressed mood- Primary Psychological factor affecting physical condition Psychic factors associated with diseases classified elsewhere Crohn's disease of both small and large intestine without complication (HCC) Regional enteritis of small intestine with large intestine [facility] Diagnosis Crohn's disease of both small and large intestine without complication (HCC)- Primary Regional enteritis of small intestine with large intestine [facility] Diagnosis Urinary frequency- Primary [facility] Diagnosis Adjustment disorder with mixed anxiety and depressed mood- Primary Psychological factor affecting physical condition Psychic factors associated with diseases classified elsewhere Crohn's disease of both small and large intestine without complication (HCC) Regional enteritis of small intestine with large intestine [facility] Diagnosis Inflammatory bowel disease- Primary Other and unspecified noninfectious gastroenteritis and colitis [facility] Diagnosis Crohn's disease of both small and large intestine without complication (HCC)- Primary Regional enteritis of small intestine with large intestine [facility] Diagnosis Inflammatory bowel disease- Primary Other and unspecified noninfectious gastroenteritis and colitis documented in this encounter [facility] note* Diagnosis Inflammatory bowel disease- Primary Other and unspecified noninfectious gastroenteritis and colitis documented in this encounter [facility] note* Diagnosis Acquired hypothyroidism- Primary Unspecified hypothyroidism Crohn's disease of both small and large intestine without complication (HCC) Regional enteritis of small intestine with large intestine Acne vulgaris Other acne 13 weeks gestation of state, incidental documented in this encounter [facility] note* Diagnosis Crohn's disease of both small and large intestine without complication (HCC)- Primary Regional enteritis of small intestine with large intestine documented in this encounter [facility] note* Diagnosis Inflammatory bowel disease- Primary Other and unspecified noninfectious gastroenteritis and colitis documented in this encounter [facility] note* Diagnosis Crohn's disease of both small and large intestine without complication (HCC)- Primary Regional enteritis of small intestine with large intestine documented in this encounter [facility] note* Diagnosis Crohn's disease of both small and large intestine without complication (HCC)- Primary Regional enteritis of small intestine with large intestine documented in this encounter [facility] note* Diagnosis Crohn's disease of both small and large intestine without complication (HCC)- Primary Regional enteritis of small intestine with large intestine documented in this encounter [facility] for referral (narrative)* Outpatient Procedure (Routine) - Closed Specialty Diagnoses / Procedures Referred By Mari moe Referred To [facility] Diagnoses Crohn's disease of large intestine with rectal bleeding (HCC) Epigastric pain Procedures EGD DIAGNOSTIC ESOPHAGOGASTRODUODENOSC OPY TRANSORAL DIAGNOSTIC Catrachito Garcia PA-C [facility] [address] [place] [address] Referral ID Status Reason Start Date Expiration Date V isits Requested Visits Authorized [id number] Closed Auto-Generate d Referral 01/08/2022 01/08/2023 1 1 * Outpatient Procedure (Routine) - Closed Specialty Diagnoses / Procedures Referred By Mari moe Referred To Contact [facility] Diagnoses Crohn's disease of large intestine with rectal bleeding (HCC) Procedures COLONOSCOPY DIAGNOSTIC COLONOSCOPY FLX DX W/COLLJ SPEC WHEN Catrachito Izquierdo PA-C [address] [address] Referral ID Status Reason Start Date Expiration Date V isits Requested Visits Authorized [id number] Closed Auto-Generate d Referral 01/08/2022 01/08/2023 1 1 [facility] for referral (narrative)* Outpatient Procedure (Routine) - Pending Review Specialty Diagnoses / Procedures Referred By Contac t Referred To Contact [facility] [place] Diagnoses Crohn's disease of both small and large intestine without complication (HCC) Procedures COLONOSCOPY DIAGNOSTIC COLONOSCOPY FLX DX W/COLLJ SPEC WHEN June Mooney APRN.CNP [address] [place] [address] [facility] [place] [id number] Referral ID Status Reason Start Date Expiration Date Visits Requested Visits Authorized [id number] Pending Review Auto-Generat ed Referral 11/12/2023 11/12/2024 1 1 [facility] for visit Narrative* Outpatient Procedure (Routine) - Closed Specialty Diagnoses / Procedures Referred By Contana moe Referred To Contact [facility] [place] Diagnoses Crohn's disease of large intestine with rectal bleeding (HCC) Epigastric pain Procedures EGD DIAGNOSTIC ESOPHAGOGASTRODUODENOSC OPY TRANSORAL DIAGNOSTIC Catrachito Garcia PA-C [facility] [address] [address] Referral ID Status Reason Start Date Expiration Date V isits Requested Visits Authorized [id number] Closed Auto-Generate d Referral 01/08/2022 01/08/2023 1 1 [facility] Summary Purpose Family History No Family History Records FoundNo Family History Records FoundNo Family History Records FoundNo Family History Records Found Advance Directives No Advanced Directives Records FoundNo Advanced Directives Records FoundNo Advanced Directives Records FoundNo Advanced Directives Records Found Reason for Referral Specialty Diagnoses / Procedures Referred By Contac t Referred To Contact [facility] Diagnoses Inflammatory bowel disease Crohn's disease of large intestine with rectal bleeding (HCC) Procedures CT ENTEROGRAPHY W IVCON CT ABD & PELVIS W/CONTRAST Catrachito Garcia PA-C Ct [facility] Referral ID Status Reason Start Date Expiration Date Visits Requested Visits Authorized [id number] Pending Review Auto-Generat ed Referral 01/08/2022 02/07/2023 1 1 Specialty Diagnoses / Procedures Referred By Contac t Referred To Contact [facility] Diagnoses Crohn's disease of large intestine with rectal bleeding (HCC) Epigastric pain Procedures EGD DIAGNOSTIC ESOPHAGOGASTRODUODENOSC OPY TRANSORAL DIAGNOSTIC Catrachito Garcia PA-C [facility] [address] [place] [address] Referral ID Status Reason Start Date Expiration Date Visits Requested Visits Authorized [id number] Authorized Auto-Generat ed Referral 01/08/2022 01/08/2023 1 1 Specialty Diagnoses / Procedures Referred By Contac t Referred To Contact [facility] Diagnoses Crohn's disease of large intestine with rectal bleeding (HCC) Procedures COLONOSCOPY DIAGNOSTIC COLONOSCOPY FLX DX W/COLLJ SPEC WHEN PFRMD Catrachito Garcia PA-C [facility] [address] [place] [address] Referral ID Status Reason Start Date Expiration Date Visits Requested Visits Authorized [id number] Authorized Auto-Generat ed Referral 01/08/2022 01/08/2023 1 1 Referral ID Status Reason Start Date Expiration Date V isits Requested Visits Authorized [id number] Closed Auto-Generate d Referral 01/08/2022 02/07/2023 1 1 Specialty Diagnoses / Procedures Referred By Contac t Referred To Contact [facility] Diagnoses Crohn's disease of large intestine with rectal bleeding (HCC) Procedures CONSULT TO NUTRITION THERAPY OFFICE/OUTPATIENT NEW HIGH MDM 60-74 MINUTES Catrachito Garcia PA-C Referral ID Status Reason Start Date Expiration Date Visits Requested Visits Authorized [id number] Pending Review PCP Requested Referral 02/10/2022 02/10/2023 [...] DATE CREATED AUTHOR AUTHOR'S ORGANIZ ATION 01/31/2022 [facility] DATE CREATED AUTHOR AUTHOR'S ORGANIZ ATION 07/16/2023 [facility] DATE CREATED AUTHOR AUTHOR'S ORGANIZ ATION 11/18/2023 [facility] Source Comments (unrecognize d section and content) In the event this informatio n is protected by the Federal Confidentiality of Alcohol and Drug Abuse Patient Records regulations: The Federal rules restrict any use of the information to criminally investigate or prosecute any alcohol or drug abuse patient.[facility] the event this information is protected by the Federal Confidentiality of Alcohol and Drug Abuse Patient Records regulations: The Federal rules restrict any use of the information to criminally investigate or prosecute any alcohol or drug abuse patient.[facility] the event this information is protected by the Federal Confidentiality of Alcohol and Drug Abuse Patient Records regulations: The Federal rules restrict any use of the information to criminally investigate or prosecute any alcohol or drug abuse patient.[facility] the event this information is protected by the Federal Confidentiality of Alcohol and Drug Abuse Patient Records regulations: The Federal rules restrict any use of the information to criminally investigate or prosecute any alcohol or drug abuse patient.[facility] the event this information is protected by the Federal Confidentiality of Alcohol and Drug Abuse Patient Records regulations: The Federal rules restrict any use of the information to criminally investigate or prosecute any alcohol or drug abuse patient.[facility] the event this information is protected by the Federal Confidentiality of Alcohol and Drug Abuse Patient Records regulations: The Federal rules restrict any use of the information to criminally investigate or prosecute any alcohol or drug abuse patient.[facility] the event this information is protected by the Federal Confidentiality of Alcohol and Drug Abuse Patient Records regulations: The Federal rules restrict any use of the information to criminally investigate or prosecute any alcohol or drug abuse patient.[facility] the event this information is protected by the Federal Confidentiality of Alcohol and Drug Abuse Patient Records regulations: The Federal rules restrict any use of the information to criminally investigate or prosecute any alcohol or drug abuse patient.[facility] the event this information is protected by the Federal Confidentiality of Alcohol and Drug Abuse Patient Records regulations: The Federal rules restrict any use of the information to criminally investigate or prosecute any alcohol or drug abuse patient.[facility] the event this information is protected by the Federal Confidentiality of Alcohol and Drug Abuse Patient Records regulations: The Federal rules restrict any use of the information to criminally investigate or prosecute any alcohol or drug abuse patient.[facility] the event this information is protected by the Federal Confidentiality of Alcohol and Drug Abuse Patient Records regulations: The Federal rules restrict any use of the information to criminally investigate or prosecute any alcohol or drug abuse patient.[facility] the event this information is protected by the Federal Confidentiality of Alcohol and Drug Abuse Patient Records regulations: The Federal rules restrict any use of the information to criminally investigate or prosecute any alcohol or drug abuse patient.[facility] the event this information is protected by the Federal Confidentiality of Alcohol and Drug Abuse Patient Records regulations: The Federal rules restrict any use of the information to criminally investigate or prosecute any alcohol or drug abuse patient.[facility] the event this information is protected by the Federal Confidentiality of Alcohol and Drug Abuse Patient Records regulations: The Federal rules restrict any use of the information to criminally investigate or prosecute any alcohol or drug abuse patient.[facility] the event this information is protected by the Federal Confidentiality of Alcohol and Drug Abuse Patient Records regulations: The Federal rules restrict any use of the information to criminally investigate or prosecute any alcohol or drug abuse patient.[facility] the event this information is protected by the Federal Confidentiality of Alcohol and Drug Abuse Patient Records regulations: The Federal rules restrict any use of the information to criminally investigate or prosecute any alcohol or drug abuse patient.[facility] the event this information is protected by the Federal Confidentiality of Alcohol and Drug Abuse Patient Records regulations: The Federal rules restrict any use of the information to criminally investigate or prosecute any alcohol or drug abuse patient.[facility] the event this information is protected by the Federal Confidentiality of Alcohol and Drug Abuse Patient Records regulations: The Federal rules restrict any use of the information to criminally investigate or prosecute any alcohol or drug abuse patient.[facility] the event this information is protected by the Federal Confidentiality of Alcohol and Drug Abuse Patient Records regulations: The Federal rules restrict any use of the information to criminally investigate or prosecute any alcohol or drug abuse patient.[facility] the event this information is protected by the Federal Confidentiality of Alcohol and Drug Abuse Patient Records regulations: The Federal rules restrict any use of the information to criminally investigate or prosecute any alcohol or drug abuse patient.[facility] the event this information is protected by the Federal Confidentiality of Alcohol and Drug Abuse Patient Records regulations: The Federal rules restrict any use of the information to criminally investigate or prosecute any alcohol or drug abuse patient.[facility] the event this information is protected by the Federal Confidentiality of Alcohol and Drug Abuse Patient Records regulations: The Federal rules restrict any use of the information to criminally investigate or prosecute any alcohol or drug abuse patient.[facility] the event this information is protected by the Federal Confidentiality of Alcohol and Drug Abuse Patient Records regulations: The Federal rules restrict any use of the information to criminally investigate or prosecute any alcohol or drug abuse patient.[facility] the event this information is protected by the Federal Confidentiality of Alcohol and Drug Abuse Patient Records regulations: The Federal rules restrict any use of the information to criminally investigate or prosecute any alcohol or drug abuse patient.[facility] the event this information is protected by the Federal Confidentiality of Alcohol and Drug Abuse Patient Records regulations: The Federal rules restrict any use of the information to criminally investigate or prosecute any alcohol or drug abuse patient.[facility] the event this information is protected by the Federal Confidentiality of Alcohol and Drug Abuse Patient Records regulations: The Federal rules restrict any use of the information to criminally investigate or prosecute any alcohol or drug abuse patient.[facility] the event this information is protected by the Federal Confidentiality of Alcohol and Drug Abuse Patient Records regulations: The Federal rules restrict any use of the information to criminally investigate or prosecute any alcohol or drug abuse patient.[facility] the event this information is protected by the Federal Confidentiality of Alcohol and Drug Abuse Patient Records regulations: The Federal rules restrict any use of the information to criminally investigate or prosecute any alcohol or drug abuse patient.[facility] the event this information is protected by the Federal Confidentiality of Alcohol and Drug Abuse Patient Records regulations: The Federal rules restrict any use of the information to criminally investigate or prosecute any alcohol or drug abuse patient.[facility] the event this information is protected by the Federal Confidentiality of Alcohol and Drug Abuse Patient Records regulations: The Federal rules restrict any use of the information to criminally investigate or prosecute any alcohol or drug abuse patient.[facility] the event this information is protected by the Federal Confidentiality of Alcohol and Drug Abuse Patient Records regulations: The Federal rules restrict any use of the information to criminally investigate or prosecute any alcohol or drug abuse patient.[facility] the event this information is protected by the Federal Confidentiality of Alcohol and Drug Abuse Patient Records regulations: The Federal rules restrict any use of the information to criminally investigate or prosecute any alcohol or drug abuse patient.[facility] the event this information is protected by the Federal Confidentiality of Alcohol and Drug Abuse Patient Records regulations: The Federal rules restrict any use of the information to criminally investigate or prosecute any alcohol or drug abuse patient.[facility] the event this information is protected by the Federal Confidentiality of Alcohol and Drug Abuse Patient Records regulations: The Federal rules restrict any use of the information to criminally investigate or prosecute any alcohol or drug abuse patient.[facility] the event this information is protected by the Federal Confidentiality of Alcohol and Drug Abuse Patient Records regulations: The Federal rules restrict any use of the information to criminally investigate or prosecute any alcohol or drug abuse patient.[facility] the event this information is protected by the Federal Confidentiality of Alcohol and Drug Abuse Patient Records regulations: The Federal rules restrict any use of the information to criminally investigate or prosecute any alcohol or drug abuse patient.[facility] the event this information is protected by the Federal Confidentiality of Alcohol and Drug Abuse Patient Records regulations: The Federal rules restrict any use of the information to criminally investigate or prosecute any alcohol or drug abuse patient.[facility] the event this information is protected by the Federal Confidentiality of Alcohol and Drug Abuse Patient Records regulations: The Federal rules restrict any use of the information to criminally investigate or prosecute any alcohol or drug abuse patient.[facility]ima[facility] the event this information is protected by the Federal Confidentiality of Alcohol and Drug Abuse Patient Records regulations: The Federal rules restrict any use of the information to criminally investigate or prosecute any alcohol or drug abuse patient.[facility] LimaIn the event this information is protected by the Federal Confidentiality of Alcohol and Drug Abuse Patient Records regulations: The Federal rules restrict any use of the information to criminally investigate or prosecute any alcohol or drug abuse patient.[facility] LimaIn the event this information is protected by the Federal Confidentiality of Alcohol and Drug Abuse Patient Records regulations: The Federal rules restrict any use of the information to criminally investigate or prosecute any alcohol or drug abuse patient.[facility] LimaIn the event this information is protected by the Federal Confidentiality of Alcohol and Drug Abuse Patient Records regulations: The Federal rules restrict any use of the information to criminally investigate or prosecute any alcohol or drug abuse patient.[facility] LimaIn the event this information is protected by the Federal Confidentiality of Alcohol and Drug Abuse Patient Records regulations: The Federal rules restrict any use of the information to criminally investigate or prosecute any alcohol or drug abuse patient.[facility] LimaIn the event this information is protected by the Federal Confidentiality of Alcohol and Drug Abuse Patient Records regulations: The Federal rules restrict any use of the information to criminally investigate or prosecute any alcohol or drug abuse patient.[facility] LimaIn the event this information is protected by the Federal Confidentiality of Alcohol and Drug Abuse Patient Records regulations: The Federal rules restrict any use of the information to criminally investigate or prosecute any alcohol or drug abuse patient.[facility] [place]imaIn the event this information is protected by the Federal Confidentiality of Alcohol and Drug Abuse Patient Records regulations: The Federal rules restrict any use of the information to criminally investigate or prosecute any alcohol or drug abuse patient.[facility] LimaIn the event this information is protected by the Federal Confidentiality of Alcohol and Drug Abuse Patient Records regulations: The Federal rules restrict any use of the information to criminally investigate or prosecute any alcohol or drug abuse patient.[facility] LimaIn the event this information is protected by the Federal Confidentiality of Alcohol and Drug Abuse Patient Records regulations: The Federal rules restrict any use of the information to criminally investigate or prosecute any alcohol or drug abuse patient.[facility] LimaIn the event this information is protected by the Federal Confidentiality of Alcohol and Drug Abuse Patient Records regulations: The Federal rules restrict any use of the information to criminally investigate or prosecute any alcohol or drug abuse patient.[facility] [place] Reason for Visit (unrecogniz ed section and content) Specialty Diagnoses / Procedures Referred By Contac t Referred To Contact Diagnoses Crohn's disease of both small and large intestine without complication (HCC) Procedures INJECTION, VEDOLIZUMAB Jt Perez MD [address] [place] [address] [facility], [facility] [place] [address] Referral ID Status Reason Start Date Expiration Date V isits Requested Visits Authorized [id number] Authorized 06/27/2022 06/17/2024 99 99 Reason Comments Immunotherapy Referral ID Status Reason Start Date Expiration Date V isits Requested Visits Authorized [id number] Authorized 06/27/2022 06/30/2023 99 99 Reason Comments [...] Expiration Date V isits Requested Visits Authorized [id number] Closed Auto-Generate d Referral 01/08/2022 02/07/2023 1 1 Reason Comments Crohns Reason Comments Nutrition Assessment Specialty Diagnoses / Procedures Referred By Contac t Referred To Contact Nutrition Diagnoses Crohn's disease of large intestine with rectal bleeding (HCC) Procedures CONSULT TO NUTRITION THERAPY OFFICE/OUTPATIENT [facility] 60-74 MINUTES Catrachito Garcia PA-C Referral ID Status Reason Start Date Expiration Date Visits Requested Visits Authorized [id number] Pending Review PCP Requested Referral 02/10/2022 02/10/2023 [...] x 1 day Reason Comments Establish Care Reason Comments IBD Follow Up Referral ID Status Reason Start Date Expiration Date V isits Requested Visits Authorized [id number] Authorized 06/27/2022 10/20/2024 17 17 Care Teams (unrecognized sec tion and content) 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 Relationship Specialty Start Date End Date PolagilbertKarthik arndtahsan Zamudio [address] [place] [address] PCP - General Family Practice 04/04/20 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 Relationship Specialty Start Date End Date Tiffanie Jallohslade Zamudio [address] [place], [place] [id number] PCP - General Family Practice 04/04/20 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 Relationship Specialty Start Date End Date JimenezKarthik arndtahsan Zamudio [address] [place], [place] [id number] PCP - General Family Practice 04/04/20 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 Relationship Specialty Start Date End Date Shubham Avaniahsan Zamudio [address] [place], [place] [id number] PCP - General Family Practice 04/04/20 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 Relationship Specialty Start Date End Date Avani Jalloh [place] [address] PCP - General Family Practice 04/04/20 [employer]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 Relationship Specialty Start Date End Date Avani Jalloh [place] [address] PCP - General Family Practice 04/04/20 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 Relationship Specialty Start Date End Date Avani Jalloh [place] [address] PCP - General Family Practice 04/04/20 [employer]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 Relationship Specialty Start Date End Date Avani Jalloh [place] [address] PCP - General Family Practice 04/04/20 [employer]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 Relationship Specialty Start Date End Date Avani Jalloh [place] [address] PCP - General Family Practice 04/04/20 [employer]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 Relationship Specialty Start Date End Date Avani Jalloh [place] [address] PCP - General Family Practice 04/04/20 [employer]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 Relationship Specialty Start Date End Date Avani Jalloh [place] [address] PCP - General Family Practice 04/04/20 [employer]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 Relationship Specialty Start Date End Date Avani Jalloh [address] [place] [address] PCP - General Family Practice 04/04/20 [employer]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 Relationship Specialty Start Date End Date Avani Jalloh[address] [place] [address] PCP - General Family Practice 04/04/20 [employer]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 Relationship Specialty Start Date End Date Avani Jalloh [place] [address] PCP - General Family Practice 04/04/20 Fruit [employer]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 Relationship Specialty Start Date End Date Avani Jalloh [address] [place] [address] PCP - General Family Practice 04/04/20 Fruit [employer]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 Relationship Specialty Start Date End Date Avani Jalloh [place] [address] PCP - General Family Medicine 04/04/20 [employer]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 Relationship Specialty Start Date End Date Avani Jalloh [place] [address] PCP - General Family Medicine 04/04/20 [employer]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 Relationship Specialty Start Date End Date Avani Jalloh [place] [address] PCP - General Family Medicine 04/04/20 [employer]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 Relationship Specialty Start Date End Date Avani Jalloh [address] [place] [address] PCP - General Family Medicine 04/04/20 [employer]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 Relationship Specialty Start Date End Date Avani Jalloh [address] [place] [address] PCP - General Family Medicine 04/04/20 Fruit [employer]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 Relationship Specialty Start Date End Date Avani Jalloh [address] [place] [address] PCP - General Family Medicine 04/04/20 Fruit [employer]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 Relationship Specialty Start Date End Date Avani Jalloh [address] [place] [address] PCP - General Family Medicine 04/04/20 Fruit [employer]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 Relationship Specialty Start Date End Date Avani Jalloh [address] [place] [address] PCP - General Family Medicine 04/04/20 [employer]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 Relationship Specialty Start Date End Date Avani Jalloh MD [address] [place] [address] PCP - General Family Medicine 04/04/20 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 Relationship Specialty Start Date End Date Avani Jalloh MD [address] [place] [address] PCP - General Family Medicine 04/04/20 Fruit [employer]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 Relationship Specialty Start Date End Date Avani Jalloh MD [address] [place] [address] PCP - General Family Medicine 04/04/20 Fruit [employer]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 Relationship Specialty Start Date End Date Avani Jalloh MD [address] [place] [address] PCP - General Family Medicine 04/04/20 Fruit [employer]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 Relationship Specialty Start Date End Date Avani Jalloh MD [address] [place] [address] PCP - General Family Medicine 04/04/20 Fruit [employer]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 Relationship Specialty Start Date End Date Avani Jalloh MD [address] [place] [address] PCP - General Family Medicine 04/04/20 Fruit [employer]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 Relationship Specialty Start Date End Date Avani Jalloh MD [address] [address] PCP - General Family Medicine 04/04/20 [employer]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 Relationship Specialty Start Date End Date Robbie Rob MD [address] [place] [address] PCP - General Internal Medicine 05/25/23 [employer]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 Relationship Specialty Start Date End Date Robbie Rob MD [address] [place] [address] PCP - General Internal Medicine 05/25/23 [employer]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 Relationship Specialty Start Date End Date Robbie Rob MD [address] [place] [address] PCP - General Internal Medicine 05/25/23 [employer]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 Relationship Specialty Start Date End Date Robbie Rob MD [address] [place] [address] PCP - General Internal Medicine 05/25/23 [employer]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 Relationship Specialty Start Date End Date Robbie Rob MD [address] [place] [address] PCP - General Internal Medicine 05/25/23 [employer]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 Relationship Specialty Start Date End Date Robbie Rob MD [address] [place] [address] PCP - General Internal Medicine 05/25/23 Inactive Administered Medications - up to 3 most recent administrations Administered Medications (un recognized section and content) FOR RECORDS PERTAINING TO PATIENTS WHO ARE [...] BE BASED ON THE PRIMARY CLINICAL RECORDS. [employer] [facility]. provides no warranty or guarantee of the accuracy or completeness of information in this document.
--- NOTE | 2023-11-27 02:35 | HP.PCM.OB_ITS ---
HPI - General HPI Narrative TEETEE ZULUAGA, is a 38 F who presents IAL regular ctx now 3 cm desires TOLAC Maternal Data Information BOB Calculator Estimated Delivery Date Method Current WG Current Estimate 12/04/23 LMP (Certain) 39w 0d PFSH PFSH Medical History Abnormal Pap smear of cervix Home Medications levothyroxine 75 mcg tablet 100 mcg PO DAILY THYROID 08/12/22 [History Last Taken 11/26/23 08:00] vedolizumab 300 mg intravenous solution (Entyvio) mg .Route DIRECTED 08/12/22 [History Last Taken Unknown] docosahexaenoic acid 200 mg capsule ( DHA) 200 mg PO DAILY 06/25/23 [History Last Taken 11/26/23 08:00] Allergy/AdvReac Type Severity Reaction Status Date / Time No Known Allergies Allergy Verified 11/27/23 02:20 Family History Other Breast cancer Heart disease Surgical History H/O umbilical hernia repair History of delivery Social History Smoking Status: Former smoker alcohol intake: never substance use type: does not use caffeine: Yes what type of physical activity do you participate in: walking and weight training frequency: 3-4 times per week seatbelt use: always do you feel safe at home: Yes additional social history: - Brett History 2 Elective abortions Hx Para 1 Spontaneous abortions Hx # Term Pregnancies Ectopic pregnancies Hx # Pregnancies Multiple births # of living children Past Pregnancies Del. Date Name GA/Weeks Outcome Route Bth Weight Infant Gen Labor Lgth Anesthesia Del Locatn Provider FOB 04/01/08 Olegario 41 live - full term Male ep idural CA Delivery Date: 04/01/08 Last Updated by: Avani Dixon STAT due to decels and baby turning per patient Visit Details Expected Delivery Route/Plan patient counseled regarding risks/benefits of trial of labor versus repeat . ACOG/uptodate education given to patient. 55% likelihood of success per calculator TOLAC consent form signed: Labor Preferences- CB/BF classes: maybe labor support person: Brett labor intervention preferences: [] pain management options preferred: epidural cut cord/dad catch:yes : yes PP control planned: vas planned discussed possible routes of delivery and associated risks: [] special requests: [] OB Flowsheet Initial Weight: 178 lb Date -?-?-?-?-?-?-?-?-?-?-?-?- EGA Weight BP Urine Prot -?-?-?-?-?-?-?-?-?-?-?-?- Glucose FHR FuHt Pres Dilation -?-?-?-?-?-?-?-?-?-?-?-?- Effaced St Visit Note 05/01/23 -?-?-?-?-?-?-?-?-?-?-?-?- 9w 0d 178 lb (+0 oz) 112/72 -?-?-?-?-?-?-?-?-?-?-?-?- 160 -?-?-?-?-?-?-?-?-?-?-?-?- LC-25mm CRL con w/LMP. BOB LC-25mm CRL con w/LMP. BOB . LC-25mm CRL con w/LMP. BOB .underdecided if rpt c/s vs tolac.BMi>30 will obtain 1 hour gct. 05/28/23 -?-?-?-?-?-?-?--?-?-?-?-?- 12w 6d 181 lb 6 oz (+3 lb 6 oz) 143/78 Negative -?-?-?-?-?-?-?-?-?-?-?-?- Negative -?-?-?-?-?-?-?-?-?-?-?-?- Kw- no vb/crampi ng. Strong heart rate noted on handheld US. Anatomy US ordered. 06/25/23 -?-?-?-?-?-?-?-?-?-?-?-?- 16w 6d 185 lb 2 oz (+7 lb 2 oz) 122/70 Negative -?-?-?-?-?-?-?-?-?-?-?-?- Negative 156 -?-?-?-?-?-?-?-?-?-?-?-?- -No VB, uche zimmerman. Doing well. Flu vaccine 07/23/23 -?-?-?-?-?-?-?-?-?-?-?-?- 20w 6d 192 lb 6 oz (+14 lb 6 oz) 122/82 Negative -?-?-?-?-?-?-?-?-?-?-?-?- Negative 150 -?-?-?-?-?-?-?-?-?-?-?-?- SM- no vb lof go od fm n oreuglar ctx 08/17/23 -?-?-?-?-?-?-?-?-?-?-?-?- 24w 3d 195 lb 4 oz (+17 lb 4 oz) 119/79 Negative -?-?-?-?-?-?-?-?-?-?-?-?- Negative 145 -?-?-?-?-?-?-?-?-?-?-?-?- JV- normal anato my scan, planning 28 week labs/rhogam 09/15/23 -?-?-?-?-?-?-?-?-?-?-?-?- 28w 4d 200 lb 4 oz (+22 lb 4 oz) 122/82 Negative -?-?-?-?-?-?-?-?-?-?-?-?- Negative 146 -?-?-?-?-?-?-?--?-?-?-?-?- MH-No Vb, LOF. G ood Fm. 28 wk labs. tdap, rhogam, larc 09/28/23 -?-?-?-?-?-?-?-?-?-?-?-?- 30w 3d 203 lb 6 oz (+25 lb 6 oz) 118/84 -?-?-?-?-?-?-?-?-?-?-?-?- 140 -?-?-?-?-?-?-?-?-?-?-?-?- SM- no vb lof go od fm no regular ctx 10/15/23 -?-?-?-?-?-?-?-?-?-?-?-?- 32w 6d 204 lb 2 oz (+26 lb 2 oz) 136/86 Negative -?-?-?-?-?-?-?-?-?-?-?-?- Negative 145 34 -?-?-?-?-?-?-?-?-?-?-?-?- KW- no vb/lof/ct x. good fm. TOLAC consent. FMLA paper received today. 36 week US ordered. 10/30/23 -?-?-?-?-?-?-?-?-?-?-?-?- 35w 0d 209 lb 6 oz (+31 lb 6 oz) 120/82 Negative -?-?-?-?-?-?-?-?-?-?-?-?- Negative 140 37 -?-?-?-?-?-?-?-?-?-?-?-?- SM- no vb lof go od fm no reg ctx 11/11/23 -?-?-?-?-?-?-?-?-?-?-?-?- 36w 5d 206 lb 6 oz (+28 lb 6 oz) 118/72 Negative -?-?-?-?-?-?-?-?-?-?-?-?- Negative 141 38 Cephalic 0 -?-?-?-?-?-?-?-?-?-?-?-?- MH-Good Fm. Anastasiya decker kick counts. Had 1 spot vag blood yesterday-none since. GBS done. Discussed TOLAC. 11/18/23 -?-?-?-?-?-?-?-?-?-?-?-?- 37w 5d 209 lb (+31 lb) 126/89 Negative -?-?-?-?-?-?-?-?-?-?-?-?- Negative 159 39 Cephalic 1 -?-?-?-?-?-?-?-?-?-?-?-?- 30 -4 JV- no lof , vaginal bleeding, or dec fm. difficult to reach head. pt still hoping to but has rpt date scheduled 11/26/23 -?-?-?-?-?-?-?-?-?-?-?-?- 38w 6d 207 lb (+29 lb) 129/86 Negative -?-?-?-?-?-?-?-?-?-?-?-?- Negative 135 39 Cephalic 1 .5 -?-?-?-?-?-?-?-?-?-?-?-?- SM- no vb lof go od fm no regular ctx. SM- no vb lof good fm no reg ular ctx. preop paperwork done NST FHR Rate Baby A Baseline: 150 Variability:: Moderate Accelerations:: 15 x 15 Decelerations:: Early and Variable NST Reactive:: Yes FHR Category:: Category II (overall reassuring) Uterine Activity:: q2-3 ROS Constitutional Constitutional: Reports systems reviewed and no addt'l complaints, except as documented ENT HEENT: Reports systems reviewed and no addt'l complaints, except as documented Cardiovascular Cardiovascular: Reports systems reviewed and no addt'l complaints, except as documented Respiratory/Chest Respiratory/Chest: Reports systems reviewed and no addt'l complaints, except as documented Gastrointestinal Gastrointestinal: Reports systems reviewed and no addt'l complaints, except as documented and nausea; Denies abdominal pain Genitourinary Genitourinary: Reports systems reviewed and no addt'l complaints, except as documented, contractions Details: present and frequency (regular ) and movement Details: present Musculoskeletal Musculoskeletal: Reports systems reviewed and no addt'l complaints, except as documented Integumentary Integumentary: Reports as per HPI Neurologic Neurologic: Reports systems reviewed and no addt'l complaints, except as documented Endocrine Endocrinology: Reports systems reviewed and no addt'l complaints, except as documented Vital Signs Vital Signs Vital Signs: 11/27/23 01:46 11/27/23 01:46 11/27/23 01:46 Temperature Temperature Source Temporal Pulse Rate 96 Blood Pressure BP Systolic BP Diastolic Pulse Ox 99 11/27/23 01:46 11/27/23 01:47 11/27/23 01:47 Temperature 99.3 F H Temperature Source Pulse Rate 100 Blood Pressure 121/81 H BP Systolic 121 BP Diastolic 81 Pulse Ox 11/27/23 02:24 11/27/23 02:24 11/27/23 02:29 Temperature Temperature Source Pulse Rate 85 89 Blood Pressure BP Systolic BP Diastolic Pulse Ox 98 11/27/23 02:29 11/27/23 02:34 11/27/23 02:34 Temperature Temperature Source Pulse Rate 95 Blood Pressure BP Systolic BP Diastolic Pulse Ox 99 97 Weight Weight: 207 lb Body Mass Index (BMI) 36.6 Physical Exam Const alert, oriented x3 and healthy appearing Constitutional Narrative: uncomfortable with contractions HEENT normocephalic and moist oral mucous membranes Head and Scalp: atraumatic Neck full ROM, no lymphadenopathy, supple and thyroid normal General: trachea midline Thyroid: thyroid normal Lymph Lymphatic: no lymphadenopathy noted Chest inspection of chest normal Resp normal respiratory effort Cardio regular rate GI normal to inspection, nondistended, normoactive bowel sounds, soft to palpation and non-tender Inspection: gravid external exam normal Bimanual Exam - Vag & Uterus: uterus non-tender Manual OB Exam: estimated gestational size appropriate, presentation cephalic, dilated, effaced and station Extremity normal to inspection General Extremity: Negative for edema Skin no rashes or lesions noted Neuro deep tendon reflexes 2+ bilaterally Motor Exam: strength 5/5 throughout and clonus absent Psych mental status grossly normal Labs Labs Labs: Blood Type B NEGATIVE Antibody Screen NEGATIVE Hct 38.8 % (37-47) Hgb 13.0 g/dL (12.0-15.0) Pap Smear Negative Obstetrics Ultrasound Syphilis Total Ab Non-reactive Rubella IgG Antibody Reactive (Nonreactive) Hep Bs Antigen Non-Reactive (Nonreactive) Hepatitis C Antibody Non-Reactive (Nonreactive) Chlamydia DNA ([facility]) Negative (Negative) N.gonorrhoeae DNA ([facility]) Negative (Negative) HIV 1&2 Antibody Non-Reactive (Nonreactive) Glucose 1 Hr 50 gm 104 mg/dL (70-140) Assessment & Plan (1) GBS (group B Streptococcus carrier), +RV culture, currently : COMMENT: treat in labor (2) Anxiety: COMMENT: in counseling, no meds (3) AMA (advanced maternal age) multigravida 35+: QUALIFIERS: Trimester: second trimester Qualified Code(s): O0 9.522 - Supervision of elderly multigravida, second trimester COMMENT: plan 36 week growth US (80%-3126 grams on 11/06 EFW at 40 weeks- 4026grams) and delivery by 40 weeks (4) Rh negative status during : QUALIFIERS: Trimester: second trimester Qualified Code(s): O26.892 - Other specified related conditions, second trimester; Z67.91 - Unspecified blood type, Rh negative COMMENT: rhogam at 28 week, prn for bleeding, Rhogam given 09/15/23 (5) Obesity (BMI 30.0-34.9): COMMENT: early 1 hour-NORMAL healthy weight gain (6) Supervision of high-risk : QUALIFIERS: Trimester: second trimester Qualified Code(s): O09.92 - Supervision of high risk , unspecified, second trimester COMMENT: PRR, BOB 12/04/2023 girl PC- (boy) Olegario. : Brett (7) : QUALIFIERS: Weeks of gestation: 38 weeks Qualified Code(s): Z3A.38 - 38 weeks gestation of COMMENT: NIPT LR, carrier declined, plan afp, nl anatomy (8) Hypothyroid: QUALIFIERS: Hypothyroidism type: acquired Qualified Code(s): E03.9 - Hypothyroidism, unspecified COMMENT: on synthyroid monitor TSH/free t4 q trimester. (9) History of delivery: COMMENT: secondary to NRFHTS, plan TOLAC if able by 40weeks: JV 12/04 0700 (10) Crohn disease: QUALIFIERS: Gastrointestinal tract location: unspecified location Digestive disease complication type: unspecified complication Qualified Code(s): K50.919 - Crohn's disease, unspecified, with unspecified complications COMMENT: entyvio infusions every 8 weeks, vitamin studies ordered (11) Active labor at term: PLAN: Plan Patient presents IAL, plan expectant management for , pitocin/AROM PRN if needed. Pain management: plans epidural. GBS positive plan IV PCN. Management of any complications: tolac I have reviewed the [facility] and made any clinically relevant updates.
[2023-11-27] MEDS: Lactated Ringers 1,000 ML 999 ML IV (02:52)
--- OUTSIDE RECORDS SUMMARY | 2023-11-27 02:57 | XMS RPT_ITS | CCD ---
Author Name Unknown Address [address] [place] [address] Organization [facility] Care Team Providers Care Adjunct Faculty Mathematics Department Name Role Phone MARIAM CASTRO Unavailable Unavailable [...] temperature 98.1 [degF] Treatment Wstr Work Phone: [facility] 11-17-2023 13:33-0500 Diastolic blood pressure 86 mm[Hg] Treatment Wstr Work Phone: [facility] 11-17-2023 13:33-0500 Heart rate 103 /min Treatment Wstr Work Phone: [facility] 11-17-2023 13:33-0500 Respiratory rate 18 /min Treatment Wstr Work Phone: [facility] 11-17-2023 13:33-0500 SaO2% (BldA) [Mass fraction] 97 % Treatment Wstr Work Phone: [facility] 11-17-2023 13:33-0500 Systolic blood pressure 133 mm[Hg] Treatment Wstr Work Phone: [facility] 09-22-2023 13:15-0500 Body temperature 97.2 [degF] Treatment Wstr Work Phone: [facility] 09-22-2023 13:15-0500 Diastolic blood pressure 80 mm[Hg] Treatment Wstr Work Phone: [facility] 09-22-2023 13:15-0500 Heart rate 99 /min Treatment Wstr Work Phone: [facility] 09-22-2023 13:15-0500 SaO2% (BldA) [Mass fraction] 97 % Treatment Wstr Work Phone: [facility] 09-22-2023 13:15-0500 Systolic blood pressure 120 mm[Hg] Treatment Wstr Work Phone: [facility] 07-28-2023 14:00-0400 Body temperature 98.1 [degF] Treatment Wstr Work Phone: [facility] 07-28-2023 14:00-0400 Body weight 83.46 kg Treatment Wstr Work Phone: [facility] 07-28-2023 14:00-0400 Diastolic blood pressure 75 mm[Hg] Treatment Wstr Work Phone: [facility] 07-28-2023 14:00-0400 Heart rate 85 /min Treatment Wstr Work Phone: [facility] 07-28-2023 14:00-0400 Respiratory rate 18 /min Treatment Wstr Work Phone: [facility] 07-28-2023 14:00-0400 SaO2% (BldA) [Mass fraction] 99 % Treatment Wstr Work Phone: [facility] 07-28-2023 14:00-0400 Systolic blood pressure 115 mm[Hg] Treatment Wstr Work Phone: [facility] 06-02-2023 14:23-0400 Body temperature 98.29 [degF] Treatment Wstr Work Phone: [facility] 06-02-2023 14:23-0400 Body weight 83.69 kg Treatment Wstr Work Phone: [facility] 06-02-2023 14:23-0400 Diastolic blood pressure 76 mm[Hg] Treatment Wstr Work Phone: [facility] 06-02-2023 14:23-0400 Heart rate 87 /min Treatment Wstr Work Phone: [facility] 06-02-2023 14:23-0400 SaO2% (BldA) [Mass fraction] 98 % Treatment Wstr Work Phone: [facility] 06-02-2023 14:23-0400 Systolic blood pressure 117 mm[Hg] Treatment Wstr Work Phone: [facility] 05-25-2023 09:08-0400 Body height 160 cm Robbie Rob MD Work Phone: [facility] 05-25-2023 09:08-0400 Body weight 79.38 kg Robbie Rob MD Work Phone: [facility] 05-25-2023 09:08-0400 Diastolic blood pressure 78 mm[Hg] Robbie Rob MD Work Phone: [facility] 05-25-2023 09:08-0400 Heart rate 74 /min Robbie Rob MD Work Phone: [facility] 05-25-2023 09:08-0400 Respiratory rate 16 /min Robbie Rob MD Work Phone: [facility] 05-25-2023 09:08-0400 Systolic blood pressure 112 mm[Hg] Robbie Rob MD Work Phone: [facility] 02-10-2023 15:00-0400 Body temperature 97.81 [degF] Treatment Wstr Work Phone: [facility] 02-10-2023 15:00-0400 Diastolic blood pressure 80 mm[Hg] Treatment Wstr Work Phone: [facility] 02-10-2023 15:00-0400 Heart rate 82 /min Treatment Wstr Work Phone: [facility] 02-10-2023 15:00-0400 Respiratory rate 18 /min Treatment Wstr Work Phone: [facility] 02-10-2023 15:00-0400 SaO2% (BldA) [Mass fraction] 100 % Treatment Wstr Work Phone: [facility] 02-10-2023 15:00-0400 Systolic blood pressure 133 mm[Hg] Treatment Wstr Work Phone: [facility] 12-21-2022 09:10-0400 Body temperature 97.7 [degF] Ketty Praisler-Wood AUTOMATION AND CONTROL ENGINEER.VOCATIONAL AIDE Work Phone: [facility] 12-21-2022 09:10-0400 Body weight 79.02 kg Ketty Praisler-Wood AUTOMATION AND CONTROL ENGINEER.VOCATIONAL AIDE Work Phone: [facility] 12-21-2022 09:10-0400 Diastolic blood pressure 84 mm[Hg] Ketty Praisler-Wood AUTOMATION AND CONTROL ENGINEER.VOCATIONAL AIDE Work Phone: [facility] 12-21-2022 09:10-0400 Heart rate 92 /min Ketty Praisler-Wood AUTOMATION AND CONTROL ENGINEER.VOCATIONAL AIDE Work Phone: [facility] 12-21-2022 09:10-0400 Respiratory rate 21 /min Ketty Praisler-Wood AUTOMATION AND CONTROL ENGINEER.VOCATIONAL AIDE Work Phone: [facility] 12-21-2022 09:10-0400 SaO2% (BldA) [Mass fraction] 98 % Ketty Rosibel SANTILLANN.VOCATIONAL AIDE Work Phone: [facility] 12-21-2022 09:10-0400 Systolic blood pressure 122 mm[Hg] Kettyvishnu Gleason APRN.VOCATIONAL AIDE Work Phone: [facility] 12-16-2022 14:52-0500 Body temperature 98.01 [degF] Treatment Wstr Work Phone: [facility] 12-16-2022 14:52-0500 Diastolic blood pressure 82 mm[Hg] Treatment Wstr Work Phone: [facility] 12-16-2022 14:52-0500 Heart rate 85 /min Treatment Wstr Work Phone: [facility] 12-16-2022 14:52-0500 Respiratory rate 16 /min Treatment Wstr Work Phone: [facility] 12-16-2022 14:52-0500 Systolic blood pressure 134 mm[Hg] Treatment Wstr Work Phone: [facility] 10-21-2022 13:21-0500 Body temperature 97.3 [degF] Treatment Wstr Work Phone: [facility] 10-21-2022 13:21-0500 Body weight 77.79 kg Treatment Wstr Work Phone: [facility] 10-21-2022 13:21-0500 Diastolic blood pressure 72 mm[Hg] Treatment Wstr Work Phone: [facility] 10-21-2022 13:21-0500 Heart rate 88 /min Treatment Wstr Work Phone: [facility] 10-21-2022 13:21-0500 Respiratory rate 16 /min Treatment Wstr Work Phone: [facility] 10-21-2022 13:21-0500 SaO2% (BldA) [Mass fraction] 100 % Treatment Wstr Work Phone: [facility] 10-21-2022 13:21-0500 Systolic blood pressure 132 mm[Hg] Treatment Wstr Work Phone: [facility] 07-29-2022 15:21-0400 Body temperature 97.11 [degF] Treatment Wstr Work Phone: [facility] 07-29-2022 15:21-0400 Diastolic blood pressure 81 mm[Hg] Treatment Wstr Work Phone: [facility] 07-29-2022 15:21-0400 Heart rate 81 /min Treatment Wstr Work Phone: [facility] 07-29-2022 15:21-0400 Systolic blood pressure 116 mm[Hg] Treatment Wstr Work Phone: [facility] 07-15-2022 14:44-0400 Body temperature 98.49 [degF] Treatment Wstr Work Phone: [facility] 07-15-2022 14:44-0400 Diastolic blood pressure 82 mm[Hg] Treatment Wstr Work Phone: [facility] 07-15-2022 14:44-0400 Heart rate 82 /min Treatment Wstr Work Phone: [facility] 07-15-2022 14:44-0400 Respiratory rate 16 /min Treatment Wstr Work Phone: [facility] 07-15-2022 14:44-0400 SaO2% (BldA) [Mass fraction] 98 % Treatment Wstr Work Phone: [facility] 07-15-2022 14:44-0400 Systolic blood pressure 117 mm[Hg] Treatment Wstr Work Phone: [facility] 06-11-2022 13:42-0400 Body height 160 cm Catrachito Ribakow PA-C Work Phone: [facility] 06-11-2022 13:42-0400 Body temperature 98.2 [degF] Catrachito Ribakow PA-C Work Phone: [facility] 06-11-2022 13:42-0400 Body weight 76.2 kg Catrachito Ribakow PA-C Work Phone: [facility] 06-11-2022 13:42-0400 Diastolic blood pressure 88 mm[Hg] Catrachito Ribakow PA-C Work Phone: [facility] 06-11-2022 13:42-0400 Heart rate 82 /min Catrachito Ribakow PA-C Work Phone: [facility] 06-11-2022 13:42-0400 SaO2% (BldA) [Mass fraction] 100 % Catrachito Ribakow PA-C Work Phone: [facility] 06-11-2022 13:42-0400 Systolic blood pressure 127 mm[Hg] Catrachito Ribakow PA-C Work Phone: [facility] 05-13-2022 07:29-0400 Heart rate 98 /min Es Bogner PA-C Work Phone: [facility] 05-13-2022 07:20-0400 Body temperature 98.8 [degF] Es Bogner PA-C Work Phone: [facility] 05-13-2022 07:20-0400 Body weight 77.11 kg Es Bogner PA-C Work Phone: [facility] 05-13-2022 07:20-0400 Diastolic blood pressure 80 mm[Hg] Es Bogner PA-C Work Phone: [facility] 05-13-2022 07:20-0400 Respiratory rate 16 /min Es Bogner PA-C Work Phone: [facility] 05-13-2022 07:20-0400 SaO2% (BldA) [Mass fraction] 98 % Es Bogner PA-C Work Phone: [facility] 05-13-2022 07:20-0400 Systolic blood pressure 122 mm[Hg] Es Bogner PA-C Work Phone: [facility] 01-10-2022 16:30-0400 Respiratory rate 16 /min Jt Perez MD Work Phone: [facility] 01-10-2022 16:29-0400 Heart rate 87 /min Jt Perez MD Work Phone: [facility] 01-10-2022 16:29-0400 SaO2% (BldA) [Mass fraction] 100 % Jt Perez MD Work Phone: [facility] 01-10-2022 16:21-0400 Diastolic blood pressure 72 mm[Hg] Jt Perez MD Work Phone: [facility] 01-10-2022 16:21-0400 Systolic blood pressure 122 mm[Hg] Jt Perez MD Work Phone: [facility] 01-10-2022 13:53-0400 Body height 160 cm Jt Perez MD Work Phone: [facility] 01-10-2022 13:53-0400 Body temperature 97 [degF] Jt Perez MD Work Phone: [facility] 01-10-2022 13:53-0400 Body weight 77.11 kg Jt Perez MD Work Phone: [facility] Encounters Encounter Date Encounter Type Care Provider Facility Start: 11-17-2023 End: 11-17-2023 ambulatory JT PEREZ Facility:[facility] Start: 11-17-2023 End: 11-17-2023 ambulatory Treatment Rm 11 Atul [facility] Wstr Work Phone: Hematology/Oncology Procedures [...] (1 of 3 - Risk 3-dose series) [facility] Start: 2045 Hepatitis B Vaccine (1 of 3 - Risk 3-dose series) Hepatitis B Vaccine (1 of 3 - Risk 3-dose series) [facility] Start: 09-15-2033 Urine microalbumin profile DTaP,Tdap,Td Vaccine (3 - Td or Tdap) [facility] Start: 07-05-2031 Urine microalbumin profile [facility] Start: 05-25-2024 ANNUAL PCP TEAM CHRONIC DISEASE VISIT ANNUAL PCP TEAM CHRONIC DISEASE VISIT [facility] Start: 10-12-2023 Depression Assessment Depression Assessment [facility] Start: 10-09-2023 RSV Vaccine (1 - Risk 1-dose series) RSV Vaccine (1 - Risk 1-dose series) [facility] Start: 06-13-2023 Adult depression screening assessment DEPRESSION SCREENING [facility] Start: 06-12-2023 Covid-19 Vaccine ( season) Covid-19 Vaccine ( season) [facility] Start: 06-12-2023 Influenza vaccination [facility] Start: 03-31-2023 End: 05-31-2023 CBC W Auto Differential panel - Blood CBC + DIFF Lab Routine Inflammatory bowel disease Expected: 03/31/2023, Expires: 05/31/2023 [facility] Work Phone: Immunizations Immunization Date Immunization Notes Care Provider Fa cility 11-03-2022 Human Papillomavirus 9-valent vaccine [facility] Work Phone: [facility] 08-18-2022 Human Papillomavirus 9-valent vaccine Catrachito Ribakow PA-C Work Phone: [facility] Work Phone: 08-18-2022 zoster vaccine recombinant Catrachito Ribakow PA-C Work Phone: [facility] Work Phone: 07-02-2022 Influenza, injectabl e, Madin Love Canine Kidney, preservative free, quadrivalent [facility] Work Phone: [facility] Work Phone: 07-02-2022 pneumococcal (PCV20) vaccine, 20 valent (PREVNAR 20) [facility] Work Phone: [facility] Work Phone: 07-02-2022 influenza virus vacc ine, unspecified formulation [facility] Work Phone: [facility] 08-27-2021 COVID-19 vaccine, ag e 12+ yr (PFIZER-BIONTECH - PURPLE TOP) Catrachito Ribakow PA-C Work Phone: [facility] Work Phone: 08-16-2021 influenza, injectabl e, quadrivalent, preservative free Robbie Rob MD Work Phone: [facility] 07-05-2021 tetanus toxoid, redu skyler diphtheria toxoid, and acellular pertussis vaccine, adsorbed Abel Masci DO Work Phone: [facility] Work Phone: 12-28-2020 COVID-19 vaccine, ag e 12+ yr (PFIZER-BIONTECH - PURPLE TOP) Catrachito Ribakow PA-C Work Phone: [facility] Work Phone: 12-07-2020 COVID-19 vaccine, ag e 12+ yr (PFIZER-BIONTECH - PURPLE TOP) Catrachito Garcia PA-C Work Phone: [facility] Work Phone: 08-14-2020 influenza, injectabl e, quadrivalent, preservative free Robbie Rob MD Work Phone: [facility] 08-11-2019 Influenza, injectabl e, Madin Bonner Canine Kidney, preservative free, quadrivalent Robbie Rob MD Work Phone: [facility] Payers Date Payer Category Payer Private Health Insurance [id number] 2017 Private Health Insurance [id number] 2017 Private Health Insurance [employer] A ETNA CHOICE POS II [id number] 2017-Present [phone] [address] [place] [address] POS [id number] 2017 Private Health Insurance [id number] 1985 Unknown [id number] Social History Date Type Detail Facility Start: 03-14-2015 Tobacco smoking status INIS Smokes tobacco daily [facility] Work Phone: Start: 03-14-2015 End: 03-31-2023 Cigarettes smoked current (pack per day) - Reported 0.5 [facility] Start: 03-14-2015 End: 06-11-2022 Tobacco use and exposure Smokeless tobacco non-user [facility] Work Phone: Start: 04-04-2020 End: 12-21-2022 Alcohol intake Current drinker of alcohol (finding) [facility] Start: 04-08-2012 History SDOH Alcohol Comment 1 drink weekly [facility] Start: 03-14-2015 End: 06-11-2022 Tobacco Comment electronic cig [facility] Start: 1985 Sex Assigned At Not on file [facility] Start: 12-14-2021 End: 06-28-2022 Exposure to SARS-CoV-2 (event) Not sure [facility] Start: 1985 Sex Assigned At Female [facility] Start: 03-25-2022 End: 04-04-2022 Exposure to SARS-CoV-2 (event) Unable to assess [facility] History of tobacco use Cigarette Smoker C [facility] Work Phone: Start: 06-11-2022 Tobacco smoking status NHIS Ex-smoker [facility] History of tobacco use Current smoker [facility] Start: 12-21-2022 End: 03-31-2023 Tobacco use panel [facility] Adult Depression Screening Assessment 4 [facility] Start: 01-01-2022 Gender identity Identifies as female gender (finding) [facility] Start: 01-01-2022 Sexual orientation Heterosexual (finding) [facility] Start: 05-25-2023 Alcohol intake Ex-drinker (finding) [facility] Do you belong to any clubs or organizations such as zoroastrian groups, [employer], [employer] or athletic groups, or school groups? Yes [facility] Are you now , , , , never or living with a partner? [facility] How often to you hav e a drink containing alcohol? Never [facility] Do you feel stress - tense, restless, nervous, or anxious, or unable to sleep at night because your mind is troubled all the time - these days [OSQ] To some extent [facility] (I/We) worried wheth er (my/our) food would run out before (I/we) got money to buy more. Never true [facility] In the past 12 month s, was there a time when you were not able to pay the mortgage or rent on time? No [facility] Start: 03-13-2023 [facility] Clinical Notes 12-30-2021 to 11-12-2023 June Castro APRN.VOCATIONAL AIDE - 11/12/2023 8:30 AM Shonda Pastor [facility] - 06/23/2023 10:30 AM Robbie Casper MD - 05/25/2023 9:12 June Kaba APRN.CNP - 05/13/2023 11:30 AM EDT Note Date & Type Note Facility 11-12-2023 Note HNO ID: [id number] Author: JUNE CASTRO APRN.GHAZALA Service: ? Author Type: Nurse Practitioner Type: Progress Notes Filed: 11/12/2023 08:51 Note Text: VIRTUAL VISIT FOLLOW UP Teetee Louis [id number] 1985 has requested a video telemedicine for [...] visit. Either the patient or their legal tax compliance representative has been informed of the risks [...] IV Q8 weeks - LD: 09/22/2023 @ [facility] Rekha PAST SURGICAL HISTORY Procedure Laterality Date COLONOSCOPY 2001 In [place] AND [place] in [place] COLONOSCOPY FLX DX W/COLLJ SPEC WHEN PFRMD 05/04/14 Colonoscopy INDUCED - EVACUATION 2009 PAST SURGICAL HISTORY OF umbilical hernia repair Current Outpatient Medications Medication Sig Dispense Refill vedolizumab (ENTYVIO INTRAVENOUS) Inject intravenously. Every 8 weeks at [place] levothyroxine (SYNTHROID) 100 mcg tablet Take 1 [...] hernias: No Incisi (more content not included)... [facility] 11-12-2023 History of Presen t illness Narrative VIRTUAL VISIT FOLLOW UP Teetee Louis [id number] 1985 has requested a video telemedicine for [...] visit. Either the patient or their legal tax compliance representative has been informed of the risks [...] IV Q8 weeks - LD: 09/22/2023 @ [facility] Rekha PAST SURGICAL HISTORY Procedure Laterality Date COLONOSCOPY 2007, 2001 In [place] & [place] in [place] COLONOSCOPY FLX DX W/COLLJ SPEC WHEN PFRMD 05/04/14 Colonoscopy INDUCED - EVACUATION 2009 PAST SURGICAL HISTORY OF umbilical hernia repair Current Outpatient Medications Medication Sig Dispense Refill vedolizumab (ENTYVIO INTRAVENOUS) Inject intravenously. Every 8 weeks at [place] levothyroxine (SYNTHROID) 100 mcg tablet Take 1 [...] with more than 50% of the total [id number] time of the visit in counseling / coordination of care. I have confirmed and edited as necessary, the PFSH and ROS obtained by others. Unrelated to E/M, telemedicine, or virtual visit service provided within previous 7 days. No E/M service or procedure anticipated within next 24 hours. June Castro APRN.CNP November 12, 2023 8:51 AM documented in this encounter [facility] 06-23-2023 Note HNO ID: [id number] Author: Shonda Jiang RPh Service: ? Author Type: Pharmacist Type: Progress Notes Filed: 06/23/2023 11:45 AM Note Text: IBD Medication Consult [facility] [place] Patient consents to pharmacy consult agreement. Patient [...] HISTORY Procedure Laterality Date COLONOSCOPY 2001 In [place] AND [place] in [place] COLONOSCOPY FLX DX W/COLLJ SPEC WHEN PFRMD 05/04/14 Colonoscopy INDUCED - EVACUATION 2009 PAST SURGICAL HISTORY OF umbilical hernia repair Current Outpatient Medications Medication Sig Dispense Refill vedolizumab (ENTYVIO INTRAVENOUS) Inject intravenously. Every 8 weeks at [place] levothyroxine (SYNTHROID) 100 mcg tablet Take 1 [...] ileum was normal (more content not included)... [facility] 06-23-2023 History of Presen t illness Narrative Images from the original note were not included. IBD Medication Consult [facility] [place] Patient consents to pharmacy consult agreement. Patient [...] HISTORY Procedure Laterality Date COLONOSCOPY 2001 In [place] & [place] in [place] COLONOSCOPY FLX DX W/COLLJ SPEC WHEN PFRMD 05/04/14 Colonoscopy INDUCED - EVACUATION 2009 PAST SURGICAL HISTORY OF umbilical hernia repair Current Outpatient Medications Medication Sig Dispense Refill vedolizumab (ENTYVIO INTRAVENOUS) Inject intravenously. Every 8 weeks at [place] levothyroxine (SYNTHROID) 100 mcg tablet Take 1 [...] + Due for dose #13 Oct 2022 [facility] pharmacy Tetanus, diphtheria, pertussis (Tdap or Td) One dose Tdap then Td every 10 years 07/05/21 Yes HPV Females < 45 years old and males < 26 years old; 2 dose series if <15 years old 08/18/2210/2022 No In progress - Dose #3 - February 2023 [facility] pharmacy Medication lab monitoring up to date: [...] GI symptoms. - Updated med list in [facility] Health Maintenance - Recommend the following vaccines: hepatitis A, zoster recombinant (to be obtained at pharmacy), and HPV (to be obtained at PCP or head correction officer office), will hold off on all three [...] spent (mins): 30 documented in this encounter [facility] 05-25-2023 Note HNO ID: [id number] Author: Robbie Rob MD Service: ? Author [...] INTRAVENOUS) Inject intravenously. Every 8 weeks at [place] magnesium oxide (MAG-OX) 400 mg (241.3 mg [...] HISTORY Procedure Laterality Date COLONOSCOPY 2001 In [place] AND [place] in [place] COLONOSCOPY FLX DX W/COLLJ SPEC WHEN PFRMD [...] Judgment: Judgment normal. Reviewed labs done through [facility] lab through Care Everywhere. CBC, TFTs, metabolic panel, etc. Assessment and Plan Encounter Diagnosis ICD-10-CM 1. Acquired hypothyroidism E03.9 levothyroxine (SYNTHROID) 100 mcg tablet 2. Crohn's disease of both small and large intestine without complication ([facility]) K50.80 vedolizumab (ENTYVIO INTRAVENOUS) 3. Acne [...] history, exam and (more content not included)... [facility] 05-25-2023 History of Presen t illness Narrative [...] INTRAVENOUS) Inject intravenously. Every 8 weeks at [place] magnesium oxide (MAG-OX) 400 mg (241.3 mg [...] Procedure Laterality Date COLONOSCOPY 2007, 2001 In [place] & [place] in [place] COLONOSCOPY FLX DX W/COLLJ SPEC WHEN PFRMD [...] Judgment: Judgment normal. Reviewed labs done through [facility] lab through Care Everywhere. CBC, TFTs, metabolic [...] labs done closely throughout . OB at [facility]. Continues current dose. Will continue management of Crohn's through Dr. Perez. Robbie Rob MD documented in this encounter [facility] 05-13-2023 Note HNO ID: [id number] Author: June Castro APRN.VOCATIONAL AIDE Service: ? Author Type: Nurse Practitioner Type: Progress Notes Filed: 05/13/2023 11:50 AM Note Text: VIRTUAL VISIT FOLLOW UP Teetee Louis [phone] 1985 has requested a video telemedicine for [...] visit. Either the patient or their legal tax compliance representative has been informed of the risks [...] Q8 weeks - LD: 04/07/2023 @ [facility] - due next on 06/02/2023 PAST SURGICAL HISTORY Procedure Laterality Date COLONOSCOPY 2001 In [place] AND [place] in [place] COLONOSCOPY FLX DX W/COLLJ SPEC WHEN PFRMD [...] None Areas o (more content not included)... [facility] 05-13-2023 History of Presen t illness Narrative VIRTUAL VISIT FOLLOW UP Teetee Louis [phone] 1985 has requested a video telemedicine for [...] visit. Either the patient or their legal tax compliance representative has been informed of the risks [...] HISTORY Procedure Laterality Date COLONOSCOPY 2001 In [place] & [place] in [place] COLONOSCOPY FLX DX W/COLLJ SPEC WHEN PFRMD [...] Abs Lymph 1.00 - 4.00 k/uL 1.79 [place]% % 7.1 Abs [place] <0.87 k/uL 0.55 [place]% % 1.0 Abs [...] if there is an issue getting child protective investigator arranged d/t not having updated vaccines. Reviewed [...] with more than 50% of the total [id number]-lg-[id number] time of the visit in counseling / coordination of care. I have confirmed and edited as necessary, the PFSH and ROS obtained by others. Unrelated to E/M, telemedicine, or virtual visit service provided within previous 7 days. No E/M service or procedure anticipated within next 24 hours. June Castro APRN.CNP May 13, 2023 11:49 AM documented in this encounter [facility] 03-31-2023 Note HNO ID: [id number] Author: Shonda Jiang RPh Service: ? Author Type: Pharmacist Type: Progress Notes Filed: 03/31/2023 11:08 AM Note Text: IBD Medication Consult [facility] [place] Patient consents to pharmacy consult agreement. Patient [...] HISTORY Procedure Laterality Date COLONOSCOPY 2001 In [place] in [place] COLONOSCOPY FLX DX W/COLLJ SPEC WHEN PFRMD [...] Normal examined duode (more content not included)... [facility] 03-31-2023 History of Presen t illness Narrative IBD Medication Consult [facility] [place] Patient consents to pharmacy consult agreement. Patient [...] Procedure Laterality Date COLONOSCOPY 2007, 2001 In [place] & [place] in [place] COLONOSCOPY FLX DX W/COLLJ SPEC WHEN PFRMD [...] + Due for dose #13 Oct 2022 [facility] pharmacy Tetanus, diphtheria, pertussis (Tdap or Td) One dose Tdap then Td every 10 years 07/05/21 Yes HPV Females < 45 years old and males < 26 years old; 2 dose series if <15 years old 08/18/2210/2022 No In progress - Dose #3 - February 2023 [facility] pharmacy Medication lab monitoring up to date: [...] GI symptoms. - Updated med list in [facility] Health Maintenance - Recommend the following vaccines: hepatitis A, zoster recombinant (to be obtained at pharmacy), and HPV (to be obtained at PCP or head correction officer office), will hold off on all three [...] spent (mins): 30 documented in this encounter [facility] 01-07-2023 Note HNO ID: [id number] Author: Shonda Jiang RPh Service: ? Author Type: Pharmacist Type: Progress Notes Filed: 01/07/2023 3:39 PM Note Text: IBD Medication Consult [facility] [place] Patient consents to pharmacy consult agreement. Patient [...] Procedure Laterality Date COLONOSCOPY 2007, 2001 In [place] in [place] COLONOSCOPY FLX DX W/COLLJ SPEC WHEN PFRMD [...] duodenum. Biopsied. Biopsi (more content not included)... [facility] 01-07-2023 History of Presen t illness Narrative IBD Medication Consult [facility] [place] Patient consents to pharmacy consult agreement. Patient Name: Teetee E Heriberto IBD Provider: Dr. Perez IBD: Crohn's disease [K50.90] Locations affected: jejunum and colon Behavior: inflammatory Perianal disease: No IBD Dx (year) : 2019 Prior surgeries: No January 07, 2022 Reason for consult: efficacy, safety, health maintenance review, and reconciliation Teetee Kenney Audrain is a 37 year old White female [...] HISTORY Procedure Laterality Date COLONOSCOPY 2001 In [place] & [place] in [place] COLONOSCOPY FLX DX W/COLLJ SPEC WHEN PFRMD [...] CSP 04/21/23. - Updated med list in [facility] Health Maintenance - Recommend the following vaccines: hepatitis A, zoster recombinant (to be obtained at pharmacy), and HPV (to be obtained at PCP or head correction officer office), will hold off on all three [...] spent (mins): 25 documented in this encounter [facility] 12-31-2022 Note HNO ID: [id number] Author: Ramin Muller PSYD Service: ? Author Type: Psychologist Type: Progress Notes Filed: 12/31/2022 2:45 PM Note Text: [facility]CH[facility] FOLLOW-UP December 31, 2022 Teetee Louis CPT Code: 15203 Psychotherapy 38-52 minutes Time initiated session: 11:00 AM to 11:45 AM Session #: 5 Collateral Parties Present: none. I have communicated my name and active licensure. The patient's identity and physical location were verified at the time of this visit. Either the patient or their legal tax compliance representative has been informed of the risks [...] Psychologist AND Billing Provider: Ramin Muller PSYD [facility] 12-31-2022 History of Presen t illness Narrative Images from the original note were not included. [facility]-UP December 31, 2022 Teetee Louis CPT Code: 01211 Psychotherapy 38-52 minutes Time initiated session: 11:00 AM to 11:45 AM Session #: 5 Collateral Parties Present: none. I have communicated my name and active licensure. The patient's identity and physical location were verified at the time of this visit. Either the patient or their legal tax compliance representative has been informed of the risks [...] Ramin Muller PSYD documented in this encounter [facility] 12-21-2022 Note HNO ID: [id number] Author: Ketty Gleason APRN.VOCATIONAL AIDE Service: ? Author Type: Nurse Practitioner Type: [...] HISTORY Procedure Laterality Date COLONOSCOPY 2001 In [place] in [place] COLONOSCOPY FLX DX W/COLLJ SPEC WHEN PFRMD [...] expected course of illness Ketty Gleason APRN.CNP [facility] 12-21-2022 Instructions Ketty Gleason APRN.CNP - 12/21/2022 [...] expected course of illness Ketty Gleason APRN.CNP [facility] PATIENT INFO BLADDER INFECTION OVERVIEW Bladder infections [...] have an infection. documented in this encounter [facility] 12-21-2022 History of Presen t illness Narrative [...] HISTORY Procedure Laterality Date COLONOSCOPY 2001 In [place] & [place] in [place] COLONOSCOPY FLX DX W/COLLJ SPEC WHEN PFRMD [...] Discussed expected course of illness Ketty Gleason APRN.VOCATIONAL AIDE documented in this encounter [facility] 12-19-2022 Miscellaneous Notes IBD PharmD Appt Called pt as no-show. No reply, call went to . Will send [employer] message. documented in this encounter [facility] 12-17-2022 Note HNO ID: [id number] Author: Ramin Muller PSYD Service: ? Author Type: Psychologist Type: Progress Notes Filed: 12/17/2022 11:57 AM Note Text: [facility]YCH[facility] FOLLOW-UP December 17, 2022 Teetee Louis CPT Code: 23874 Psychotherapy 38-52 minutes Time initiated session: 11:00 [...] Psychologist AND Billing Provider: Ramin Muller PSYD [facility] 12-17-2022 History of Presen t illness Narrative Images from the original note were not included. [facility]-UP December 17, 2022 Teetee Louis CPT Code: 69016 Psychotherapy 38-52 minutes Time initiated session: 11:00 [...] Ramin Muller PSYD documented in this encounter [facility] 12-16-2022 Note HNO ID: [id number] Author: Jt Perez MD Service: ? Author Type: Physician Type: Progress Notes Filed: 12/16/2022 8:54 AM Note Text: VIRTUAL VISIT FOLLOW UP Teetee Louis [id number] 1985 has requested a video telemedicine for [...] Abs Lymph 1.00 - 4.00 k/uL 1.80 [place]% % 7.9 Abs [place] <0.87 k/uL 0.51 Eosin% % 1.2 Abs [...] which included preparing to see the patient, ntiw-it-iolr patient care, completing clinical documentation, obtaining and/or reviewing separately obtained history, counseling and educating the patient/family/caregiver, and ordering medications, tests, or procedures. Jt Perez MD [facility] 11-19-2022 Note HNO ID: [id number] Author: Ramin Muller PSYD Service: ? Author Type: Psychologist Type: Progress Notes Filed: 11/19/2022 11:37 AM Note Text: [facility]CH[facility] FOLLOW-UP November 19, 2022 Teetee Louis CPT Code: 44059 Psychotherapy 16-37 minutes Time initiated session: 11:00 [...] Psychologist AND Billing Provider: Ramin Muller PSYD [facility] 11-19-2022 History of Presen t illness Narrative Images from the original note were not included. [facility]-UP November 19, 2022 Teetee Louis CPT Code: 05984 Psychotherapy 16-37 minutes Time initiated session: 11:00 [...] Ramin Muller PSYD documented in this encounter [facility] 11-05-2022 History of Presen t illness Narrative Images from the original note were not included. [facility]-UP November 05, 2022 Teetee Louis CPT Code: 30920 Psychotherapy 38-52 minutes Time initiated session: 11:03 [...] Ramin Muller PSYD documented in this encounter [facility] 09-26-2022 Miscellaneous Notes Images from the original note were not included. Catrachito Garcia PA-C You 2 minutes ago (10:41 AM) She can stop lialda at this time Catrachito Garcia PA-C Patient notified of recommendation in a [employer] message. documented in this encounter [facility] 08-01-2022 History of Presen t illness Narrative Virtual Follow Up Visit Provider Location: [facility] Patient Location: Patient Home or Place of Residence SUBJECTIVE Teetee Louis [id number] 1985 has requested a video telemedicine for [...] COVID-19 booster vaccine, age 12+ yr, bivalent ([employer]) 06/28/2022 COVID-19 original vaccine, age 12+ yr, monovalent ([employer] - PURPLE TOP) 12/07/2020 12/28/2020 08/27/2021 Tdap [...] HISTORY Procedure Laterality Date COLONOSCOPY 2001 In [place] & [place] in [place] COLONOSCOPY FLX DX W/COLLJ SPEC WHEN PFRMD [...] No history of dysuria, frequency or incontinence WELL PULLER HEAD: Negative for abnormal vaginal bleeding, abnormal vaginal [...] with more than 50% of the total olwt-iu-kejb time of the visit in counseling / [...] 2022 10:26 AM documented in this encounter [facility] 07-23-2022 Miscellaneous Notes I called and spoke to Teetee and rescheduled her appointments as she requested. Tianna Lyman Pss Pt called in to change the dates of her infusion. Please call patient back at [phone] NATALIA Davison documented in this encounter [facility] 07-22-2022 History of Presen t illness Narrative IBD Medication Consult [facility] [place] Patient consents to pharmacy consult agreement. Patient [...] first letter stays 46 days approved for [place]; second letter dated 07/08/22 says approved for [...] HISTORY Procedure Laterality Date COLONOSCOPY 2001 In [place] & [place] in [place] COLONOSCOPY FLX DX W/COLLJ SPEC WHEN PFRMD [...] me a copy of the letter through [employer]. - Continue Lialda 4.8 g PO daily for now, with plan to discontinue once supply is completed or after completion of third induction dose. - Discontinue Canasa suppository given ADRs. - Labs: Plan to repeat in 3 months (Oct 2022) - Updated med list in [facility] Health Maintenance - Recommend the following vaccines: hepatitis A, zoster recombinant (to be obtained at pharmacy), and HPV (to be obtained at PCP or head correction officer office) - Recommend the following health maintenance [...] spent (mins): 30 documented in this encounter [facility] 07-21-2022 Miscellaneous Notes 1st-time treatment report. The patient is currently being seen for a non-oncology regimen. No navigator services are needed at this time. documented in this encounter [facility] 07-16-2022 Miscellaneous Notes SW called and spoke [...] assist. Le Castillo documented in this encounter [facility] 07-02-2022 Miscellaneous Notes Called the patient about VOC fingerprint study for the prediction of biologics response in IBD patient didn't answer , left voice message to call back . documented in this encounter [facility] 07-02-2022 Miscellaneous Notes Spoke with patient and scheduled. Le Castillo Patient is calling to schedule [id number] (Canceled) - INJECTION, VEDOLIZUMAB she states referral is approved please call patient to schedule. documented in this encounter [facility] 06-27-2022 History of Presen t illness Narrative IBD Medication Consult [facility] [place] Patient consents to pharmacy consult agreement. Patient [...] HISTORY Procedure Laterality Date COLONOSCOPY 2001 In [place] in [place] COLONOSCOPY FLX DX W/COLLJ SPEC WHEN PFRMD [...] and adverse effects. Placed therapy plan for [facility]. Also provided info re: copay assistance program; advised to sign up after prior auth approval. - Continue Lialda 4.8 g PO daily and mesalamine suppository nightly. - Labs: Due for baseline biologic labs - orders placed. - Updated med list in [facility] Health Maintenance - Recommend the following vaccines: PCV20, influenza, zoster recombinant (to be obtained at pharmacy), HPV (to be obtained at PCP or head correction officer office), and COVID 19. Will check Hep [...] spent (mins): 60 documented in this encounter [facility] 06-11-2022 Instructions Jordyn Gross APRN.CNP - 06/11/2022 2:37 PM EDT Follow up in 4-6 weeks Start Canasa nightly Continue Lialda Repeat fecal calprotectin (stool test) and other labs in 1 month documented in this encounter [facility] 06-11-2022 History of Presen t illness Narrative [...] will have her follow-up with Shonda Jiang [facility] to discuss biologic medication further. I [...] which included preparing to see the patient, srhn-vn-cthx patient care, completing clinical documentation, obtaining and/or reviewing separately obtained history, performing a medically appropriate examination, counseling and educating the patient/family/caregiver, and ordering medications, tests, or procedures. Catrachito Garcia PA-C June 10, 2022 4:07 PM documented in this encounter [facility] 05-19-[address] - 05/19/2022 [...] interested in giving it a try (https://www.ntforibd.org/what-i s-ojjmjzxzhkc-nmmkzzq/therapeuti c-diets/owwcqk-snwuyrp-nyzefwwhb -diet/). You can try adding pasta to [...] amount you absorb. Follow up with Simón aSxena RD, as needed. Please call [phone] to schedule an in-person visit or [phone] option 0 to schedule a virtual visit. documented in this encounter [facility] 05-19-2022 History of Presen t illness Narrative [...] Simón Saxena RD documented in this encounter [facility] 05-13-2022 History of Presen t illness Narrative [...] Es Montanez PA-C documented in this encounter [facility] 04-16-2022 History of Presen t illness Narrative Virtual Follow Up Visit Provider Location: [facility] Facility Patient Location: Patient Home or Place of Residence SUBJECTIVE Teetee Louis [id number] 1985 has requested a video telemedicine for [...] HISTORY Procedure Laterality Date COLONOSCOPY 2001 In [place] & [place] in [place] COLONOSCOPY FLX DX W/COLLJ SPEC WHEN PFRMD [...] No history of dysuria, frequency or incontinence WELL PULLER HEAD: has had some abnormal periods MUSCULOSKELETAL: Negative [...] with more than 50% of the total tzhe-vk-lcsp time of the visit in counseling / [...] 2022 3:56 PM documented in this encounter [facility] 03-24-2022 Instructions Simón Saxena, VIKASH - 03/24/2022 [...] at 11am virtually. documented in this encounter [facility] 06-13-2022 History of Presen t illness Narrative [...] beans, kidney beans, navy beans, northern beans. [place]. Peppers, broccoli. Snack - Sometimes ice cream. [...] min 4 units documented in this encounter [facility] 02-10-2022 History of Presen t illness Narrative Virtual Follow Up Visit Provider Location: [facility] Patient Location: Patient Home or Place of Residence NOAM Louis [id number] 1985 has requested a video telemedicine for [...] Procedure Laterality Date COLONOSCOPY 2007, 2001 In [place] & [place] in [place] COLONOSCOPY FLX DX W/COLLJ SPEC WHEN PFRMD [...] No history of dysuria, frequency or incontinence WELL PULLER HEAD: Negative for abnormal vaginal bleeding, abnormal vaginal [...] a history of Crohn's disease diagnosed in [facility] at the age of 15. Treated in [...] with more than 50% of the total umsf-tq-ljxs time of the visit in counseling / [...] 2022 2:26 PM documented in this encounter [facility] 01-10-2022 Nurse Note AMBULATORY PATIENT EDUCATION NOTE [...] In Department: GASTROENTEROLOGY documented in this encounter [facility] 01-10-2022 Miscellaneous Notes Colonoscope in Gastroscope out documented in this encounter [facility] 01-10-2022 History and physical note HISTORY AND [...] Karen Atwood DO documented in this encounter [facility] 01-08-2022 Instructions Catrachito Garcia PA-C - 01/08/2022 [...] If you do not have a responsible test driver (family member or friend) with you [...] exam. 2 09/2019 documented in this encounter [facility] 01-08-2022 History of Presen t illness Narrative Virtual Follow Up Visit Provider Location: [facility] Facility Patient Location: Patient Home or Place of Residence SUBJECTIVE Teetee Louis [id number] 1985 has requested a video telemedicine for [...] Procedure Laterality Date COLONOSCOP W/ OR W/O [facility] SPEC 05/04/14 Colonoscopy [facility]ONOSCOPY 2007, 2001 [place] [facility] [place] INDUCED - EVACUATION 2009 PAST SURGICAL HISTORY [...] No history of dysuria, frequency or incontinence WELL PULLER HEAD: Negative for abnormal vaginal bleeding, abnormal vaginal [...] with more than 50% of the total ddis-sv-hvqf time of the visit in counseling / [...] Perez Date: 01/08/2022 documented in this encounter [facility] 12-30-2021 Miscellaneous Notes Called patient for the [...] since it has been 4 years. A [employer] message will be sent to the patient with video instructions. Patient verbalized an understanding. Kerrie Trivedi RN Teetee called the office about the message below, Please call her back at [phone]. Janie Krishnan Returned patient call. Received voicemail. [...] any pain. Please call her back at [phone]. Janie Krishnan documented in this encounter [facility] Crohn's disease of large intestine with rectal bleeding (HCC)- Primary Regional enteritis of large intestine Inflammatory bowel disease Other and unspecified noninfectious gastroenteritis and colitis Epigastric pain Abdominal pain, epigastric Rectal bleeding Hemorrhage of rectum and anus Diarrhea, unspecified type [facility] Crohn's disease of large intestine with rectal bleeding (HCC) Regional enteritis of large intestine Epigastric pain Abdominal pain, epigastric [facility] Diagnosis Inflammatory bowel disease Other [...] with large intestine [facility] Diagnosis Crohn's disease of both [...] with large intestine [facility] Diagnosis Crohn's disease of both small and large intestine without complication (HCC)- Primary Regional enteritis of small intestine with large intestine [facility] Diagnosis Adjustment disorder with mixed anxiety and depressed mood- Primary Psychological factor affecting physical condition Psychic factors associated with diseases classified elsewhere Crohn's disease of both small and large intestine without complication (HCC) Regional enteritis of small intestine with large intestine [facility] Diagnosis Adjustment disorder with mixed anxiety and depressed mood- Primary Psychological factor affecting physical condition Psychic factors associated with diseases classified elsewhere Crohn's disease of both small and large intestine without complication (HCC) Regional enteritis of small intestine with large intestine [facility] Diagnosis Crohn's disease of both small and large intestine without complication (HCC)- Primary Regional enteritis of small intestine with large intestine [facility] Diagnosis Urinary frequency- Primary [facility] Diagnosis Adjustment disorder with mixed anxiety and depressed mood- Primary Psychological factor affecting physical condition Psychic factors associated with diseases classified elsewhere Crohn's disease of both small and large intestine without complication (HCC) Regional enteritis of small intestine with large intestine [facility] Diagnosis Inflammatory bowel disease- Primary [...] gastroenteritis and colitis documented in this encounter [facility] note* Diagnosis Inflammatory bowel disease- Primary Other and unspecified noninfectious gastroenteritis and colitis documented in this encounter [facility] note* Diagnosis Acquired hypothyroidism- Primary Unspecified hypothyroidism Crohn's disease of both small and large intestine without complication (HCC) Regional enteritis of small intestine with large intestine Acne vulgaris Other acne 13 weeks gestation of state, incidental documented in this encounter [facility] note* Diagnosis Crohn's disease of both small and large intestine without complication (HCC)- Primary Regional enteritis of small intestine with large intestine documented in this encounter [facility] note* Diagnosis Inflammatory bowel disease- Primary Other and unspecified noninfectious gastroenteritis and colitis documented in this encounter [facility] note* Diagnosis Crohn's disease of both small and large intestine without complication (HCC)- Primary Regional enteritis of small intestine with large intestine documented in this encounter [facility] note* Diagnosis Crohn's disease of both small and large intestine without complication (HCC)- Primary Regional enteritis of small intestine with large intestine documented in this encounter [facility] note* Diagnosis Crohn's disease of both small and large intestine without complication (HCC)- Primary Regional enteritis of small intestine with large intestine documented in this encounter [facility] for referral (narrative)* Outpatient Procedure (Routine) - Closed Specialty Diagnoses / Procedures Referred By Mari moe Referred To Contact [facility] Diagnoses Crohn's disease of large intestine with rectal bleeding (HCC) Epigastric pain Procedures EGD DIAGNOSTIC ESOPHAGOGASTRODUODENOSC OPY TRANSORAL DIAGNOSTIC Catrachito Garcia PA-C [facility] [place] [address] [place] [address] Referral ID Status Reason Start Date Expiration Date V isits Requested Visits Authorized [id number] Closed Auto-Generate d Referral 01/08/2022 01/08/2023 1 1 * Outpatient Procedure (Routine) - Closed Specialty Diagnoses / Procedures Referred By Mari moe Referred To Contact [facility] Diagnoses Crohn's disease of large intestine with rectal bleeding (HCC) Procedures COLONOSCOPY DIAGNOSTIC COLONOSCOPY FLX DX W/COLLJ SPEC WHEN Catrachito Izquierdo PA-C [address] [address] Referral ID Status Reason Start Date Expiration Date V isits Requested Visits Authorized [id number] Closed Auto-Generate d Referral 01/08/2022 01/08/2023 1 1 [facility] for referral (narrative)* Outpatient Procedure (Routine) - Pending Review Specialty Diagnoses / Procedures Referred By Contac t Referred To Contact [facility] Diagnoses Crohn's disease of both small and large intestine without complication (HCC) Procedures COLONOSCOPY DIAGNOSTIC COLONOSCOPY FLX DX W/COLLJ SPEC WHEN June Mooney APRN.CNP [address] [place] [address] [facility] [place] [id number] Referral ID Status Reason Start Date Expiration Date Visits Requested Visits Authorized [id number] Pending Review Auto-Generat ed Referral 11/12/2023 11/12/2024 1 1 [facility] for visit Narrative* Outpatient Procedure (Routine) - Closed Specialty Diagnoses / Procedures Referred By Contnaa moe Referred To Contact [facility] Diagnoses Crohn's disease of large intestine with rectal bleeding (HCC) Epigastric pain Procedures EGD DIAGNOSTIC ESOPHAGOGASTRODUODENOSC OPY TRANSORAL DIAGNOSTIC Catrachito Garcia PA-C [facility] [address] [address] Referral ID Status Reason Start Date Expiration Date V isits Requested Visits Authorized [id number] Closed Auto-Generate d Referral 01/08/2022 01/08/2023 1 1 [facility] Summary Purpose Family History No Family History [...] Date Expiration Date Visits Requested Visits Authorized [id number] Pending Review Auto-Generat ed Referral 01/08/2022 02/07/2023 1 1 Specialty Diagnoses / Procedures Referred By Contac t Referred To Contact [facility] Diagnoses Crohn's disease of large intestine with rectal bleeding (HCC) Epigastric pain Procedures EGD DIAGNOSTIC ESOPHAGOGASTRODUODENOSC OPY TRANSORAL DIAGNOSTIC Catrachito Garcia PA-C [facility] [address] [place] [address] Referral ID Status Reason Start Date Expiration Date Visits Requested Visits Authorized [id number] Authorized Auto-Generat ed Referral 01/08/2022 01/08/2023 1 1 Specialty Diagnoses / Procedures Referred By Contac t Referred To Contact [facility] Diagnoses Crohn's disease of large intestine with rectal bleeding (HCC) Procedures COLONOSCOPY DIAGNOSTIC COLONOSCOPY FLX DX W/COLLJ SPEC WHEN PFRMD Catrachito Garcia PA-C [facility] [place] [address] [place] [address] Referral ID Status Reason Start Date Expiration Date Visits Requested Visits Authorized [id number] Authorized Auto-Generat ed Referral 01/08/2022 01/08/2023 1 1 Referral ID Status Reason Start Date Expiration Date V isits Requested Visits Authorized [id number] Closed Auto-Generate d Referral 01/08/2022 02/07/2023 1 1 Specialty Diagnoses / Procedures Referred By Contac t Referred To Contact Nutrition Diagnoses Crohn's disease of large intestine with rectal bleeding (HCC) Procedures CONSULT TO NUTRITION THERAPY OFFICE/OUTPATIENT NEW HIGH MDM 60-74 MINUTES Catrachito Garcia PA-C Referral ID Status Reason Start Date Expiration Date Visits Requested Visits Authorized [id number] Pending Review PCP Requested Referral 02/10/2022 02/10/2023 [...] DATE CREATED AUTHOR AUTHOR'S ORGANIZ ATION 01/31/2022 [facility] DATE CREATED AUTHOR AUTHOR'S ORGANIZ ATION 07/16/2023 [facility] DATE CREATED AUTHOR AUTHOR'S ORGANIZ ATION 11/18/2023 [facility] Source Comments (unrecognize d section and content) In the event this informatio n is protected by the Federal Confidentiality of Alcohol and Drug Abuse Patient Records regulations: The Federal rules restrict any use of the information to criminally investigate or prosecute any alcohol or drug abuse patient.[facility] the event this information is protected by the Federal Confidentiality of Alcohol and Drug Abuse Patient Records regulations: The Federal rules restrict any use of the information to criminally investigate or prosecute any alcohol or drug abuse patient.[facility]In the event this information is protected by the Federal Confidentiality of Alcohol and Drug Abuse Patient Records regulations: The Federal rules restrict any use of the information to criminally investigate or prosecute any alcohol or drug abuse patient.[facility]In the event this information is protected by the Federal Confidentiality of Alcohol and Drug Abuse Patient Records regulations: The Federal rules restrict any use of the information to criminally investigate or prosecute any alcohol or drug abuse patient.[facility]In the event this information is protected by the Federal Confidentiality of Alcohol and Drug Abuse Patient Records regulations: The Federal rules restrict any use of the information to criminally investigate or prosecute any alcohol or drug abuse patient.[facility] HospitalIn the event this information is protected by the Federal Confidentiality of Alcohol and Drug Abuse Patient Records regulations: The Federal rules restrict any use of the information to criminally investigate or prosecute any alcohol or drug abuse patient.[facility] HospitalIn the event this information is protected by the Federal Confidentiality of Alcohol and Drug Abuse Patient Records regulations: The Federal rules restrict any use of the information to criminally investigate or prosecute any alcohol or drug abuse patient.[facility] HospitalIn the event this information is protected by the Federal Confidentiality of Alcohol and Drug Abuse Patient Records regulations: The Federal rules restrict any use of the information to criminally investigate or prosecute any alcohol or drug abuse patient.[facility] HospitalIn the event this information is protected by the Federal Confidentiality of Alcohol and Drug Abuse Patient Records regulations: The Federal rules restrict any use of the information to criminally investigate or prosecute any alcohol or drug abuse patient.[facility] HospitalIn the event this information is protected by the Federal Confidentiality of Alcohol and Drug Abuse Patient Records regulations: The Federal rules restrict any use of the information to criminally investigate or prosecute any alcohol or drug abuse patient.[facility] HospitalIn the event this information is protected by the Federal Confidentiality of Alcohol and Drug Abuse Patient Records regulations: The Federal rules restrict any use of the information to criminally investigate or prosecute any alcohol or drug abuse patient.[facility] HospitalIn the event this information is protected by the Federal Confidentiality of Alcohol and Drug Abuse Patient Records regulations: The Federal rules restrict any use of the information to criminally investigate or prosecute any alcohol or drug abuse patient.[facility] HospitalIn the event this information is protected by the Federal Confidentiality of Alcohol and Drug Abuse Patient Records regulations: The Federal rules restrict any use of the information to criminally investigate or prosecute any alcohol or drug abuse patient.[facility] HospitalIn the event this information is protected by the Federal Confidentiality of Alcohol and Drug Abuse Patient Records regulations: The Federal rules restrict any use of the information to criminally investigate or prosecute any alcohol or drug abuse patient.[facility] HospitalIn the event this information is protected by the Federal Confidentiality of Alcohol and Drug Abuse Patient Records regulations: The Federal rules restrict any use of the information to criminally investigate or prosecute any alcohol or drug abuse patient.[facility] HospitalIn the event this information is protected by the Federal Confidentiality of Alcohol and Drug Abuse Patient Records regulations: The Federal rules restrict any use of the information to criminally investigate or prosecute any alcohol or drug abuse patient.[facility] HospitalIn the event this information is protected by the Federal Confidentiality of Alcohol and Drug Abuse Patient Records regulations: The Federal rules restrict any use of the information to criminally investigate or prosecute any alcohol or drug abuse patient.[facility] HospitalIn the event this information is protected by the Federal Confidentiality of Alcohol and Drug Abuse Patient Records regulations: The Federal rules restrict any use of the information to criminally investigate or prosecute any alcohol or drug abuse patient.[facility] HospitalIn the event this information is protected by the Federal Confidentiality of Alcohol and Drug Abuse Patient Records regulations: The Federal rules restrict any use of the information to criminally investigate or prosecute any alcohol or drug abuse patient.[facility] HospitalIn the event this information is protected by the Federal Confidentiality of Alcohol and Drug Abuse Patient Records regulations: The Federal rules restrict any use of the information to criminally investigate or prosecute any alcohol or drug abuse patient.[facility] HospitalIn the event this information is protected by the Federal Confidentiality of Alcohol and Drug Abuse Patient Records regulations: The Federal rules restrict any use of the information to criminally investigate or prosecute any alcohol or drug abuse patient.[facility] HospitalIn the event this information is protected by the Federal Confidentiality of Alcohol and Drug Abuse Patient Records regulations: The Federal rules restrict any use of the information to criminally investigate or prosecute any alcohol or drug abuse patient.[facility] HospitalIn the event this information is protected by the Federal Confidentiality of Alcohol and Drug Abuse Patient Records regulations: The Federal rules restrict any use of the information to criminally investigate or prosecute any alcohol or drug abuse patient.[facility] HospitalIn the event this information is protected by the Federal Confidentiality of Alcohol and Drug Abuse Patient Records regulations: The Federal rules restrict any use of the information to criminally investigate or prosecute any alcohol or drug abuse patient.[facility] HospitalIn the event this information is protected by the Federal Confidentiality of Alcohol and Drug Abuse Patient Records regulations: The Federal rules restrict any use of the information to criminally investigate or prosecute any alcohol or drug abuse patient.[facility] HospitalIn the event this information is protected by the Federal Confidentiality of Alcohol and Drug Abuse Patient Records regulations: The Federal rules restrict any use of the information to criminally investigate or prosecute any alcohol or drug abuse patient.[facility] HospitalIn the event this information is protected by the Federal Confidentiality of Alcohol and Drug Abuse Patient Records regulations: The Federal rules restrict any use of the information to criminally investigate or prosecute any alcohol or drug abuse patient.[facility] HospitalIn the event this information is protected by the Federal Confidentiality of Alcohol and Drug Abuse Patient Records regulations: The Federal rules restrict any use of the information to criminally investigate or prosecute any alcohol or drug abuse patient.[facility] HospitalIn the event this information is protected by the Federal Confidentiality of Alcohol and Drug Abuse Patient Records regulations: The Federal rules restrict any use of the information to criminally investigate or prosecute any alcohol or drug abuse patient.[facility] HospitalIn the event this information is protected by the Federal Confidentiality of Alcohol and Drug Abuse Patient Records regulations: The Federal rules restrict any use of the information to criminally investigate or prosecute any alcohol or drug abuse patient.[facility] HospitalIn the event this information is protected by the Federal Confidentiality of Alcohol and Drug Abuse Patient Records regulations: The Federal rules restrict any use of the information to criminally investigate or prosecute any alcohol or drug abuse patient.[facility] HospitalIn the event this information is protected by the Federal Confidentiality of Alcohol and Drug Abuse Patient Records regulations: The Federal rules restrict any use of the information to criminally investigate or prosecute any alcohol or drug abuse patient.[facility] HospitalIn the event this information is protected by the Federal Confidentiality of Alcohol and Drug Abuse Patient Records regulations: The Federal rules restrict any use of the information to criminally investigate or prosecute any alcohol or drug abuse patient.[facility] HospitalIn the event this information is protected by the Federal Confidentiality of Alcohol and Drug Abuse Patient Records regulations: The Federal rules restrict any use of the information to criminally investigate or prosecute any alcohol or drug abuse patient.[facility] HospitalIn the event this information is protected by the Federal Confidentiality of Alcohol and Drug Abuse Patient Records regulations: The Federal rules restrict any use of the information to criminally investigate or prosecute any alcohol or drug abuse patient.[facility] HospitalIn the event this information is protected by the Federal Confidentiality of Alcohol and Drug Abuse Patient Records regulations: The Federal rules restrict any use of the information to criminally investigate or prosecute any alcohol or drug abuse patient.[facility] HospitalIn the event this information is protected by the Federal Confidentiality of Alcohol and Drug Abuse Patient Records regulations: The Federal rules restrict any use of the information to criminally investigate or prosecute any alcohol or drug abuse patient.[facility] HospitalIn the event this information is protected by the Federal Confidentiality of Alcohol and Drug Abuse Patient Records regulations: The Federal rules restrict any use of the information to criminally investigate or prosecute any alcohol or drug abuse patient.[facility] HospitalIn the event this information is protected by the Federal Confidentiality of Alcohol and Drug Abuse Patient Records regulations: The Federal rules restrict any use of the information to criminally investigate or prosecute any alcohol or drug abuse patient.[facility] HospitalIn the event this information is protected by the Federal Confidentiality of Alcohol and Drug Abuse Patient Records regulations: The Federal rules restrict any use of the information to criminally investigate or prosecute any alcohol or drug abuse patient.[facility] HospitalIn the event this information is protected by the Federal Confidentiality of Alcohol and Drug Abuse Patient Records regulations: The Federal rules restrict any use of the information to criminally investigate or prosecute any alcohol or drug abuse patient.[facility] HospitalIn the event this information is protected by the Federal Confidentiality of Alcohol and Drug Abuse Patient Records regulations: The Federal rules restrict any use of the information to criminally investigate or prosecute any alcohol or drug abuse patient.[facility] HospitalIn the event this information is protected by the Federal Confidentiality of Alcohol and Drug Abuse Patient Records regulations: The Federal rules restrict any use of the information to criminally investigate or prosecute any alcohol or drug abuse patient.[facility] HospitalIn the event this information is protected by the Federal Confidentiality of Alcohol and Drug Abuse Patient Records regulations: The Federal rules restrict any use of the information to criminally investigate or prosecute any alcohol or drug abuse patient.[facility] HospitalIn the event this information is protected by the Federal Confidentiality of Alcohol and Drug Abuse Patient Records regulations: The Federal rules restrict any use of the information to criminally investigate or prosecute any alcohol or drug abuse patient.[facility] HospitalIn the event this information is protected by the Federal Confidentiality of Alcohol and Drug Abuse Patient Records regulations: The Federal rules restrict any use of the information to criminally investigate or prosecute any alcohol or drug abuse patient.[facility] HospitalIn the event this information is protected by the Federal Confidentiality of Alcohol and Drug Abuse Patient Records regulations: The Federal rules restrict any use of the information to criminally investigate or prosecute any alcohol or drug abuse patient.[facility] HospitalIn the event this information is protected by the Federal Confidentiality of Alcohol and Drug Abuse Patient Records regulations: The Federal rules restrict any use of the information to criminally investigate or prosecute any alcohol or drug abuse patient.[facility] HospitalIn the event this information is protected by the Federal Confidentiality of Alcohol and Drug Abuse Patient Records regulations: The Federal rules restrict any use of the information to criminally investigate or prosecute any alcohol or drug abuse patient.[facility] Reason for Visit (unrecogniz ed section and content) Specialty Diagnoses / Procedures Referred By Contac t Referred To Contact Diagnoses Crohn's disease of both small and large intestine without complication (HCC) Procedures INJECTION, VEDOLIZUMAB Jt Perez MD [address] [place] [address] Atul [facility] [address] [place] [address] Referral ID Status Reason Start Date Expiration Date V isits Requested Visits Authorized [id number] Authorized 06/27/2022 06/17/2024 99 99 Reason Comments Immunotherapy Referral ID Status Reason Start Date Expiration Date V isits Requested Visits Authorized [id number] Authorized 06/27/2022 06/30/2023 99 99 Reason Comments [...] Expiration Date V isits Requested Visits Authorized [id number] Closed Auto-Generate d Referral 01/08/2022 02/07/2023 1 1 Reason Comments Crohns Reason Comments Nutrition Assessment Specialty Diagnoses / Procedures Referred By Contac t Referred To Contact Nutrition Diagnoses Crohn's disease of large intestine with rectal bleeding (HCC) Procedures CONSULT TO NUTRITION THERAPY OFFICE/OUTPATIENT [facility] 60-74 MINUTES Catrachito Garcia PA-C Referral ID Status Reason Start Date Expiration Date Visits Requested Visits Authorized [id number] Pending Review PCP Requested Referral 02/10/2022 02/10/2023 [...] Expiration Date V isits Requested Visits Authorized [id number] Authorized 06/27/2022 10/20/2024 17 17 Care Teams (unrecognized sec tion and content) Adjunct Faculty Mathematics Department Relationship Specialty Start Date End Date PolagilbertKarthik arndtahsan Zamudio [address] [place] [address] PCP - General Family Practice 04/04/20 Adjunct Faculty Mathematics Department Relationship Specialty Start Date End Date Tiffanie Jallohslade Zamudio [address] [place], [place] [id number] PCP - General Family Practice 04/04/20 Adjunct Faculty Mathematics Department Relationship Specialty Start Date End Date JimenezKarthik arndtahsan Zamudio [address] [place], [place] [id number] PCP - General Family Practice 04/04/20 Adjunct Faculty Mathematics Department Relationship Specialty Start Date End Date Shubham Avaniahsan Zamudio [address] [place], [place] [id number] PCP - General Family Practice 04/04/20 Adjunct Faculty Mathematics Department Relationship Specialty Start Date End Date Avani Jalloh [place] [address] PCP - General Family Practice 04/04/20 Adjunct Faculty Mathematics Department Relationship Specialty Start Date End Date Avani Jalloh [place] [address] PCP - General Family Practice 04/04/20 Adjunct Faculty Mathematics Department Relationship Specialty Start Date End Date Avani Jalloh [place] [address] PCP - General Family Practice 04/04/20 Adjunct Faculty Mathematics Department Relationship Specialty Start Date End Date Avani Jalloh [place] [address] PCP - General Family Practice 04/04/20 Adjunct Faculty Mathematics Department Relationship Specialty Start Date End Date Avani Jalloh [place] [address] PCP - General Family Practice 04/04/20 Adjunct Faculty Mathematics Department Relationship Specialty Start Date End Date Avani Jalloh [place] [address] PCP - General Family Practice 04/04/20 Adjunct Faculty Mathematics Department Relationship Specialty Start Date End Date Avani Jalloh [place] [address] PCP - General Family Practice 04/04/20 Adjunct Faculty Mathematics Department Relationship Specialty Start Date End Date Avani Jalloh [address] [place] [address] PCP - General Family Practice 04/04/20 Adjunct Faculty Mathematics Department Relationship Specialty Start Date End Date Avani Jall[address] [place] [address] PCP - General Family Practice 04/04/20 Adjunct Faculty Mathematics Department Relationship Specialty Start Date End Date Avani Jalloh [place] [address] PCP - General Family Practice 04/04/20 Adjunct Faculty Mathematics Department Relationship Specialty Start Date End Date Avani Jalloh [address] [place] [address] PCP - General Family Practice 04/04/20 Adjunct Faculty Mathematics Department Relationship Specialty Start Date End Date Avani Jalloh [place] [address] PCP - General Family Medicine 04/04/20 Adjunct Faculty Mathematics Department Relationship Specialty Start Date End Date Avani Jalloh [place] [address] PCP - General Family Medicine 04/04/20 Adjunct Faculty Mathematics Department Relationship Specialty Start Date End Date Avani Jalloh [place] [address] PCP - General Family Medicine 04/04/20 Adjunct Faculty Mathematics Department Relationship Specialty Start Date End Date Avani Jalloh [address] [place] [address] PCP - General Family Medicine 04/04/20 Adjunct Faculty Mathematics Department Relationship Specialty Start Date End Date Avani Jalloh [address] [place] [address] PCP - General Family Medicine 04/04/20 Adjunct Faculty Mathematics Department Relationship Specialty Start Date End Date Avani Jalloh [address] [place] [address] PCP - General Family Medicine 04/04/20 Adjunct Faculty Mathematics Department Relationship Specialty Start Date End Date Avani Jalloh [address] [place] [address] PCP - General Family Medicine 04/04/20 Adjunct Faculty Mathematics Department Relationship Specialty Start Date End Date Avani Jalloh [address] [place] [address] PCP - General Family Medicine 04/04/20 Adjunct Faculty Mathematics Department Relationship Specialty Start Date End Date Avani Jalloh MD [address] [place] [address] PCP - General Family Medicine 04/04/20 Adjunct Faculty Mathematics Department Relationship Specialty Start Date End Date Avani Jalloh MD [address] [place] [address] PCP - General Family Medicine 04/04/20 Adjunct Faculty Mathematics Department Relationship Specialty Start Date End Date Avani Jalloh MD [address] [place] [address] PCP - General Family Medicine 04/04/20 Adjunct Faculty Mathematics Department Relationship Specialty Start Date End Date Avani Jalloh MD [address] [place] [address] PCP - General Family Medicine 04/04/20 Adjunct Faculty Mathematics Department Relationship Specialty Start Date End Date Avani Jalloh MD [address] [place] [address] PCP - General Family Medicine 04/04/20 Adjunct Faculty Mathematics Department Relationship Specialty Start Date End Date Avani Jalloh MD [address] [place] [address] PCP - General Family Medicine 04/04/20 Adjunct Faculty Mathematics Department Relationship Specialty Start Date End Date Avani Jalloh MD [address] [place] [address] PCP - General Family Medicine 04/04/20 Adjunct Faculty Mathematics Department Relationship Specialty Start Date End Date Robbie Rob MD [address] [place] [address] PCP - General Internal Medicine 05/25/23 Adjunct Faculty Mathematics Department Relationship Specialty Start Date End Date Robbie Rob MD [address] [place] [address] PCP - General Internal Medicine 05/25/23 Adjunct Faculty Mathematics Department Relationship Specialty Start Date End Date Robbie Rob MD [address] [place] [address] PCP - General Internal Medicine 05/25/23 Adjunct Faculty Mathematics Department Relationship Specialty Start Date End Date Robbie Rob MD [address] [place] [address] PCP - General Internal Medicine 05/25/23 Adjunct Faculty Mathematics Department Relationship Specialty Start Date End Date Robbie Rob MD [address] [place] [address] PCP - General Internal Medicine 05/25/23 Adjunct Faculty Mathematics Department Relationship Specialty Start Date End Date Robbie Rob MD [address] [place] [address] PCP - General Internal Medicine 05/25/23 Inactive [...] BE BASED ON THE PRIMARY CLINICAL RECORDS. [employer] [facility]. provides no warranty or guarantee of the accuracy or completeness of information in this document.
[2023-11-27 03:11] LABS: Absolute Lymphocyte Count 1.81 X10^3/uL (0.83-4.51); Absolute Neutrophil Count 9.7 X10^3/uL (2.0-7.7); Basophil# 0.05 X10^3/uL; Basophil% 0.4 % (0-1); Eosinophil# 0.05 X10^3/uL; Eosinophils% 0.4 % (0-5); Hematocrit 41.2 % (37-47); Hemoglobin 14.3 g/dL (12.0-15.0); Lymphocyte # 1.81 X10^3/ul (0.83-4.51); Lymphocyte % 14.5 % (19-41); Mean Corp Hgb Conc 34.7 g/dL (32-36); Mean Corpuscular Hgb 31.2 pg (27.0-32.0); Mean Platelet Vol. 10.9 fl (6.2-12.0); Monocyte# 0.81 X10^3/uL; Monocyte% 6.5 % (0-10); NRBC Flagged by Analyzer 0 % (0-5); Neutrophil # 9.65 X10^3/uL (2.7-7.7); Neutrophil % 77.5 % (47-70); Platelet Count 194 K/mm3 (150-450); RBC Distribution Width CV 13.2 % (11.6-14.6); RBC Distribution Width SD 43.5 fl (35.1-43.9); Red Blood Count 4.58 M/mm3 (4.2-5.4); White Blood Count 12.5 K/mm3 (4.4-11.0)
[2023-11-27] MEDS: Penicillin G Pot 5,000,000 UNITS in 0.9% Normal Saline (100mL MB+) 100 ML 150 UNITS IV (03:32)
[2023-11-27] MEDS: Lactated Ringers 1,000 ML 200 ML IV (03:35)
[2023-11-27 04:13] LABS: Syphilis Antibodies Non-reactive
--- NOTE | 2023-11-27 05:05 | OP.PCM_ITS ---
Assessment & Plan (1) Active labor at term: (2) GBS (group B Streptococcus carrier), +RV culture, currently : COMMENT: treat in labor (3) Anxiety: COMMENT: in counseling, no meds (4) AMA (advanced maternal age) multigravida 35+: QUALIFIERS: Trimester: second trimester Qualified Code(s): O09.522 - Supervision of elderly multigravida, second trimester COMMENT: plan 36 week growth US (80%-3126 grams on 11/06 EFW at 40 weeks- 4026grams) and delivery by 40 weeks (5) Rh negative status during : QUALIFIERS: Trimester: second trimester Qualified Code(s): O26.892 - Other specified related conditions, second trimester; Z67.91 - Unspecified blood type, Rh negative COMMENT: rhogam at 28 week, prn for bleeding, Rhogam given 09/15/23 (6) Obesity (BMI 30.0-34.9): COMMENT: early 1 hour-NORMAL healthy weight gain (7) Supervision of high-risk : QUALIFIERS: Trimester: second trimester Qualified Code(s): O09.92 - Supervision of high risk , unspecified, second trimester COMMENT: PRR, BOB 12/04/2023 girl PC- (boy) Olegario. : Brett (8) : QUALIFIERS: Weeks of gestation: 38 weeks Qualified Code(s): Z3A.38 - 38 weeks gestation of COMMENT: NIPT LR, carrier declined, plan afp, nl anatomy (9) Hypothyroid: QUALIFIERS: Hypothyroidism type: acquired Qualified Code(s): E03.9 - Hypothyroidism, unspecified COMMENT: on synthyroid monitor TSH/free t4 q trimester. (10) Crohn disease: QUALIFIERS: Digestive disease complication type: unspecified complication Gastrointestinal tract location: unspecified location Qualified Code(s): K50.919 - Crohn's disease, unspecified, with unspecified complications COMMENT: entyvio infusions every 8 weeks, vitamin studies ordered (11) History of delivery: COMMENT: secondary to NRFHTS, plan TOLAC if able by 40weeks: JV 12/04 0700 (12) Vaginal after : COMMENT: SM 39 IAL Maternal Data Information BOB Calculator Estimated Delivery Date Method Current WG Current Estimate 12/04/23 LMP (Certain) 39w 0d Vaginal Delivery Operative Information Date of Procedure: 11/27/23 Pre-Operative Diagnosis: see a/p diagnoses Post-Operative Diagnosis: same Surgery / Procedure Performed: Type of Anesthesia: Epidural Special Medications: none Estimated Blood Loss: 300 Fluids Replaced: crystalloid Findings Description of Procedure: Patient began pushing and delivered the head in the BEE presentation. The head was delivered atraumatically and a loose nuchal cord ?1 was identified and the infant delivered through without complication. The anterior and posterior shoulders delivered without complication followed by the rest of the infant and the was placed on the maternal abdomen. Delayed cord clamping was employed for approximately 60 seconds. Cord was clamped and cut and gentle traction was applied to the cord and the placenta delivered spontaneously immediately following it was noted to be intact with three-vessel cord. The perineum and vagina were inspected and noted to have a second degree perineal laceration which was repaired in the usual fashion with 3-0 vicryl rapide. . EBL was 300. Patient and tolerated delivery well. Amniotic Fluid Description: Clear Placental Delivery Description: Spontaneous Placenta Disposition: [facility] Cord Vessel Description: 3 Vessels Cord Entanglement: Around neck x 1, loose Delayed Cord Clamping: Yes Post Vaginal Delivery Medications Given After Delivery: IV Pitocin Episiotomy Description: None Complication Complications: None Multi Select Codes Urinary/Genital Urinary/Genital CPT Codes: 87647 delivery [facility]
[2023-11-27] MEDS: Oxytocin 15 Units/NS 250ml 15 UNITS/250 ML IV.SOLN 83 UNITS IV (05:36)
[2023-11-27] MEDS: Oxytocin 10 UNITS/ML Vial IM (05:37)
--- NOTE | 2023-11-27 06:28 | DCINST_ITS ---
Discharge Instructions Diet Discharge Diet: No restrictions Activity Discharge Activity: Return to Normal Activity, May Not Drive (while taking narcotic pain medications.) and May Shower May resume sexual activity in: 4-6 weeks Dressing / Incision Call your doctor if your incision/area has: Continuous Slow Oozing, Sudden Increased Bleeding, Increased Pain/ Swelling, Increased Redness and Foul Smelling Discharge Follow Up Care Please Follow Up With: Jenny Jim MD When: Call [phone] to make an appointment with your doctor in 6 weeks. If you had elevated blood pressure or 4th degree laceration, you will need to be seen in 2 weeks. Test Results: Test results from this visit will be discussed in further detail at your follow- up appointment, if applicable. Discharge Plan Admission Admit Date/Time: 11/27/23 02:30 Attending Provider: Jenny Jim Discharge Orders/Prescriptions Prescriptions: No Action Entyvio 300 mg recon soln .Route DIRECTED Rx Instructions: as directed DHA 200 mg capsule 200 mg PO DAILY levothyroxine 75 mcg tablet 100 mcg PO DAILY
[2023-11-27] MEDS: Levothyroxine 100 MCG Tablet PO (06:55)
--- NOTE | 2023-11-27 10:00 | NURSING ---
epidural catheter removed. blue tip was intact
[2023-11-27] MEDS: Benzocaine/Lanolin/Aloe Vera 1 SPRAY EACH TOPICAL (12:04)
[2023-11-27] MEDS: Naproxen 500 MG Tablet PO ×2 (12:05→21:09)
[2023-11-27] MEDS: Rho(D) Immune Globulin 300 MCG (1500 Unit) Syringe IV (15:35)
[2023-11-27] MEDS: 0.9% Saline Lock 10 ML Syringe IV (15:36)
[2023-11-27] MEDS: Acetaminophen 500 MG Tablet 1000 MG PO (15:50)
[2023-11-27] MEDS: Prenatal Vits Tablet 1 TABLET PO (18:22)
[2023-11-27] MEDS: Senna/Docusate Sodium 1 Tablet PO (18:22)
[2023-11-28] VITALS (8 sets, daily range): BP systolic 116–138; BP diastolic 77–94; PULSE 87–98; RESP 14–20; TEMP 36.4–36.8; O2SAT 96–97
--- NOTE | 2023-11-28 05:12 | PCM.PN.OB ---
Subjective Subjective Patient doing well without complaints. Tolerating PO. Ambulating and voiding without difficulty. feeding well. Denies chest pain, shortness of breath, calf pain/swelling, fevers, chills, lightheadedness. Objective Data Objective Data Vital Signs: Vital Signs Temp Pulse Resp BP Pulse Ox O2 Del Method 98 F 95 16 138/88 H 97 Room Air 11/28/23 00:00 11/28/23 00:00 11/28/23 00:00 11/28/23 00:00 11/28/23 00:00 11/28/23 00:00 Oxygen Delivery Method Room Air Weight: 207 lb Body Mass Index (BMI) 36.6 Intake & Output: Intake and Output for Last 24 Hours 11/26/23 11/27/23 11/28/23 23:59 23:59 23:59 Intake Total 1758.33 / 1758.33 Output Total 1200 / 1200 Balance 558.33 / 558.33 Lab / Micro Data 11/27/23 03:00 Labs: Laboratory Results - last 24 hr 11/27/23 08:00: Screen NEGATIVE, Baby's Blood Type A POSITIVE, Baby's ADYNE NEGATIVE ROS Constitutional Constitutional: Reports systems reviewed and no addt'l complaints, except as documented Cardiovascular Cardiovascular: Reports systems reviewed and no addt'l complaints, except as documented Respiratory/Chest Respiratory/Chest: Reports systems reviewed and no addt'l complaints, except as documented Gastrointestinal Gastrointestinal: Reports systems reviewed and no addt'l complaints, except as documented Physical Exam Const alert, oriented x3 and no apparent distress HEENT Head and Scalp: atraumatic Resp normal respiratory effort GI soft to palpation and non-tender Bimanual Exam - Vag & Uterus: uterus non-tender Uterus Palpation: uterus fundus firm (below Umbilicus) Assessment & Plan (1) Vaginal after : COMMENT: 39 IAL (2) Rh negative status during : QUALIFIERS: Trimester: second trimester Qualified Code(s): O26.892 - Other specified related conditions, second trimester; Z67.91 - Unspecified blood type, Rh negative COMMENT: rhogam at 28 week, prn for bleeding, Rhogam given 09/15/23 (3) Hypothyroid: QUALIFIERS: Hypothyroidism type: acquired Qualified Code(s): E03.9 - Hypothyroidism, unspecified COMMENT: on synthyroid monitor TSH/free t4 q trimester. (4) Crohn disease: QUALIFIERS: Gastrointestinal tract location: unspecified location Digestive disease complication type: unspecified complication Qualified Code(s): K50.919 - Crohn's disease, unspecified, with unspecified complications COMMENT: entyvio infusions every 8 weeks, vitamin studies ordered PLAN: Plan s/p PPD # 1 1. routine post delivery care 2. breast feeding- support given 3. rh positive 4. rubella immune
[2023-11-28] MEDS: Prenatal Vits Tablet 1 TABLET PO (12:04)
== END 2023-11-28 18:15 | disposition home or self-care (01) | DRG 806 ==
LOC: WPOUT 02:54 → WP 02:54
PROVIDERS: Admitting Provider Obstetrics & Gynecology; Referring Provider Obstetrics & Gynecology; Visit Provider Obstetrics & Gynecology
DX: O70.1 Second degree perineal laceration during delivery (principal); Z37.0 Single live birth; K50.90 Crohn's disease, unspecified, without complications; E66.8 Other obesity; E03.9 Hypothyroidism, unspecified; F41.9 Anxiety disorder, unspecified; O99.824 Streptococcus B carrier state complicating childbirth; Z87.891 Personal history of nicotine dependence; O69.81X0 Labor and delivery complicated by cord around neck, without compression, not applicable or unspecified; O99.62 Diseases of the digestive system complicating childbirth; O99.284 Endocrine, nutritional and metabolic diseases complicating childbirth; O99.214 Obesity complicating childbirth; O99.344 Other mental disorders complicating childbirth; O26.893 Other specified pregnancy related conditions, third trimester; Z67.91 Unspecified blood type, Rh negative; Z98.891 History of uterine scar from previous surgery; Z3A.38 38 weeks gestation of pregnancy
CPT/HCPCS: 59025; 59050; 85025; 85461; 86780; 86850; 86900; 86901; 90384; 99221; J7120; A4216; G0378; J2790; J2791

== ENCOUNTER 2024-02-26 11:44 | Outpatient (CLI) | payer OTHER, SELFPAY | END 2024-02-26 12:05 | disposition home or self-care (01) | LOC: WPOUT 11:57 → WP 11:57 | PROVIDERS: Referring Provider Obstetrics & Gynecology; Visit Provider Obstetrics & Gynecology | DX: Z00.00 Encounter for general adult medical examination without abnormal findings (principal) ==

== ENCOUNTER → 2024-09-01 | Outpatient (CLI) | payer OTHER, SELFPAY ==
--- NOTE | 2024-09-01 10:51 | US_ITS ---
STUDY: ULTRASOUND BREAST - LEFT REASON FOR EXAM: Female, 38 years old. Skin lesions in the left breast. TECHNIQUE: Axial and longitudinal images of the LEFT breast were performed with a high resolution ultrasound transducer. # OF IMAGES: 13 COMPARISON: None. FINDINGS: LEFT Breast: The upper half of the left breast was examined with ultrasound. At T11 to 12:00 position of the breast, there are 2 small red-colored skin abnormality suggestive possible sebaceous cyst. Incidental note is made of dilated ducts. US/Breast Limited Unilateral IMPRESSION: Superficial skin lesions as described. Dilated subareolar ducts. The patient is breast-feeding. ASSESSMENT CATEGORY: BIRADS Category 2: Benign. A letter regarding these results will be sent to the patient by the facility within 30 days. Electronically Signed: Solomon Lacey MD at 13:42 EST ,
== END | disposition home or self-care (01) ==
LOC: OPUS 10:50
PROVIDERS: PCP Internal Medicine; Referring Provider Nurse Practitioner Family; Visit Provider Nurse Practitioner Family
DX: L98.9 Disorder of the skin and subcutaneous tissue, unspecified (principal); R92.8 Other abnormal and inconclusive findings on diagnostic imaging of breast
CPT/HCPCS: 76642

== ENCOUNTER → 2025-05-29 | Outpatient (CLI) | payer OTHER, SELFPAY ==
--- NOTE | 2025-05-29 07:45 | BI_ITS ---
EXAM: SCRN MAMM (CAD)W/CAROLINE BILAT DATE: 05/29/2025 CLINICAL HISTORY: F, Age 39 y/o , SCREEN TECHNIQUE: SCRN MAMM (CAD)W/CAROLINE BILAT COMPARISON: Left breast ultrasound exam dated 09/01/2024 FINDINGS: TISSUE DENSITY: The breasts are heterogeneously dense, which may obscure small masses. Bilateral Breast Mammographic Findings: There are no suspicious masses, suspicious cluster of microcalcifications, architectural distortion or secondary signs of malignancy identified in either breast. Benign-appearing round calcifications are seen in both breasts. BI/SCRN MAMM (CAD)W/CAROLINE BILAT IMPRESSION: Benign screening mammogram. OVERALL FINAL ASSESSMENT BI-RADS 2: BENIGN RECOMMENDATION: Routine annual follow-up in 1 Year A letter with findings and recommendations will be mailed to the patient. Reading Location: [id number]
== END | disposition home or self-care (01) ==
LOC: OPBI 07:39
PROVIDERS: PCP Internal Medicine; Referring Provider Nurse Practitioner Women's Health; Visit Provider Nurse Practitioner Women's Health
DX: Z12.31 Encounter for screening mammogram for malignant neoplasm of breast (principal)
CPT/HCPCS: 77063; 77067